=== PATIENT | female | born 1960 | race Caucasian/White ===

== ENCOUNTER 2016-03-27 19:43 | Inpatient (IN) | payer OTHER ==
[~2016-03-27] VITALS: Ht 157.5 cm; Wt 91.0 kg
[~2016-03-27 19:43] MED LIST: ASPI325T4 PO; ATOR20TA38 PO; CARV3.12 PO; FURO20TA PO; LISI40TA9 PO; MTF1000T PO; OLAN5TAB5 PO; POTA8CAP PO; SERT50TA6 PO; ULT50 PO
[2016-03-27 19:45] VITALS: Ht 157.5 cm; Wt 91.0 kg
--- NOTE | 2016-03-27 20:45 | ERD ---
ER Documentation Chief Complaint Date/Time DATE: 03/27/16 TIME: 20:42 Chief Complaint cough x 8 days HPI 55-year-old female presents here in emergency department for complaints of cough for 8 days. Patient has been having dry cough, does not cough up any phlegm or blood. Patient has history of congestive heart failure. Patient denies any fever or chills. Patient does have any shortness breath or wheezing. Patient does not have any sore throat or ear pain. Patient denies any fever or chills. Patient denies any sick contacts. Patient did not take any medications of symptoms. ROS All systems reviewed and are negative except as per history of present illness. Medications Home Meds Active Scripts Azithromycin* (Zithromax*) 250 Mg Tablet, 250 MG PO .ZPACK DIRECTED, #6 TAB TAKE 500 MG (2 TABS) THE FIRST DAY THEN 250 MG (1 TAB) DAYS 2-5 Prov:WILLIE GABRIEL NP 03/27/16 Cetirizine Hcl* (Zyrtec*) 10 Mg Capsule, 10 MG PO DAILY, #30 TAB.CHEW Prov:WILLIE GABRIEL NP 03/27/16 Albuterol Sulfate* (Proair HFA*) 8.5 Gm Hfa.aer.ad, 2 PUFF INH Q4H Y for WHEEZING AND SOB, #1 INHALER Prov:WILLIE GABRIEL NP 03/27/16 Guaifenesin-Codeine Phosphate* (Guaifenesin* AC Cough Syrup) 473 Ml Liquid, 10 ML PO Q4H Y for COUGH, #120 ML Prov:WILLIE GABRIEL NP 03/27/16 Ibuprofen* (Motrin*) 400 Mg Tab, 400 MG PO Q6H Y for PAIN AND OR ELEVATED TEMP, #30 TAB Prov:WILLIE GABRIEL NP 03/27/16 Lisinopril* (Lisinopril*) 40 Mg Tablet, 20 MG PO DAILY, #30 TAB Prov:MAURIZIO SANCHEZ MD 11/27/15 Furosemide* (Lasix*) 20 Mg Tablet, 40 MG PO BID, #60 TAB Prov:MAURIZIO SANCHEZ MD 11/27/15 Aspirin* (Aspirin*) 325 Mg Tablet, 81 MG PO DAILY for 30 Days, TAB 3 Refills Prov:MAURIZIO SANCHEZ MD 11/27/15 Tramadol HCl (Tramadol HCl) 50 Mg Tablet, 50 MG PO Q6, #20 TAB Prov:TREY OATES DO 10/08/15 Metformin* (Glucophage*) 1,000 Mg Tablet, 1000 MG PO BID, #60 TAB Prov:JUANRUIZAIDEENORY DO 10/08/15 Olanzapine* (Zyprexa*) 5 Mg Tablet, 5 MG PO DAILY, #30 TAB Prov:JUANKOSTAOtisAIDEENORY DO 10/08/15 Carvedilol* (Coreg*) 3.125 Mg Tablet, 3.125 MG PO BID, #60 TAB Prov:ИВАНAIDEENORY DO 10/08/15 Atorvastatin Calcium* (Atorvastatin Calcium*) 20 Mg Tablet, 20 MG PO QHS, #30 TAB Prov:MIO JACOBS V. SOLICITOR PATENT 05/24/15 Reported Medications Sertraline Hcl* (Sertraline Hcl*) 50 Mg Tablet, 50 MG PO DAILY HS, #30 TAB 11/24/15 Potassium Chloride* (Potassium Chloride*) 8 Meq Capsule.er, 8 MEQ PO DAILY, CAP 11/24/15 Allergies Allergies: Coded Allergies: No Known Allergy (Unverified , 11/24/15) PMhx/Soc History of Surgery: No Anesthesia Reaction: No Hx Neurological Disorder: No Hx Respiratory Disorders: No Hx Cardiac Disorders: Yes (HTN, CHF, CARDIOMYOPATHY) Hx Psychiatric Problems: Yes (DEPRESSION) Hx Miscellaneous Medical Probl: No Hx Alcohol Use: No Hx Substance Use: No Hx Tobacco Use: No FmHx Family History: diabetes, other (HTN) Physical Exam Vitals Vital Signs Date Time Temp Pulse Resp B/P Pulse Ox O2 Delivery O2 Flow Rate FiO2 03/27/16 22:48 98.0 114 20 98 Room Air 03/27/16 22:00 98.3 110 113/54 98 Room Air 03/27/16 19:45 99.0 117 20 106/71 97 Physical Exam GENERAL: The patient is well developed and appropriate for usual state of health, in no apparent distress. CHEST: Clear to auscultation bilaterally. There are no rales, wheezes or rhonchi. HEART: Regular rate and rhythm. No murmurs, clicks, rubs or gallops. No S3 or S4. ABDOMEN: Soft, nontender and nondistended. Good bowel sounds. No rebound or guarding. No gross peritonitis. No gross organomegaly or masses. No Choi sign or McBurney point tenderness. BACK: No midline or flank tenderness. EXTREMITIES: Equal pulses bilaterally. There is no peripheral clubbing, cyanosis or edema. No focal swelling or erythema. Full range of motion. Grossly neurovascularly intact. NEURO: Alert and oriented. Cranial nerves 2-12 intact. Motor strength in all 4 extremities with 5/5 strength. Sensation grossly intact. Normal speech and gait. SKIN: There is no apparent rash or petechia. The skin is warm and dry. HEMATOLOGIC AND LYMPHATIC: There is no evidence of excessive bruising or lymphedema. No gross cervical, axillary, or inguinal lymphadenopathy. Result Diagram: 03/27/16205403/27/162054 Results 24 hrs Laboratory Tests Test 03/27/16 20:40 03/27/16 20:55 Urine Bilirubin NEGATIVE Urine Clarity CLEAR Urine Color LT. YELLOW Urine Glucose NEGATIVE% Urine Hemoglobin NEGATIVE Urine Ketones NEGATIVE Urine Leukocyte Esterase NEGATIVE Urine Nitrite NEGATIVE Urine Specific [place] 1.010 Urine Total Protein NEGATIVE Urine Urobilinogen 0.2 E.U./dL Urine pH 5.5 Alanine Aminotransferase (ALT/SGPT) 31IU/L Albumin 4.2g/dl Albumin/Globulin Ratio 1.10 Alkaline Phosphatase 131IU/L Anion Gap 20 Aspartate Amino Transf (AST/SGOT) 29IU/L B-Type Natriuretic Peptide 501PG/ML Basophils # 0.110^3/ul Basophils % 0.9% Blood Morphology Comment Blood Urea Nitrogen 19mg/dl Calcium Level 9.5mg/dl Carbon Dioxide Level 27mmol/L Chloride Level 97mmol/L Creatinine 0.55mg/dl Direct Bilirubin 0.00mg/dl Eosinophils # 0.310^3/ul Eosinophils % 2.1% Globulin 3.80g/dl Glucose Level 194mg/dl Hematocrit 36.8% Hemoglobin 12.7g/dl Indirect Bilirubin 0.4mg/dl Lymphocytes # 2.610^3/ul Lymphocytes % 20.6% Mean Corpuscular Hemoglobin 28.3pg Mean Corpuscular Hemoglobin Concent 34.6g/dl Mean Corpuscular Volume 81.7fl Mean Platelet Volume 8.9fl Monocytes # 0.910^3/ul Monocytes % 7.1% Neutrophils # 8.710^3/ul Neutrophils % 69.3% Nucleated Red Blood Cells # 0.010^3/ul Nucleated Red Blood Cells % 0.0/100WBC Platelet Count 60773^3/UL Potassium Level 4.6mmol/L Red Blood Count 4.5010^6/ul Red Cell Distribution Width 13.2% Sodium Level 139mmol/L Total Bilirubin 0.4mg/dl Total Protein 8.0g/dl Troponin I 0.017ng/ml White Blood Count 12.510^3/ul Current Medications Medications (Trade) Dose Ordered Sig/Honey Route PRN Reason Start Time Stop Time Status Last Admin Dose Admin Guaifenesin/ Codeine Phosphate (Robitussin Ac Liquid Cup) 10 ml ONCE ONCE PO 03/27/16 21:30 03/27/16 21:31 DC 03/27/16 22:19 Acetaminophen (Tylenol Tab) 650 mg ONCE ONCE PO 03/27/16 22:00 03/27/16 22:01 DC 03/27/16 22:18 Ibuprofen (Motrin) 400 mg ONCE ONCE PO 03/27/16 23:00 03/27/16 23:01 DC 03/27/16 23:02 Levalbuterol (Xopenex Neb) 1.25 mg ONCE ONCE HHN 03/27/16 23:00 03/27/16 23:01 DC 03/27/16 22:58 PROCEDURE: CR, chest CLINICAL INDICATION: Cough/chest pain. TECHNIQUE: AP chest. COMPARISON: Chest, 11/27/2015. FINDINGS: The heart is enlarged. There is no acute infiltrate in the lungs. No pleural effusion. IMPRESSION: 1. Cardiomegaly. RPTAT: GG .Micheal Ohara MD, MD Date Time Electronically viewed and signed by .Micheal Ohara MD, on 03/27/2016 20:51 EKG was done, read by me and sinus tachycardia at the rate of 115 bpm_, normal axis, there is no ST changes or changes in the EKG that indicates any cardiac emergencies at this time. Patient's EKG was also reviewed by Dr. Haley. Impression: no acute findings on EKG Breathing treatment of Xopenex was given here in emergency department, after treatment, patient's lungs sounds are clear and patient's oxygenation is better. Patient verbalized feeling much better. Procedures/MDM Medical Decision Making: She continues to be tachycardiac continues to feel short of breath, feels really fatigued and dizziness, I spoke to my attending physician, Dr. Hargrove, will take over care, patient will be transferred to ER 1 for further evaluation. Departure Diagnosis: Primary Impression: Cough Condition: Fair WILLIE GABRIEL NP Mar 27, 2016 20:45 Instructions: Patient is advised to take medications as prescribed. Patient is advised to rest. Patient advised to increase fluid intake, do humidifier at home and if possible, do salt water gargles. Patient is advised that if symptoms are worse, shortness of breath, uncontrolled fever, stridor, vomiting, worst signs and symptoms to return to emergency department immediately. Otherwise, patient is advised to follow up with primary doctor in 5-7 days. Departure Diagnosis: Primary Impression: Acute bronchitis Bronchitis organism: unspecified organism Qualified Code: J20.9 - Acute bronchitis, unspecified organism Condition: Stable Patient Instructions: Bronchitis, Antiobiotic Treatment (Adult) Additional Instructions: Patient is advised to take medications as prescribed. Patient is advised to rest. Patient advised to increase fluid intake, do humidifier at home and if possible, do salt water gargles. Patient is advised that if symptoms are worse, shortness of breath, uncontrolled fever, stridor, vomiting, worst signs and symptoms to return to emergency department immediately. Otherwise, patient is advised to follow up with primary doctor in 5-7 days. WILLIE GABRIEL NP Mar 27, 2016 20:45
[2016-03-27 20:50] LABS: ADD UMIC NO; URINE BILIRUBIN (Dip) NEGATIVE (NEGATIVE); URINE BLOOD (Dip) NEGATIVE (NEGATIVE); URINE COLOR LT. YELLOW (YELLOW); URINE GLUCOSE (Dip) NEGATIVE (NEGATIVE); URINE KETONES (Dip) NEGATIVE (NEGATIVE); URINE LEUKOCYTE ESTERASE (Dip) NEGATIVE (NEGATIVE); URINE NITRITE (Dip) NEGATIVE (NEGATIVE); URINE TOTAL PROTEIN (Dip) NEGATIVE (NEGATIVE); URINE UROBILINOGEN (Dip) 0.2 E.U./dL (0.1-1.0)
--- NOTE | 2016-03-27 20:52 | RADRPT ---
PROCEDURE: CR, chest CLINICAL INDICATION: Cough/chest pain. TECHNIQUE: AP chest. COMPARISON: Chest, 11/27/2015. FINDINGS: The heart is enlarged. There is no acute infiltrate in the lungs. No pleural effusion. IMPRESSION: 1. Cardiomegaly. RPTAT: GG .Micheal Ohara MD, Date Time Electronically viewed and signed by .Micheal Ohara MD, on 03/27/2016 20:51 .Y/
[2016-03-27 21:14] LABS: BASOPHIL # 0.1 10^3/ul (0.0-0.1); BASOPHILS % 0.9 % (0.0-2.0); EOSINOPHILS # 0.3 10^3/ul (0.0-0.5); EOSINOPHILS % 2.1 % (0.0-7.0); HEMATOCRIT 36.8 % (37.0-47.0); HEMOGLOBIN 12.7 g/dl (12.0-16.0); LYMPHOCYTES # 2.6 10^3/ul (0.8-2.9); LYMPHOCYTES % 20.6 % (15.0-51.0); MEAN CORPUSCULAR HEMOGLOBIN 28.3 pg (29.0-33.0); MEAN CORPUSCULAR HGB CONC 34.6 g/dl (32.0-37.0); MEAN CORPUSCULAR VOLUME 81.7 fl (82.0-101.0); MEAN PLATELET VOLUME 8.9 fl (7.4-10.4); MONOCYTE # 0.9 10^3/ul (0.3-0.9); MONOCYTES % 7.1 % (0.0-11.0); NEUTROPHIL # 8.7 10^3/ul (1.6-7.5); NEUTROPHILS % 69.3 % (39.0-77.0); PLATELET COUNT 286 10^3/UL (140-440); RED CELL DISTRIBUTION WIDTH 13.2 % (11.5-14.5); UNCORRECTED WBC 12.5 10^3/ul (4.8-10.8); WHITE BLOOD COUNT 12.5 10^3/ul (4.8-10.8)
[2016-03-27 21:17] LABS: CONDITION 1; LH ANALYZER COMMENTS 1
[2016-03-27 21:21] LABS: ALBUMIN 4.2 g/dl (3.3-4.9); POTASSIUM 4.6 mmol/L (3.5-5.1)
[2016-03-27 21:23] LABS: BILIRUBIN,INDIRECT 0.4 mg/dl (0-1.1); BILIRUBIN,TOTAL 0.4 mg/dl (0.2-1.3); CREATININE 0.55 mg/dl (0.44-1.00)
[2016-03-27 21:24] LABS: ALBUMIN/GLOBULIN RATIO 1.1; CALCIUM 9.5 mg/dl (8.4-10.2)
[2016-03-27] MEDS ORDERED: GUAIFENESIN/CODEINE 5ML CUP PO ONE (21:30)
[2016-03-27 21:38] LABS: TROPONIN-I 0.017 ng/ml (0.00-0.12)
[2016-03-27] MEDS ORDERED: ALBU8.5H3 INH (21:56)
[2016-03-27] MEDS ORDERED: IBUP400T22 PO (21:56)
[2016-03-27] MEDS ORDERED: CETI10CA PO (21:56)
[2016-03-27] MEDS ORDERED: GUAI473L22 PO (21:56)
[2016-03-27] MEDS ORDERED: AZIT250T94 PO (21:56)
[2016-03-27] MEDS ORDERED: ACETAMINOPHEN 325 MG TAB PO ONE (22:00)
[2016-03-27] MEDS ORDERED: LEVALBUTEROL (NEB) 1.25 MG/0.5 ML AMP HHN ONE (23:00)
[2016-03-27] MEDS ORDERED: IBUPROFEN 200 MG TAB PO ONE (23:00)
[2016-03-28] VITALS (10 sets, daily range): BP systolic 103–144; BP diastolic 49–73; PULSE 98–117; RESP 15–20; TEMP 98.1
--- NOTE | 2016-03-28 01:11 | EN ---
Date/Time of Note Date/Time of Note DATE: 03/28/16 TIME: 01:11 ER Progress Note Patient will be admitted to panel physician MERY CROWDER Mar 28, 2016 01:11
--- NOTE | 2016-03-28 01:52 | HP ---
Date/Time of Note Date/Time of Note DATE: 03/28/16 TIME: 01:41 Assessment/Plan VTE Prophylaxis VTE Prophylaxis Intervention: LMWH Lines/Catheters IV [facility] Saline Lock Assessment/Plan Assessment/Plan 55 yo female with a past medical history of essential hypertension, CHF with low EF 20-25%, Type II DM, dyslipidemia, who presents with cough and shortness of breath 1 week duration. 1. Shortness of breath - COPD exacerbation - will admit the patient to telemetry , obtain a CT chest, consult pulm, levaquin, sputum cultures, solu-medrol, duonebs scheduled and prn 2. Leukocytosis - continue with levaquin, monitor trend 3. CHF EF 20-30% - monitor I/O's, aspirin, fluid restrictions 4. Type II DM - hgba1c, ISS, metformin 5. Essential HTN - lisinopril, hydralazine prn for sbp > 160 6. Dyslipidemia - check lipid panel, continue with statin 7. Psych d/o - continue with seroquel 8. GI ppx - pepcid 9. DVT ppx - lovenox answered all of her questions. as per clinical course. this history and physical took greater then 45 minutes to complete HPI/ROS Admit Date/Time Admit Date/Time 03/28/2016, 1:41 am Hx of Present Illness 55 yo female with a past medical history of essential hypertension, CHF with low EF 20-25%, Type II DM, dyslipidemia, who presents with cough and shortness of breath 1 week duration. She states the cough is productive with yellowish sputum, fevers, cannot walk more than 10 steps, complains of malaise and fatigue worsening as well. Dizziness while standing. She states that her family members have been fighting a cold for a little while now. Denies any chest pain , loss of consciousness, headaches, urinary/bowel irregularities, nausea/ vomiting/diarrhea/constipation, or other constitutional symptoms. ED course: breathing treatments ECHO 11/25/2015 Conclusions 1. Normal left ventricular wall thickness. Mild enlargement of left ventricle cavity. Severe global left ventricular systolic dysfunction. Ejection fraction is visually estimated at 20-25 %. Tissue Doppler/Mitral Doppler indices are consistent with impaired relaxation (Stage I diastolic dysfunction). These segments of the LV are dyskinetic septum base segment and mid septum segment. 2. Mitral valve leaflets appear mildly thickened. Mild mitral annular calcification. Moderate mitral valve regurgitation. 3. Normal appearance of the tricuspid valve. Estimated peak PA systolic pressure 31 mmHg. There is mild tricuspid regurgitation. 4. Normal pulmonic valve appearance. There is mild pulmonic regurgitation. ROS 14 point review of systems completed, please refer to HPI for any positive findings PMH/Family/Social Past Medical History Medical History: congestive heart failure, diabetes, high cholesterol, hypertension Past Surgical History Past Surgical Hx: no surgical history Family History Significant Family History: no pertinent family hx Social History Alcohol Use: none Smoking Status: Former smoker Drug Use: none Exam/Review of Systems Vital Signs Vitals Vital Signs Date Time Temp Pulse Resp B/P Pulse Ox O2 Delivery O2 Flow Rate FiO2 03/27/16 22:55 107 26 100 21 03/27/16 22:48 98.0 Room Air 03/27/16 22:00 113/54 Exam Exam Gen Jose: moderate respiratory distress, AAOx4 HEENT: NC/AT, PERRLA, EOMI, no pharyngeal erythema, no tonsillar exudates, no lymphadenopathy, no JVD, no carotid bruits NECK: supple, no thyromegaly THORAX: symmetrical, no obvious deformities CV: S1S2, tachycardiac, no M/G/R Lungs: decreased air bibasilar, scattered rhonchi, no overt crackles, end expiratory wheezing noted Abd: soft, NT/ND, +BS, no rebound, no guarding, neg HSM EXT: no edema, no ecchymosis, no clubbing, FROM Neuro: CN II-XII grossly intact, no focal deficits Psych: good mentation, alert and oriented, good mood and affect Skin: C/D/I Labs Result Diagram: 03/27/16205403/27/162054 Medications Medications Current Medications Lorazepam (Ativan) 0.5 mg Q6H PRN IV ANXIETY; Start 03/28/16 at 02:00; Status UNV Ondansetron HCl (Zofran Inj) 4 mg Q6H PRN IV NAUSEA AND/OR VOMITING; Start 02/01 at 02:00; Status UNV Methylprednisolone Sodium Succinate (Solu-Medrol) 60 mg Q6 IV ; Start 03/28/16 at 06:00; Status UNV Nitroglycerin (Nitroglycerin (Sl Tab) 0.4 Mg) 1 tab Q5M PRN SL CHEST PAIN; Start 03/28/16 at 02:00; Status UNV Acetaminophen (Tylenol Tab) 650 mg Q6H PRN PO PAIN LEVEL 1-3 OR FEVER; Start at 02:00; Status UNV Morphine Sulfate (morphine) 2 mg Q4H PRN IV PAIN LEVEL 7-10; Start 03/28/16 at 02:00; Status UNV Famotidine (Pepcid) 20 mg Q12 PO ; Start 03/28/16 at 09:00; Status UNV Enoxaparin Sodium (Lovenox) 40 mg DAILY SC ; Start 03/28/16 at 09:00; Status UNV Procedures Procedures CXR IMPRESSION: 1. Cardiomegaly. DEBRA BENJAMIN MD Mar 28, 2016 01:52
[2016-03-28] MEDS ORDERED: DEXTROSE 50% 50 ML SYRINGE IV PRN ×2 (02:00)
[2016-03-28] MEDS ORDERED: NACL 0.9% 3 ML SYG IV SCH (02:00)
[2016-03-28] MEDS ORDERED: NITROGLYCERIN (SL) 0.4 MG TAB SL PRN (02:00)
[2016-03-28] MEDS ORDERED: ONDANSETRON 4 MG INJ IV PRN (02:00)
[2016-03-28] MEDS ORDERED: GLUCAGON 1 MG INJ IM PRN (02:00)
[2016-03-28] MEDS ORDERED: ACETAMINOPHEN 325 MG TAB PO PRN (02:00)
[2016-03-28] MEDS ORDERED: LORAZEPAM 2 MG INJ IV PRN (02:00)
[2016-03-28] MEDS ORDERED: GLUCOSE GEL 15 GRAM TUBE PO PRN ×2 (02:00)
[2016-03-28] MEDS ORDERED: ALBUTEROL/IPRATROPIUM (NEB) 3 ML AMP HHN PRN (02:00)
[2016-03-28] MEDS ORDERED: morphine 2 MG INJ IV PRN (02:00)
[2016-03-28] MEDS ORDERED: GLUCOSE GEL 15 GRAM TUBE BUCCAL PRN (02:00)
[2016-03-28 03:29] LABS: MAGNESIUM 1.5 mg/dl (1.7-2.5)
[2016-03-28 03:30] LABS: CHOL/HDL RATIO 7.4 RATIO
[2016-03-28 03:39] LABS: CK-MB 0.72 ng/ml (0.0-2.4)
[2016-03-28 03:42] LABS: TROPONIN-I 0.013 ng/ml (0.00-0.12)
[2016-03-28 04:29] LABS: THYROID STIMULATING HORMONE 2.15 MIU/L (0.465-4.680)
[2016-03-28] MEDS: ALBUTEROL/IPRATROPIUM (NEB) 3 ML AMP HHN SCH ×5 (05:12→20:33)
[2016-03-28] MEDS: traMADol 50 MG TAB PO SCH ×4 (05:26→20:55)
[2016-03-28] MEDS: METHYLPREDNISOLONE 125 MG INJ IV SCH ×3 (05:26→18:19)
[2016-03-28] MEDS: FUROSEMIDE 40 MG TAB PO SCH ×2 (05:27→18:25)
[2016-03-28] MEDS ORDERED: MAGNESIUM SULFATE 3 GM in SOD CHLORIDE 0.9% 100 ML IVPB ONE (05:30)
[2016-03-28] MEDS: LEVOFLOXACIN 500 MG TAB PO SCH (05:31)
[2016-03-28 06:21] LABS: BASOPHILS % 0.4 % (0.0-2.0); EOSINOPHILS # 0.3 10^3/ul (0.0-0.5); EOSINOPHILS % 2.4 % (0.0-7.0); HEMATOCRIT 33.9 % (37.0-47.0); HEMOGLOBIN 11.5 g/dl (12.0-16.0); LYMPHOCYTES # 2.9 10^3/ul (0.8-2.9); MEAN CORPUSCULAR HEMOGLOBIN 28.1 pg (29.0-33.0); MEAN CORPUSCULAR VOLUME 82.6 fl (82.0-101.0); MEAN PLATELET VOLUME 8.7 fl (7.4-10.4); MONOCYTE # 0.7 10^3/ul (0.3-0.9); MONOCYTES % 6.8 % (0.0-11.0); NEUTROPHIL # 6.5 10^3/ul (1.6-7.5); NEUTROPHILS % 62.4 % (39.0-77.0); PLATELET COUNT 240 10^3/UL (140-440); RED BLOOD COUNT 4.11 10^6/ul (4.20-5.40); RED CELL DISTRIBUTION WIDTH 13.3 % (11.5-14.5); UNCORRECTED WBC 10.4 10^3/ul (4.8-10.8); WHITE BLOOD COUNT 10.4 10^3/ul (4.8-10.8)
[2016-03-28 06:26] LABS: CONDITION 1
[2016-03-28 06:38] LABS: CK-MB 0.77 ng/ml (0.0-2.4)
[2016-03-28 06:41] LABS: TROPONIN-I 0.013 ng/ml (0.00-0.12)
[2016-03-28 06:50] LABS: ALBUMIN 3.8 g/dl (3.3-4.9)
[2016-03-28 06:51] LABS: POTASSIUM 4.5 mmol/L (3.5-5.1)
[2016-03-28 06:53] LABS: ALBUMIN/GLOBULIN RATIO 1.08; BILIRUBIN,INDIRECT 0.2 mg/dl (0-1.1); BILIRUBIN,TOTAL 0.2 mg/dl (0.2-1.3); CREATININE 0.55 mg/dl (0.44-1.00); TOTAL PROTEIN 7.3 g/dl (6.1-8.1)
[2016-03-28 06:54] LABS: CALCIUM 9.1 mg/dl (8.4-10.2)
[2016-03-28] MEDS: metFORMIN 500 MG TAB PO SCH ×2 (08:00→18:19)
[2016-03-28] MEDS ORDERED: NON-FORMULARY/PATIENT OWN MED (Cetirizine Hcl* (Zyrtec*) 10 MG) PO SCH (09:00)
[2016-03-28] MEDS ORDERED: ASPIRIN 325 MG TAB PO SCH (09:00)
[2016-03-28] MEDS: INSULIN ASPART [NOVOLOG] 3 ML PEN SC SCH ×4 (10:23→20:51)
[2016-03-28] MEDS: LORATADINE 10 MG TAB PO SCH (10:26)
[2016-03-28] MEDS: FAMOTIDINE 20 MG TAB PO SCH ×2 (10:26→20:41)
[2016-03-28] MEDS: POTASSIUM CHLORIDE (SR) 8 MEQ CAP PO SCH (10:26)
[2016-03-28] MEDS: LISINOPRIL 20 MG TAB PO SCH (10:27)
[2016-03-28] MEDS: ENOXAPARIN 40 MG/0.4 ML SYG SC SCH (10:33)
[2016-03-28] MEDS: ASPIRIN 81 MG TAB PO SCH (10:48)
[2016-03-28] MEDS: OLANZAPINE 5 MG TAB PO SCH (10:48)
[2016-03-28] MEDS ORDERED: IODIXANOL LOCM 100 ML BTL ONE (15:00)
[2016-03-28] MEDS ORDERED: SOD CHLORIDE 0.9% 100 ML ONE (15:00)
--- NOTE | 2016-03-28 15:48 | RADRPT ---
PROCEDURE: CT Chest with contrast. CLINICAL INDICATION: Shortness of breath TECHNIQUE: CT scan of the chest with contrast was performed on the [employer] CT scanner. The pat ient was scanned following the uncomplicated intravenous administration of 90 cc of Visipaque 320 in travenous contrast. Coronal and sagittal reformatted images were obtained from the axial source imag es. DLP 585.9 mGycm CTDIvol 15.8 mGy COMPARISON: None. FINDINGS: There is no lung consolidation or pleural effusion or pneumothorax. There is mosaic attenuation of t he lungs present of mild severity with areas of mild basilar ground-glass. Mild bilateral airways wa ll thickening is seen with foci of mucus plugging within the right lower lobe. Aortic and coronary artery atherosclerotic calcifications are present. There is moderate cardiomegal y. There are no enlarged axillary or mediastinal lymph nodes. There is fatty infiltration of the liver. Degenerative changes are seen within the thoracic spine an d shoulders with no acute osseous abnormality. IMPRESSION: Airways wall thickening is seen with foci of right lower lobe mucus plugging that could represent ai rways inflammation or infection. There is associated mosaic attenuation of the lungs suggestive for air trapping. Trace peribronchial ground-glass could represent mild parenchymal inflammation of th e lungs. Atherosclerotic disease is present. There is moderate cardiomegaly. Fatty liver. RPTAT: AA .Tanner Christensen MD, Date Time Electronically viewed and signed by .Tanner Christensen MD, on 03/28/2016 15:48 .J/
[2016-03-28] MEDS ORDERED: INSULIN GLARGINE [LANtus] 3 ML PEN SC ONE (19:00)
[2016-03-28] MEDS: ATORVASTATIN 20 MG TAB PO SCH (20:41)
[2016-03-28] MEDS: SERTRALINE 50 MG TAB PO SCH (20:41)
[2016-03-29] VITALS (12 sets, daily range): BP systolic 98–125; BP diastolic 52–68; PULSE 100–117; RESP 16–22
[2016-03-29] MEDS: traMADol 50 MG TAB PO SCH ×4 (00:01→17:38)
[2016-03-29] MEDS: METHYLPREDNISOLONE 125 MG INJ IV SCH ×4 (00:02→17:39)
[2016-03-29] MEDS: ALBUTEROL/IPRATROPIUM (NEB) 3 ML AMP HHN SCH ×6 (01:28→20:02)
[2016-03-29] MEDS: LEVOFLOXACIN 500 MG TAB PO SCH (05:00)
[2016-03-29] MEDS: FUROSEMIDE 40 MG TAB PO SCH ×2 (05:02→17:37)
[2016-03-29 06:59] LABS: BASOPHILS % 0.2 % (0.0-2.0); HEMOGLOBIN 12.5 g/dl (12.0-16.0); LYMPHOCYTES # 1.4 10^3/ul (0.8-2.9); LYMPHOCYTES % 8.2 % (15.0-51.0); MEAN CORPUSCULAR HEMOGLOBIN 28.1 pg (29.0-33.0); MEAN CORPUSCULAR HGB CONC 33.8 g/dl (32.0-37.0); MEAN CORPUSCULAR VOLUME 83.2 fl (82.0-101.0); MEAN PLATELET VOLUME 8.7 fl (7.4-10.4); MONOCYTE # 0.2 10^3/ul (0.3-0.9); MONOCYTES % 1.3 % (0.0-11.0); NEUTROPHIL # 15.2 10^3/ul (1.6-7.5); NEUTROPHILS % 90.3 % (39.0-77.0); PLATELET COUNT 322 10^3/UL (140-440); RED BLOOD COUNT 4.45 10^6/ul (4.20-5.40); RED CELL DISTRIBUTION WIDTH 13.5 % (11.5-14.5); UNCORRECTED WBC 16.9 10^3/ul (4.8-10.8); WHITE BLOOD COUNT 16.9 10^3/ul (4.8-10.8)
[2016-03-29 07:06] LABS: CONDITION 1; LH ANALYZER COMMENTS 1
[2016-03-29 07:13] LABS: CREATININE 0.59 mg/dl (0.44-1.00)
[2016-03-29 07:14] LABS: CALCIUM 9.9 mg/dl (8.4-10.2)
[2016-03-29] MEDS: metFORMIN 500 MG TAB PO SCH (08:20)
[2016-03-29] MEDS: FAMOTIDINE 20 MG TAB PO SCH ×2 (08:20→21:00)
[2016-03-29] MEDS: ASPIRIN 81 MG TAB PO SCH (08:21)
[2016-03-29] MEDS: POTASSIUM CHLORIDE (SR) 8 MEQ CAP PO SCH (08:21)
[2016-03-29] MEDS: OLANZAPINE 5 MG TAB PO SCH (08:21)
[2016-03-29] MEDS: LORATADINE 10 MG TAB PO SCH (08:21)
[2016-03-29] MEDS: LISINOPRIL 20 MG TAB PO SCH (08:21)
[2016-03-29] MEDS: INSULIN ASPART [NOVOLOG] 3 ML PEN SC SCH ×6 (08:22→21:13)
[2016-03-29] MEDS: ENOXAPARIN 40 MG/0.4 ML SYG SC SCH (08:23)
[2016-03-29] MEDS ORDERED: INSULIN GLARGINE [LANtus] 3 ML PEN SC SCH (09:00)
[2016-03-29] MEDS: LEVOFLOXACIN 750MG/D5W (PMX) 150 ML IVPB SCH (10:04)
--- NOTE | 2016-03-29 11:06 | PN ---
DATE: 03/29/2016 SUBJECTIVE: The patient still complaining of some headache symptoms and shortness of breath symptoms. Denies any fevers or chills. No significant nausea or vomiting. OBJECTIVE VITAL SIGNS: Stable. GENERAL: The patient is lying in bed, answering questions appropriately. No acute distress. HEENT: Pupils equal, round, reactive to light. Extraocular muscles intact. NECK: Supple, no thyromegaly. LUNGS: Slightly decreased breath sounds bilaterally with some mild rhonchi bilaterally. Mild wheezing heard as well. CARDIOVASCULAR: S1, S2 heard. No rubs or gallops. ABDOMEN: Soft, nontender, nondistended. Normal bowel sounds. No rebound or guarding. MUSCULOSKELETAL: No lower extremity edema bilaterally. NEUROLOGIC: No focal deficits. LABORATORY DATA: Basic metabolic panel is essentially normal except the BUN is high at 27 and the glucose is 317. A1c is 8.1. CBC: WBC 16.9, hemoglobin 12.5 , hematocrit 37.0, platelets of 322. IMAGING: CT chest was performed that showed some airway wall thickening seen with foci of right lower lobe mucous plugging could represent inflammation or infection. There is also associated mosaic attenuation in the lungs suggestive of airtrapping. Trace peribronchial ground glass could represent mild parenchymal inflammation of the lungs. ASSESSMENT AND PLAN: A 55-year-old female with past medical history of essential hypertension, CHF, cardiomyopathy with ejection fraction 20% to 25%, type 2 diabetes and high cholesterol, presents with shortness of breath and cough with signs chronic obstructive pulmonary disease exacerbation and upper respiratory infections. 1. Shortness of breath. Again, secondary to chronic obstructive pulmonary disease exacerbation, possible component of upper respiratory infection as well. Continue Levaquin antibiotics, follow up sputum cultures. Continue breathing treatments and Solu-Medrol as well. Monitor breathing status as well. Check labs in the morning. 2. Leukocytosis, possibly secondary to a combination of mild upper respiratory infection and the steroids that are being delivered so continue antibiotics for now, monitor white blood cell count. No signs of any fevers. 3. History of congestive heart failure, ejection fraction 20% to 25%. Continue to monitor for now. Fluid restriction and cardiac medications as well. 4. Type 2 diabetes, uncontrolled. Again, she is on steroids, probably contributing to patient's blood sugars being in the high 200, low 300 range. Appreciate peer educator consultation. We will continue metformin and increase Lantus to 20 units at bedtime. Add aspart 7 units with meals. Monitor fingersticks carefully as well. 5. High cholesterol. Continue statin. 6. Essential hypertension. Blood pressure stable. Continue to monitor for now. 7. History of psychiatric disorder. Continue with Seroquel. 8. Gastrointestinal prophylaxis. H2 karsten. 9. Deep venous thrombosis prophylaxis. Lovenox. Dictated By: NISREEN ORELLANA Conf#: [id number] DID#: [id number] MTDD
[2016-03-29] MEDS: ATORVASTATIN 20 MG TAB PO SCH (21:00)
[2016-03-29] MEDS: SERTRALINE 50 MG TAB PO SCH (21:01)
[2016-03-29] MEDS ORDERED: INSULIN ASPART [NOVOLOG] 3 ML PEN SC ONE (22:30)
[2016-03-30] VITALS (11 sets, daily range): BP systolic 103–126; BP diastolic 57–62; PULSE 91–105; RESP 16–18
[2016-03-30] MEDS: ALBUTEROL/IPRATROPIUM (NEB) 3 ML AMP HHN SCH ×6 (01:06→21:42)
[2016-03-30] MEDS: traMADol 50 MG TAB PO SCH ×4 (01:26→18:00)
[2016-03-30] MEDS: METHYLPREDNISOLONE 125 MG INJ IV SCH ×3 (01:27→12:32)
[2016-03-30] MEDS: FUROSEMIDE 40 MG TAB PO SCH ×2 (06:00→08:43)
[2016-03-30 06:51] LABS: BASOPHILS % 0.1 % (0.0-2.0); HEMATOCRIT 33.7 % (37.0-47.0); HEMOGLOBIN 11.4 g/dl (12.0-16.0); LYMPHOCYTES % 7.1 % (15.0-51.0); MEAN CORPUSCULAR HEMOGLOBIN 28.4 pg (29.0-33.0); MEAN CORPUSCULAR HGB CONC 33.8 g/dl (32.0-37.0); MEAN CORPUSCULAR VOLUME 83.8 fl (82.0-101.0); MEAN PLATELET VOLUME 8.7 fl (7.4-10.4); MONOCYTE # 0.4 10^3/ul (0.3-0.9); MONOCYTES % 2.4 % (0.0-11.0); NEUTROPHIL # 13.2 10^3/ul (1.6-7.5); NEUTROPHILS % 90.4 % (39.0-77.0); PLATELET COUNT 259 10^3/UL (140-440); RED BLOOD COUNT 4.02 10^6/ul (4.20-5.40); RED CELL DISTRIBUTION WIDTH 13.8 % (11.5-14.5); UNCORRECTED WBC 14.6 10^3/ul (4.8-10.8); WHITE BLOOD COUNT 14.6 10^3/ul (4.8-10.8)
[2016-03-30 07:18] LABS: POTASSIUM 4.6 mmol/L (3.5-5.1)
[2016-03-30 07:20] LABS: CREATININE 0.72 mg/dl (0.44-1.00)
[2016-03-30 07:21] LABS: CALCIUM 9.7 mg/dl (8.4-10.2)
[2016-03-30 07:23] LABS: CONDITION 1; LH ANALYZER COMMENTS 1
[2016-03-30] MEDS: INSULIN ASPART [NOVOLOG] 3 ML PEN SC SCH ×7 (08:16→22:13)
[2016-03-30] MEDS: FAMOTIDINE 20 MG TAB PO SCH ×2 (08:43→21:18)
[2016-03-30] MEDS: LORATADINE 10 MG TAB PO SCH (08:43)
[2016-03-30] MEDS: ASPIRIN 81 MG TAB PO SCH (08:43)
[2016-03-30] MEDS: POTASSIUM CHLORIDE (SR) 8 MEQ CAP PO SCH (08:44)
[2016-03-30] MEDS: LISINOPRIL 20 MG TAB PO SCH (08:44)
[2016-03-30] MEDS: OLANZAPINE 5 MG TAB PO SCH (08:44)
[2016-03-30] MEDS: LEVOFLOXACIN 750MG/D5W (PMX) 150 ML IVPB SCH (08:44)
[2016-03-30] MEDS: ENOXAPARIN 40 MG/0.4 ML SYG SC SCH (08:51)
[2016-03-30] MEDS ORDERED: INSULIN GLARGINE [LANtus] 3 ML PEN SC SCH (09:00)
[2016-03-30] MEDS: GUAIFENESIN 20 MG/ML 5ML CUP PO PRN ×2 (10:10→18:46)
--- NOTE | 2016-03-30 14:30 | CONS ---
DATE OF ADMISSION: 03/28/2016 DATE OF CONSULTATION: TYPE OF CONSULTATION: Pulmonary. REFERRING PHYSICIAN: and Dr. Saxena. REASON FOR CONSULTATION: Shortness of breath. HISTORY OF PRESENT ILLNESS: This is a 55-year-old woman with a past medical history of essential hy pertension, congestive heart failure with ejection fraction of 20% to 25%, type 2 diabetes mellitus, dyslipidemia, who came in with complaints of cough and increasing shortness of breath. She was celine ble to walk even 10 steps. According to her, she has cough, which was with yellowish sputum. She d enied having any hemoptysis or high-grade fever. Her initial chest x-ray was negative. Chest x-ray shows findings suggestive of bronchitis, but no definite infiltrate. In any event, cultures were o btained. Patient was started on antibiotics, bronchodilators, steroids. At present, she is sitting in her chair and does not appear in acute distress. Due to language barrier, not much more history could be obtained from the patient. REVIEW OF SYSTEMS: All systems were reviewed. Although limited history due to language barrier, al l systems were negative except as mentioned in the HPI. PAST MEDICAL HISTORY: As mentioned above. ALLERGIES: DENIES. SOCIAL HABITS: Nonsmoker. FAMILY HISTORY: Denies any significant history in the family. PHYSICAL EXAMINATION: VITAL SIGNS: Blood pressure 117/57, pulse 103, respirations 18, temperature 97.5. Currently on 2 l iters O2 nasal cannula, saturating 96%. HEENT: Pupils are equal and react to light. Anicteric sclerae. NECK: Supple, no JVD noted, no cervical adenopathy, no carotid bruits heard. LUNGS: Few scattered rhonchi. There are no wheezes at present. CARDIOVASCULAR: S1, S2 normal. ABDOMEN: Soft, nontender. No organomegaly or masses noted. EXTREMITIES: No clubbing, cyanosis, or edema noted. No discrepancy in size of the calves noted. H omans' sign negative. NEUROLOGIC: No focal deficit. LABORATORIES: Sodium 139, potassium 4.6, chloride 99, CO2 26, BUN 39, creatinine 0.72, glucose 276. WBC 14.6, hemoglobin 11.4, hematocrit 33.7, platelets 259. UA negative. Chest x-ray: No acute i nfiltrate. IMPRESSION: A 55-year-old female with: 1. Acute bronchitis. 2. Likely exacerbation of chronic obstructive pulmonary disease/asthma. 3. History of congestive heart failure with ejection fraction of 20% to 25%. 4. Diabetes mellitus. 5. Hypertension. RECOMMENDATIONS: 1. Check cultures. 2. Antibiotics. 3. Steroids. 4. Bronchodilators. 5. Oxygen. 6. Diuresis p.r.n. 7. GI and DVT prophylaxis. Dictated By: ZARI BRIONES MD, MA/WHITNEY Conf#: [id number] DID#: [id number]
[2016-03-30] MEDS: FUROSEMIDE 40 MG INJ IV SCH (18:47)
--- NOTE | 2016-03-30 18:51 | PN ---
DATE: 03/30/2016 INTERNAL MEDICINE FOLLOWUP NOTE SUBJECTIVE: The Patient Evie still has moderate cough, complains of difficulty clearing secretions . Some shortness of breath on exertion. Also, in addition, her glycemic control has been difficult to manage with blood glucose hovering around the 300 range. PHYSICAL EXAMINATION: VITAL SIGNS: Temperature 98, pulse is 100, blood pressure 113/70, O2 saturation 96% on nasal cannul a. NECK: Supple, no JVD or lymphadenopathy. CARDIAC: S1, S2, no added sounds or murmurs. CHEST: Diminished air entry bilaterally. ABDOMEN: Soft, nontender. No guarding or rebound. EXTREMITIES: No cyanosis, clubbing or edema. NEUROLOGIC: Grossly intact. No focal deficits. LABORATORY DATA: White count 14.6, hemoglobin 11.4, platelets of 259. Chemistry: BUN 39, creatini ne 0.72, glucose was 391 on Accu-Cheks. IMPRESSION AND PLAN: 1. Acute bronchitis. 2. Diabetes, exacerbated by steroids. 3. History of cardiomyopathy, decreased ejection fraction. 4. Leukocytosis, likely secondary to steroids. 5. History of depression on Seroquel. PLAN: 1. Decrease steroids. 2. Add Lasix for possible congestive cardiac failure. 3. Increase both Lantus and NovoLog insulin. 4. Continue psych meds. 5. Encourage ambulation. 6. If the patient is stable tomorrow, consider discharge planning with diabetic education. Dictated By: ALEC WHITE/WHITNEY Conf#: [id number] DID#: [id number]
[2016-03-30] MEDS: SERTRALINE 50 MG TAB PO SCH (21:18)
[2016-03-30] MEDS: ATORVASTATIN 20 MG TAB PO SCH (21:18)
[2016-03-30] MEDS: METHYLPREDNISOLONE 40 MG INJ IV SCH (21:19)
[2016-03-30] MEDS ORDERED: INSULIN ASPART [NOVOLOG] 3 ML PEN SC ONE (22:10)
[2016-03-31] MEDS: ALBUTEROL/IPRATROPIUM (NEB) 3 ML AMP HHN SCH ×6 (01:10→20:48)
[2016-03-31] MEDS: GUAIFENESIN 20 MG/ML 5ML CUP PO PRN ×2 (01:26→22:56)
[2016-03-31] MEDS ORDERED: INSULIN ASPART [NOVOLOG] 3 ML PEN SC ONE ×2 (03:30)
[2016-03-31] MEDS: traMADol 50 MG TAB PO SCH ×4 (06:31→16:55)
[2016-03-31 06:41] LABS: POTASSIUM 4.5 mmol/L (3.5-5.1)
[2016-03-31 06:43] LABS: BASOPHILS % 0.1 % (0.0-2.0); HEMATOCRIT 34.5 % (37.0-47.0); HEMOGLOBIN 11.7 g/dl (12.0-16.0); LYMPHOCYTES # 0.9 10^3/ul (0.8-2.9); LYMPHOCYTES % 8.2 % (15.0-51.0); MEAN CORPUSCULAR HEMOGLOBIN 28.3 pg (29.0-33.0); MEAN CORPUSCULAR VOLUME 83.2 fl (82.0-101.0); MEAN PLATELET VOLUME 9.1 fl (7.4-10.4); MONOCYTE # 0.3 10^3/ul (0.3-0.9); MONOCYTES % 2.9 % (0.0-11.0); NEUTROPHIL # 10.3 10^3/ul (1.6-7.5); NEUTROPHILS % 88.8 % (39.0-77.0); PLATELET COUNT 263 10^3/UL (140-440); RED BLOOD COUNT 4.15 10^6/ul (4.20-5.40); RED CELL DISTRIBUTION WIDTH 13.5 % (11.5-14.5); UNCORRECTED WBC 11.6 10^3/ul (4.8-10.8); WHITE BLOOD COUNT 11.6 10^3/ul (4.8-10.8)
[2016-03-31 06:44] LABS: CREATININE 0.71 mg/dl (0.44-1.00)
[2016-03-31 06:45] LABS: CALCIUM 9.6 mg/dl (8.4-10.2)
[2016-03-31 07:19] LABS: CONDITION 1
[2016-03-31 07:42] VITALS: BP 117/67; RESP 18
[2016-03-31] MEDS: INSULIN ASPART [NOVOLOG] 3 ML PEN SC SCH ×7 (08:02→21:27)
[2016-03-31] MEDS: ENOXAPARIN 40 MG/0.4 ML SYG SC SCH (08:24)
[2016-03-31] MEDS: FUROSEMIDE 40 MG INJ IV SCH (08:26)
[2016-03-31] MEDS: METHYLPREDNISOLONE 40 MG INJ IV SCH ×2 (08:26→21:25)
[2016-03-31] MEDS: ASPIRIN 81 MG TAB PO SCH (08:27)
[2016-03-31] MEDS: OLANZAPINE 5 MG TAB PO SCH (08:27)
[2016-03-31] MEDS: LISINOPRIL 20 MG TAB PO SCH (08:27)
[2016-03-31] MEDS: LORATADINE 10 MG TAB PO SCH (08:27)
[2016-03-31] MEDS: FAMOTIDINE 20 MG TAB PO SCH ×2 (08:27→21:25)
[2016-03-31] MEDS: INSULIN GLARGINE [LANtus] 3 ML PEN SC SCH (09:29)
[2016-03-31] MEDS: POTASSIUM CHLORIDE (SR) 8 MEQ CAP PO SCH (09:33)
[2016-03-31] MEDS: LEVOFLOXACIN 750MG/D5W (PMX) 150 ML IVPB SCH (09:34)
--- NOTE | 2016-03-31 12:30 | PN ---
Date/Time of Note Date/Time of Note DATE: 03/31/16 TIME: 12:24 Assessment/Plan VTE Prophylaxis VTE Prophylaxis Intervention: other Lines/Catheters IV [facility]ter Type (from [facility]): Saline Lock Assessment/Plan Problems: (1) Bronchitis with airway obstruction Status: Acute Comment: In the chart it states that she has chronic obstructive pulmonary disease and that in the summary from the ER that she was on an inhaler. Patient vigorously denies this and the prior discharge summaries and information does not indicate any type of chronic lung disease leading me to think that this may be an errant diagnosis being propagated in the electronic medical record I will treat her with T troponin to decrease the mucus since we know she has got mucus plugging should continue on the antibiotics and the inhaler bruit breathing treatments. The steroids can probably be reduced off to treat her heart failure. Please noted for partially she does have reactive airways disease than the carvedilol should be switched over to metoprolol for the cardioselective preference (2) Mucus plugging of bronchi Status: Acute Comment: Noted continue antibiotic treatment and breathing treatment (3) Hyperlipidemia associated with type 2 diabetes mellitus Status: Chronic Comment: She is on treatment and tolerating (4) Essential hypertension Status: Chronic Comment: This is adequately controlled. Please note that we might be able to push up on the ASHWIN inhibitor given the severity of her systolic dysfunction (5) Obesity (BMI 30-39.9) Status: Chronic Comment: Patient has been counseled (6) Diabetes mellitus type 2 in obese Status: Chronic Comment: Her diabetes is skyhigh due to the usage of the steroids. Alldress the steroids and place her back on some of her medications and try and get this controlled more appropriately (7) Combined systolic and diastolic congestive heart failure, NYHA class 3 Status: Chronic Comment: Noted above on beta blockade and ASHWIN inhibitors and diuretics Subjective 24 Hr Interval Summary Constitutional: no complaints Respiratory: cough, shortness of breath (Denies significant shortness of breath ) Cardiovascular: no complaints Gastrointestinal: no complaints Genitourinary: no complaints Exam/Review of Systems Vital Signs Vitals Vital Signs Date Time Temp Pulse Resp B/P Pulse Ox O2 Delivery O2 Flow Rate FiO2 03/31/16 08:30 Nasal Cannula 2.0 03/31/16 08:01 97 20 97 03/31/16 07:42 99.9 117/67 03/31/16 05:29 21 Intake and Output 1/13/17 1/13/17 1/14/17 14:59 22:59 06:59 Intake Total 1200 ml 150 ml Output Total 1450 ml Balance -250 ml 150 ml Exam Constitutional: alert, oriented Neck: non-tender, supple Respiratory: clear to auscultation, normal air movement Cardiovascular: nl pulses, regular rate and rhythm Gastrointestinal: nl liver, spleen, non-tender, soft Results Result Diagram: 03/31/162 03/31/16 0442 Results 24 hrs Laboratory Tests Test 03/30/16 17:35 03/30/16 22:01 03/31/16 02:02 03/31/16 04:42 Bedside Glucose 391 H 319 H 358 H Anion Gap 20 H Basophils # 0.0 Basophils % 0.1 Blood Morphology Comment Blood Urea Nitrogen 38 H Calcium Level 9.6 Carbon Dioxide Level 28 Chloride Level 96 L Creatinine 0.71 Eosinophils # 0.0 Eosinophils % 0.0 Glucose Level 316 H Hematocrit 34.5 L Hemoglobin 11.7 L Lymphocytes # 0.9 Lymphocytes % 8.2 L Mean Corpuscular Hemoglobin 28.3 L Mean Corpuscular Hemoglobin Concent 34.0 Mean Corpuscular Volume 83.2 Mean Platelet Volume 9.1 Monocytes # 0.3 Monocytes % 2.9 Neutrophils # 10.3 H Neutrophils % 88.8 H Nucleated Red Blood Cells # 0.0 Nucleated Red Blood Cells % 0.0 Platelet Count 263 Potassium Level 4.5 Red Blood Count 4.15 L Red Cell Distribution Width 13.5 Sodium Level 139 White Blood Count 11.6 #H Test 03/31/16 07:59 Bedside Glucose 263 H Medications Medications Current Medications Lorazepam (Ativan) 0.5 mg Q6H PRN IV ANXIETY; Start 03/28/16 at 02:00 Ondansetron HCl (Zofran Inj) 4 mg Q6H PRN IV NAUSEA AND/OR VOMITING; Start 02/01 at 02:00 Nitroglycerin (Nitroglycerin (Sl Tab) 0.4 Mg) 1 tab Q5M PRN SL CHEST PAIN; Start 03/28/16 at 02:00 Acetaminophen (Tylenol Tab) 650 mg Q6H PRN PO PAIN LEVEL 1-3 OR FEVER Last administered on 03/31/16t 09:33; Admin Dose 650 MG; Start 03/28/16 at 02:00 Morphine Sulfate (morphine) 2 mg Q4H PRN IV PAIN LEVEL 7-10 Last administered on 03/29/16 15:32; Admin Dose 2 MG; Start 03/28/16 at 02:00 Famotidine (Pepcid) 20 mg Q12 PO Last administered on 03/31/16 08:27; Admin Dose 20 MG; Start 03/28/16 at 09:00 Enoxaparin Sodium (Lovenox) 40 mg DAILY SC Last administered on 03/31/16 08:24 ; Admin Dose 40 MG; Start 03/28/16 at 09:00 Atorvastatin Calcium (Lipitor) 20 mg QHS PO Last administered on 03/30/16 21: 18; Admin Dose 20 MG; Start 03/28/16 at 21:00 Carvedilol (Coreg) 3.125 mg BID PO Last administered on 03/31/16 08:27; Admin Dose 3.125 MG; Start 03/28/16 at 09:00 Lisinopril (Zestril) 20 mg DAILY PO Last administered on 03/31/16 08:27; Admin Dose 20 MG; Start 03/28/16 at 09:00 Olanzapine (Zyprexa) 5 mg DAILY PO Last administered on 03/31/16 08:27; Admin Dose 5 MG; Start 03/28/16 at 09:00 Potassium Chloride (Micro-K) 8 meq DAILY PO Last administered on 03/31/16 09: 33; Admin Dose 8 MEQ; Start 03/28/16 at 09:00 Sertraline HCl (Zoloft) 50 mg QHS PO Last administered on 03/30/16 21:18; Admin Dose 50 MG; Start 03/28/16 at 21:00 Tramadol HCl (Ultram) 50 mg Q6 PO Last administered on 03/31/16 06:31; Admin Dose 50 MG; Start 03/28/16 at 06:00 Miscellaneous Information 1 ea NOTE XX ; Start 03/28/16 at 02:00 Glucose (Glutose) 15 gm Q15M PRN PO DECREASED GLUCOSE; Start 03/28/16 at 02:00 Glucose (Glutose) 22.5 gm Q15M PRN PO DECREASED GLUCOSE; Start 03/28/16 at 02: 00 Dextrose (D50w Syringe) 25 ml Q15M PRN IV DECREASED GLUCOSE; Start 03/28/16 at 02:00 Dextrose (D50w Syringe) 50 ml Q15M PRN IV DECREASED GLUCOSE; Start 03/28/16 at 02:00 Glucagon (Glucagen) 1 mg Q15M PRN IM DECREASED GLUCOSE; Start 03/28/16 at 02:00 Glucose (Glutose) 15 gm Q15M PRN BUCCAL DECREASED GLUCOSE; Start 03/28/16 at 02 :00 Loratadine (Claritin) 10 mg DAILY PO Last administered on 03/31/16 08:27; Admin Dose 10 MG; Start 03/28/16 at 09:00 Aspirin 81 mg 81 mg DAILY PO Last administered on 03/31/16 08:27; Admin Dose 81 MG; Start 03/28/16 at 10:30 Levofloxacin/ Dextrose (Levaquin 750 Mg/ D5W 150 ml (Pmx)) 150 ml @ 100 mls/hr Q24H IVPB Last administered on 03/31/16 09:34; Admin Dose 100 MLS/HR; Start at 09:30 Guaifenesin (Robitussin Liquid Cup) 200 mg Q6H PRN PO For Cough Last administered on 03/31/16 01:26; Admin Dose 200 MG; Start 03/30/16 at 10:00 Insulin Glargine (Lantus) 24 unit DAILY SC Last administered on 03/31/16 09:29 ; Admin Dose 24 UNIT; Start 03/31/16 at 09:00 Methylprednisolone Sodium Succinate (Solu-Medrol) 40 mg Q12 IV Last administered on 03/31/16 08:26; Admin Dose 40 MG; Start 03/30/16 at 21:00 Furosemide (Lasix) 40 mg DAILY IV Last administered on 03/31/16 08:26; Admin Dose 40 MG; Start 03/30/16 at 18:30 YVONNE JEFFERY MD Mar 31, 2016 12:29
[2016-03-31] MEDS: metFORMIN 500 MG TAB PO SCH ×2 (13:04→17:57)
[2016-03-31] MEDS ORDERED: MAGNESIUM CITRATE 300 ML BTL PO ONE (14:30)
--- NOTE | 2016-03-31 14:32 | CONS ---
Date/Time of Note Date/Time of Note DATE: 03/31/16 TIME: 14:31 Consult Date/Type/Reason Admit Date/Time Mar 28, 2016 at 01:01 Initial Consult Date Type of Consultation: Pulm Subjective Comfortable Objective Vital Signs Date Time Temp Pulse Resp B/P Pulse Ox O2 Delivery O2 Flow Rate FiO2 03/31/16 13:14 91 24 98 Nasal Cannula 1.0 03/31/16 07:42 99.9 117/67 03/31/16 05:29 21 Intake and Output 03/30/16 03/30/16 03/31/16 15:00 23:00 07:00 Intake Total 1200 ml 150 ml Output Total 1450 ml Balance -250 ml 150 ml PHYSICAL EXAMINATION: VITAL SIGNS: NECK: Supple, no JVD or lymphadenopathy. CARDIAC: S1, S2, no added sounds or murmurs. CHEST: Diminished air entry bilaterally. ABDOMEN: Soft, nontender. No guarding or rebound. EXTREMITIES: No cyanosis, clubbing or edema. NEUROLOGIC: Grossly intact. No focal deficits. Results/Medications Result Diagram: 03/31/162 03/31/16 0442 Results 24 hrs Laboratory Tests Test 03/30/16 17:35 03/30/16 22:01 03/31/16 02:02 03/31/16 04:42 Bedside Glucose 391 H 319 H 358 H Anion Gap 20 H Basophils # 0.0 Basophils % 0.1 Blood Morphology Comment Blood Urea Nitrogen 38 H Calcium Level 9.6 Carbon Dioxide Level 28 Chloride Level 96 L Creatinine 0.71 Eosinophils # 0.0 Eosinophils % 0.0 Glucose Level 316 H Hematocrit 34.5 L Hemoglobin 11.7 L Lymphocytes # 0.9 Lymphocytes % 8.2 L Mean Corpuscular Hemoglobin 28.3 L Mean Corpuscular Hemoglobin Concent 34.0 Mean Corpuscular Volume 83.2 Mean Platelet Volume 9.1 Monocytes # 0.3 Monocytes % 2.9 Neutrophils # 10.3 H Neutrophils % 88.8 H Nucleated Red Blood Cells # 0.0 Nucleated Red Blood Cells % 0.0 Platelet Count 263 Potassium Level 4.5 Red Blood Count 4.15 L Red Cell Distribution Width 13.5 Sodium Level 139 White Blood Count 11.6 #H Test 03/31/16 07:59 03/31/16 12:09 Bedside Glucose 263 H 354 H Medications Current Medications Lorazepam (Ativan) 0.5 mg Q6H PRN IV ANXIETY; Start 03/28/16 at 02:00 Ondansetron HCl (Zofran Inj) 4 mg Q6H PRN IV NAUSEA AND/OR VOMITING; Start 02/01 at 02:00 Nitroglycerin (Nitroglycerin (Sl Tab) 0.4 Mg) 1 tab Q5M PRN SL CHEST PAIN; Start 03/28/16 at 02:00 Acetaminophen (Tylenol Tab) 650 mg Q6H PRN PO PAIN LEVEL 1-3 OR FEVER Last administered on 03/31/16 09:33; Admin Dose 650 MG; Start 03/28/16 at 02:00 Morphine Sulfate (morphine) 2 mg Q4H PRN IV PAIN LEVEL 7-10 Last administered on 03/29/16 15:32; Admin Dose 2 MG; Start 03/28/16 at 02:00 Famotidine (Pepcid) 20 mg Q12 PO Last administered on 03/31/16 08:27; Admin Dose 20 MG; Start 03/28/16 at 09:00 Enoxaparin Sodium (Lovenox) 40 mg DAILY SC Last administered on 03/31/16 08:24 ; Admin Dose 40 MG; Start 03/28/16 at 09:00 Atorvastatin Calcium (Lipitor) 20 mg QHS PO Last administered on 03/30/16 21: 18; Admin Dose 20 MG; Start 03/28/16 at 21:00 Lisinopril (Zestril) 20 mg DAILY PO Last administered on 03/31/16 08:27; Admin Dose 20 MG; Start 03/28/16 at 09:00 Olanzapine (Zyprexa) 5 mg DAILY PO Last administered on 03/31/16 08:27; Admin Dose 5 MG; Start 03/28/16 at 09:00 Potassium Chloride (Micro-K) 8 meq DAILY PO Last administered on 03/31/16 09: 33; Admin Dose 8 MEQ; Start 03/28/16 at 09:00 Sertraline HCl (Zoloft) 50 mg QHS PO Last administered on 03/30/16 21:18; Admin Dose 50 MG; Start 03/28/16 at 21:00 Tramadol HCl (Ultram) 50 mg Q6 PO Last administered on 03/31/16 06:31; Admin Dose 50 MG; Start 03/28/16 at 06:00 Miscellaneous Information 1 ea NOTE XX ; Start 03/28/16 at 02:00 Glucose (Glutose) 15 gm Q15M PRN PO DECREASED GLUCOSE; Start 03/28/16 at 02:00 Glucose (Glutose) 22.5 gm Q15M PRN PO DECREASED GLUCOSE; Start 03/28/16 at 02: 00 Dextrose (D50w Syringe) 25 ml Q15M PRN IV DECREASED GLUCOSE; Start 03/28/16 at 02:00 Dextrose (D50w Syringe) 50 ml Q15M PRN IV DECREASED GLUCOSE; Start 03/28/16 at 02:00 Glucagon (Glucagen) 1 mg Q15M PRN IM DECREASED GLUCOSE; Start 03/28/16 at 02:00 Glucose (Glutose) 15 gm Q15M PRN BUCCAL DECREASED GLUCOSE; Start 03/28/16 at 02 :00 Loratadine (Claritin) 10 mg DAILY PO Last administered on 03/31/16 08:27; Admin Dose 10 MG; Start 03/28/16 at 09:00 Aspirin 81 mg 81 mg DAILY PO Last administered on 03/31/16 08:27; Admin Dose 81 MG; Start 03/28/16 at 10:30 Levofloxacin/ Dextrose (Levaquin 750 Mg/ D5W 150 ml (Pmx)) 150 ml @ 100 mls/hr Q24H IVPB Last administered on 03/31/16 09:34; Admin Dose 100 MLS/HR; Start at 09:30 Guaifenesin (Robitussin Liquid Cup) 200 mg Q6H PRN PO For Cough Last administered on 03/31/16 01:26; Admin Dose 200 MG; Start 03/30/16 at 10:00 Insulin Glargine (Lantus) 24 unit DAILY SC Last administered on 03/31/16 09:29 ; Admin Dose 24 UNIT; Start 03/31/16 at 09:00 Furosemide (Lasix) 40 mg DAILY IV Last administered on 03/31/16 08:26; Admin Dose 40 MG; Start 03/30/16 at 18:30 Methylprednisolone Sodium Succinate (Solu-Medrol) 20 mg Q12 IV ; Start 03/31/16 at 21:00 Metoprolol Succinate (Toprol Xl) 25 mg BID PO ; Start 03/31/16 at 21:00 Tiotropium [place] (Spiriva) 1 inh DAILY INH ; Start 03/31/16 at 12:30 Magnesium Citrate (Citroma) 300 ml ONCE ONCE PO ; Start 03/31/16 at 14:30; Stop 03/31/16 at 14:31 Assessment/Plan Chief Complaint/Hosp Course IMPRESSION AND PLAN: 1. Acute bronchitis. 2. Diabetes, exacerbated by steroids. 3. History of cardiomyopathy, decreased ejection fraction. 4. Leukocytosis, likely secondary to steroids. 5. History of depression on Seroquel. PLAN: 1. Decrease steroids. 2. Add Lasix for possible congestive cardiac failure. 3. Increase both Lantus and NovoLog insulin. 4. Continue psych meds. 5. Encourage ambulation. discharge planning ok from pulm standpoint Problems: ALEC BERNAL MD, [facility] Mar 31, 2016 14:32
[2016-03-31] MEDS: TIOTROPIUM 18 MCG CAPSULE INHA DEV INH SCH (16:44)
[2016-03-31 19:27] VITALS: BP 107/53; RESP 16
[2016-03-31] MEDS: ATORVASTATIN 20 MG TAB PO SCH (21:25)
[2016-03-31] MEDS: SERTRALINE 50 MG TAB PO SCH (21:26)
[2016-03-31] MEDS: METOPROLOL (XL) 25 MG TAB PO SCH (21:26)
[2016-04-01] MEDS: ALBUTEROL/IPRATROPIUM (NEB) 3 ML AMP HHN SCH ×6 (00:58→20:11)
[2016-04-01] MEDS: traMADol 50 MG TAB PO SCH ×6 (06:00→23:17)
[2016-04-01 06:16] LABS: HEMATOCRIT 36.8 % (37.0-47.0); HEMOGLOBIN 12.6 g/dl (12.0-16.0); LYMPHOCYTES # 1.3 10^3/ul (0.8-2.9); LYMPHOCYTES % 11.9 % (15.0-51.0); MEAN CORPUSCULAR HEMOGLOBIN 28.3 pg (29.0-33.0); MEAN CORPUSCULAR HGB CONC 34.1 g/dl (32.0-37.0); MEAN CORPUSCULAR VOLUME 83.1 fl (82.0-101.0); MEAN PLATELET VOLUME 8.6 fl (7.4-10.4); MONOCYTE # 0.6 10^3/ul (0.3-0.9); MONOCYTES % 5.5 % (0.0-11.0); NEUTROPHIL # 8.9 10^3/ul (1.6-7.5); NEUTROPHILS % 82.6 % (39.0-77.0); PLATELET COUNT 302 10^3/UL (140-440); RED BLOOD COUNT 4.43 10^6/ul (4.20-5.40); RED CELL DISTRIBUTION WIDTH 13.5 % (11.5-14.5); UNCORRECTED WBC 10.8 10^3/ul (4.8-10.8); WHITE BLOOD COUNT 10.8 10^3/ul (4.8-10.8)
[2016-04-01 06:24] LABS: POTASSIUM 4.7 mmol/L (3.5-5.1)
[2016-04-01 06:26] LABS: CREATININE 0.67 mg/dl (0.44-1.00)
[2016-04-01 06:27] LABS: CALCIUM 9.6 mg/dl (8.4-10.2)
[2016-04-01 07:01] LABS: CONDITION 1
[2016-04-01 07:26] VITALS: BP 99/51; RESP 16
[2016-04-01] MEDS: GUAIFENESIN 20 MG/ML 5ML CUP PO PRN (09:23)
[2016-04-01] MEDS: TIOTROPIUM 18 MCG CAPSULE INHA DEV INH SCH (09:23)
[2016-04-01] MEDS: OLANZAPINE 5 MG TAB PO SCH (09:23)
[2016-04-01] MEDS: FAMOTIDINE 20 MG TAB PO SCH ×2 (09:23→20:29)
[2016-04-01] MEDS: LORATADINE 10 MG TAB PO SCH (09:23)
[2016-04-01] MEDS: metFORMIN 500 MG TAB PO SCH ×2 (09:23→18:33)
[2016-04-01] MEDS: INSULIN ASPART [NOVOLOG] 3 ML PEN SC SCH ×7 (09:28→20:38)
--- NOTE | 2016-04-01 09:29 | PN ---
Date/Time of Note Date/Time of Note DATE: 04/01/16 TIME: 09:26 Assessment/Plan VTE Prophylaxis VTE Prophylaxis Intervention: other Lines/Catheters [facility] Saline Lock Urinary Cath still in place: No Assessment/Plan Problems: (1) Diabetes mellitus type 2 in obese Status: Chronic Comment: With a decrease in the steroids and the adjustment in the insulin her sugars are much better. She is not quite at the point of stability for discharge for other reasons however this is coming along nicely (2) Obesity (BMI 30-39.9) Status: Chronic Comment: Re-counseled (3) Essential hypertension Status: Chronic Comment: She has been on ASHWIN inhibitor and turns out she has had a cough for a long time. I am going to replace her lisinopril with losartan to achieve the same benefits but without the risk that the drug is causing the cough (4) Hyperlipidemia associated with type 2 diabetes mellitus Status: Chronic Comment: She is on treatment. (5) Bronchitis with airway obstruction Status: Acute Comment: Symptomatically she is improving for her breathing (6) Mucus plugging of bronchi Status: Acute Comment: Stable and improving (7) Combined systolic and diastolic congestive heart failure, NYHA class 3 Status: Chronic Comment: Continue with cardioselective beta blockade and H2 receptor karsten therapy Subjective 24 Hr Interval Summary Free Text/Dictation Patient complains of excessive cough however on taking the history she has been on lisinopril for 3 years and has had the cough for very long period of time which is just worse at this time Constitutional: no complaints Respiratory: no complaints (Reports breathing is improved) Cardiovascular: no complaints Gastrointestinal: no complaints Genitourinary: no complaints Exam/Review of Systems Vital Signs Vitals Vital Signs Date Time Temp Pulse Resp B/P Pulse Ox O2 Delivery O2 Flow Rate FiO2 04/01/16 07:50 Nasal Cannula 2.0 04/01/16 07:26 97.9 66 16 99/51 96 04/01/16 06:12 21 Intake and Output 03/31/16 03/31/16 04/01/16 14:59 22:59 06:59 Intake Total 150 ml 1620 ml 640 ml Balance 150 ml 1620 ml 640 ml Exam Constitutional: alert, oriented Neck: non-tender, supple Respiratory: clear to auscultation, normal air movement Cardiovascular: nl pulses, regular rate and rhythm Results Result Diagram: 04/01/16 0508 04/01/16 0508 Results 24 hrs Laboratory Tests Test 03/31/16 12:09 03/31/16 16:51 03/31/16 21:18 04/01/16 01:38 Bedside Glucose 354 H 125 201 212 Test 04/01/16 05:08 04/01/16 08:14 Anion Gap 17 H Basophils # 0.0 Basophils % 0.0 Blood Morphology Comment Blood Urea Nitrogen 39 H Calcium Level 9.6 Carbon Dioxide Level 32 H Chloride Level 96 L Creatinine 0.67 Eosinophils # 0.0 Eosinophils % 0.0 Glucose Level 231 H Hematocrit 36.8 L Hemoglobin 12.6 Lymphocytes # 1.3 Lymphocytes % 11.9 L Mean Corpuscular Hemoglobin 28.3 L Mean Corpuscular Hemoglobin Concent 34.1 Mean Corpuscular Volume 83.1 Mean Platelet Volume 8.6 Monocytes # 0.6 Monocytes % 5.5 Neutrophils # 8.9 H Neutrophils % 82.6 H Nucleated Red Blood Cells # 0.0 Nucleated Red Blood Cells % 0.0 Platelet Count 302 Potassium Level 4.7 Red Blood Count 4.43 Red Cell Distribution Width 13.5 Sodium Level 140 White Blood Count 10.8 Bedside Glucose 193 Medications Medications Current Medications Lorazepam (Ativan) 0.5 mg Q6H PRN IV ANXIETY; Start 03/28/16 at 02:00 Ondansetron HCl (Zofran Inj) 4 mg Q6H PRN IV NAUSEA AND/OR VOMITING; Start 02/01 at 02:00 Nitroglycerin (Nitroglycerin (Sl Tab) 0.4 Mg) 1 tab Q5M PRN SL CHEST PAIN; Start 03/28/16 at 02:00 Acetaminophen (Tylenol Tab) 650 mg Q6H PRN PO PAIN LEVEL 1-3 OR FEVER Last administered on 03/31/16 09:33; Admin Dose 650 MG; Start 03/28/16 at 02:00 Morphine Sulfate (morphine) 2 mg Q4H PRN IV PAIN LEVEL 7-10 Last administered on 03/29/16 15:32; Admin Dose 2 MG; Start 03/28/16 at 02:00 Famotidine (Pepcid) 20 mg Q12 PO Last administered on 04/01/16 09:23; Admin Dose 20 MG; Start 03/28/16 at 09:00 Enoxaparin Sodium (Lovenox) 40 mg DAILY SC Last administered on 03/31/16 08:24 ; Admin Dose 40 MG; Start 03/28/16 at 09:00 Atorvastatin Calcium (Lipitor) 20 mg QHS PO Last administered on 03/31/16 21: 25; Admin Dose 20 MG; Start 03/28/16 at 21:00 Lisinopril (Zestril) 20 mg DAILY PO Last administered on 03/31/16 08:27; Admin Dose 20 MG; Start 03/28/16 at 09:00 Olanzapine (Zyprexa) 5 mg DAILY PO Last administered on 04/01/16 09:23; Admin Dose 5 MG; Start 03/28/16 at 09:00 Potassium Chloride (Micro-K) 8 meq DAILY PO Last administered on 03/31/16 09: 33; Admin Dose 8 MEQ; Start 03/28/16 at 09:00 Sertraline HCl (Zoloft) 50 mg QHS PO Last administered on 03/31/16 21:26; Admin Dose 50 MG; Start 03/28/16 at 21:00 Tramadol HCl (Ultram) 50 mg Q6 PO Last administered on 03/31/16 06:31; Admin Dose 50 MG; Start 03/28/16 at 06:00 Miscellaneous Information 1 ea NOTE XX ; Start 03/28/16 at 02:00 Glucose (Glutose) 15 gm Q15M PRN PO DECREASED GLUCOSE; Start 03/28/16 at 02:00 Glucose (Glutose) 22.5 gm Q15M PRN PO DECREASED GLUCOSE; Start 03/28/16 at 02: 00 Dextrose (D50w Syringe) 25 ml Q15M PRN IV DECREASED GLUCOSE; Start 03/28/16 at 02:00 Dextrose (D50w Syringe) 50 ml Q15M PRN IV DECREASED GLUCOSE; Start 03/28/16 at 02:00 Glucagon (Glucagen) 1 mg Q15M PRN IM DECREASED GLUCOSE; Start 03/28/16 at 02:00 Glucose (Glutose) 15 gm Q15M PRN BUCCAL DECREASED GLUCOSE; Start 03/28/16 at 02 :00 Loratadine (Claritin) 10 mg DAILY PO Last administered on 04/01/16 09:23; Admin Dose 10 MG; Start 03/28/16 at 09:00 Aspirin 81 mg 81 mg DAILY PO Last administered on 03/31/16 08:27; Admin Dose 81 MG; Start 03/28/16 at 10:30 Levofloxacin/ Dextrose (Levaquin 750 Mg/ D5W 150 ml (Pmx)) 150 ml @ 100 mls/hr Q24H IVPB Last administered on 03/31/16 09:34; Admin Dose 100 MLS/HR; Start at 09:30 Guaifenesin (Robitussin Liquid Cup) 200 mg Q6H PRN PO For Cough Last administered on 04/01/16 09:23; Admin Dose 200 MG; Start 03/30/16 at 10:00 Insulin Glargine (Lantus) 24 unit DAILY SC Last administered on 03/31/16 09:29 ; Admin Dose 24 UNIT; Start 03/31/16 at 09:00 Furosemide (Lasix) 40 mg DAILY IV Last administered on 03/31/16 08:26; Admin Dose 40 MG; Start 03/30/16 at 18:30 Methylprednisolone Sodium Succinate (Solu-Medrol) 20 mg Q12 IV Last administered on 03/31/16 21:25; Admin Dose 20 MG; Start 03/31/16 at 21:00 Metoprolol Succinate (Toprol Xl) 25 mg BID PO Last administered on 03/31/16 21 :26; Admin Dose 25 MG; Start 03/31/16 at 21:00 Tiotropium [place] (Spiriva) 1 inh DAILY INH Last administered on 04/01/16 09: 23; Admin Dose 1 INH; Start 03/31/16 at 12:30 YVONNE JEFFERY MD Apr 01, 2016 09:28
[2016-04-01] MEDS ORDERED: AZITHROMYCIN 250 MG TAB PO ONE (09:30)
[2016-04-01] MEDS: INSULIN GLARGINE [LANtus] 3 ML PEN SC SCH (09:30)
[2016-04-01] MEDS ORDERED: PROMETHAZINE/CODEINE 5ML CUP PO ONE (09:30)
[2016-04-01] MEDS: ENOXAPARIN 40 MG/0.4 ML SYG SC SCH (09:31)
[2016-04-01] MEDS: LEVOFLOXACIN 750MG/D5W (PMX) 150 ML IVPB SCH (09:32)
[2016-04-01] MEDS: ASPIRIN 81 MG TAB PO SCH (09:33)
[2016-04-01] MEDS: METHYLPREDNISOLONE 40 MG INJ IV SCH ×2 (09:33→20:29)
[2016-04-01] MEDS: POTASSIUM CHLORIDE (SR) 8 MEQ CAP PO SCH (09:34)
[2016-04-01] MEDS: FUROSEMIDE 40 MG INJ IV SCH (09:46)
[2016-04-01] MEDS: METOPROLOL (XL) 25 MG TAB PO SCH ×2 (09:46→20:30)
[2016-04-01] MEDS: LOSARTAN 50 MG TAB PO SCH (11:10)
[2016-04-01 11:11] VITALS: BP 114/59; PULSE 83; RESP 18
[2016-04-01] MEDS: PROMETHAZINE/CODEINE 5ML CUP PO PRN ×2 (15:00→23:18)
[2016-04-01 20:22] VITALS: BP 110/58; RESP 20
[2016-04-01] MEDS: ATORVASTATIN 20 MG TAB PO SCH (20:29)
[2016-04-01] MEDS: SERTRALINE 50 MG TAB PO SCH (20:29)
[2016-04-02] MEDS: ALBUTEROL/IPRATROPIUM (NEB) 3 ML AMP HHN SCH ×6 (00:47→20:20)
[2016-04-02] MEDS: GUAIFENESIN 20 MG/ML 5ML CUP PO PRN (01:52)
[2016-04-02] MEDS: traMADol 50 MG TAB PO SCH ×3 (05:27→18:13)
[2016-04-02] MEDS: PROMETHAZINE/CODEINE 5ML CUP PO PRN ×2 (05:28→12:09)
[2016-04-02 06:08] LABS: BASOPHILS % 0.1 % (0.0-2.0); HEMATOCRIT 35.8 % (37.0-47.0); HEMOGLOBIN 12.2 g/dl (12.0-16.0); LYMPHOCYTES # 1.6 10^3/ul (0.8-2.9); MEAN CORPUSCULAR HEMOGLOBIN 28.5 pg (29.0-33.0); MEAN CORPUSCULAR HGB CONC 34.2 g/dl (32.0-37.0); MEAN CORPUSCULAR VOLUME 83.4 fl (82.0-101.0); MEAN PLATELET VOLUME 8.8 fl (7.4-10.4); MONOCYTE # 0.5 10^3/ul (0.3-0.9); MONOCYTES % 5.4 % (0.0-11.0); NEUTROPHIL # 7.9 10^3/ul (1.6-7.5); NEUTROPHILS % 78.5 % (39.0-77.0); PLATELET COUNT 293 10^3/UL (140-440); RED BLOOD COUNT 4.29 10^6/ul (4.20-5.40); RED CELL DISTRIBUTION WIDTH 13.2 % (11.5-14.5); UNCORRECTED WBC 10.1 10^3/ul (4.8-10.8); WHITE BLOOD COUNT 10.1 10^3/ul (4.8-10.8)
[2016-04-02 06:18] LABS: CONDITION 1
[2016-04-02 06:38] LABS: POTASSIUM 5.4 mmol/L (3.5-5.1)
[2016-04-02 06:41] LABS: CREATININE 0.75 mg/dl (0.44-1.00)
[2016-04-02 06:42] LABS: CALCIUM 9.5 mg/dl (8.4-10.2)
[2016-04-02 08:03] VITALS: BP 113/58; RESP 18
[2016-04-02] MEDS: metFORMIN 500 MG TAB PO SCH ×2 (08:10→18:16)
[2016-04-02] MEDS: INSULIN ASPART [NOVOLOG] 3 ML PEN SC SCH ×7 (08:11→21:25)
[2016-04-02] MEDS: INSULIN GLARGINE [LANtus] 3 ML PEN SC SCH (08:14)
[2016-04-02] MEDS: OLANZAPINE 5 MG TAB PO SCH (09:00)
[2016-04-02] MEDS: FAMOTIDINE 20 MG TAB PO SCH ×2 (09:00→21:16)
[2016-04-02] MEDS: POTASSIUM CHLORIDE (SR) 8 MEQ CAP PO SCH (09:00)
[2016-04-02] MEDS: ASPIRIN 81 MG TAB PO SCH (09:01)
[2016-04-02] MEDS: LORATADINE 10 MG TAB PO SCH (09:01)
[2016-04-02] MEDS: METOPROLOL (XL) 25 MG TAB PO SCH ×2 (09:02→21:17)
[2016-04-02] MEDS: LOSARTAN 50 MG TAB PO SCH (09:02)
[2016-04-02] MEDS: FUROSEMIDE 40 MG INJ IV SCH (09:02)
[2016-04-02] MEDS: METHYLPREDNISOLONE 40 MG INJ IV SCH ×2 (09:03→21:18)
[2016-04-02] MEDS: ENOXAPARIN 40 MG/0.4 ML SYG SC SCH (09:09)
[2016-04-02] MEDS: TIOTROPIUM 18 MCG CAPSULE INHA DEV INH SCH (10:01)
[2016-04-02] MEDS: LEVOFLOXACIN 750MG/D5W (PMX) 150 ML IVPB SCH (10:02)
--- NOTE | 2016-04-02 15:18 | PN ---
Date/Time of Note Date/Time of Note DATE: 04/02/16 TIME: 15:15 Assessment/Plan VTE Prophylaxis VTE Prophylaxis Intervention: LMWH Lines/Catheters IV [facility]ter Type (from [facility]): Saline Lock Urinary Cath still in place: No Assessment/Plan Assessment/Plan 55 yo female with a past medical history of essential hypertension, CHF with low EF 20-25%, Type II DM, dyslipidemia, who presents with cough and shortness of breath 1 week duration. 1. COPD exacerbation , improving, on neb, levaquin and steroid 2. Leukocytosis - resolved 3. CHF EF 20-30% - monitor I/O's, aspirin, fluid restrictions, stable 4. Type II DM - hgba1c, ISS, metformin 5. Essential HTN - lisinopril, hydralazine prn for sbp > 160 6. Dyslipidemia - continue with statin 7. Psych d/o - continue with seroquel 8. GI ppx - pepcid 9. DVT ppx - lovenox Subjective 24 Hr Interval Summary Free Text/Dictation feels better Exam/Review of Systems Vital Signs Vitals Vital Signs Date Time Temp Pulse Resp B/P Pulse Ox O2 Delivery O2 Flow Rate FiO2 04/02/16 13:01 92 18 96 21 04/02/16 08:15 Nasal Cannula 2.0 04/02/16 08:03 97.7 113/58 Intake and Output 04/01/16 04/01/16 04/02/16 15:00 23:00 07:00 Intake Total 1310 ml 480 ml Balance 1310 ml 480 ml Exam Constitutional: alert, oriented, well developed Psych: nl mood/affect, no complaints Head: atraumatic, normocephalic Eyes: EOMI, PERRL, nl conjunctiva, nl lids ENMT: nl external ears & nose, nl lips & teeth, nl nasal mucosa & septum Neck: non-tender, supple Respiratory: clear to auscultation, normal air movement Cardiovascular: nl pulses, regular rate and rhythm Gastrointestinal: nl liver, spleen, non-tender, soft, No ascites, No bowel sounds, No distended, No firm, No hepatomegaly, No mass , No rebound or guarding, No splenomegaly, No surgical scars, No tender Extremities: normal pulses, No calf tenderness, No clubbing, No cyanosis, No edema, No palpable cord, No pitting pedal edema, No tenderness Neurological: 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, nl mental status, nl speech, nl strength Skin: nl turgor, rash or lesions Lymph: nl lymph nodes Results Result Diagram: 04/02/16 0450 04/02/16 0520 Results 24 hrs Laboratory Tests Test 04/01/16 17:24 04/01/16 20:36 04/02/16 03:01 04/02/16 04:50 Bedside Glucose 217 259 H 282 H Basophils # 0.0 Basophils % 0.1 Blood Morphology Comment Eosinophils # 0.0 Eosinophils % 0.0 Hematocrit 35.8 L Hemoglobin 12.2 Lymphocytes # 1.6 Lymphocytes % 16.0 Mean Corpuscular Hemoglobin 28.5 L Mean Corpuscular Hemoglobin Concent 34.2 Mean Corpuscular Volume 83.4 Mean Platelet Volume 8.8 Monocytes # 0.5 Monocytes % 5.4 Neutrophils # 7.9 H Neutrophils % 78.5 H Nucleated Red Blood Cells # 0.0 Nucleated Red Blood Cells % 0.0 Platelet Count 293 Red Blood Count 4.29 Red Cell Distribution Width 13.2 White Blood Count 10.1 Test 04/02/16 05:20 04/02/16 07:44 04/02/16 11:31 Anion Gap 16 Blood Urea Nitrogen 35 H Calcium Level 9.5 Carbon Dioxide Level 32 H Chloride Level 93 L Creatinine 0.75 Glucose Level 274 H Potassium Level 5.4 H Sodium Level 136 Bedside Glucose 240 H 249 H Medications Medications Current Medications Lorazepam (Ativan) 0.5 mg Q6H PRN IV ANXIETY; Start 03/28/16 at 02:00 Ondansetron HCl (Zofran Inj) 4 mg Q6H PRN IV NAUSEA AND/OR VOMITING; Start 02/01 at 02:00 Nitroglycerin (Nitroglycerin (Sl Tab) 0.4 Mg) 1 tab Q5M PRN SL CHEST PAIN; Start 03/28/16 at 02:00 Acetaminophen (Tylenol Tab) 650 mg Q6H PRN PO PAIN LEVEL 1-3 OR FEVER Last administered on 03/31/16 09:33; Admin Dose 650 MG; Start 03/28/16 at 02:00 Morphine Sulfate (morphine) 2 mg Q4H PRN IV PAIN LEVEL 7-10 Last administered on 03/29/16 15:32; Admin Dose 2 MG; Start 03/28/16 at 02:00 Famotidine (Pepcid) 20 mg Q12 PO Last administered on 04/02/16 09:00; Admin Dose 20 MG; Start 03/28/16 at 09:00 Enoxaparin Sodium (Lovenox) 40 mg DAILY SC Last administered on 04/02/16 09:09 ; Admin Dose 40 MG; Start 03/28/16 at 09:00 Atorvastatin Calcium (Lipitor) 20 mg QHS PO Last administered on 04/01/16 20: 29; Admin Dose 20 MG; Start 03/28/16 at 21:00 Olanzapine (Zyprexa) 5 mg DAILY PO Last administered on 04/02/16 09:00; Admin Dose 5 MG; Start 03/28/16 at 09:00 Potassium Chloride (Micro-K) 8 meq DAILY PO Last administered on 04/01/16 09: 34; Admin Dose 8 MEQ; Start 03/28/16 at 09:00 Sertraline HCl (Zoloft) 50 mg QHS PO Last administered on 04/01/16 20:29; Admin Dose 50 MG; Start 03/28/16 at 21:00 Tramadol HCl (Ultram) 50 mg Q6 PO Last administered on 04/02/16 05:27; Admin Dose 50 MG; Start 03/28/16 at 06:00 Miscellaneous Information 1 ea NOTE XX ; Start 03/28/16 at 02:00 Glucose (Glutose) 15 gm Q15M PRN PO DECREASED GLUCOSE; Start 03/28/16 at 02:00 Glucose (Glutose) 22.5 gm Q15M PRN PO DECREASED GLUCOSE; Start 03/28/16 at 02: 00 Dextrose (D50w Syringe) 25 ml Q15M PRN IV DECREASED GLUCOSE; Start 03/28/16 at 02:00 Dextrose (D50w Syringe) 50 ml Q15M PRN IV DECREASED GLUCOSE; Start 03/28/16 at 02:00 Glucagon (Glucagen) 1 mg Q15M PRN IM DECREASED GLUCOSE; Start 03/28/16 at 02:00 Glucose (Glutose) 15 gm Q15M PRN BUCCAL DECREASED GLUCOSE; Start 03/28/16 at 02 :00 Loratadine (Claritin) 10 mg DAILY PO Last administered on 04/02/16 09:01; Admin Dose 10 MG; Start 03/28/16 at 09:00 Aspirin (Aspirin) 81 mg DAILY PO Last administered on 04/02/16 09:01; Admin Dose 81 MG; Start 03/28/16 at 10:30 Guaifenesin (Robitussin Liquid Cup) 200 mg Q6H PRN PO For Cough Last administered on 04/02/16 01:52; Admin Dose 200 MG; Start 03/30/16 at 10:00 Insulin Glargine (Lantus) 24 unit DAILY SC Last administered on 04/02/16 08:14 ; Admin Dose 24 UNIT; Start 03/31/16 at 09:00 Furosemide (Lasix) 40 mg DAILY IV Last administered on 04/02/16 09:02; Admin Dose 40 MG; Start 03/30/16 at 18:30 Methylprednisolone Sodium Succinate (Solu-Medrol) 20 mg Q12 IV Last administered on 04/02/16 09:03; Admin Dose 20 MG; Start 03/31/16 at 21:00 Metoprolol Succinate (Toprol Xl) 25 mg BID PO Last administered on 04/02/16 09 :02; Admin Dose 25 MG; Start 03/31/16 at 21:00 Tiotropium [place] (Spiriva) 1 inh DAILY INH Last administered on 04/02/16 10: 01; Admin Dose 1 INH; Start 03/31/16 at 12:30 Losartan Potassium (Cozaar) 50 mg DAILY PO Last administered on 04/02/16 09:02 ; Admin Dose 50 MG; Start 04/01/16 at 09:30 Promethazine HCl/ Codeine (Phenergan/ Codeine) 10 ml Q4H PRN PO COUGH Last administered on 04/02/16 12:09; Admin Dose 10 ML; Start 04/01/16 at 09:30 Levofloxacin (Levaquin) 750 mg DAILY@06 PO ; Start 04/03/16 at 06:00 TAWANA MATTSON MD Apr 02, 2016 15:18
[2016-04-02 20:12] VITALS: BP 113/55; RESP 20
[2016-04-02] MEDS: SERTRALINE 50 MG TAB PO SCH (21:16)
[2016-04-02] MEDS: ATORVASTATIN 20 MG TAB PO SCH (21:16)
[2016-04-03] MEDS: traMADol 50 MG TAB PO SCH ×5 (00:17→23:47)
[2016-04-03] MEDS: PROMETHAZINE/CODEINE 5ML CUP PO PRN ×2 (00:17→23:50)
[2016-04-03] MEDS: ALBUTEROL/IPRATROPIUM (NEB) 3 ML AMP HHN SCH ×6 (01:01→20:01)
[2016-04-03] MEDS ORDERED: INSULIN ASPART [NOVOLOG] 3 ML PEN SC ONE (02:30)
[2016-04-03] MEDS: LEVOFLOXACIN 750 MG TABLET PO SCH (05:45)
[2016-04-03 06:10] LABS: POTASSIUM 4.8 mmol/L (3.5-5.1)
[2016-04-03 06:12] LABS: CREATININE 0.65 mg/dl (0.44-1.00)
[2016-04-03 07:16] LABS: BASOPHILS % 0.1 % (0.0-2.0); EOSINOPHILS % 0.1 % (0.0-7.0); HEMATOCRIT 38.7 % (37.0-47.0); HEMOGLOBIN 13.2 g/dl (12.0-16.0); LYMPHOCYTES # 1.5 10^3/ul (0.8-2.9); LYMPHOCYTES % 11.4 % (15.0-51.0); MEAN CORPUSCULAR HEMOGLOBIN 28.3 pg (29.0-33.0); MEAN CORPUSCULAR HGB CONC 34.1 g/dl (32.0-37.0); MEAN CORPUSCULAR VOLUME 82.9 fl (82.0-101.0); MEAN PLATELET VOLUME 8.5 fl (7.4-10.4); MONOCYTE # 0.3 10^3/ul (0.3-0.9); MONOCYTES % 2.7 % (0.0-11.0); NEUTROPHIL # 11.1 10^3/ul (1.6-7.5); NEUTROPHILS % 85.7 % (39.0-77.0); PLATELET COUNT 312 10^3/UL (140-440); RED BLOOD COUNT 4.67 10^6/ul (4.20-5.40); RED CELL DISTRIBUTION WIDTH 13.5 % (11.5-14.5)
[2016-04-03 07:28] LABS: CONDITION 1
[2016-04-03 07:53] VITALS: BP 113/62; RESP 16
[2016-04-03] MEDS: TIOTROPIUM 18 MCG CAPSULE INHA DEV INH SCH (08:34)
[2016-04-03] MEDS: FUROSEMIDE 40 MG INJ IV SCH (08:34)
[2016-04-03] MEDS: metFORMIN 500 MG TAB PO SCH ×2 (08:35→17:30)
[2016-04-03] MEDS: METHYLPREDNISOLONE 40 MG INJ IV SCH (08:35)
[2016-04-03] MEDS: METOPROLOL (XL) 25 MG TAB PO SCH ×2 (08:35→21:15)
[2016-04-03] MEDS: OLANZAPINE 5 MG TAB PO SCH (08:36)
[2016-04-03] MEDS: ASPIRIN 81 MG TAB PO SCH (08:36)
[2016-04-03] MEDS: LORATADINE 10 MG TAB PO SCH (08:36)
[2016-04-03] MEDS: FAMOTIDINE 20 MG TAB PO SCH ×2 (08:36→20:18)
[2016-04-03] MEDS: INSULIN ASPART [NOVOLOG] 3 ML PEN SC SCH ×7 (08:46→21:00)
[2016-04-03] MEDS: INSULIN GLARGINE [LANtus] 3 ML PEN SC SCH (08:46)
[2016-04-03] MEDS: ENOXAPARIN 40 MG/0.4 ML SYG SC SCH (08:47)
[2016-04-03] MEDS: LOSARTAN 50 MG TAB PO SCH (10:34)
--- NOTE | 2016-04-03 12:08 | PN ---
Date/Time of Note Date/Time of Note DATE: 04/03/16 TIME: 12:06 Assessment/Plan VTE Prophylaxis VTE Prophylaxis Intervention: LMWH, SCD's Lines/Catheters IV Catheter Type (from Nrs): Saline Lock Urinary Cath still in place: No Assessment/Plan Assessment/Plan 1. COPD exacerbation , improving, on neb, levaquin and steroid 2. Leukocytosis - resolved 3. CHF EF 20-30% - monitor I/O's, aspirin, fluid restrictions, stable 4. Type II DM - hgba1c, ISS, metformin 5. Essential HTN - lisinopril, hydralazine prn for sbp > 160 6. Dyslipidemia - continue with statin 7. Psych d/o - continue with seroquel 8. GI ppx - pepcid 9. DVT ppx - lovenox Subjective 24 Hr Interval Summary Free Text/Dictation still cough with shortness of breath, better Exam/Review of Systems Vital Signs Vitals Vital Signs Date Time Temp Pulse Resp B/P Pulse Ox O2 Delivery O2 Flow Rate FiO2 04/03/16 08:14 85 20 97 21 04/03/16 08:00 Nasal Cannula 2.0 04/03/16 07:53 97.1 113/62 Intake and Output 04/02/16 04/02/16 04/03/16 15:00 23:00 07:00 Intake Total 150 ml 950 ml 280 ml Balance 150 ml 950 ml 280 ml Exam Constitutional: alert, oriented, well developed Psych: nl mood/affect, no complaints Head: atraumatic, normocephalic Eyes: EOMI, PERRL, nl conjunctiva, nl lids, nl sclera ENMT: mucosa pink and moist, nl external ears & nose, nl lips & teeth, nl nasal mucosa & septum Neck: non-tender, supple Respiratory: clear to auscultation, normal air movement Cardiovascular: nl pulses, regular rate and rhythm, No S3, No S4, No bruits, No diastolic murmur, No edema, No gallop, No irregular rhythm, No jugular venous distention (JVD), No murmurs/extra sounds, No rub, No systolic murmur Gastrointestinal: nl liver, spleen, non-tender, soft, No ascites, No bowel sounds, No distended, No firm, No hepatomegaly, No mass , No rebound or guarding, No splenomegaly, No surgical scars, No tender Musculoskeletal: nl extremities to inspection, nl gait and stance Extremities: normal pulses Neurological: 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 II-XII intact, nl mental status, nl speech, nl strength Skin: nl turgor, rash or lesions Lymph: nl lymph nodes Results Result Diagram: 04/03/16 0505 04/03/16 0505 Results 24 hrs Laboratory Tests Test 04/02/16 17:29 04/02/16 21:19 04/03/16 01:55 04/03/16 05:05 Bedside Glucose 384 H 231 H 268 H Anion Gap 18 H Basophils # 0.0 Basophils % 0.1 Blood Morphology Comment Blood Urea Nitrogen 34 H Calcium Level 10.0 Carbon Dioxide Level 30 Chloride Level 95 L Creatinine 0.65 Eosinophils # 0.0 Eosinophils % 0.1 Glucose Level 274 H Hematocrit 38.7 Hemoglobin 13.2 Lymphocytes # 1.5 Lymphocytes % 11.4 L Mean Corpuscular Hemoglobin 28.3 L Mean Corpuscular Hemoglobin Concent 34.1 Mean Corpuscular Volume 82.9 Mean Platelet Volume 8.5 Monocytes # 0.3 Monocytes % 2.7 Neutrophils # 11.1 H Neutrophils % 85.7 H Nucleated Red Blood Cells # 0.0 Nucleated Red Blood Cells % 0.0 Platelet Count 312 Potassium Level 4.8 Red Blood Count 4.67 Red Cell Distribution Width 13.5 Sodium Level 138 White Blood Count 13.0 #H Test 04/03/16 07:49 04/03/16 11:30 Bedside Glucose 214 227 H Medications Medications Current Medications Lorazepam (Ativan) 0.5 mg Q6H PRN IV ANXIETY; Start 03/28/16 at 02:00 Ondansetron HCl (Zofran Inj) 4 mg Q6H PRN IV NAUSEA AND/OR VOMITING; Start 02/01 at 02:00 Nitroglycerin (Nitroglycerin (Sl Tab) 0.4 Mg) 1 tab Q5M PRN SL CHEST PAIN; Start 03/28/16 at 02:00 Acetaminophen (Tylenol Tab) 650 mg Q6H PRN PO PAIN LEVEL 1-3 OR FEVER Last administered on 03/31/16 09:33; Admin Dose 650 MG; Start 03/28/16 at 02:00 Morphine Sulfate (morphine) 2 mg Q4H PRN IV PAIN LEVEL 7-10 Last administered on 03/29/16 15:32; Admin Dose 2 MG; Start 03/28/16 at 02:00 Famotidine (Pepcid) 20 mg Q12 PO Last administered on 04/03/16 08:36; Admin Dose 20 MG; Start 03/28/16 at 09:00 Enoxaparin Sodium (Lovenox) 40 mg DAILY SC Last administered on 04/03/16 08:47 ; Admin Dose 40 MG; Start 03/28/16 at 09:00 Atorvastatin Calcium (Lipitor) 20 mg QHS PO Last administered on 04/02/16 21: 16; Admin Dose 20 MG; Start 03/28/16 at 21:00 Olanzapine (Zyprexa) 5 mg DAILY PO Last administered on 04/03/16 08:36; Admin Dose 5 MG; Start 03/28/16 at 09:00 Sertraline HCl (Zoloft) 50 mg QHS PO Last administered on 04/02/16 21:16; Admin Dose 50 MG; Start 03/28/16 at 21:00 Tramadol HCl (Ultram) 50 mg Q6 PO Last administered on 04/03/16 11:50; Admin Dose 50 MG; Start 03/28/16 at 06:00 Miscellaneous Information 1 ea NOTE XX ; Start 03/28/16 at 02:00 Glucose (Glutose) 15 gm Q15M PRN PO DECREASED GLUCOSE; Start 03/28/16 at 02:00 Glucose (Glutose) 22.5 gm Q15M PRN PO DECREASED GLUCOSE; Start 03/28/16 at 02: 00 Dextrose (D50w Syringe) 25 ml Q15M PRN IV DECREASED GLUCOSE; Start 03/28/16 at 02:00 Dextrose (D50w Syringe) 50 ml Q15M PRN IV DECREASED GLUCOSE; Start 03/28/16 at 02:00 Glucagon (Glucagen) 1 mg Q15M PRN IM DECREASED GLUCOSE; Start 03/28/16 at 02:00 Glucose (Glutose) 15 gm Q15M PRN BUCCAL DECREASED GLUCOSE; Start 03/28/16 at 02 :00 Loratadine (Claritin) 10 mg DAILY PO Last administered on 04/03/16 08:36; Admin Dose 10 MG; Start 03/28/16 at 09:00 Aspirin (Aspirin) 81 mg DAILY PO Last administered on 04/03/16 08:36; Admin Dose 81 MG; Start 03/28/16 at 10:30 Guaifenesin (Robitussin Liquid Cup) 200 mg Q6H PRN PO For Cough Last administered on 04/02/16 01:52; Admin Dose 200 MG; Start 03/30/16 at 10:00 Insulin Glargine (Lantus) 24 unit DAILY SC Last administered on 04/03/16 08:46 ; Admin Dose 24 UNIT; Start 03/31/16 at 09:00 Furosemide (Lasix) 40 mg DAILY IV Last administered on 04/03/16 08:34; Admin Dose 40 MG; Start 03/30/16 at 18:30 Metoprolol Succinate (Toprol Xl) 25 mg BID PO Last administered on 04/03/16 08 :35; Admin Dose 25 MG; Start 03/31/16 at 21:00 Tiotropium [place] (Spiriva) 1 inh DAILY INH Last administered on 04/03/16 08: 34; Admin Dose 1 INH; Start 03/31/16 at 12:30 Losartan Potassium (Cozaar) 50 mg DAILY PO Last administered on 04/03/16 10:34 ; Admin Dose 50 MG; Start 04/01/16 at 09:30 Promethazine HCl/ Codeine (Phenergan/ Codeine) 10 ml Q4H PRN PO COUGH Last administered on 04/03/16 00:17; Admin Dose 10 ML; Start 04/01/16 at 09:30 Levofloxacin (Levaquin) 750 mg DAILY@06 PO Last administered on 04/03/16 05:45 ; Admin Dose 750 MG; Start 04/03/16 at 06:00 Methylprednisolone Sodium Succinate (Solu-Medrol) 20 mg DAILY IV ; Start at 09:00; Status TAWANA MONIQUE MD Apr 03, 2016 12:08
[2016-04-03] MEDS: ATORVASTATIN 20 MG TAB PO SCH (20:18)
[2016-04-03 20:33] VITALS: BP 116/67; RESP 18
[2016-04-03] MEDS: SERTRALINE 50 MG TAB PO SCH (21:14)
[2016-04-03] MEDS ORDERED: MAGNESIUM HYDROXIDE 30ML CUP PO ONE (22:00)
[2016-04-03] MEDS ORDERED: SENNA TAB PO ONE (22:00)
[2016-04-04] MEDS: ALBUTEROL/IPRATROPIUM (NEB) 3 ML AMP HHN SCH ×5 (00:03→16:24)
[2016-04-04] MEDS: LEVOFLOXACIN 750 MG TABLET PO SCH (06:13)
[2016-04-04] MEDS: traMADol 50 MG TAB PO SCH ×2 (06:13→11:34)
[2016-04-04] MEDS: PROMETHAZINE/CODEINE 5ML CUP PO PRN ×2 (06:29→11:59)
[2016-04-04 08:00] VITALS: BP 122/60; RESP 16
[2016-04-04] MEDS: INSULIN ASPART [NOVOLOG] 3 ML PEN SC SCH ×4 (08:00→12:03)
[2016-04-04 08:22] VITALS: BP 102/50; RESP 18
[2016-04-04] MEDS: OLANZAPINE 5 MG TAB PO SCH (08:23)
[2016-04-04] MEDS: FUROSEMIDE 40 MG INJ IV SCH (08:26)
[2016-04-04] MEDS: TIOTROPIUM 18 MCG CAPSULE INHA DEV INH SCH (08:27)
[2016-04-04] MEDS: ASPIRIN 81 MG TAB PO SCH (08:27)
[2016-04-04] MEDS: FAMOTIDINE 20 MG TAB PO SCH (08:27)
[2016-04-04] MEDS: LORATADINE 10 MG TAB PO SCH (08:27)
[2016-04-04] MEDS: ENOXAPARIN 40 MG/0.4 ML SYG SC SCH (08:27)
[2016-04-04] MEDS: metFORMIN 500 MG TAB PO SCH (08:27)
[2016-04-04] MEDS: INSULIN GLARGINE [LANtus] 3 ML PEN SC SCH (08:40)
[2016-04-04] MEDS ORDERED: SENNA TAB PO SCH (09:00)
[2016-04-04] MEDS ORDERED: METHYLPREDNISOLONE 40 MG INJ IV SCH (09:00)
[2016-04-04] MEDS: METOPROLOL (XL) 25 MG TAB PO SCH (10:15)
[2016-04-04] MEDS: LOSARTAN 50 MG TAB PO SCH (11:35)
[2016-04-04] MEDS ORDERED: LEVO750T25 PO (15:47)
[2016-04-04] MEDS ORDERED: Promethazine/Codeine Syp PO (15:47)
[2016-04-04] MEDS ORDERED: PRED10TA PO (15:47)
--- NOTE | 2016-04-04 15:50 | DS ---
Date/Time of Note Date/Time of Note DATE: 04/04/16 TIME: 15:48 Discharge Summary Admission/Discharge Info Admit Date/Time Mar 28, 2016 at 01:01 Discharge Date/Time Final Diagnosis 1. COPD exacerbation , improving, on neb, levaquin and steroid 2. Leukocytosis - resolved 3. CHF EF 20-30% - monitor I/O's, aspirin, fluid restrictions, stable 4. Type II DM - hgba1c, ISS, metformin 5. Essential HTN - lisinopril, hydralazine prn for sbp > 160 6. Dyslipidemia - continue with statin 7. Psych d/o - continue with seroquel Patient Condition: Stable Hx of Present Illness 55 yo female with a past medical history of essential hypertension, CHF with low EF 20-25%, Type II DM, dyslipidemia, who presents with cough and shortness of breath 1 week duration. She states the cough is productive with yellowish sputum, fevers, cannot walk more than 10 steps, complains of malaise and fatigue worsening as well. Dizziness while standing. She states that her family members have been fighting a cold for a little while now. Denies any chest pain , loss of consciousness, headaches, urinary/bowel irregularities, nausea/ vomiting/diarrhea/constipation, or other constitutional symptoms. ED course: breathing treatments ECHO 11/25/2015 Conclusions 1. Normal left ventricular wall thickness. Mild enlargement of left ventricle cavity. Severe global left ventricular systolic dysfunction. Ejection fraction is visually estimated at 20-25 %. Tissue Doppler/Mitral Doppler indices are consistent with impaired relaxation (Stage I diastolic dysfunction). These segments of the LV are dyskinetic septum base segment and mid septum segment. 2. Mitral valve leaflets appear mildly thickened. Mild mitral annular calcification. Moderate mitral valve regurgitation. 3. Normal appearance of the tricuspid valve. Estimated peak PA systolic pressure 31 mmHg. There is mild tricuspid regurgitation. 4. Normal pulmonic valve appearance. There is mild pulmonic regurgitation. Hospital Course Patient had wheezings in lungs. CXR no infiltrates. Patient is treated with nebulizer, SoluMedrol, and levaquin for COPD exacerbation. Symptoms improved. Home Meds Active Scripts Prednisone (Prednisone) 10 Mg Tab, 10 MG PO DAILY for 3 Days, TAB Prov:TAWANA MATTSON MD 04/04/16 [Promethazine/Codeine Syp] 5 ML SYRUP No Conflict Check, 10 ML PO Q4H Y for COUGH Prov:TAWANA MATTSON MD 04/04/16 Levofloxacin* (Levaquin*) 750 Mg Tablet, 500 MG PO DAILY@06 for 5 Days, TAB Prov:TAWANA MATTSON MD 04/04/16 Azithromycin* (Zithromax*) 250 Mg Tablet, 250 MG PO .DagobertoPACK DIRECTED, #6 TAB TAKE 500 MG (2 TABS) THE FIRST DAY THEN 250 MG (1 TAB) DAYS 2-5 Prov:WILLIE GABRIEL NP 03/27/16 Cetirizine Hcl* (Zyrtec*) 10 Mg Capsule, 10 MG PO DAILY, #30 TAB.CHEW Prov:WILLIE GABRIEL NP 03/27/16 Albuterol Sulfate* (Proair HFA*) 8.5 Gm Hfa.aer.ad, 2 PUFF INH Q4H Y for WHEEZING AND SOB, #1 INHALER Prov:WILLIE GABRIEL NP 03/27/16 Guaifenesin-Codeine Phosphate* (Guaifenesin* AC Cough Syrup) 473 Ml Liquid, 10 ML PO Q4H Y for COUGH, #120 ML Prov:WILLIE GABRIEL NP 03/27/16 Ibuprofen* (Motrin*) 400 Mg Tab, 400 MG PO Q6H Y for PAIN AND OR ELEVATED TEMP, #30 TAB Prov:WILLIE GABRIEL NP 03/27/16 Lisinopril* (Lisinopril*) 40 Mg Tablet, 20 MG PO DAILY, #30 TAB Prov:MAURIZIO SANCHEZ MD 11/27/15 Furosemide* (Lasix*) 20 Mg Tablet, 40 MG PO BID, #60 TAB Prov:MAURIZIO SANCHEZ MD 11/27/15 Aspirin* (Aspirin*) 325 Mg Tablet, 81 MG PO DAILY for 30 Days, TAB 3 Refills Prov:MAURIZIO SANCHEZ MD 11/27/15 Tramadol HCl (Tramadol HCl) 50 Mg Tablet, 50 MG PO Q6, #20 TAB Prov:TREY OATES DO 10/08/15 Metformin* (Glucophage*) 1,000 Mg Tablet, 1000 MG PO BID, #60 TAB Prov:TREY OATES DO 10/08/15 Olanzapine* (Zyprexa*) 5 Mg Tablet, 5 MG PO DAILY, #30 TAB Prov:TREY OATES DO 10/08/15 Carvedilol* (Coreg*) 3.125 Mg Tablet, 3.125 MG PO BID, #60 TAB Prov:TREY OATES DO 10/08/15 Atorvastatin Calcium* (Atorvastatin Calcium*) 20 Mg Tablet, 20 MG PO QHS, #30 TAB Prov:MIO JACOBS V. POSTAL SUPERINTENDENT 05/24/15 Reported Medications Sertraline Hcl* (Sertraline Hcl*) 50 Mg Tablet, 50 MG PO DAILY HS, #30 TAB 11/24/15 Potassium Chloride* (Potassium Chloride*) 8 Meq Capsule.er, 8 MEQ PO DAILY, CAP 11/24/15 Follow-up Plan PCP 1-2 weeks Pending Labs Laboratory Tests Test 04/03/16 16:58 04/03/16 21:17 04/04/16 07:37 04/04/16 11:33 Bedside Glucose 185mg/dL (70-220) 131mg/dL (70-220) 138mg/dL (70-220) 194mg/dL (70-220) TAWANA MATTSON MD Apr 04, 2016 15:50
== END 2016-04-04 16:37 | disposition home or self-care (01) | DRG 191 ==
LOC: FTE 19:43 → TEL 03-28 01:01 → PP2 03-31 01:35
PROVIDERS: ADMIT Student in an Organized Health Care Education/Training Program; ATTEND Student in an Organized Health Care Education/Training Program
DX: J44.0 Chronic obstructive pulmonary disease with (acute) lower respiratory infection (principal); I50.42 Chronic combined systolic (congestive) and diastolic (congestive) heart failure; D72.829 Elevated white blood cell count, unspecified; E11.9 Type 2 diabetes mellitus without complications; I10 Essential (primary) hypertension; E78.4 Other hyperlipidemia; J44.1 Chronic obstructive pulmonary disease with (acute) exacerbation; J20.9 Acute bronchitis, unspecified; Z79.84 Long term (current) use of oral hypoglycemic drugs
CPT/HCPCS: 36415; 71010; 71260; 80048; 80053; 80061; 81003; 82550; 82553; 82962; 83036; 83735; 83880; 84443; 84484; 85025; 93005; 94640; 94664; 96374; 96375; J1650; J1815; J1940; J1956; J2270; J2920; J2930; J3475; Q9967

== ENCOUNTER 2016-06-23 05:25 | Inpatient (IN) | payer OTHER ==
[~2016-06-23] VITALS: Ht 152.4 cm; Wt 89.0 kg
[2016-06-23] VITALS (10 sets, daily range): BP systolic 112–115; BP diastolic 59–66; PULSE 98–110; RESP 17–20; Ht 152.4 cm; Wt 89.0 kg
[~2016-06-23 05:25] MED LIST changes: +ALBU8.5H3 INH; +AZIT250T94 PO; +CETI10CA PO; +FURO-110 PO; -FURO20TA PO; +GUAI473L22 PO; +IBUP400T22 PO; +LEVO750T25 PO; +PRED10TA PO; +Promethazine/Codeine Syp PO; +TRAM50TA2 PO; -ULT50 PO
[2016-06-23] MEDS ORDERED: IPRATROPIUM (NEB) 0.5 MG/2.5 ML AMP INH STA (05:42)
[2016-06-23] MEDS ORDERED: LEVALBUTEROL (NEB) 1.25 MG/0.5 ML AMP HHN ONE (06:00)
[2016-06-23 06:05] LABS: ADD SCAN DIFF NO
--- NOTE | 2016-06-23 06:12 | RADRPT ---
PROCEDURE: CHEST - 1 VIEW CLINICAL INDICATION: 56 [place] female with shortness of breath. TECHNIQUE: A single frontal AP semi-erect portable view of the chest was performed. The images we re reviewed on a PACS workstation. COMPARISON: Chest x-ray March 27, 2016; CT chest March 28, 2016. FINDINGS: The cardiomediastinal silhouette is enlarged. There is moderate pulmonary vascular congestion. The re is no evidence for a focal infiltrate. There is no evidence for pneumothorax. The osseous structu res are intact. IMPRESSION: 1. Cardiomegaly. 2. Pulmonary vascular congestion. .Wilfredo Orourke MD, MD Date Time Electronically viewed and signed by .Wilfredo Orourke MD, on 06/23/2016 06:12 .M/
[2016-06-23 06:19] LABS: POTASSIUM 4.6 mmol/L (3.5-5.1)
[2016-06-23 06:22] LABS: CREATININE 0.74 mg/dl (0.44-1.00)
[2016-06-23 06:23] LABS: CALCIUM 8.9 mg/dl (8.4-10.2)
[2016-06-23 06:29] LABS: INR 0.96; PROTIME 12.8 Sec (12.2-14.2)
[2016-06-23 06:30] LABS: PARTIAL THROMBOPLASTIN TIME 32.6 Sec (25.0-35.0)
[2016-06-23] MEDS ORDERED: METHYLPREDNISOLONE 125 MG INJ IV ONE (06:30)
[2016-06-23 06:35] LABS: TROPONIN-I 0.028 ng/ml (0.00-0.12)
[2016-06-23] MEDS ORDERED: ALBUTEROL 0.5% (NEB) 2.5 MG/0.5 ML AMP INH STA (06:56)
[2016-06-23 07:21] LABS: BASOPHIL # 0.1 10^3/ul (0.0-0.1); BASOPHILS % 0.6 % (0.0-2.0); EOSINOPHILS # 0.1 10^3/ul (0.0-0.5); EOSINOPHILS % 1.5 % (0.0-7.0); HEMATOCRIT 36.2 % (37.0-47.0); LYMPHOCYTES # 1.5 10^3/ul (0.8-2.9); LYMPHOCYTES % 17.3 % (15.0-51.0); MEAN CORPUSCULAR HEMOGLOBIN 28.7 pg (29.0-33.0); MEAN CORPUSCULAR HGB CONC 33.1 g/dl (32.0-37.0); MEAN CORPUSCULAR VOLUME 86.6 fl (82.0-101.0); MEAN PLATELET VOLUME 11.1 fl (7.4-10.4); MONOCYTE # 0.5 10^3/ul (0.3-0.9); MONOCYTES % 6.1 % (0.0-11.0); NEUTROPHIL # 6.6 10^3/ul (1.6-7.5); NEUTROPHILS % 74.2 % (39.0-77.0); PLATELET COUNT 237 10^3/UL (140-415); RED BLOOD COUNT 4.18 10^6/ul (4.20-5.40); RED CELL DISTRIBUTION WIDTH 13.2 % (11.5-14.5); WHITE BLOOD COUNT 8.9 10^3/ul (4.8-10.8)
[2016-06-23] MEDS ORDERED: GUAIFENESIN/CODEINE 5ML CUP PO ONE (07:30)
[2016-06-23] MEDS ORDERED: FUROSEMIDE 40 MG INJ IV ONE ×2 (08:00→11:30)
[2016-06-23] MEDS ORDERED: IOHEXOL 0 ML ONE ×2 (08:02→16:07)
[2016-06-23] MEDS ORDERED: SOD CHLORIDE 0.9% 100 ML ONE ×2 (08:02→16:07)
[2016-06-23] MEDS ORDERED: ENALAPRILAT 1.25 MG INJ IV ONE (08:30)
[2016-06-23] MEDS ORDERED: LORAZEPAM 2 MG INJ IV ONE (08:30)
--- NOTE | 2016-06-23 08:59 | ERA ---
ER Documentation Chief Complaint Date/Time DATE: 06/23/16 TIME: 08:55 Chief Complaint Cough x3 days. Hx of CHF. [facility] admits HPI This is a 66-year-old female who presents to the emergency room for evaluation of cough, shortness of breath. The patient does state that she has a history of high blood pressure and congestive heart failure. She states her shortness of breath is worse when she lays flat. She states that when she walks it exacerbates her shortness of breath as well. She denies any relieving factors for shortness of breath, came to the emergency room today for evaluation. She denies any chest pain or palpitations associated with this. ROS All systems reviewed and are negative except as per history of present illness. Medications Home Meds Active Scripts Prednisone (Prednisone) 10 Mg Tab, 10 MG PO DAILY for 3 Days, TAB Prov:TAWANA MATTSON MD 04/04/16 [Promethazine/Codeine Syp] 5 ML SYRUP No Conflict Check, 10 ML PO Q4H Y for COUGH Prov:TAWANA MATTSON MD 04/04/16 Levofloxacin* (Levaquin*) 750 Mg Tablet, 500 MG PO DAILY@06 for 5 Days, TAB Prov:TAWANA MATTSON MD 04/04/16 Azithromycin* (Zithromax*) 250 Mg Tablet, 250 MG PO .DagobertoPACK DIRECTED, #6 TAB TAKE 500 MG (2 TABS) THE FIRST DAY THEN 250 MG (1 TAB) DAYS 2-5 Prov:WILLIE GABRIEL NP 03/27/16 Cetirizine Hcl* (Zyrtec*) 10 Mg Capsule, 10 MG PO DAILY, #30 TAB.CHEW Prov:WILLIE GABRIEL NP 03/27/16 Albuterol Sulfate* (Proair HFA*) 8.5 Gm Hfa.aer.ad, 2 PUFF INH Q4H Y for WHEEZING AND SOB, #1 INHALER Prov:WILLIE GABRIEL NP 03/27/16 Guaifenesin-Codeine Phosphate* (Guaifenesin* AC Cough Syrup) 473 Ml Liquid, 10 ML PO Q4H Y for COUGH, #120 ML Prov:WLILIE GABRIEL NP 1/10/17 Ibuprofen* (Motrin*) 400 Mg Tab, 400 MG PO Q6H Y for PAIN AND OR ELEVATED TEMP, #30 TAB Prov:WILLIE GABRIEL STUDIO HAND 03/27/16 Lisinopril* (Lisinopril*) 40 Mg Tablet, 20 MG PO DAILY, #30 TAB Prov:MAURIZIO SANCHEZ MD 11/27/15 Furosemide* (Lasix*) 20 Mg Tablet, 40 MG PO BID, #60 TAB Prov:MAURIZIO SANCHEZ MD 11/27/15 Aspirin* (Aspirin*) 325 Mg Tablet, 81 MG PO DAILY for 30 Days, TAB 3 Refills Prov:MAURIZIO SANCHEZ MD 11/27/15 Tramadol HCl (Tramadol HCl) 50 Mg Tablet, 50 MG PO Q6, #20 TAB Prov:TREY OATES DO 10/08/15 Metformin* (Glucophage*) 1,000 Mg Tablet, 1000 MG PO BID, #60 TAB Prov:TREY OATES DO 10/08/15 Olanzapine* (Zyprexa*) 5 Mg Tablet, 5 MG PO DAILY, #30 TAB Prov:TREY OATES DO 10/08/15 Carvedilol* (Coreg*) 3.125 Mg Tablet, 3.125 MG PO BID, #60 TAB Prov:TREY OATES DO 10/08/15 Atorvastatin Calcium* (Atorvastatin Calcium*) 20 Mg Tablet, 20 MG PO QHS, #30 TAB Prov:MIO JACOBS V. STUDIO HAND 05/24/15 Reported Medications Sertraline Hcl* (Sertraline Hcl*) 50 Mg Tablet, 50 MG PO DAILY HS, #30 TAB 11/24/15 Potassium Chloride* (Potassium Chloride*) 8 Meq Capsule.er, 8 MEQ PO DAILY, CAP 11/24/15 Allergies Allergies: Coded Allergies: No Known Allergy (Unverified , 11/24/15) PMhx/Soc History of Surgery: Yes Anesthesia Reaction: No Hx Neurological Disorder: No Hx Respiratory Disorders: Yes Hx Cardiac Disorders: Yes Hx Psychiatric Problems: Yes Hx Miscellaneous Medical Probl: No (DM, HTN, CHF, ASTHMA) Hx Alcohol Use: No Hx Substance Use: No Hx Tobacco Use: No Smoking Status: Never smoker Physical Exam Vitals Vital Signs Date Time Temp Pulse Resp B/P Pulse Ox O2 Delivery O2 Flow Rate FiO2 06/23/16 08:48 142 95 100 06/23/16 08:30 140 36 122/98 99 BIPAP 06/23/16 07:11 105 23 100 Nasal Cannula 2.0 06/23/16 06:30 90 28 137/67 97 Nasal Cannula 3.0 06/23/16 06:10 99 2.0 06/23/16 06:10 108 22 99 Nasal Cannula 2.0 06/23/16 06:06 Nasal Cannula 2.0 06/23/16 06:00 Nasal Cannula 3 06/23/16 05:34 97.1 112 24 158/79 97 Physical Exam INITIAL VITAL SIGNS: Reviewed by me GENERAL: The patient is well developed, and appears to be in moderate respiratory distress, with tachypnea HEENT: Pupils equal, round, and reactive to light. EOMI. There is no scleral icterus. NECK: C-spine is soft and supple, there is no meningismus. There is no cervical lymphadenopathy. LUNGS: Coarse rales auscultated in upper and lower lobes, moderate wheezing auscultated HEART: Tachycardic, no murmurs, clicks, rubs or gallops. ABDOMEN: Soft, non-tender, non-distended. There are bowel sounds in all four quadrants. No rebound or guarding. EXTREMITIES: There is no peripheral cyanosis or edema. No focal swelling or erythema. NEUROLOGICAL: The patient moves all four extremities with 5/5 strength. Cranial nerves II - XII are intact. Normal gait. Alert and oriented SKIN: Diaphoretic, there is no apparent rash or petechiae. HEME/LYMPHATIC: There is no evidence of excessive bruising or lymphedema. PSYCHIATRIC: The patient does not appear anxious or depressed. Result Diagram: 06/23/16 0550 06/23/16 0550 Results 24 hrs Laboratory Tests Test 06/23/16 05:50 White Blood Count 8.910^3/ul Red Blood Count 4.1810^6/ul Hemoglobin 12.0g/dl Hematocrit 36.2% Mean Corpuscular Volume 86.6fl Mean Corpuscular Hemoglobin 28.7pg Mean Corpuscular Hemoglobin Concent 33.1g/dl Red Cell Distribution Width 13.2% Platelet Count 31932^3/UL Mean Platelet Volume 11.1fl Neutrophils % 74.2% Lymphocytes % 17.3% Monocytes % 6.1% Eosinophils % 1.5% Basophils % 0.6% Nucleated Red Blood Cells % 0.0/100WBC Neutrophils # 6.610^3/ul Lymphocytes # 1.510^3/ul Monocytes # 0.510^3/ul Eosinophils # 0.110^3/ul Basophils # 0.110^3/ul Nucleated Red Blood Cells # 0.010^3/ul Prothrombin Time 12.8Sec Prothrombin Time Ratio 1.0 INR International Normalized Ratio 0.96 Activated Partial Thromboplast Time 32.6Sec Sodium Level 137mmol/L Potassium Level 4.6mmol/L Chloride Level 98mmol/L Carbon Dioxide Level 24mmol/L Anion Gap 20 Blood Urea Nitrogen 24mg/dl Creatinine 0.74mg/dl Glucose Level 254mg/dl Calcium Level 8.9mg/dl Troponin I 0.028ng/ml B-Type Natriuretic Peptide 1160PG/ML Current Medications Medications (Trade) Dose Ordered Sig/Honey Route PRN Reason Start Time Stop Time Status Last Admin Dose Admin Ipratropium [place] (Atrovent 0.02% (Neb)) 0.5 mg ONCE STAT INH 06/23/16 05:42 06/23/16 05:45 DC 06/23/16 06:09 Levalbuterol (Xopenex Neb) 1.25 mg ONCE ONCE HHN 06/23/16 06:00 06/23/16 06:01 DC 06/23/16 06:09 Methylprednisolone Sodium Succinate (Solu-Medrol) 125 mg ONCE ONCE IV 06/23/16 06:30 06/23/16 06:31 DC 06/23/16 06:49 Albuterol (Proventil 0.5% (Neb)) 10 mg ONCE STAT INH 06/23/16 06:56 06/23/16 06:57 DC 06/23/16 07:10 Guaifenesin/ Codeine Phosphate (Robitussin Ac Liquid Cup) 10 ml ONCE ONCE PO 06/23/16 07:30 06/23/16 07:31 DC 06/23/16 07:54 Furosemide (Lasix) 40 mg ONCE ONCE IV 06/23/16 08:00 06/23/16 08:01 DC 06/23/16 07:55 IV Flush 10 ml 10 ml STK-MED ONCE .ROUTE 06/23/16 08:02 06/23/16 08:03 DC Sodium Chloride 100 ml @ ud STK-MED ONCE .ROUTE 06/23/16 08:02 06/23/16 08:03 DC Iohexol (Omnipaque) 100 ml @ ud STK-MED ONCE .ROUTE 06/23/16 08:02 06/23/16 08:03 DC Enalaprilat (Vasotec Iv) 1.25 mg ONCE ONCE IV 06/23/16 08:30 06/23/16 08:31 DC Lorazepam (Ativan) 1 mg ONCE ONCE IV 06/23/16 08:30 06/23/16 08:31 DC 06/23/16 08:35 Nitroglycerin (Nitroglycerin (Sl Tab) 0.4 Mg) 1 tab ONCE ONCE SL 06/23/16 09:00 06/23/16 09:01 Procedures/MDM EKG: Rate/Rhythm: Sinus tachycardia QRS, ST, T-waves: [No changes consistent w/ acute ischemia] Impression: [No evidence of ischemia or arrhythmia] Chest X-ray 1V Interpreted by me: Soft Tissue: No acute abnormalities Bones: No acute abnormalities Mediastinum/Cardiac Silhouette/Lungs: Pulmonary vascular congestion This 56-year-old female presents to the ER for evaluation of shortness of breath. The patient was tachypneic and tachycardic when I evaluated her. She did have mild wheezing. The patient was given to continue his breathing treatments. She appeared to decompensate slightly after the breathing treatments. The patient was given Lasix, and the patient began to become diaphoretic and her tachypnea slightly worsened. This patient was subsequently placed on a BiPAP and was given Lasix, and sublingual nitroglycerin. She appears to be improving at this time. This patient will be placed in for admission on her telemetry floor under the care of Dr. Schafer. I did order an echocardiogram and we will consult cardiology at this time. I did order a CT angios the chest for this patient however when she went to CAT scan she was unable to tolerate laying flat. My suspicion for PE is low at this time as this patient is improving on BiPAP, and did have coarse rales bilaterally. Critical Care: Excluding all billable procedures Time: 38 minutes Treatments/Evaluations: Emergent and rapid respiratory assessment and management with continuous monitoring. Advanced airway equipment at the ready, while the patient's respiratory symptoms were stabilized. Departure Diagnosis: Primary Impression: Acute and chronic respiratory failure with hypoxia Additional Impressions: Combined systolic and diastolic congestive heart failure, NYHA class 3 Diabetes mellitus type 2 in obese Cough Condition: Serious TREY OATES DO Jun 23, 2016 08:59
[2016-06-23] MEDS ORDERED: NITROGLYCERIN (SL) 0.4 MG TAB SL ONE (09:00)
[2016-06-23] MEDS ORDERED: ACETAMINOPHEN 325 MG TAB PO PRN (09:00)
[2016-06-23] MEDS ORDERED: ONDANSETRON 4 MG INJ IV PRN ×2 (09:00→11:30)
[2016-06-23 09:13] LABS: Allen Test ACCEPTAB; Arterial COHb 0.2 % (0.0-3.0); Arterial Fraction of Oxyhgb 98.1 % (93.0-99.0); Arterial HCO3 18.7 mmol/L (22.0-26.0); Arterial MetHb 0.8 % (0.0-1.5); Arterial Total Hemglobin 14.4 g/dl (12.0-18.0); Blood Gas IEPAP 22/8; Blood Gas PS 14; MODE MASK - BIPAP
[2016-06-23] MEDS ORDERED: LEVALBUTEROL (NEB) 0.63 MG/3 ML AMP HHN PRN (11:30)
[2016-06-23] MEDS ORDERED: BISACODYL (EC) 5 MG TAB PO PRN (11:30)
[2016-06-23] MEDS ORDERED: MAGNESIUM HYDROXIDE 30ML CUP PO PRN (11:30)
[2016-06-23] MEDS ORDERED: NACL 0.9% 3 ML SYG IV SCH (11:30)
[2016-06-23] MEDS ORDERED: DEXTROSE 50% 50 ML SYRINGE IV PRN ×2 (12:00)
[2016-06-23] MEDS ORDERED: GLUCAGON 1 MG INJ IM PRN (12:00)
[2016-06-23] MEDS ORDERED: GLUCOSE GEL 15 GRAM TUBE PO PRN ×2 (12:00)
[2016-06-23] MEDS ORDERED: hydrALAzine 20 MG INJ IV PRN (12:00)
[2016-06-23] MEDS ORDERED: GLUCOSE GEL 15 GRAM TUBE BUCCAL PRN (12:00)
[2016-06-23] MEDS: CEFTRIAXONE 1 GM/50 ML (PMX) 50 ML IVPB SCH (12:27)
[2016-06-23] MEDS: INSULIN ASPART [NOVOLOG] 3 ML PEN SC SCH ×5 (12:29→20:30)
[2016-06-23] MEDS: AZITHROMYCIN 500MG/NS (PMX) 250 ML IVPB SCH (13:10)
[2016-06-23 13:41] LABS: CK-MB 1.21 ng/ml (0.0-2.4)
[2016-06-23 13:44] LABS: TROPONIN-I 0.019 ng/ml (0.00-0.12)
[2016-06-23 13:54] LABS: ADD UMIC YES; URINE BILIRUBIN (Dip) NEGATIVE (NEGATIVE); URINE BLOOD (Dip) TRACE (NEGATIVE); URINE COLOR LT. YELLOW (YELLOW); URINE KETONES (Dip) NEGATIVE (NEGATIVE); URINE LEUKOCYTE ESTERASE (Dip) NEGATIVE (NEGATIVE); URINE NITRITE (Dip) NEGATIVE (NEGATIVE); URINE TOTAL PROTEIN (Dip) NEGATIVE (NEGATIVE); URINE UROBILINOGEN (Dip) 0.2 E.U./dL (0.1-1.0)
[2016-06-23 14:27] LABS: SQUAMOUS EPITHELIAL CELL,UR FEW; URIC ACID CRYSTALS,URINE FEW
[2016-06-23] MEDS: LEVALBUTEROL (NEB) 0.63 MG/3 ML AMP HHN SCH ×3 (14:29→21:44)
--- NOTE | 2016-06-23 14:30 | HP ---
DATE OF ADMISSION: 06/23/2016 REASON FOR ADMISSION: Dyspnea, cough, and fevers. CONSULTATIONS: 1. Dr. Arturo Keenan, Cardiology. 2. Dr. Carlitos Wahl, Pulmonology. HISTORY OF PRESENT ILLNESS: This is a 56-year-old female with multiple significant past medical history including essential hypertension, type 2 diabetes mellitus, cardiomyopathy with ejection fraction of 20% to 25%, hyperlipidemia, obesity, pulmonary hypertension and mood disorder, who came into the emergency room with the chief complaint of dyspnea, cough with sputum production and subjective fevers, that has been going on for the past 3 days. The patient was complaining of orthopnea and paroxysmal nocturnal dyspnea. The patient denied any chest pain. The patient verbalized that she has been compliant with all her medications. She denied any headache, nausea, vomiting, abdominal pain, diarrhea, hematochezia, dysuria or hematuria. In the emergency room, the patient underwent a chest x-ray that showed cardiomegaly with pulmonary vascular congestion. The patient was noticed to have an elevated BNP. The patient's initial set of troponins were negative. The patient had an ABG done in the emergency room that showed respiratory acidosis with CO2 retention. Consequently, the patient was placed on a BiPAP mask by the ER physician. The patient was treated with IV steroids, inhaled bronchodilators and IV Lasix in the emergency room. PAST MEDICAL HISTORY: Essential hypertension, type 2 diabetes mellitus, dyslipidemia, obesity, pulmonary hypertension, cardiomyopathy, depression. PAST SURGICAL HISTORY: Denies. HOME MEDICATIONS: 1. ProAir HFA 2 puffs inhaled q.4 hours p.r.n. dyspnea 2. Lisinopril 40 mg p.o. daily. 3. Lasix 20 mg p.o. b.i.d. 4. Aspirin 81 mg p.o. daily. 5. Metformin 1000 mg p.o. b.i.d. 6. Zyprexa 5 mg p.o. daily. 7. Coreg 3.125 mg p.o. b.i.d. 8. Atorvastatin 20 mg p.o. at bedtime. 9. Sertraline 50 mg p.o. daily. 10. Potassium chloride 8 mEq p.o. daily. ALLERGIES: NO KNOWN DRUG ALLERGIES. SOCIAL HISTORY: The patient lives at home with her family. Denies any use of tobacco, alcohol or illicit drugs. REVIEW OF SYSTEMS: A 12-point review of systems was made and review of systems are negative other than what is mentioned in history of present illness. PHYSICAL EXAMINATION: VITAL SIGNS: Temperature 98.7, pulse rate 101, respiratory rate 18, blood pressure 114/66, oxygen saturation 97% on 50% oxygen via BiPAP mask. GENERAL: This is an obese female lying in bed in mild to moderate respiratory distress with oxygen via BiPAP mask on. HEENT: Head normocephalic and atraumatic. Eyes: Anicteric sclerae. Conjunctivae clear. ENT: Nasal septum is midline. Oral mucosa is dry. NECK: Supple. JVD noticed. RESPIRATORY: Bilaterally diminished breath sounds. Bilateral fine rales heard. Use of accessory muscles of respiration. No wheezing. CARDIAC: Regular rate and rhythm. Unable to appreciate any murmurs because of tachypnea and noise from BiPAP. ABDOMEN: Distended, soft, minimal right lower quadrant tenderness. Bowel sounds hypoactive in all 4 quadrants. GENITOURINARY: Deferred. EXTREMITIES: No cyanosis, no clubbing. Trace bilateral pedal edema. Peripheral pulses palpable. NEUROLOGIC: The patient is awake, alert and oriented. Cranial nerves are grossly intact. LABORATORY AND DIAGNOSTIC DATA: WBC 8.9, hemoglobin 12.0, hematocrit 36.2, platelet count 237. Sodium 137, potassium 4.6, chloride 98, carbon dioxide 24, anion gap 20, BUN 24, creatinine 0.74, glucose 254, calcium 8.9. Troponin I is 0.028. BNP 1160. PT 12.8, INR 0.96, APTT 32.6. Chest x-ray, cardiomegaly. Pulmonary vascular congestion. IMPRESSION: This is a 56-year-old female with multiple comorbidities who came into the emergency room with chief complaint of dyspnea, subjective fevers, and nonproductive cough, who was found to have evidence of congestive heart failure, who will be admitted here for further treatment and evaluation. ASSESSMENT AND PLAN: 1. Acute respiratory failure. Hypoxic and hypercapnic The patient will be provided with supplemental oxygen. The patient will be maintained on noninvasive positive-pressure ventilation to help with blowing off CO2 The patient will be started on inhaled bronchodilators. A pulmonology consult will be obtained. 2. Acute on chronic congestive heart failure exacerbation, systolic dysfunction. The patient will be adequately diuresed using diuretics. A cardiology consult will be obtained. The patient's cardiac medications will be optimized. 3. Cardiomyopathy. The patient has cardiomyopathy with ejection fraction of 20 % to 25%. The patient will remain on ASHWIN inhibitors and beta blockers. 4. Type 2 diabetes mellitus. The patient will be started on sliding scale insulin along with premeal insulin and basal insulin. Hemoglobin A1c will be obtained to evaluate the blood glucose control over the past few weeks. 5. Dyslipidemia. The patient will be maintained on statins. A fasting lipid panel will be obtained. 6. Depression. The patient will be resumed on her antidepressants. The patient will also be started on p.r.n. anxiolytics. 7. Pulmonary hypertension. The patient will be maintained on supplemental oxygen. Plan. The patient will be admitted to inpatient telemetry floor. The patient will remain a FULL CODE. Activities will be bed rest. Pancultures will be obtained. The patient will be started on empiric antibiotics since the patient was complaining of fevers and a productive cough. The patient will be started on deep venous thrombosis prophylaxis and gastrointestinal prophylaxis. The patient will be started on a carbohydrate controlled, low cholesterol diet. The rest of the patient's management will be based on the clinical course, the results of diagnostic studies, and inputs from consultants. Based on the patient's clinical presentation, she most probably requires at least 2 midnights' stay for further management and evaluation of her clinical presentation. The case and management of this patient was fully discussed with Dr. Gaspar. CLAUDIA GASPAR MD, AM/WHITNEY Conf#: [id number] DID#: [id number] KIM
[2016-06-23 14:40] LABS: Allen Test ACCEPTAB; Arterial Base Excess -2.4 mmol/L (-3.0-3); Arterial COHb 0.2 % (0.0-3.0); Arterial Fraction of Oxyhgb 95.7 % (93.0-99.0); Arterial MetHb 0.4 % (0.0-1.5); Arterial Total Hemglobin 14.8 g/dl (12.0-18.0); Blood Gas IEPAP 15/5; Blood Gas PS 10; MODE MASK - BIPAP
--- NOTE | 2016-06-23 15:44 | RADRPT ---
Echocardiogram Report Patient Name: KELLY ERICKSON Gender: Female Date: 1960 Study Date: 23-Jun-2016 Psych Specialist: [facility] Location: -5 Ref. Physician: TREY OATES Quality: Technically Difficult Study Procedures: Transthoracic echocardiogram with complete 2D, M-Mode, and doppler examination. Indications: Congestive Heart Failure. Shortness of breath. 2D/M Mode Doppler Measurement Value Normal Ranges Measurement Value Normal Ranges LVIDd 2D 5.1 3.5 - 5.6 cm AV Peak Garry 1.5 m/sec LVIDs 2D 4.2 2.1 - 4.1 cm AV Peak PG 9.0 mmHg FS 2D 16.0 % LVOT Peak Garry 0.9 m/sec LVPWd 2D 1.2 0.6 - 1.1 cm LVOT Peak PG 3.0 mmHg IVSd 2D 1.3 0.6 - 1.1 cm MV E Peak Garry 1.0 m/sec IVS/LVPW 2D 1.1 MV A Peak Garry 0.8 m/sec AoR Diam 2D 2.9 2.0 - 3.7 cm MV E/A 1.2 LA/Ao 2D 1 0 - 1 MV Decel Time 127 msec EDV 2D 129.0 cm3 MV E/A 1.2 ESV 2D 76.2 cm3 LA Dimen 2D 3.4 2.3 - 4.0 cm Findings Left Ventricle: Normal left ventricular cavity size. Left ventricular wall thickness upper limits of normal. Severe global left ventricular systolic dysfunction. Ejection fraction is visually estimated at 25 %. Right Ventricle: Not well visualized. Left Atrium: The left atrium is normal in size. Right Atrium: The right atrium is normal in size. Mitral Valve: Mild mitral leaflet calcification. Mild to moderate mitral valve regurgitation. Aortic Valve: Aortic valve not well visualized. Trace aortic valve regurgitation. Tricuspid Valve: Tricuspid valve not well visualized. There is trace tricuspid regurgitation. Pulmonic Valve: There is trace pulmonic regurgitation. Pericardium: There is an anterior echo free space consistent with epicardial fat pad. Aorta: Normal aortic root. IVC: Inferior vena cava with normal respiratory collapse, however, patient on BiPAP. Conclusions 1.Normal left ventricular cavity size. Left ventricular wall thickness upper limits of normal. Severe global left ventricular systolic dysfunction. Ejection fraction is visually estimated at 25 %. 2.Mild mitral leaflet calcification. Mild to moderate mitral valve regurgitation. 3.Aortic valve not well visualized. Trace aortic valve regurgitation. 4.Tricuspid valve not well visualized. There is trace tricuspid regurgitation. 5.There is trace pulmonic regurgitation. Electronically Signed By: Arturo Keenan 23-Jun-2016 15:43:37 -0700 Patient Name: KELLY ERICKSON Study Date: 23-Jun-2016 [id number]
[2016-06-23] MEDS ORDERED: IOHEXOL 100 ML ONE (16:07)
[2016-06-23] MEDS ORDERED: LOVA10TA PO (17:22)
[2016-06-23] MEDS ORDERED: GLIP5TAB13 PO (17:22)
[2016-06-23] MEDS ORDERED: SITA100T8 PO (17:22)
[2016-06-23] MEDS: FUROSEMIDE 40 MG INJ IV SCH (17:28)
--- NOTE | 2016-06-23 17:42 | RADRPT ---
PROCEDURE: CT Pulmonary Angiogram. CLINICAL INDICATION: Chest pain and shortness of breath. TECHNIQUE: CT pulmonary angiogram and a CT scan of the chest with contrast was performed. The pat ient was scanned following the uncomplicated intravenous administration of 125 cc of Omnipaque-350 i ntravenous contrast. 2-D coronal reformatted images were obtained from the axial source images. In addition, 3-D post processing was performed. Total exam DLP is 594.03 mGy-cm. CTDIvol is 56.34 mG y. One or more of the following dose reduction techniques were used: Automated exposure control, ad justment of the mA and/or kV according to patient size, use of iterative reconstruction technique. COMPARISON: None available. FINDINGS: The pulmonary arteries are normal with no filling defect or lack of enhancement to suggest pulmonary artery embolism. There is air space disease at both lung bases posteriorly consistent with atelectasis or pneumonia w ith right worse than left. The lungs are otherwise clear with no other airspace or interstitial dis ease. There is no pulmonary nodule or mass lesion. There is no pneumothorax. There is no mediastinal or hilar lymphadenopathy or mass. There is a moderate right pleural effusion and small left pleural effusion. The thoracic aorta is normal with no aneurysm or dissection. The heart is enlarged. There is no per icardial effusion. Images through the upper abdomen demonstrate hepatomegaly and fatty metamorphosis of the liver. The visualized portions of the liver, spleen, and adrenals are otherwise normal. There are mild degenerative changes of the spine. There is no fracture or lytic lesion. IMPRESSION: 1. Normal CT pulmonary angiogram with no evidence of pulmonary artery embolism. 2. Air space disease at the lung bases posteriorly consistent with atelectasis or pneumonia. Right is worse than left. 3. Moderate right pleural effusion and small left pleural effusion. 4. Cardiomegaly. 5. Fatty metamorphosis of the liver. Hepatomegaly. 6. Mild degenerative changes of the spine. RPTAT: QQ .Johnny Leiva MD, MD Date Time Electronically viewed and signed by .Johnny Leiva MD, on 06/23/2016 17:42 .R/
[2016-06-23] MEDS: DIGOXIN 500 MCG INJ IV SCH ×2 (18:00→23:57)
--- NOTE | 2016-06-23 18:40 | CONS ---
DATE OF ADMISSION: 06/23/2016 DATE OF CONSULTATION: 06/23/2016 TYPE OF CONSULTATION: Cardiology REASON FOR CONSULTATION: Congestive heart failure, cardiomyopathy with severely depressed left vent ricular ejection fraction. REQUESTING PHYSICIAN: Gutierrez Bernal MD from the pulmonary service. HISTORY OF PRESENT ILLNESS: Ms. Case is a 56-year-old female with history of cardiomyopathy with s everely depressed left ventricular ejection fraction of approximately 20% to 25%, diabetes mellitus, hypertension, dyslipidemia, pulmonary hypertension, psych disorder, dyslipidemia, who initially pre sented with complaints of shortness of breath, cough, subjective fevers ongoing for approximately 3 days. Additionally, the patient describes symptoms consistent with orthopnea and lower extremity ed mira. Upon arrival in the emergency department, temperature of 97.1, blood pressure 158/79, pulse 11 2, respiratory rate 24, saturating 97%. The patient's labs revealed a white count of 8.9, hemoglobi n 12.0 and platelet count 237. A sodium of 137, potassium 4.6, creatinine 0.7, BUN of 24. Troponin negative. BNP of 1160. TSH is 2.19. ABG revealing a pH of 7.173, a PaO2 of 253, a pCO2 of 52. T he patient's chest x-ray revealed cardiomegaly, pulmonary vascular congestion. The patient's elect rocardiogram revealed sinus tachycardia, rate 110, normal axis, normal intervals, with nonspecific S T-T abnormalities diffusely. The patient subsequently admitted to the floor and since admitted to he floor has been monitored on telemetry revealing sinus tachycardia as high as the 120s. The patie nt has been placed on Zestril, carvedilol, statin therapy and was given a dose of Lasix. PAST MEDICAL HISTORY: As above in HPI. MEDICATIONS CURRENTLY IN HOSPITAL: 1. Lovenox 40 mg subcutaneous daily. 2. Aspirin 81 mg daily. 3. Zestril 20 mg daily. 4. Zyprexa 5 mg daily. 5. Potassium chloride 8 mEq daily. 6. Zoloft 50 mg daily. 7. Vitamin D. 8. Pepcid 20 mg IV q.12h. 9. Lipitor 20 mg at bedtime. 10. Carvedilol 3.125 mg p.o. b.i.d. 11. Lantus 18 units subcutaneous daily. 12. Lasix 40 mg IV b.i.d. 13. Ceftriaxone 100 mg IV daily. 14. Xopenex. 15. Azithromycin. 16. Insulin sliding scale. 17. Hydralazine p.r.n. 18. Zofran p.r.n. 19. Milk of magnesia p.r.n. 20. Waves p.r.n. 21. Xopenex p.r.n. ALLERGIES: NO KNOWN DRUG ALLERGIES. SOCIAL HISTORY: No tobacco, ETOH or illicit drug use. FAMILY HISTORY: Negative for sudden cardiac or early CAD. REVIEW OF SYSTEMS: As above in the HPI. CONSTITUTIONAL: No fevers, chills. PULMONARY: Shortness of breath. CARDIOVASCULAR: Congestive heart failure. GASTROINTESTINAL: No vomiting. GENITOURINARY: No hematuria. MUSCULOSKELETAL: Degenerative joint disease. PSYCHIATRIC: Positive history of depression. NEUROLOGIC: No documented history of CVA. ENDOCRINE: Diabetes mellitus. PHYSICAL EXAMINATION: VITAL SIGNS: Temperature of 97.8, blood pressure 115/59, pulse 108, respiratory rate 20, saturating 98%. GENERAL: The patient is alert, awake, in no acute distress. NECK: JVP approximately 10 cm of water. CHEST: Bibasilar crackles. HEART: Tachycardic, regular rhythm. Normal S1, S2. Laterally displaced PMI. ABDOMEN: Positive bowel sounds, soft. EXTREMITIES: Trace edema, 1+ pulses bilaterally posterior tibial. LABORATORY DATA: As above in HPI. No further labs for my review at this time. IMAGING STUDIES: As above in HPI. No further imaging studies for my review at this time. ECG: As above in HPI. No further electrocardiograms for my review at this time. A 2D echo done today interpreted by myself revealing EF of 25% with mild to moderate mitral regurgit ation, trace tricuspid and trace pulmonic regurgitation. IMPRESSION: 1. Congestive heart failure exacerbation, systolic, acute on chronic. 2. Cardiomyopathy with severely depressed left ventricular ejection fraction approximately 25% by e chocardiogram today. 3. Tachycardia consistent with sinus tachycardia at this time, likely in the setting of decompensat ed congestive heart failure. 4. Diabetes mellitus. 5. Dyslipidemia. 6. Acidosis. 7. Abnormal electrocardiogram, assess for acute coronary syndrome. RECOMMENDATIONS: 1. At this time, would maintain patient on telemetry monitoring to follow rhythm and rate closely. 2. Continue the patient's aspirin prophylaxis against cardiovascular events. 3. Complete a rule out for myocardial infarction to ensure that the patient's constellation of syst ems are not due to an acute coronary syndrome versus acute myocardial infarction. 4. Continue the patient's current ASHWIN inhibitor, afterload reduction and continue the patient's cur rent carvedilol with up titration as necessary to improve overall heart rate control. 5. We will give patient digoxin doses to increase contractility and improve heart rate. 6. Continue the patient's Lasix diuresis, following strict I's and O's to grade diuresis closely. 7. Continue the patient's antibiotics and follow up all culture data. Thank you for allowing me to take part in the care of this patient. I will continue to follow along very closely with you. Further recommendations will be made as the patient progresses through her inpatient hospital course. Dictated By: MICA ISLAS/WHITNEY Conf#: [id number] DID#: [id number] CC: GUTIERREZ BERNAL MD;*End*
[2016-06-23] MEDS ORDERED: INSULIN GLARGINE [LANtus] 3 ML PEN SC SCH (20:00)
[2016-06-23] MEDS: ATORVASTATIN 20 MG TAB PO SCH (20:24)
[2016-06-23] MEDS ORDERED: FAMOTIDINE 20 MG INJ IV SCH (21:00)
[2016-06-23] MEDS: GUAIFENESIN/DM 5ML CUP PO PRN (23:56)
[2016-06-24] VITALS (13 sets, daily range): BP systolic 90–118; BP diastolic 52–66; PULSE 98–110; RESP 17–20
[2016-06-24] MEDS: LEVALBUTEROL (NEB) 0.63 MG/3 ML AMP HHN SCH ×6 (00:46→21:09)
[2016-06-24] MEDS: ACCU-CHEK XX SCH ×2 (02:02→22:56)
[2016-06-24] MEDS: FUROSEMIDE 40 MG INJ IV SCH ×2 (05:26→17:09)
[2016-06-24] MEDS: GUAIFENESIN/DM 5ML CUP PO PRN ×3 (05:32→20:22)
[2016-06-24 06:13] LABS: ADD SCAN DIFF NO
[2016-06-24 06:28] LABS: BASOPHILS % 0.1 % (0.0-2.0); HEMATOCRIT 37.5 % (37.0-47.0); HEMOGLOBIN 12.2 g/dl (12.0-16.0); LYMPHOCYTES # 0.8 10^3/ul (0.8-2.9); LYMPHOCYTES % 6.4 % (15.0-51.0); MEAN CORPUSCULAR HEMOGLOBIN 27.7 pg (29.0-33.0); MEAN CORPUSCULAR HGB CONC 32.5 g/dl (32.0-37.0); MEAN PLATELET VOLUME 11.1 fl (7.4-10.4); MONOCYTE # 0.5 10^3/ul (0.3-0.9); MONOCYTES % 3.8 % (0.0-11.0); NEUTROPHIL # 11.8 10^3/ul (1.6-7.5); NEUTROPHILS % 89.3 % (39.0-77.0); PLATELET COUNT 196 10^3/UL (140-415); RED BLOOD COUNT 4.41 10^6/ul (4.20-5.40); RED CELL DISTRIBUTION WIDTH 13.4 % (11.5-14.5); WHITE BLOOD COUNT 13.2 10^3/ul (4.8-10.8)
[2016-06-24 06:34] LABS: MAGNESIUM 1.9 mg/dl (1.7-2.5); PHOSPHORUS 3.4 mg/dl (2.5-4.9)
[2016-06-24 06:45] LABS: TROPONIN-I 0.014 ng/ml (0.00-0.12)
[2016-06-24 07:48] LABS: POTASSIUM 3.8 mmol/L (3.5-5.1)
[2016-06-24 07:50] LABS: CREATININE 0.55 mg/dl (0.44-1.00)
[2016-06-24 07:51] LABS: CALCIUM 9.1 mg/dl (8.4-10.2)
[2016-06-24] MEDS: INSULIN ASPART [NOVOLOG] 3 ML PEN SC SCH ×8 (08:03→20:21)
[2016-06-24] MEDS: POTASSIUM CHLORIDE (SR) 8 MEQ CAP PO SCH (08:20)
[2016-06-24] MEDS: FAMOTIDINE 20 MG TAB PO SCH ×2 (08:20→20:22)
[2016-06-24] MEDS: ASPIRIN 81 MG TAB PO SCH (08:20)
[2016-06-24] MEDS: OLANZAPINE 5 MG TAB PO SCH (08:20)
[2016-06-24] MEDS: SERTRALINE 50 MG TAB PO SCH (08:20)
[2016-06-24] MEDS: CHOLECALCIFEROL 1,000 UNIT TAB PO SCH (08:21)
[2016-06-24] MEDS: ENOXAPARIN 40 MG/0.4 ML SYG SC SCH (08:22)
[2016-06-24] MEDS ORDERED: predniSONE 10 MG TAB PO SCH (09:00)
[2016-06-24] MEDS ORDERED: LISINOPRIL 20 MG TAB PO SCH (09:00)
--- NOTE | 2016-06-24 10:42 | PN ---
Date/Time of Note Date/Time of Note DATE: 06/24/16 TIME: 10:41 Assessment/Plan VTE Prophylaxis VTE Prophylaxis Intervention: LMWH Lines/Catheters IV [facility] Saline Lock Urinary Cath still in place: Yes Reason Cath still needed: other (indicate) Assessment/Plan Chief Complaint/Hosp Course 1. Acute respiratory failure. Hypoxic and hypercapnic The patient will be provided with supplemental oxygen. Status post noninvasive positive pressure ventilation therapy with improvement in CO2. A pulmonology consult will be obtained. 2. Acute on chronic congestive heart failure exacerbation, systolic dysfunction. The patient will be adequately diuresed using diuretics. Cardiology following. 3. Cardiomyopathy with ejection fraction of 25%. The patient will remain on ASHWIN inhibitors and beta blockers. 4. Type 2 diabetes mellitus. Continue sliding scale insulin along with premeal insulin and basal insulin. Hemoglobin A1c 7.9. 5. Dyslipidemia. Fasting lipid panel suboptimal. Continue statins. 6. Essential hypertension. Continue antihypertensives. 7. Depression. Continue antihypertensives. 8. Pulmonary hypertension. The patient will be maintained on supplemental oxygen. 9. Fluids, electrolytes, and nutrition. Carbohydrate controlled, low- cholesterol diet. 10. DVT prophylaxis. Subcutaneous Lovenox. 11. Gastrointestinal prophylaxis. Histamine 2 receptor blockers. 12. Plan. Continue supplemental oxygen. Continue inhaled bronchodilators. Follow recommendations from consultants. Case discussed with Dr. Mancia. Problems: Subjective 24 Hr Interval Summary Free Text/Dictation The patient is off BiPAP. Denies any chest pain. Exam/Review of Systems Vital Signs Vitals Vital Signs Date Time Temp Pulse Resp B/P Pulse Ox O2 Delivery O2 Flow Rate FiO2 06/24/16 08:10 Nasal Cannula 3.0 06/24/16 08:00 105 06/24/16 07:45 20 98 06/24/16 07:27 98.6 103/62 06/23/16 13:32 50 Intake and Output 06/23/16 06/23/16 06/24/16 15:00 23:00 07:00 Intake Total 250 ml 840 ml Output Total 3000 ml 1000 ml Balance 250 ml -2160 ml -1000 ml Exam GENERAL: This is an obese female lying in bed in mild respiratory distress. HEENT: Head normocephalic and atraumatic. Eyes: Anicteric sclerae. Conjunctivae clear. ENT: Nasal septum is midline. Oral mucosa is dry. NECK: Supple. JVD noticed. RESPIRATORY: Bilaterally diminished breath sounds. Bilateral fine rales heard. Minimal use of accessory muscles of respiration. No wheezing. CARDIAC: Regular rate and rhythm. Unable to appreciate any murmurs because of tachypnea and noise from BiPAP. ABDOMEN: Distended, soft, minimal right lower quadrant tenderness. Bowel sounds hypoactive in all 4 quadrants. GENITOURINARY: Deferred. EXTREMITIES: No cyanosis, no clubbing. Trace bilateral pedal edema. Peripheral pulses palpable. NEUROLOGIC: The patient is awake, alert and oriented. Cranial nerves are grossly intact. Results Result Diagram: 06/24/16 0600 06/24/16 0600 Results 24 hrs Laboratory Tests Test 06/23/16 12:24 06/23/16 12:30 06/23/16 13:10 06/23/16 14:00 Bedside Glucose 253 H Urine Color LT. YELLOW Urine Clarity CLEAR Urine pH 5.0 Urine Specific [place] 1.015 Urine Ketones NEGATIVE Urine Nitrite NEGATIVE Urine Bilirubin NEGATIVE Urine Urobilinogen 0.2 E.U./dL Urine Leukocyte Esterase NEGATIVE Urine Microscopic RBC 2-5 Urine Microscopic WBC 2-5 Urine Squamous Epithelial Cells FEW Urine Uric Acid Crystals FEW Urine Hyaline Casts OCCASIONAL Urine Hemoglobin TRACE Urine Glucose 0.5% H Urine Total Protein NEGATIVE Creatine Kinase 38 Creatine Kinase Index 3.2 Creatinine Kinase MB (Mass) 1.21 Troponin I 0.019 Blood Gas Specimen Source Blood arterial Arterial Blood Date Drawn 06/23/2016 2:25:41 PM Arterial Blood pH (Temp corrected) 7.393 Arterial Blood pCO2 (Temp correct) 36.9 Arterial Blood pO2 (Temp corrected) 85.0 Arterial Blood HCO3 22.0 Arterial Blood Base Excess -2.4 Arterial Blood Oxygen Saturation 96.3 Husam Test ACCEPTAB Arterial Blood Gas Puncture Site Left Radial Arterial Blood Carboxyhemoglobin 0.2 Arterial Blood Methemoglobin 0.4 Blood Gas A-a O2 Differential 230.0 H Oxyhemoglobin Percent 95.7 Total Hemoglobin 14.8 Blood Gas Temperature 37.0 Blood Gas Respiration Rate 20.0 Blood Gas Actual Respiration Rate 21 Blood Gas Modality MASK - BIPAP FiO2 50.0 Blood Gas Pressure Support 10 Blood Gas IPAP/EPAP Ratio 15/5 Blood Gas Notified Whom DT Blood Gas Notified Time 06/23/2016 2:39:56 PM Test 06/23/16 17:24 06/23/16 19:30 06/23/16 20:21 06/24/16 00:30 Bedside Glucose 310 H 386 H Troponin I 0.014 < 0.012 Thyroid Stimulating Hormone (TSH) 0.313 L Test 06/24/16 01:55 06/24/16 06:00 06/24/16 07:50 Bedside Glucose 329 H 328 H White Blood Count 13.2 #H Red Blood Count 4.41 Hemoglobin 12.2 Hematocrit 37.5 Mean Corpuscular Volume 85.0 Mean Corpuscular Hemoglobin 27.7 L Mean Corpuscular Hemoglobin Concent 32.5 Red Cell Distribution Width 13.4 Platelet Count 196 Mean Platelet Volume 11.1 H Neutrophils % 89.3 H Lymphocytes % 6.4 L Monocytes % 3.8 Eosinophils % 0.0 Basophils % 0.1 Nucleated Red Blood Cells % 0.0 Neutrophils # 11.8 H Lymphocytes # 0.8 Monocytes # 0.5 Eosinophils # 0.0 Basophils # 0.0 Nucleated Red Blood Cells # 0.0 Sodium Level 137 Potassium Level 3.8 Chloride Level 94 L Carbon Dioxide Level 25 Anion Gap 22 H Blood Urea Nitrogen 29 H Creatinine 0.55 Glucose Level 304 H Calcium Level 9.1 Phosphorus Level 3.4 Magnesium Level 1.9 Troponin I 0.018 Triglycerides Level 220 H Cholesterol Level 249 H LDL Cholesterol, Calculated 156 HDL Cholesterol 49 Cholesterol/HDL Ratio 5.0 Medications Medications Current Medications Ondansetron HCl (Zofran Inj) 4 mg Q6H PRN IV NAUSEA AND/OR VOMITING; Start 06/23 at 11:30 Acetaminophen/ Hydrocodone Bitart ([place] (5/325)) 1 tab Q6H PRN PO MODERATE PAIN LEVEL 4-6; Start 06/23/16 at 11:30 Magnesium Hydroxide (Milk Of Mag) 30 ml DAILY PRN PO CONSTIPATION; Start at 11:30 Bisacodyl (Dulcolax) 5 mg DAILY PRN PO CONSTIPATION; Start 06/23/16 at 11:30 Enoxaparin Sodium (Lovenox) 40 mg DAILY SC Last administered on 06/24/16 08:22 ; Admin Dose 40 MG; Start 06/24/16 at 09:00 Aspirin (Aspirin) 81 mg DAILY PO Last administered on 06/24/16 08:20; Admin Dose 81 MG; Start 06/24/16 at 09:00 Atorvastatin Calcium (Lipitor) 20 mg QHS PO Last administered on 06/23/16 20:24 ; Admin Dose 20 MG; Start 06/23/16 at 21:00 Lisinopril (Zestril) 20 mg DAILY PO Last administered on 06/24/16 08:20; Admin Dose 20 MG; Start 06/24/16 at 09:00 Olanzapine (Zyprexa) 5 mg DAILY PO Last administered on 06/24/16 08:20; Admin Dose 5 MG; Start 06/24/16 at 09:00 Potassium Chloride (Micro-K) 8 meq DAILY PO Last administered on 06/24/16 08:20 ; Admin Dose 8 MEQ; Start 06/24/16 at 09:00 Sertraline HCl (Zoloft) 50 mg DAILY PO Last administered on 06/24/16 08:20; Admin Dose 50 MG; Start 06/24/16 at 09:00 Insulin Glargine (Lantus) 18 unit DAILY@20 SC Last administered on 06/23/16 20: 30; Admin Dose 18 UNIT; Start 06/23/16 at 20:00 Diagnostic Test (Pha) (Accu-Chek) 1 ea 02 XX Last administered on 06/24/16 02: 02; Admin Dose 1 EA; Start 06/24/16 at 02:00 Hydralazine HCl (Apresoline) 10 mg Q6H PRN IV SBP>160; Start 06/23/16 at 12:00 Miscellaneous Information 1 ea NOTE XX ; Start 06/23/16 at 12:00 Glucose (Glutose) 15 gm Q15M PRN PO DECREASED GLUCOSE; Start 06/23/16 at 12:00 Glucose (Glutose) 22.5 gm Q15M PRN PO DECREASED GLUCOSE; Start 06/23/16 at 12:00 Dextrose (D50w Syringe) 25 ml Q15M PRN IV DECREASED GLUCOSE; Start 06/23/16 at 12:00 Dextrose (D50w Syringe) 50 ml Q15M PRN IV DECREASED GLUCOSE; Start 06/23/16 at 12:00 Glucagon (Glucagen) 1 mg Q15M PRN IM DECREASED GLUCOSE; Start 06/23/16 at 12:00 Glucose 15 gm 15 gm Q15M PRN BUCCAL DECREASED GLUCOSE; Start 4/8/17 at 12:00 Ceftriaxone Sodium 50 ml @ 100 mls/hr Q24H IVPB Last administered on 06/23/16 12:27; Admin Dose 100 MLS/HR; Start 06/23/16 at 14:00 Azithromycin (Zithromax 500mg/ NS (Pmx)) 250 ml @ 250 mls/hr Q24H IVPB Last administered on 06/23/16 13:10; Admin Dose 250 MLS/HR; Start 06/23/16 at 13:00 Cholecalciferol (Vitamin D) 1,000 unit DAILY PO Last administered on 06/24/16 08:21; Admin Dose 1,000 UNIT; Start 06/24/16 at 09:00 Carvedilol (Coreg) 6.25 mg BID PO Last administered on 06/23/16 20:23; Admin Dose 6.25 MG; Start 06/23/16 at 21:00 Guaifenesin/ Dextromethorphan (Robitussin Dm Liquid Cup) 10 ml Q4H PRN PO COUGH Last administered on 06/24/16 05:32; Admin Dose 10 ML; Start 06/24/16 at 00 :00 Diagnostic Test (Pha) (Accu-Chek) 1 ea 02 XX ; Start 06/25/16 at 02:00 Famotidine (Pepcid) 20 mg BID PO Last administered on 06/24/16 08:20; Admin Dose 20 MG; Start 06/24/16 at 09:00 CLAUDIA ANTONIO NP Jun 24, 2016 10:42
[2016-06-24] MEDS: AZITHROMYCIN 500MG/NS (PMX) 250 ML IVPB SCH (12:17)
[2016-06-24] MEDS: CEFTRIAXONE 1 GM/50 ML (PMX) 50 ML IVPB SCH (13:45)
--- NOTE | 2016-06-24 15:05 | CONS ---
Date/Time of Note Date/Time of Note DATE: 06/24/16 TIME: 15:01 Assessment/Plan Assessment/Plan Chief Complaint/Hosp Course IMPRESSION: 1. Congestive heart failure exacerbation, systolic, acute on chronic. 2. Cardiomyopathy with severely depressed left ventricular ejection fraction approximately 25% by echocardiogram today. 3. Tachycardia consistent with sinus tachycardia at this time, likely in the setting of decompensated congestive heart failure. 4. Diabetes mellitus. 5. Dyslipidemia. 6. Acidosis. 7. Abnormal electrocardiogram, assess for acute coronary syndrome.-negative troponin x 3 8.PNA Recc: -Tele -serial ecg's -Continue coreg and decrease dose of zestril to allow patient to better tolerate -Continue asa -Continue lasix -Continue abx's and f/u cx data Problems: Consultation Date/Type/Reason Admit Date/Time Jun 23, 2016 at 10:22 Initial Consult Date 06/23/2016 Type of Consultation: Cardiology Reason for Consultation CHF Referring Provider: JO-ANN VIVAS MD Exam/Review of Systems Vital Signs Vitals Vital Signs Date Time Temp Pulse Resp B/P Pulse Ox O2 Delivery O2 Flow Rate FiO2 06/24/16 13:26 2.0 06/24/16 13:25 99 18 99 Nasal Cannula 06/24/16 11:30 98.5 90/61 06/23/16 13:32 50 Intake and Output 06/23/16 06/23/16 06/24/16 15:00 23:00 07:00 Intake Total 250 ml 840 ml Output Total 3000 ml 1000 ml Balance 250 ml -2160 ml -1000 ml Exam Review of Systems: CONSTITUTIONAL: No fevers, chills. PULMONARY: positive sob and cough CARDIOVASCULAR: No chest pain/palpitations GASTROINTESTINAL: No nausea/vomiting. GENITOURINARY: No hematuria/dysuria. MUSCULOSKELETAL: No myagias/arthalgias. PSYCHIATRIC: The patient denies depression. NEUROLOGIC: No weakness Constitutional: alert Head: normocephalic ENMT: mucosa pink and moist Neck: jvd (9 cm water), supple Respiratory: diminished breath sounds (at bases/B) Cardiovascular: regular rate and rhythm Gastrointestinal: non-tender, soft Musculoskeletal: muscle tone (normal) Extremities: pitting pedal edema (BIlateral) Neurological: other (No focal defuicits) Results Result Diagram: 06/24/16 0606/24/16 0600 Results 24 hrs Laboratory Tests Test 06/23/16 17:24 06/23/16 19:30 06/23/16 20:21 06/24/16 00:30 Bedside Glucose 310 H 386 H Troponin I 0.014 < 0.012 Thyroid Stimulating Hormone (TSH) 0.313 L Test 06/24/16 01:55 06/24/16 06:00 06/24/16 07:50 06/24/16 11:26 Bedside Glucose 329 H 328 H 325 H White Blood Count 13.2 #H Red Blood Count 4.41 Hemoglobin 12.2 Hematocrit 37.5 Mean Corpuscular Volume 85.0 Mean Corpuscular Hemoglobin 27.7 L Mean Corpuscular Hemoglobin Concent 32.5 Red Cell Distribution Width 13.4 Platelet Count 196 Mean Platelet Volume 11.1 H Neutrophils % 89.3 H Lymphocytes % 6.4 L Monocytes % 3.8 Eosinophils % 0.0 Basophils % 0.1 Nucleated Red Blood Cells % 0.0 Neutrophils # 11.8 H Lymphocytes # 0.8 Monocytes # 0.5 Eosinophils # 0.0 Basophils # 0.0 Nucleated Red Blood Cells # 0.0 Sodium Level 137 Potassium Level 3.8 Chloride Level 94 L Carbon Dioxide Level 25 Anion Gap 22 H Blood Urea Nitrogen 29 H Creatinine 0.55 Glucose Level 304 H Calcium Level 9.1 Phosphorus Level 3.4 Magnesium Level 1.9 Troponin I 0.018 Triglycerides Level 220 H Cholesterol Level 249 H LDL Cholesterol, Calculated 156 HDL Cholesterol 49 Cholesterol/HDL Ratio 5.0 Medications Medications Current Medications Ondansetron HCl (Zofran Inj) 4 mg Q6H PRN IV NAUSEA AND/OR VOMITING; Start 06/23 at 11:30 Acetaminophen/ Hydrocodone Bitart ([place] (5/325)) 1 tab Q6H PRN PO MODERATE PAIN LEVEL 4-6; Start 06/23/16 at 11:30 Magnesium Hydroxide (Milk Of Mag) 30 ml DAILY PRN PO CONSTIPATION; Start at 11:30 Bisacodyl (Dulcolax) 5 mg DAILY PRN PO CONSTIPATION; Start 06/23/16 at 11:30 Enoxaparin Sodium (Lovenox) 40 mg DAILY SC Last administered on 06/24/16t 08:22 ; Admin Dose 40 MG; Start 06/24/16 at 09:00 Aspirin (Aspirin) 81 mg DAILY PO Last administered on 06/24/16 08:20; Admin Dose 81 MG; Start 06/24/16 at 09:00 Atorvastatin Calcium (Lipitor) 20 mg QHS PO Last administered on 06/23/16 20:24 ; Admin Dose 20 MG; Start 06/23/16 at 21:00 Lisinopril (Zestril) 20 mg DAILY PO Last administered on 06/24/16 08:20; Admin Dose 20 MG; Start 06/24/16 at 09:00 Olanzapine (Zyprexa) 5 mg DAILY PO Last administered on 06/24/16 08:20; Admin Dose 5 MG; Start 06/24/16 at 09:00 Potassium Chloride (Micro-K) 8 meq DAILY PO Last administered on 06/24/16 08:20 ; Admin Dose 8 MEQ; Start 06/24/16 at 09:00 Sertraline HCl (Zoloft) 50 mg DAILY PO Last administered on 06/24/16 08:20; Admin Dose 50 MG; Start 06/24/16 at 09:00 Diagnostic Test (Pha) (Accu-Chek) 1 ea 02 XX Last administered on 06/24/16 02: 02; Admin Dose 1 EA; Start 06/24/16 at 02:00 Hydralazine HCl (Apresoline) 10 mg Q6H PRN IV SBP>160; Start 06/23/16 at 12:00 Miscellaneous Information 1 ea NOTE XX ; Start 06/23/16 at 12:00 Glucose (Glutose) 15 gm Q15M PRN PO DECREASED GLUCOSE; Start 06/23/16 at 12:00 Glucose (Glutose) 22.5 gm Q15M PRN PO DECREASED GLUCOSE; Start 06/23/16 at 12:00 Dextrose (D50w Syringe) 25 ml Q15M PRN IV DECREASED GLUCOSE; Start 06/23/16 at 12:00 Dextrose (D50w Syringe) 50 ml Q15M PRN IV DECREASED GLUCOSE; Start 06/23/16 at 12:00 Glucagon (Glucagen) 1 mg Q15M PRN IM DECREASED GLUCOSE; Start 06/23/16 at 12:00 Glucose 15 gm 15 gm Q15M PRN BUCCAL DECREASED GLUCOSE; Start 06/23/16 at 12:00 Ceftriaxone Sodium 50 ml @ 100 mls/hr Q24H IVPB Last administered on 06/24/16 13:45; Admin Dose 100 MLS/HR; Start 06/23/16 at 14:00 Azithromycin (Zithromax 500mg/ NS (Pmx)) 250 ml @ 250 mls/hr Q24H IVPB Last administered on 06/24/16 12:17; Admin Dose 250 MLS/HR; Start 06/23/16 at 13:00 Cholecalciferol (Vitamin D) 1,000 unit DAILY PO Last administered on 06/24/16 08:21; Admin Dose 1,000 UNIT; Start 06/24/16 at 09:00 Carvedilol (Coreg) 6.25 mg BID PO Last administered on 06/23/16 20:23; Admin Dose 6.25 MG; Start 06/23/16 at 21:00 Guaifenesin/ Dextromethorphan (Robitussin Dm Liquid Cup) 10 ml Q4H PRN PO COUGH Last administered on 06/24/16 12:33; Admin Dose 10 ML; Start 06/24/16 at 00 :00 Diagnostic Test (Pha) (Accu-Chek) 1 ea 02 XX ; Start 06/25/16 at 02:00 Famotidine (Pepcid) 20 mg BID PO Last administered on 06/24/16 08:20; Admin Dose 20 MG; Start 06/24/16 at 09:00 Insulin Glargine (Lantus) 21 unit DAILY@20 SC ; Start 06/24/16 at 20:00 MICA WATKINS Jun 24, 2016 15:05
--- NOTE | 2016-06-24 17:09 | CONS ---
DATE OF ADMISSION: 06/23/2016 DATE OF CONSULTATION: 06/24/2016 TYPE OF CONSULTATION: PULMONARY REASON FOR CONSULTATION: Respiratory insufficiency. PRIMARY PHYSICIAN: Eliseo Callaway NP HISTORY OF PRESENT ILLNESS: Briefly, this is a 56-year-old with a history of cardiomyopathy with a reduced ejection fraction of 20%, diabetes, hypertension, hyperlipidemia, pulmonary hypertension and obesity, who presented yesterday with acute hypercapnic and hypoxemic respiratory insufficiency sec ondary to what appears to be congestive heart failure exacerbation, initially requiring noninvasive positive pressure ventilation. She has since been weaned off and is markedly improved. PAST MEDICAL HISTORY: In addition to above, there is no other relevant history. MEDICATIONS: Please see MAR. ALLERGIES: NONE. SOCIAL HISTORY: No tobacco, alcohol or illicit drug use. FAMILY HISTORY: Noncontributory. REVIEW OF SYSTEMS: As noted in the HPI. PHYSICAL EXAMINATION: GENERAL: A well-nourished, moderately obese female in no acute distress. VITAL SIGNS: Heart rate is 102, blood pressure is 90/61, oxygen saturation is 99% on 2 liters nasal cannula. HEENT: Large neck, normocephalic, atraumatic. NECK: Jugular venous pressures are mildly elevated. CARDIOVASCULAR: Distant S1 and S2, II/ systolic murmur at the apex. CHEST: Bibasilar crackles. ABDOMEN: Obese, nontender, normoactive bowel sounds. EXTREMITIES: There is trace lower extremity edema. LABORATORY DATA: Most recent ABG: pH is 739, PaCO2 is 37, pO2 is 85, bicarbonate is 25, BUN is 29, creatinine is 0.55. BNP was 1160. IMAGING: Chest imaging including CT angiogram are consistent with congestive heart failure with delmar ateral effusions, intralobular septal prominence and ground glass opacities. IMPRESSION: 1. Congestive heart failure with acute exacerbation. 2. Hypoxemic/hypercapnic respiratory insufficiency secondary to #1, status post transient noninvasi ve positive pressure ventilation. 3. Diabetes. 4. Obesity. 5. Hyperlipidemia. RECOMMENDATIONS: 1. As per management by cardiology, would continue further diuresis. 2. May use BiPAP as needed as this will also help optimize both preload and afterload. 3. We will follow I's and O's and follow creatinine closely. Dictated By: DOM GUPTA/WHITNEY Conf#: [id number] [facility]#: [id number] CC: ELISEO CALLAWAY NP; ALEC BERNAL MD;*[facility]*
[2016-06-24] MEDS ORDERED: INSULIN GLARGINE [LANtus] 3 ML PEN SC SCH (20:00)
[2016-06-24] MEDS: ATORVASTATIN 20 MG TAB PO SCH (20:22)
[2016-06-24] MEDS: INSULIN GLARGINE [LANtus] 3 ML PEN SC SCH (20:26)
[2016-06-24] MEDS: HYDROCODONE/APAP (5/325) TAB PO PRN (23:02)
[2016-06-25] VITALS (12 sets, daily range): BP systolic 97–108; BP diastolic 52–59; PULSE 85–110; RESP 16–20
[2016-06-25] MEDS: LEVALBUTEROL (NEB) 0.63 MG/3 ML AMP HHN SCH ×6 (01:21→23:12)
[2016-06-25] MEDS: ACCU-CHEK XX SCH (01:50)
[2016-06-25] MEDS: GUAIFENESIN/DM 5ML CUP PO PRN ×2 (01:50→12:24)
[2016-06-25] MEDS: HYDROCODONE/APAP (5/325) TAB PO PRN ×2 (05:34→12:25)
[2016-06-25] MEDS: FUROSEMIDE 40 MG INJ IV SCH ×2 (05:38→17:17)
[2016-06-25 07:18] LABS: ADD SCAN DIFF NO
[2016-06-25 07:19] LABS: BASOPHIL # 0.1 10^3/ul (0.0-0.1); BASOPHILS % 0.6 % (0.0-2.0); EOSINOPHILS # 0.2 10^3/ul (0.0-0.5); EOSINOPHILS % 1.8 % (0.0-7.0); HEMOGLOBIN 12.7 g/dl (12.0-16.0); LYMPHOCYTES # 2.2 10^3/ul (0.8-2.9); LYMPHOCYTES % 25.4 % (15.0-51.0); MEAN CORPUSCULAR HEMOGLOBIN 27.7 pg (29.0-33.0); MEAN CORPUSCULAR HGB CONC 31.8 g/dl (32.0-37.0); MEAN CORPUSCULAR VOLUME 87.1 fl (82.0-101.0); MEAN PLATELET VOLUME 10.7 fl (7.4-10.4); MONOCYTE # 0.7 10^3/ul (0.3-0.9); MONOCYTES % 8.3 % (0.0-11.0); NEUTROPHIL # 5.5 10^3/ul (1.6-7.5); NEUTROPHILS % 63.7 % (39.0-77.0); PLATELET COUNT 250 10^3/UL (140-415); RED BLOOD COUNT 4.59 10^6/ul (4.20-5.40); RED CELL DISTRIBUTION WIDTH 13.5 % (11.5-14.5); WHITE BLOOD COUNT 8.6 10^3/ul (4.8-10.8)
[2016-06-25 07:38] LABS: POTASSIUM 4.2 mmol/L (3.5-5.1)
[2016-06-25 07:41] LABS: CALCIUM 9.6 mg/dl (8.4-10.2); CREATININE 0.58 mg/dl (0.44-1.00)
[2016-06-25 07:45] LABS: PHOSPHORUS 3.7 mg/dl (2.5-4.9)
[2016-06-25] MEDS: POTASSIUM CHLORIDE (SR) 8 MEQ CAP PO SCH (08:18)
[2016-06-25] MEDS: LISINOPRIL 10 MG TAB PO SCH (08:18)
[2016-06-25] MEDS: CHOLECALCIFEROL 1,000 UNIT TAB PO SCH (08:18)
[2016-06-25] MEDS: SERTRALINE 50 MG TAB PO SCH (08:18)
[2016-06-25] MEDS: OLANZAPINE 5 MG TAB PO SCH (08:18)
[2016-06-25] MEDS: ASPIRIN 81 MG TAB PO SCH (08:18)
[2016-06-25] MEDS: FAMOTIDINE 20 MG TAB PO SCH (08:18)
[2016-06-25] MEDS: ENOXAPARIN 40 MG/0.4 ML SYG SC SCH (08:20)
[2016-06-25] MEDS: INSULIN ASPART [NOVOLOG] 3 ML PEN SC SCH ×7 (08:25→20:54)
[2016-06-25] MEDS: AZITHROMYCIN 500MG/NS (PMX) 250 ML IVPB SCH (12:24)
[2016-06-25] MEDS: CEFTRIAXONE 1 GM/50 ML (PMX) 50 ML IVPB SCH (15:28)
--- NOTE | 2016-06-25 16:14 | PN ---
Date/Time of Note Date/Time of Note DATE: 06/25/16 TIME: 16:11 Assessment/Plan VTE Prophylaxis VTE Prophylaxis Intervention: LMWH Lines/Catheters IV Catheter Type (from Nrs): Saline Lock Urinary Cath still in place: Yes Reason Cath still needed: urinary retention Assessment/Plan Chief Complaint/Hosp Course Subjective: Events noted Objective: Vital signs stable Physical exam No pallor adenopathy. Possible JVD Regular, no murmur rub gallop CTA B Bs+ nt nd, no RRG Mild edema Assessment plan 1. Ac on ch decompensated s-CHF. Stable cont bb/acei/lasix. Consider dig spironolactone. 2. Coronary disease? 3. Diabetes/metabolic syndrome/ obesity-asa/statin to continue 4. Dyslipidemia 5. Valvular heart dz -mild MR 6. Psychosis on Zyprexa 7. Bronchitis vs pneumonia cont azithro. Problems: Exam/Review of Systems Vital Signs Vitals Vital Signs Date Time Temp Pulse Resp B/P Pulse Ox O2 Delivery O2 Flow Rate FiO2 06/25/16 15:35 97.8 87 18 97/54 97 06/25/16 13:14 Nasal Cannula 2.0 06/23/16 13:32 50 Intake and Output 06/24/16 06/24/16 06/25/16 15:00 23:00 07:00 Intake Total 1500 ml 240 ml Output Total 3450 ml 400 ml Balance -1950 ml -160 ml Results Result Diagram: 06/25/16 0625 06/25/16 0625 Results 24 hrs Laboratory Tests Test 06/24/16 17:06 06/24/16 20:21 06/25/16 06:25 06/25/16 07:46 Bedside Glucose 244 H 160 163 White Blood Count 8.6 # Red Blood Count 4.59 Hemoglobin 12.7 Hematocrit 40.0 Mean Corpuscular Volume 87.1 Mean Corpuscular Hemoglobin 27.7 L Mean Corpuscular Hemoglobin Concent 31.8 L Red Cell Distribution Width 13.5 Platelet Count 250 # Mean Platelet Volume 10.7 H Neutrophils % 63.7 Lymphocytes % 25.4 Monocytes % 8.3 Eosinophils % 1.8 Basophils % 0.6 Nucleated Red Blood Cells % 0.0 Neutrophils # 5.5 Lymphocytes # 2.2 Monocytes # 0.7 Eosinophils # 0.2 Basophils # 0.1 Nucleated Red Blood Cells # 0.0 Sodium Level 139 Potassium Level 4.2 Chloride Level 94 L Carbon Dioxide Level 30 Anion Gap 19 H Blood Urea Nitrogen 29 H Creatinine 0.58 Glucose Level 164 # Calcium Level 9.6 Phosphorus Level 3.7 Magnesium Level 2.0 Test 06/25/16 12:04 Bedside Glucose 127 Medications Medications Current Medications Ondansetron HCl (Zofran Inj) 4 mg Q6H PRN IV NAUSEA AND/OR VOMITING; Start 06/23 at 11:30 Acetaminophen/ Hydrocodone Bitart ([place] (5/325)) 1 tab Q6H PRN PO MODERATE PAIN LEVEL 4-6 Last administered on 06/25/16 12:25; Admin Dose 1 TAB; Start 06/23/16 at 11:30 Magnesium Hydroxide (Milk Of Mag) 30 ml DAILY PRN PO CONSTIPATION; Start at 11:30 Bisacodyl (Dulcolax) 5 mg DAILY PRN PO CONSTIPATION Last administered on 20:22; Admin Dose 5 MG; Start 06/23/16 at 11:30 Enoxaparin Sodium (Lovenox) 40 mg DAILY SC Last administered on 06/25/16 08:20 ; Admin Dose 40 MG; Start 06/24/16 at 09:00 Aspirin (Aspirin) 81 mg DAILY PO Last administered on 06/25/16 08:18; Admin Dose 81 MG; Start 06/24/16 at 09:00 Atorvastatin Calcium (Lipitor) 20 mg QHS PO Last administered on 06/24/16 20:22 ; Admin Dose 20 MG; Start 06/23/16 at 21:00 Olanzapine (Zyprexa) 5 mg DAILY PO Last administered on 06/25/16 08:18; Admin Dose 5 MG; Start 06/24/16 at 09:00 Potassium Chloride (Micro-K) 8 meq DAILY PO Last administered on 06/25/16 08: 18; Admin Dose 8 MEQ; Start 06/24/16 at 09:00 Sertraline HCl (Zoloft) 50 mg DAILY PO Last administered on 06/25/16 08:18; Admin Dose 50 MG; Start 06/24/16 at 09:00 Diagnostic Test (Pha) (Accu-Chek) 1 ea 02 XX Last administered on 06/24/16 02: 02; Admin Dose 1 EA; Start 06/24/16 at 02:00 Hydralazine HCl (Apresoline) 10 mg Q6H PRN IV SBP>160; Start 06/23/16 at 12:00 Miscellaneous Information 1 ea NOTE XX ; Start 06/23/16 at 12:00 Glucose (Glutose) 15 gm Q15M PRN PO DECREASED GLUCOSE; Start 06/23/16 at 12:00 Glucose (Glutose) 22.5 gm Q15M PRN PO DECREASED GLUCOSE; Start 06/23/16 at 12:00 Dextrose (D50w Syringe) 25 ml Q15M PRN IV DECREASED GLUCOSE; Start 06/23/16 at 12:00 Dextrose (D50w Syringe) 50 ml Q15M PRN IV DECREASED GLUCOSE; Start 06/23/16 at 12:00 Glucagon (Glucagen) 1 mg Q15M PRN IM DECREASED GLUCOSE; Start 06/23/16 at 12:00 Glucose 15 gm 15 gm Q15M PRN BUCCAL DECREASED GLUCOSE; Start 06/23/16 at 12:00 Ceftriaxone Sodium 50 ml @ 100 mls/hr Q24H IVPB Last administered on 15:28; Admin Dose 100 MLS/HR; Start 06/23/16 at 14:00 Azithromycin (Zithromax 500mg/ NS (Pmx)) 250 ml @ 250 mls/hr Q24H IVPB Last administered on 06/25/16 12:24; Admin Dose 250 MLS/HR; Start 06/23/16 at 13:00 Cholecalciferol (Vitamin D) 1,000 unit DAILY PO Last administered on 06/25/16 08:18; Admin Dose 1,000 UNIT; Start 06/24/16 at 09:00 Carvedilol (Coreg) 6.25 mg BID PO Last administered on 06/25/16 08:19; Admin Dose 6.25 MG; Start 06/23/16 at 21:00 Guaifenesin/ Dextromethorphan (Robitussin Dm Liquid Cup) 10 ml Q4H PRN PO COUGH Last administered on 06/25/16 12:24; Admin Dose 10 ML; Start 06/24/16 at 00:00 Diagnostic Test (Pha) (Accu-Chek) 1 ea 02 XX ; Start 06/25/16 at 02:00 Famotidine (Pepcid) 20 mg BID PO Last administered on 06/25/16 08:18; Admin Dose 20 MG; Start 06/24/16 at 09:00 Lisinopril (Zestril) 10 mg DAILY PO Last administered on 06/25/16 08:18; Admin Dose 10 MG; Start 06/25/16 at 09:00 Insulin Glargine (Lantus) 27 unit DAILY@20 SC Last administered on 06/24/16 20: 26; Admin Dose 27 UNIT; Start 06/24/16 at 20:00 TESSY BEJARANO MD Jun 25, 2016 16:14
[2016-06-25] MEDS: INSULIN GLARGINE [LANtus] 3 ML PEN SC SCH (20:53)
[2016-06-25] MEDS: ATORVASTATIN 20 MG TAB PO SCH (20:55)
[2016-06-26] VITALS (11 sets, daily range): BP systolic 91–111; BP diastolic 51–57; PULSE 85–101; RESP 18–20
[2016-06-26] MEDS: ACCU-CHEK XX SCH ×2 (02:00)
[2016-06-26] MEDS: FUROSEMIDE 40 MG INJ IV SCH ×2 (05:25→17:21)
[2016-06-26 06:51] LABS: ADD SCAN DIFF NO
[2016-06-26 06:57] LABS: BASOPHIL # 0.1 10^3/ul (0.0-0.1); BASOPHILS % 0.8 % (0.0-2.0); EOSINOPHILS # 0.2 10^3/ul (0.0-0.5); EOSINOPHILS % 2.8 % (0.0-7.0); HEMATOCRIT 38.3 % (37.0-47.0); HEMOGLOBIN 12.2 g/dl (12.0-16.0); LYMPHOCYTES # 2.6 10^3/ul (0.8-2.9); LYMPHOCYTES % 35.1 % (15.0-51.0); MEAN CORPUSCULAR HEMOGLOBIN 27.7 pg (29.0-33.0); MEAN CORPUSCULAR HGB CONC 31.9 g/dl (32.0-37.0); MEAN CORPUSCULAR VOLUME 86.8 fl (82.0-101.0); MEAN PLATELET VOLUME 10.8 fl (7.4-10.4); MONOCYTE # 0.7 10^3/ul (0.3-0.9); MONOCYTES % 9.5 % (0.0-11.0); NEUTROPHIL # 3.7 10^3/ul (1.6-7.5); NEUTROPHILS % 51.5 % (39.0-77.0); PLATELET COUNT 233 10^3/UL (140-415); RED BLOOD COUNT 4.41 10^6/ul (4.20-5.40); RED CELL DISTRIBUTION WIDTH 13.2 % (11.5-14.5); WHITE BLOOD COUNT 7.3 10^3/ul (4.8-10.8)
[2016-06-26 07:24] LABS: CALCIUM 9.2 mg/dl (8.4-10.2); CREATININE 0.56 mg/dl (0.44-1.00); MAGNESIUM 2.1 mg/dl (1.7-2.5); PHOSPHORUS 3.7 mg/dl (2.5-4.9); POTASSIUM 4.4 mmol/L (3.5-5.1)
[2016-06-26] MEDS: LEVALBUTEROL (NEB) 0.63 MG/3 ML AMP HHN SCH ×3 (07:35→23:38)
[2016-06-26] MEDS: INSULIN ASPART [NOVOLOG] 3 ML PEN SC SCH ×7 (08:00→21:00)
[2016-06-26] MEDS: HYDROCODONE/APAP (5/325) TAB PO PRN (08:34)
[2016-06-26] MEDS: GUAIFENESIN/DM 5ML CUP PO PRN (08:34)
[2016-06-26] MEDS: POTASSIUM CHLORIDE (SR) 8 MEQ CAP PO SCH (08:35)
[2016-06-26] MEDS: OLANZAPINE 5 MG TAB PO SCH (08:35)
[2016-06-26] MEDS: SERTRALINE 50 MG TAB PO SCH (08:35)
[2016-06-26] MEDS: THIAMINE 100 MG TAB PO SCH (08:35)
[2016-06-26] MEDS: ASPIRIN 81 MG TAB PO SCH (08:35)
[2016-06-26] MEDS: LISINOPRIL 10 MG TAB PO SCH (08:35)
[2016-06-26] MEDS: CHOLECALCIFEROL 1,000 UNIT TAB PO SCH (08:35)
[2016-06-26] MEDS: FAMOTIDINE 20 MG TAB PO SCH (08:35)
[2016-06-26] MEDS: AZITHROMYCIN 250 MG TAB PO SCH (08:36)
[2016-06-26] MEDS: ENOXAPARIN 40 MG/0.4 ML SYG SC SCH (08:41)
--- NOTE | 2016-06-26 11:18 | CONS ---
Date/Time of Note Date/Time of Note DATE: 06/26/16 TIME: 11:15 Assessment/Plan Assessment/Plan Additional Assessment/Plan 1. Congestive heart failure exacerbation, systolic, acute on chronic- better fluid status, con't gentle diuresis. 2. Cardiomyopathy with severely depressed left ventricular ejection fraction approximately 25% by echocardiogram today - con't Rx, ICD evaluation as outpt. 3. Tachycardia consistent with sinus tachycardia at this time, likely in the setting of decompensated congestive heart failure- HR better now. 4. Diabetes mellitus- on meds, con't to keep euglycemic. 5. Dyslipidemia. 6. Acidosis. 7. Abnormal electrocardiogram, assess for acute coronary syndrome.-negative troponin x 3 8.PNA - on anti-Bx, con't Med rx. Consultation Date/Type/Reason Admit Date/Time Jun 23, 2016 at 10:22 Initial Consult Date Type of Consultation: Cardiology Referring Provider: JO-ANN VIVAS MD 24 HR Interval Summary Free Text/Dictation NO acute events. BP stable - good fluid satus - con't Med Rx. Medications reviewed. ROS: No fever, no chills, no nausea, no vomiting, no diarrhea/constipation No recent weight changes No chest pain, no PND, no orthopnea No dizziness, blurred vision No thirst, no heat or cold intolerance Exam/Review of Systems Vital Signs Vitals Vital Signs Date Time Temp Pulse Resp B/P Pulse Ox O2 Delivery O2 Flow Rate FiO2 06/26/16 08:22 92 06/26/16 07:54 97.5 20 110/57 98 06/26/16 07:44 Nasal Cannula 2.0 06/23/16 13:32 50 Intake and Output 06/25/16 06/25/16 06/26/16 15:00 23:00 07:00 Intake Total 1140 ml 300 ml Output Total 2900 ml 3 ml Balance -1760 ml 297 ml Exam General: WN/WD/NAD, AOx 3 HEENT: Unicetric/atraumatic/EOMI (follow commands) NECK: JVD elevated, no thyromegaly Lymph: no lymphadenopathy HEART: regular with no S3, II/ systolic murmur at apex LUNGS: Coarse sounds ABD: soft, NT, ND, +BS : Intact Neuro: non focal SKIN: chronic changes EXT: trace edema Results Result Diagram: 06/26/16 0615 06/26/16 0615 Results 24 hrs Laboratory Tests Test 06/25/16 12:04 06/25/16 17:11 06/25/16 20:36 06/26/16 02:06 Bedside Glucose 127 240 H 194 145 Test 06/26/16 06:15 06/26/16 08:05 White Blood Count 7.3 Red Blood Count 4.41 Hemoglobin 12.2 Hematocrit 38.3 Mean Corpuscular Volume 86.8 Mean Corpuscular Hemoglobin 27.7 L Mean Corpuscular Hemoglobin Concent 31.9 L Red Cell Distribution Width 13.2 Platelet Count 233 Mean Platelet Volume 10.8 H Neutrophils % 51.5 Lymphocytes % 35.1 Monocytes % 9.5 Eosinophils % 2.8 Basophils % 0.8 Nucleated Red Blood Cells % 0.0 Neutrophils # 3.7 Lymphocytes # 2.6 Monocytes # 0.7 Eosinophils # 0.2 Basophils # 0.1 Nucleated Red Blood Cells # 0.0 Sodium Level 136 Potassium Level 4.4 Chloride Level 98 Carbon Dioxide Level 31 Anion Gap 11 # Blood Urea Nitrogen 25 H Creatinine 0.56 Glucose Level 140 Hemoglobin A1c 7.9 H Calcium Level 9.2 Phosphorus Level 3.7 Magnesium Level 2.1 Bedside Glucose 120 Medications Medications Current Medications Ondansetron HCl (Zofran Inj) 4 mg Q6H PRN IV NAUSEA AND/OR VOMITING; Start 06/23 at 11:30 Acetaminophen/ Hydrocodone Bitart ([place] (5/325)) 1 tab Q6H PRN PO MODERATE PAIN LEVEL 4-6 Last administered on 06/26/16 08:34; Admin Dose 1 TAB; Start 06/23/16 at 11:30 Magnesium Hydroxide (Milk Of Mag) 30 ml DAILY PRN PO CONSTIPATION; Start at 11:30 Bisacodyl (Dulcolax) 5 mg DAILY PRN PO CONSTIPATION Last administered on 20:22; Admin Dose 5 MG; Start 06/23/16 at 11:30 Enoxaparin Sodium (Lovenox) 40 mg DAILY SC Last administered on 06/26/16 08:41 ; Admin Dose 40 MG; Start 06/24/16 at 09:00 Aspirin (Aspirin) 81 mg DAILY PO Last administered on 06/26/16 08:35; Admin Dose 81 MG; Start 06/24/16 at 09:00 Atorvastatin Calcium (Lipitor) 20 mg QHS PO Last administered on 06/25/16 20: 55; Admin Dose 20 MG; Start 06/23/16 at 21:00 Olanzapine (Zyprexa) 5 mg DAILY PO Last administered on 06/26/16 08:35; Admin Dose 5 MG; Start 06/24/16 at 09:00 Potassium Chloride (Micro-K) 8 meq DAILY PO Last administered on 06/26/16 08: 35; Admin Dose 8 MEQ; Start 06/24/16 at 09:00 Sertraline HCl (Zoloft) 50 mg DAILY PO Last administered on 06/26/16 08:35; Admin Dose 50 MG; Start 06/24/16 at 09:00 Diagnostic Test (Pha) (Accu-Chek) 1 ea 02 XX Last administered on 06/24/16 02: 02; Admin Dose 1 EA; Start 06/24/16 at 02:00 Hydralazine HCl (Apresoline) 10 mg Q6H PRN IV SBP>160; Start 06/23/16 at 12:00 Miscellaneous Information 1 ea NOTE XX ; Start 06/23/16 at 12:00 Glucose (Glutose) 15 gm Q15M PRN PO DECREASED GLUCOSE; Start 06/23/16 at 12:00 Glucose (Glutose) 22.5 gm Q15M PRN PO DECREASED GLUCOSE; Start 06/23/16 at 12:00 Dextrose (D50w Syringe) 25 ml Q15M PRN IV DECREASED GLUCOSE; Start 06/23/16 at 12:00 Dextrose (D50w Syringe) 50 ml Q15M PRN IV DECREASED GLUCOSE; Start 06/23/16 at 12:00 Glucagon (Glucagen) 1 mg Q15M PRN IM DECREASED GLUCOSE; Start 06/23/16 at 12:00 Glucose 15 gm 15 gm Q15M PRN BUCCAL DECREASED GLUCOSE; Start 06/23/16 at 12:00 Ceftriaxone Sodium (Rocephin) 50 ml @ 100 mls/hr Q24H IVPB Last administered on 06/25/16 15:28; Admin Dose 100 MLS/HR; Start 06/23/16 at 14:00 Cholecalciferol (Vitamin D) 1,000 unit DAILY PO Last administered on 06/26/16 08:35; Admin Dose 1,000 UNIT; Start 06/24/16 at 09:00 Carvedilol (Coreg) 6.25 mg BID PO Last administered on 06/26/16 08:36; Admin Dose 6.25 MG; Start 06/23/16 at 21:00 Guaifenesin/ Dextromethorphan (Robitussin Dm Liquid Cup) 10 ml Q4H PRN PO COUGH Last administered on 06/26/16 08:34; Admin Dose 10 ML; Start 06/24/16 at 00:00 Diagnostic Test (Pha) (Accu-Chek) 1 ea 02 XX ; Start 06/25/16 at 02:00 Lisinopril (Zestril) 10 mg DAILY PO Last administered on 06/26/16 08:35; Admin Dose 10 MG; Start 06/25/16 at 09:00 Insulin Glargine (Lantus) 27 unit DAILY@20 SC Last administered on 06/25/16 20 :53; Admin Dose 27 UNIT; Start 06/24/16 at 20:00 Famotidine (Pepcid) 20 mg DAILY PO Last administered on 06/26/16 08:35; Admin Dose 20 MG; Start 06/26/16 at 09:00 Thiamine HCl (Vitamin B1) 100 mg DAILY PO Last administered on 06/26/16 08:35 ; Admin Dose 100 MG; Start 06/26/16 at 09:00 Azithromycin (Zithromax) 500 mg DAILY PO Last administered on 06/26/16 08:36; Admin Dose 500 MG; Start 06/26/16 at 09:00 ZELDA SHANNON MD Jun 26, 2016 11:17
--- NOTE | 2016-06-26 13:00 | PN ---
Date/Time of Note Date/Time of Note DATE: 06/26/16 TIME: 12:57 Assessment/Plan VTE Prophylaxis VTE Prophylaxis Intervention: LMWH Lines/Catheters IV Catheter Type (from [facility]): Saline Lock Urinary Cath still in place: No (discontinued by AM nurse this afternoon) Assessment/Plan Chief Complaint/Hosp Course S: 06/25 events noted 06/26-no events. Appears stable O: Vss PE No pallor/JVD Reg, no m/r/g CTAB Bs+ nt nd, no RRG Mild edema A/P 1. Ac on ch decompensated s-CHF. Stable cont bb/acei/lasix. Consider dig/ spironolactone. Outpt ICD eval. 2. Coronary disease? DC home 06/27 if ok w Cardio. 3. DM/metabolic syndrome/obesity. Cont asa/statin 4. Dyslipidemia 5. Valvular heart dz -mild MR 6. Psychosis on Zyprexa 7. Bronchitis vs pneumonia cont azithro. 8. Hematuria- traumatic jaramillo. dc jaramillo. Problems: Exam/Review of Systems Vital Signs Vitals Vital Signs Date Time Temp Pulse Resp B/P Pulse Ox O2 Delivery O2 Flow Rate FiO2 06/26/16 12:04 86 06/26/16 11:51 97.9 20 91/52 100 06/26/16 07:44 Nasal Cannula 2.0 06/23/16 13:32 50 Intake and Output 06/25/16 06/25/16 06/26/16 15:00 23:00 07:00 Intake Total 1140 ml 300 ml Output Total 2900 ml 3 ml Balance -1760 ml 297 ml Results Result Diagram: 06/26/1615 06/26/1615 Results 24 hrs Laboratory Tests Test 06/25/16 17:11 06/25/16 20:36 06/26/16 02:06 06/26/16 06:15 Bedside Glucose 240 H 194 145 White Blood Count 7.3 Red Blood Count 4.41 Hemoglobin 12.2 Hematocrit 38.3 Mean Corpuscular Volume 86.8 Mean Corpuscular Hemoglobin 27.7 L Mean Corpuscular Hemoglobin Concent 31.9 L Red Cell Distribution Width 13.2 Platelet Count 233 Mean Platelet Volume 10.8 H Neutrophils % 51.5 Lymphocytes % 35.1 Monocytes % 9.5 Eosinophils % 2.8 Basophils % 0.8 Nucleated Red Blood Cells % 0.0 Neutrophils # 3.7 Lymphocytes # 2.6 Monocytes # 0.7 Eosinophils # 0.2 Basophils # 0.1 Nucleated Red Blood Cells # 0.0 Sodium Level 136 Potassium Level 4.4 Chloride Level 98 Carbon Dioxide Level 31 Anion Gap 11 # Blood Urea Nitrogen 25 H Creatinine 0.56 Glucose Level 140 Hemoglobin A1c 7.9 H Calcium Level 9.2 Phosphorus Level 3.7 Magnesium Level 2.1 Test 06/26/16 08:05 06/26/16 12:02 Bedside Glucose 120 138 Medications Medications Current Medications Ondansetron HCl (Zofran Inj) 4 mg Q6H PRN IV NAUSEA AND/OR VOMITING; Start 06/23 at 11:30 Acetaminophen/ Hydrocodone Bitart ([place] (5/325)) 1 tab Q6H PRN PO MODERATE PAIN LEVEL 4-6 Last administered on 06/26/16 08:34; Admin Dose 1 TAB; Start 06/23/16 at 11:30 Magnesium Hydroxide (Milk Of Mag) 30 ml DAILY PRN PO CONSTIPATION; Start at 11:30 Bisacodyl (Dulcolax) 5 mg DAILY PRN PO CONSTIPATION Last administered on 20:22; Admin Dose 5 MG; Start 06/23/16 at 11:30 Enoxaparin Sodium (Lovenox) 40 mg DAILY SC Last administered on 06/26/16 08:41 ; Admin Dose 40 MG; Start 06/24/16 at 09:00 Aspirin (Aspirin) 81 mg DAILY PO Last administered on 06/26/16 08:35; Admin Dose 81 MG; Start 06/24/16 at 09:00 Atorvastatin Calcium (Lipitor) 20 mg QHS PO Last administered on 06/25/16 20: 55; Admin Dose 20 MG; Start 06/23/16 at 21:00 Olanzapine (Zyprexa) 5 mg DAILY PO Last administered on 06/26/16 08:35; Admin Dose 5 MG; Start 06/24/16 at 09:00 Potassium Chloride (Micro-K) 8 meq DAILY PO Last administered on 06/26/16 08: 35; Admin Dose 8 MEQ; Start 06/24/16 at 09:00 Sertraline HCl (Zoloft) 50 mg DAILY PO Last administered on 06/26/16 08:35; Admin Dose 50 MG; Start 06/24/16 at 09:00 Diagnostic Test (Pha) (Accu-Chek) 1 ea 02 XX Last administered on 06/24/16 02: 02; Admin Dose 1 EA; Start 06/24/16 at 02:00 Hydralazine HCl (Apresoline) 10 mg Q6H PRN IV SBP>160; Start 06/23/16 at 12:00 Miscellaneous Information 1 ea NOTE XX ; Start 06/23/16 at 12:00 Glucose (Glutose) 15 gm Q15M PRN PO DECREASED GLUCOSE; Start 06/23/16 at 12:00 Glucose (Glutose) 22.5 gm Q15M PRN PO DECREASED GLUCOSE; Start 06/23/16 at 12:00 Dextrose (D50w Syringe) 25 ml Q15M PRN IV DECREASED GLUCOSE; Start 06/23/16 at 12:00 Dextrose (D50w Syringe) 50 ml Q15M PRN IV DECREASED GLUCOSE; Start 06/23/16 at 12:00 Glucagon (Glucagen) 1 mg Q15M PRN IM DECREASED GLUCOSE; Start 06/23/16 at 12:00 Glucose 15 gm 15 gm Q15M PRN BUCCAL DECREASED GLUCOSE; Start 06/23/16 at 12:00 Ceftriaxone Sodium (Rocephin) 50 ml @ 100 mls/hr Q24H IVPB Last administered on 06/25/16 15:28; Admin Dose 100 MLS/HR; Start 06/23/16 at 14:00 Cholecalciferol (Vitamin D) 1,000 unit DAILY PO Last administered on 06/26/16 08:35; Admin Dose 1,000 UNIT; Start 06/24/16 at 09:00 Carvedilol (Coreg) 6.25 mg BID PO Last administered on 06/26/16 08:36; Admin Dose 6.25 MG; Start 06/23/16 at 21:00 Guaifenesin/ Dextromethorphan (Robitussin Dm Liquid Cup) 10 ml Q4H PRN PO COUGH Last administered on 06/26/16 08:34; Admin Dose 10 ML; Start 06/24/16 at 00:00 Diagnostic Test (Pha) (Accu-Chek) 1 ea 02 XX ; Start 06/25/16 at 02:00 Lisinopril (Zestril) 10 mg DAILY PO Last administered on 06/26/16 08:35; Admin Dose 10 MG; Start 06/25/16 at 09:00 Insulin Glargine (Lantus) 27 unit DAILY@20 SC Last administered on 06/25/16 20 :53; Admin Dose 27 UNIT; Start 06/24/16 at 20:00 Famotidine (Pepcid) 20 mg DAILY PO Last administered on 06/26/16 08:35; Admin Dose 20 MG; Start 06/26/16 at 09:00 Thiamine HCl (Vitamin B1) 100 mg DAILY PO Last administered on 06/26/16 08:35 ; Admin Dose 100 MG; Start 06/26/16 at 09:00 Azithromycin (Zithromax) 500 mg DAILY PO Last administered on 06/26/16 08:36; Admin Dose 500 MG; Start 06/26/16 at 09:00 TESSY BEJARANO MD Jun 26, 2016 13:00
[2016-06-26] MEDS: CEFTRIAXONE 1 GM/50 ML (PMX) 50 ML IVPB SCH (13:30)
[2016-06-26] MEDS: INSULIN GLARGINE [LANtus] 3 ML PEN SC SCH (21:35)
[2016-06-26] MEDS: ATORVASTATIN 20 MG TAB PO SCH (21:36)
[2016-06-27] VITALS (7 sets, daily range): BP systolic 100–141; BP diastolic 50–62; PULSE 77–87; RESP 18–20
[2016-06-27] MEDS: ACCU-CHEK XX SCH (02:00)
[2016-06-27] MEDS: FUROSEMIDE 40 MG INJ IV SCH (05:44)
[2016-06-27 06:35] LABS: ADD SCAN DIFF NO
[2016-06-27 06:41] LABS: BASOPHILS % 0.6 % (0.0-2.0); EOSINOPHILS # 0.2 10^3/ul (0.0-0.5); EOSINOPHILS % 2.9 % (0.0-7.0); HEMOGLOBIN 12.7 g/dl (12.0-16.0); LYMPHOCYTES # 2.6 10^3/ul (0.8-2.9); LYMPHOCYTES % 36.8 % (15.0-51.0); MEAN CORPUSCULAR HEMOGLOBIN 28.2 pg (29.0-33.0); MEAN CORPUSCULAR HGB CONC 32.6 g/dl (32.0-37.0); MEAN CORPUSCULAR VOLUME 86.7 fl (82.0-101.0); MEAN PLATELET VOLUME 10.9 fl (7.4-10.4); MONOCYTE # 0.5 10^3/ul (0.3-0.9); NEUTROPHIL # 3.8 10^3/ul (1.6-7.5); NEUTROPHILS % 52.4 % (39.0-77.0); PLATELET COUNT 229 10^3/UL (140-415); RED CELL DISTRIBUTION WIDTH 13.2 % (11.5-14.5); WHITE BLOOD COUNT 7.2 10^3/ul (4.8-10.8)
[2016-06-27 06:47] LABS: CALCIUM 9.6 mg/dl (8.4-10.2); CREATININE 0.6 mg/dl (0.44-1.00); MAGNESIUM 2.1 mg/dl (1.7-2.5); PHOSPHORUS 4.4 mg/dl (2.5-4.9); POTASSIUM 4.9 mmol/L (3.5-5.1)
[2016-06-27] MEDS: LEVALBUTEROL (NEB) 0.63 MG/3 ML AMP HHN SCH (07:21)
[2016-06-27] MEDS: CHOLECALCIFEROL 1,000 UNIT TAB PO SCH (08:24)
[2016-06-27] MEDS: AZITHROMYCIN 250 MG TAB PO SCH (08:24)
[2016-06-27] MEDS: ASPIRIN 81 MG TAB PO SCH (08:24)
[2016-06-27] MEDS: SERTRALINE 50 MG TAB PO SCH (08:24)
[2016-06-27] MEDS: THIAMINE 100 MG TAB PO SCH (08:24)
[2016-06-27] MEDS: FAMOTIDINE 20 MG TAB PO SCH (08:24)
[2016-06-27] MEDS: POTASSIUM CHLORIDE (SR) 8 MEQ CAP PO SCH (08:24)
[2016-06-27] MEDS: OLANZAPINE 5 MG TAB PO SCH (08:24)
[2016-06-27] MEDS: INSULIN ASPART [NOVOLOG] 3 ML PEN SC SCH ×4 (08:30→12:00)
[2016-06-27] MEDS: ENOXAPARIN 40 MG/0.4 ML SYG SC SCH (08:36)
[2016-06-27] MEDS: LISINOPRIL 10 MG TAB PO SCH (09:00)
--- NOTE | 2016-06-27 11:54 | PN ---
Date/Time of Note Date/Time of Note DATE: 06/27/16 TIME: 11:52 Assessment/Plan VTE Prophylaxis VTE Prophylaxis Intervention: LMWH Lines/Catheters IV Catheter Type (from Nrs): Saline Lock Urinary Cath still in place: No (discontinued by AM nurse this afternoon) Assessment/Plan Chief Complaint/Hosp Course S: 06/25 events noted 06/26-no events. Appears stable 06/27 no events. No distress chest pain dyspnea or edema. Does have deconditioning. Patient and son updated regarding the long-term effort acquired before her symptoms can get better. O: Vss PE No pallor/JVD Reg, no m/r/g CTAB Bs+ nt nd, no RRG Mild edema A/P 1. Ac on ch decompensated s-CHF. Stable cont bb/acei/lasix. Outpt ICD eval. 2. Coronary disease? DC home 06/27 if ok w Cardio. 3. DM/metabolic syndrome/obesity. Cont asa/statin 4. Dyslipidemia 5. Valvular heart dz -mild MR 6. Psychosis on Zyprexa 7. Bronchitis vs pneumonia. finish azithro. 8. Hematuria- traumatic jaramillo. dced jaramillo. Problems: Exam/Review of Systems Vital Signs Vitals Vital Signs Date Time Temp Pulse Resp B/P Pulse Ox O2 Delivery O2 Flow Rate FiO2 06/27/16 08:15 83 06/27/16 08:00 Nasal Cannula 2.0 06/27/16 07:53 97.6 20 100/55 96 06/27/16 07:22 21 Intake and Output 06/26/16 06/26/16 06/27/16 15:00 23:00 07:00 Intake Total 350 ml 350 ml Balance 350 ml 350 ml Results Result Diagram: 06/27/16 0549 06/27/16 0549 Results 24 hrs Laboratory Tests Test 06/26/16 12:02 06/26/16 17:10 06/26/16 21:35 06/27/16 05:49 Bedside Glucose 138 188 129 White Blood Count 7.2 Red Blood Count 4.50 Hemoglobin 12.7 Hematocrit 39.0 Mean Corpuscular Volume 86.7 Mean Corpuscular Hemoglobin 28.2 L Mean Corpuscular Hemoglobin Concent 32.6 Red Cell Distribution Width 13.2 Platelet Count 229 Mean Platelet Volume 10.9 H Neutrophils % 52.4 Lymphocytes % 36.8 Monocytes % 7.0 Eosinophils % 2.9 Basophils % 0.6 Nucleated Red Blood Cells % 0.0 Neutrophils # 3.8 Lymphocytes # 2.6 Monocytes # 0.5 Eosinophils # 0.2 Basophils # 0.0 Nucleated Red Blood Cells # 0.0 Sodium Level 136 Potassium Level 4.9 Chloride Level 98 Carbon Dioxide Level 32 H Anion Gap 11 Blood Urea Nitrogen 25 H Creatinine 0.60 Glucose Level 148 Calcium Level 9.6 Phosphorus Level 4.4 Magnesium Level 2.1 Test 06/27/16 08:01 Bedside Glucose 200 Medications Medications Current Medications Ondansetron HCl (Zofran Inj) 4 mg Q6H PRN IV NAUSEA AND/OR VOMITING; Start 06/23 at 11:30 Acetaminophen/ Hydrocodone Bitart ([place] (5/325)) 1 tab Q6H PRN PO MODERATE PAIN LEVEL 4-6 Last administered on 06/26/16 08:34; Admin Dose 1 TAB; Start 06/23/16 at 11:30 Magnesium Hydroxide (Milk Of Mag) 30 ml DAILY PRN PO CONSTIPATION; Start at 11:30 Bisacodyl (Dulcolax) 5 mg DAILY PRN PO CONSTIPATION Last administered on 20:22; Admin Dose 5 MG; Start 06/23/16 at 11:30 Enoxaparin Sodium (Lovenox) 40 mg DAILY SC Last administered on 06/27/16 08:36 ; Admin Dose 40 MG; Start 06/24/16 at 09:00 Aspirin (Aspirin) 81 mg DAILY PO Last administered on 06/27/16 08:24; Admin Dose 81 MG; Start 06/24/16 at 09:00 Atorvastatin Calcium (Lipitor) 20 mg QHS PO Last administered on 06/26/16 21: 36; Admin Dose 20 MG; Start 06/23/16 at 21:00 Olanzapine (Zyprexa) 5 mg DAILY PO Last administered on 06/27/16 08:24; Admin Dose 5 MG; Start 06/24/16 at 09:00 Potassium Chloride (Micro-K) 8 meq DAILY PO Last administered on 06/27/16 08: 24; Admin Dose 8 MEQ; Start 06/24/16 at 09:00 Sertraline HCl (Zoloft) 50 mg DAILY PO Last administered on 06/27/16 08:24; Admin Dose 50 MG; Start 06/24/16 at 09:00 Hydralazine HCl (Apresoline) 10 mg Q6H PRN IV SBP>160; Start 06/23/16 at 12:00 Miscellaneous Information 1 ea NOTE XX ; Start 06/23/16 at 12:00 Glucose (Glutose) 15 gm Q15M PRN PO DECREASED GLUCOSE; Start 06/23/16 at 12:00 Glucose (Glutose) 22.5 gm Q15M PRN PO DECREASED GLUCOSE; Start 06/23/16 at 12:00 Dextrose (D50w Syringe) 25 ml Q15M PRN IV DECREASED GLUCOSE; Start 06/23/16 at 12:00 Dextrose (D50w Syringe) 50 ml Q15M PRN IV DECREASED GLUCOSE; Start 06/23/16 at 12:00 Glucagon (Glucagen) 1 mg Q15M PRN IM DECREASED GLUCOSE; Start 06/23/16 at 12:00 Glucose 15 gm 15 gm Q15M PRN BUCCAL DECREASED GLUCOSE; Start 06/23/16 at 12:00 Ceftriaxone Sodium (Rocephin) 50 ml @ 100 mls/hr Q24H IVPB Last administered on 06/26/16 13:30; Admin Dose 100 MLS/HR; Start 06/23/16 at 14:00 Cholecalciferol (Vitamin D) 1,000 unit DAILY PO Last administered on 06/27/16 08:24; Admin Dose 1,000 UNIT; Start 06/24/16 at 09:00 Carvedilol (Coreg) 6.25 mg BID PO Last administered on 06/26/16 21:36; Admin Dose 6.25 MG; Start 06/23/16 at 21:00 Guaifenesin/ Dextromethorphan (Robitussin Dm Liquid Cup) 10 ml Q4H PRN PO COUGH Last administered on 06/26/16 08:34; Admin Dose 10 ML; Start 06/24/16 at 00:00 Diagnostic Test (Pha) (Accu-Chek) 1 ea 02 XX ; Start 06/25/16 at 02:00 Lisinopril (Zestril) 10 mg DAILY PO Last administered on 06/26/16 08:35; Admin Dose 10 MG; Start 06/25/16 at 09:00 Insulin Glargine (Lantus) 27 unit DAILY@20 SC Last administered on 06/26/16 21 :35; Admin Dose 27 UNIT; Start 06/24/16 at 20:00 Famotidine (Pepcid) 20 mg DAILY PO Last administered on 06/27/16 08:24; Admin Dose 20 MG; Start 06/26/16 at 09:00 Thiamine HCl (Vitamin B1) 100 mg DAILY PO Last administered on 06/27/16 08:24 ; Admin Dose 100 MG; Start 06/26/16 at 09:00 Azithromycin (Zithromax) 500 mg DAILY PO Last administered on 06/27/16 08:24; Admin Dose 500 MG; Start 06/26/16 at 09:00 TESSY BEJARANO MD Jun 27, 2016 11:54
--- NOTE | 2016-06-27 11:56 | PDOCDIS ---
Discharge Instructions DIAGNOSIS Discharge Diagnosis: CHF CONDITION Patient Condition: Stable HOME CARE INSTRUCTIONS: Special Diet: diabetic diet; no added salt. ACTIVITY: Activity Restrictions: Slowly Increase Activity Do not Drive FOLLOW UP/APPOINTMENTS Appointments appt Dr Wayne/ [facility] - 1-2wks PCP 1wk Check weight and record every saturday. TESSY BEJARANO MD Jun 27, 2016 11:56
[2016-06-27] MEDS ORDERED: AZIT250T6 PO (12:01)
[2016-06-27] MEDS ORDERED: ATOR20TA65 PO (12:01)
[2016-06-27] MEDS ORDERED: CARV6.2579 PO (12:01)
[2016-06-27] MEDS ORDERED: ASPI81TA3 PO (12:01)
[2016-06-27] MEDS ORDERED: Thiamine PO (12:01)
[2016-06-27] MEDS ORDERED: CHOL100062 PO (12:01)
[2016-06-27] MEDS ORDERED: LISI10TA2 PO (12:01)
[2016-06-27] MEDS ORDERED: LEVALBUTEROL (NEB) 0.63 MG/3 ML AMP HHN PRN (13:00)
--- NOTE | 2016-06-27 13:59 | CONS ---
Date/Time of Note Date/Time of Note DATE: 06/27/16 TIME: 13:57 Assessment/Plan Assessment/Plan Chief Complaint/Hosp Course IMPRESSION: 1. Congestive heart failure exacerbation, systolic, acute on chronic. 2. Cardiomyopathy with severely depressed left ventricular ejection fraction approximately 25% by echocardiogram today. 3. Tachycardia consistent with sinus tachycardia at this time, likely in the setting of decompensated congestive heart failure. 4. Diabetes mellitus. 5. Dyslipidemia. 6. Acidosis. 7. Abnormal electrocardiogram, assess for acute coronary syndrome.-negative troponin x 3 8.PNA Recc: -Tele -serial ecg's -Continue coreg and decrease dose of zestril further to allow patient to better tolerate -Continue asa -Continue lasix -Continue abx's and f/u cx data Problems: Consultation Date/Type/Reason Admit Date/Time Jun 23, 2016 at 10:22 Initial Consult Date 06/23/2016 Type of Consultation: Cardiology Reason for Consultation CHF Referring Provider: JO-ANN VIVAS MD Exam/Review of Systems Vital Signs Vitals Vital Signs Date Time Temp Pulse Resp B/P Pulse Ox O2 Delivery O2 Flow Rate FiO2 06/27/16 12:04 98.2 94 20 141/62 98 06/27/16 08:00 Nasal Cannula 2.0 06/27/16 07:22 21 Intake and Output 06/26/16 06/26/16 06/27/16 15:00 23:00 07:00 Intake Total 350 ml 350 ml Balance 350 ml 350 ml Exam Review of Systems: CONSTITUTIONAL: No fevers, chills. PULMONARY: No sob CARDIOVASCULAR: No chest pain/palpitations GASTROINTESTINAL: No nausea/vomiting. GENITOURINARY: No hematuria/dysuria. MUSCULOSKELETAL: No myagias/arthalgias. PSYCHIATRIC: The patient denies depression. NEUROLOGIC: No weakness Constitutional: alert, oriented Psych: no complaints Head: normocephalic ENMT: mucosa pink and moist Neck: jvd (9 cm water), supple Respiratory: diminished breath sounds (at bases/B) Cardiovascular: edema (none), regular rate and rhythm Gastrointestinal: soft Musculoskeletal: muscle tone (normal) Extremities: edema (none) Neurological: other (No focal deficits) Results Result Diagram: 06/27/16 0549 06/27/16 0549 Results 24 hrs Laboratory Tests Test 06/26/16 17:10 06/26/16 21:35 06/27/16 05:49 06/27/16 08:01 Bedside Glucose 188 129 200 White Blood Count 7.2 Red Blood Count 4.50 Hemoglobin 12.7 Hematocrit 39.0 Mean Corpuscular Volume 86.7 Mean Corpuscular Hemoglobin 28.2 L Mean Corpuscular Hemoglobin Concent 32.6 Red Cell Distribution Width 13.2 Platelet Count 229 Mean Platelet Volume 10.9 H Neutrophils % 52.4 Lymphocytes % 36.8 Monocytes % 7.0 Eosinophils % 2.9 Basophils % 0.6 Nucleated Red Blood Cells % 0.0 Neutrophils # 3.8 Lymphocytes # 2.6 Monocytes # 0.5 Eosinophils # 0.2 Basophils # 0.0 Nucleated Red Blood Cells # 0.0 Sodium Level 136 Potassium Level 4.9 Chloride Level 98 Carbon Dioxide Level 32 H Anion Gap 11 Blood Urea Nitrogen 25 H Creatinine 0.60 Glucose Level 148 Calcium Level 9.6 Phosphorus Level 4.4 Magnesium Level 2.1 Test 06/27/16 11:51 Bedside Glucose 131 Medications Medications Current Medications Ondansetron HCl (Zofran Inj) 4 mg Q6H PRN IV NAUSEA AND/OR VOMITING; Start 06/23 at 11:30 Acetaminophen/ Hydrocodone Bitart ([place] (5/325)) 1 tab Q6H PRN PO MODERATE PAIN LEVEL 4-6 Last administered on 06/26/16 08:34; Admin Dose 1 TAB; Start 06/23/16 at 11:30 Magnesium Hydroxide (Milk Of Mag) 30 ml DAILY PRN PO CONSTIPATION; Start at 11:30 Bisacodyl (Dulcolax) 5 mg DAILY PRN PO CONSTIPATION Last administered on 20:22; Admin Dose 5 MG; Start 06/23/16 at 11:30 Enoxaparin Sodium (Lovenox) 40 mg DAILY SC Last administered on 06/27/16 08:36 ; Admin Dose 40 MG; Start 06/24/16 at 09:00 Aspirin (Aspirin) 81 mg DAILY PO Last administered on 06/27/16 08:24; Admin Dose 81 MG; Start 06/24/16 at 09:00 Olanzapine (Zyprexa) 5 mg DAILY PO Last administered on 06/27/16 08:24; Admin Dose 5 MG; Start 06/24/16 at 09:00 Potassium Chloride (Micro-K) 8 meq DAILY PO Last administered on 06/27/16 08: 24; Admin Dose 8 MEQ; Start 06/24/16 at 09:00 Sertraline HCl (Zoloft) 50 mg DAILY PO Last administered on 06/27/16 08:24; Admin Dose 50 MG; Start 06/24/16 at 09:00 Hydralazine HCl (Apresoline) 10 mg Q6H PRN IV SBP>160; Start 06/23/16 at 12:00 Miscellaneous Information 1 ea NOTE XX ; Start 06/23/16 at 12:00 Glucose (Glutose) 15 gm Q15M PRN PO DECREASED GLUCOSE; Start 06/23/16 at 12:00 Glucose (Glutose) 22.5 gm Q15M PRN PO DECREASED GLUCOSE; Start 06/23/16 at 12:00 Dextrose (D50w Syringe) 25 ml Q15M PRN IV DECREASED GLUCOSE; Start 06/23/16 at 12:00 Dextrose (D50w Syringe) 50 ml Q15M PRN IV DECREASED GLUCOSE; Start 06/23/16 at 12:00 Glucagon (Glucagen) 1 mg Q15M PRN IM DECREASED GLUCOSE; Start 06/23/16 at 12:00 Glucose (Glutose) 15 gm Q15M PRN BUCCAL DECREASED GLUCOSE; Start 06/23/16 at 12: 00 Cholecalciferol (Vitamin D) 1,000 unit DAILY PO Last administered on 06/27/16 08:24; Admin Dose 1,000 UNIT; Start 06/24/16 at 09:00 Carvedilol (Coreg) 6.25 mg BID PO Last administered on 06/26/16 21:36; Admin Dose 6.25 MG; Start 06/23/16 at 21:00 Guaifenesin/ Dextromethorphan (Robitussin Dm Liquid Cup) 10 ml Q4H PRN PO COUGH Last administered on 06/26/16 08:34; Admin Dose 10 ML; Start 06/24/16 at 00:00 Diagnostic Test (Pha) (Accu-Chek) 1 ea 02 XX ; Start 06/25/16 at 02:00 Lisinopril (Zestril) 10 mg DAILY PO Last administered on 06/26/16 08:35; Admin Dose 10 MG; Start 06/25/16 at 09:00 Insulin Glargine (Lantus) 27 unit DAILY@20 SC Last administered on 06/26/16 21 :35; Admin Dose 27 UNIT; Start 06/24/16 at 20:00 Famotidine (Pepcid) 20 mg DAILY PO Last administered on 06/27/16 08:24; Admin Dose 20 MG; Start 06/26/16 at 09:00 Thiamine HCl (Vitamin B1) 100 mg DAILY PO Last administered on 06/27/16 08:24 ; Admin Dose 100 MG; Start 06/26/16 at 09:00 Azithromycin (Zithromax) 500 mg DAILY PO Last administered on 06/27/16 08:24; Admin Dose 500 MG; Start 06/26/16 at 09:00 Atorvastatin Calcium (Lipitor) 40 mg QHS PO ; Start 06/27/16 at 21:00 MICA WATKINS Jun 27, 2016 13:59
--- NOTE | 2016-06-27 14:30 | DS ---
DATE OF ADMISSION: 06/23/2016 DATE OF DISCHARGE: 06/27/2016 PRIMARY CARE PHYSICIAN: Unknown. POST OFFICE MANAGER: Drs. Keenan/Rosana DIAGNOSES ON ADMISSION: 1. Decompensated systolic congestive heart failure. 2. Possible coronary artery disease. 3. Valvular heart disease. 4. Chronic psychosis, depression. 5. Community-acquired lobar streptococcal pneumonia. 6. Hematuria, resolved. 7. Dyslipidemia. HOSPITAL COURSE: This is a 56-year-old female admitted with shortness of breath. Ruled out for acu te enzymes, EKG symptoms. The patient was seen by cardiology. Her ejection fraction is 25%. She appears to be adherent to medical therapy but unfortunately decompensated. She does not add an y salt to her food. Not sure if she checks her weights. We will have to consider an ICU for her kamilla n the line. She is a nonsmoker. She will continue beta karsten, ASHWIN inhibitor and diuretics. I agustin ve added thiamine. No arrhythmias during her hospital stay. Her EF is 25%. She has lost 7 kg while in the hospital, down to 82 kgs. What I will ____ ask is that they avoid nonsteroidals. Diabetes, metabolic syndrome, possible coronary artery disease, obesity. Aspirin can be lowered to 81 daily. I have increased her statin to 40 daily, which should be fairly well, tolerated at her ag e. Her cholesterol is not at goal. In terms of depression, psychosis, it is stable. There is no ideation that I can see. Family at bed side is aware of her stability. I think she can continue her Zoloft and Zyprexa. Imaging was concerning additionally for pneumonia. Lobar likely streptococcal. Will discharge home on azithromycin. Incidentally had hematuria, probably traumatic from the [place]. She seems to be urinating, ambulatin g and tolerating her aspirin. IMAGING STUDIES: A 2-D echo read as EF of 55 with severe global left ventricular dysfunction. Mild to moderate MR, trace aortic regurgitation. CAT scan of the chest was indeed an angiogram, did not show any pulmonary embolism. There is atelectasis versus pneumonia, right greater than left, modera te right pleural effusion, small left effusion. Cardiomegaly, fatty liver disease, hepatomegaly, DJ D. Chest x-ray: Cardiomegaly, congestion. Blood cultures negative, urine negative. Influenza testing negative. LABORATORY DATA: Sodium 136, potassium 4.9, chloride 98, bicarbonate 32, BUN 25, creatinine 0.6, gl ucose 140, calcium 9, magnesium 2, phosphorus 4. A1c of 7.9. Troponins negative x3. Total cholest brittany 249. Triglycerides 220, LDL of 156, HDL of 49. TSH 2.1. Vitamin D level of 17.9. INR 0.6. White cell count 7, hemoglobin and hematocrit of 12 and 39, platelets of 229. Urine essentially unr emarkable. Vital signs stable. Sinus rhythm, off oxygen. DISCHARGE PLAN: Home. Follow up with primary in [address] Shannon/Ree in 1 to 2 weeks. DIET: 1800 ADA low salt. ACTIVITY: No heavy lifting, no driving. DURABLE MEDICAL EQUIPMENT: None. CODE STATUS: Full. CONDITION: Stable. BARRIERS TO DISCHARGE: None. PENDING TESTS: None. FUNCTIONAL STATUS: The patient awake, alert agrees to plan of care. CONDITION: Stable. ALLERGIES: NO KNOWN DRUG ALLERGIES. STOPPED MEDICATIONS: 1. Motrin. 2. Ultram. 3. Mevacor. 4. Levaquin. CONTINUED MEDICATIONS: 1. Albuterol 2 puffs every 4 hours as needed. 2. Zyrtec 10 mg daily. 3. Lasix 40 twice daily. 4. Glipizide 5 mg with breakfast and dinner. 5. Robitussin-AC as needed. 6. Metformin 1000 twice daily. 7. Zyprexa 5 mg daily. 8. Potassium 8 mEq daily. 9. Prednisone 10 mg daily to finish its previous course. 10. Zoloft 50 daily. 11. Januvia 100 daily. 12. Phenergan with codeine as needed for cough. ALTERED MEDICATIONS: 1. Aspirin now 81 daily. 2. Lipitor now 40 mg daily. 3. Azithromycin now 500 mg daily for 3 more days to finish his course. 4. Coreg now 6.25 twice daily. 5. Lisinopril down to 10 mg daily. NEW MEDICATIONS: 1. Vitamin D 1000 units daily. 2. Thiamine 100 daily. Dictated By: TESSY BEJARANO MD AC/NTS Conf#: [id number] DID#: [id number] CC: MICA KEENAN MD; ZELDA SHANNON MD;*End*
[2016-06-27] MEDS ORDERED: FUROSEMIDE 20 MG TAB PO SCH (18:00)
[2016-06-27] MEDS ORDERED: ATORVASTATIN 40 MG TAB PO SCH (21:00)
[2016-06-28] MEDS ORDERED: LISINOPRIL 10 MG TAB PO SCH (09:00)
== END 2016-06-27 15:35 | disposition home or self-care (01) | DRG 291 ==
LOC: E/R 05:25 → MS4 10:22
PROVIDERS: ADMIT Internal Medicine Pulmonary Disease; ATTEND Internal Medicine Pulmonary Disease
PROC: 5A09357 Assistance with Respiratory Ventilation, Less than 24 Consecutive Hours, Continuous Positive Airway Pressure (ICD-10-PCS; principal; 2016-06-23)
DX: I50.23 Acute on chronic systolic (congestive) heart failure (principal); J96.01 Acute respiratory failure with hypoxia; J96.02 Acute respiratory failure with hypercapnia; J15.20 Pneumonia due to staphylococcus, unspecified; E87.2 Acidosis; J18.9 Pneumonia, unspecified organism; I42.9 Cardiomyopathy, unspecified; I24.9 Acute ischemic heart disease, unspecified; I38 Endocarditis, valve unspecified; I11.0 Hypertensive heart disease with heart failure; I27.2 Other secondary pulmonary hypertension; E11.9 Type 2 diabetes mellitus without complications; E78.5 Hyperlipidemia, unspecified; E66.9 Obesity, unspecified; F29 Unspecified psychosis not due to a substance or known physiological condition; F32.9 Major depressive disorder, single episode, unspecified; Y95 Nosocomial condition; R31.9 Hematuria, unspecified; Z68.38 Body mass index [BMI] 38.0-38.9, adult; Z79.82 Long term (current) use of aspirin; Z79.4 Long term (current) use of insulin
CPT/HCPCS: 36415; 36600; 71010; 71275; 80048; 80061; 81001; 81003; 82550; 82553; 82652; 82803; 82962; 83036; 83735; 83880; 84100; 84439; 84443; 84484; 85025; 85610; 85730; 87040; 87086; 87400; 93005; 93306; 94640; 94644; 94660; 94664; 96374; 96375; J0456; J0696; J1650; J1815; J1940; J2060; J2930; Q9967

== ENCOUNTER 2016-08-10 12:29 | Emergency (ER) | payer OTHER ==
[~2016-08-10] VITALS: Wt 87.0 kg
[~2016-08-10 12:29] MED LIST changes: -ASPI325T4 PO; +ASPI81TA3 PO; -ATOR20TA38 PO; +ATOR20TA65 PO; +AZIT250T6 PO; -AZIT250T94 PO; -CARV3.12 PO; +CARV6.2579 PO; +CHOL100062 PO; +GLIP5TAB13 PO; -IBUP400T22 PO; -LEVO750T25 PO; +LISI10TA2 PO; -LISI40TA9 PO; +SITA100T8 PO; -TRAM50TA2 PO; +Thiamine PO
[2016-08-10 13:50] VITALS: TEMP 98
[2016-08-10] MEDS ORDERED: SOD CHLORIDE 0.9% 1,000 ML IV STA (13:58)
[2016-08-10] MEDS ORDERED: ONDANSETRON 4 MG INJ IV STA (13:58)
[2016-08-10 14:21] LABS: ADD SCAN DIFF NO
[2016-08-10 14:24] LABS: BASOPHIL # 0.1 10^3/ul (0.0-0.1); BASOPHILS % 0.9 % (0.0-2.0); EOSINOPHILS # 0.1 10^3/ul (0.0-0.5); EOSINOPHILS % 1.4 % (0.0-7.0); HEMATOCRIT 41.5 % (37.0-47.0); HEMOGLOBIN 13.4 g/dl (12.0-16.0); LYMPHOCYTES # 2.3 10^3/ul (0.8-2.9); LYMPHOCYTES % 28.4 % (15.0-51.0); MEAN CORPUSCULAR HEMOGLOBIN 26.9 pg (29.0-33.0); MEAN CORPUSCULAR HGB CONC 32.3 g/dl (32.0-37.0); MEAN CORPUSCULAR VOLUME 83.3 fl (82.0-101.0); MEAN PLATELET VOLUME 10.5 fl (7.4-10.4); MONOCYTE # 0.4 10^3/ul (0.3-0.9); MONOCYTES % 5.5 % (0.0-11.0); NEUTROPHIL # 5.1 10^3/ul (1.6-7.5); NEUTROPHILS % 63.7 % (39.0-77.0); PLATELET COUNT 290 10^3/UL (140-415); RED BLOOD COUNT 4.98 10^6/ul (4.20-5.40); RED CELL DISTRIBUTION WIDTH 12.8 % (11.5-14.5); WHITE BLOOD COUNT 7.9 10^3/ul (4.8-10.8)
[2016-08-10 14:26] LABS: ADD UMIC NO; URINE BILIRUBIN (Dip) NEGATIVE (NEGATIVE); URINE BLOOD (Dip) NEGATIVE (NEGATIVE); URINE COLOR LT. YELLOW (YELLOW); URINE KETONES (Dip) NEGATIVE (NEGATIVE); URINE LEUKOCYTE ESTERASE (Dip) NEGATIVE (NEGATIVE); URINE NITRITE (Dip) NEGATIVE (NEGATIVE); URINE TOTAL PROTEIN (Dip) NEGATIVE (NEGATIVE); URINE UROBILINOGEN (Dip) 0.2 E.U./dL (0.1-1.0)
[2016-08-10] MEDS ORDERED: THIA100T56 PO (14:31)
[2016-08-10] MEDS ORDERED: LOVA20TA PO (14:31)
[2016-08-10] MEDS ORDERED: LISI20TA11 PO (14:32)
[2016-08-10 14:37] LABS: INR 0.93; PROTIME 12.5 Sec (12.2-14.2)
[2016-08-10 14:38] LABS: PARTIAL THROMBOPLASTIN TIME 33.8 Sec (25.0-35.0)
[2016-08-10 14:40] LABS: ALANINE AMINOTRANSFERASE 40 IU/L (13-69); ALBUMIN 4.5 g/dl (3.3-4.9); ALBUMIN/GLOBULIN RATIO 1.28; ALKALINE PHOSPHATASE 117 IU/L (42-121); ANION GAP 14 (8-16); ASPARTATE AMINO TRANSFERASE 29 IU/L (15-46); BILIRUBIN,INDIRECT 0.4 mg/dl (0-1.1); BILIRUBIN,TOTAL 0.4 mg/dl (0.2-1.3); BLOOD UREA NITROGEN 18 mg/dl (7-20); CALCIUM 9.9 mg/dl (8.4-10.2); CARBON DIOXIDE 29 mmol/L (21-31); CHLORIDE 96 mmol/L (97-110); CREATININE 0.69 mg/dl (0.44-1.00); GLUCOSE 330 mg/dl (70-220); SODIUM 135 mmol/L (135-144)
[2016-08-10 14:55] LABS: TROPONIN-I < 0.012 ng/ml (0.00-0.12)
[2016-08-10] MEDS ORDERED: MECLIZINE 12.5 MG TAB PO ONE (15:30)
--- NOTE | 2016-08-10 15:37 | RADRPT ---
PROCEDURE: XR Chest. CLINICAL INDICATION: Abdominal pain. TECHNIQUE: Single frontal view of the chest was obtained. COMPARISON: Chest x-ray 03/27/2016 08:47 p.m. FINDINGS: The soft tissues are normal. There are degenerative osteophytes in the thoracic spine. There is a suboptimal in the way effort. The heart has a transverse configuration and is enlarged. The cardio mediastinal silhouette and hilar structures are normal. The pulmonary vasculature is normal. There is a left-sided aorta. The lungs are clear. The costophrenic angles are normal. IMPRESSION: 1. Mild cardiomegaly. 2. Stable chest with no evidence of active cardiopulmonary disease. RPTAT:AAJJ Physician Komal Date Time Electronically viewed and signed by De Mcadams Physician on 08/10/2016 15:37 /
[2016-08-10 16:50] VITALS: BP 118/59; PULSE 80; RESP 22
[2016-08-10] MEDS ORDERED: MECL-77 PO (18:02)
--- NOTE | 2016-08-10 18:13 | ERD ---
ER Documentation Chief Complaint Date/Time DATE: 08/10/16 TIME: 18:08 Chief Complaint DIZZINESS/NAUSEA/ELEVATED BLOOD SUGAR SINCE YESTERDAY HPI This 56-year-old female presents with a history of 3 days dizziness described as a feeling of the room is spinning, made worse on changes in position accompanied by nausea. She is also had an elevated blood sugar since yesterday. She denies any fevers chills, dysuria, chest pain, lightheadedness. She has no pain currently. Stated that she has had this type of dizziness on and off in the past. Is always resolved.. ROS All systems reviewed and are negative except as per history of present illness. Medications Home Meds Active Scripts Meclizine Hcl* (Meclizine Hcl*) 25 Mg Tablet, 25 MG PO Q8H Y for DIZZINESS, #20 TAB Prov:YVONNE KRAUSE DO 08/10/16 Cholecalciferol* (Vitamin D3*) 1,000 Unit Tablet, 1000 UNIT PO DAILY for 20 Days , #20 TAB Prov:TESSY BEJARANO MD 06/27/16 Aspirin (Aspirin) 81 Mg Chew, 81 MG PO DAILY for 30 Days, #30 TAB Prov:TESSY BEJARANO MD 06/27/16 Carvedilol* (Carvedilol*) 6.25 Mg Tablet, 6.25 MG PO BID for 30 Days, #60 TAB Prov:TESSY BEJARANO MD 06/27/16 Furosemide* (Lasix*) 20 Mg Tablet, 40 MG PO BID, #60 TAB Prov:MAURIZIO SANCHEZ MD 11/27/15 Metformin* (Glucophage*) 1,000 Mg Tablet, 1000 MG PO BID, #60 TAB Prov:TREY OATES DO 10/08/15 Olanzapine* (Zyprexa*) 5 Mg Tablet, 5 MG PO DAILY, #30 TAB Prov:TREY OATES DO 10/08/15 Reported Medications Lisinopril* (Lisinopril*) 20 Mg Tablet, 20 MG PO BID, #30 TAB 08/10/16 Thiamine* (Vitamin B-1*) 100 Mg Tablet, 100 MG PO DAILY, TAB 08/10/16 Lovastatin* (Lovastatin*) 20 Mg Tablet, 20 MG PO HS, TAB 08/10/16 Sitagliptin* (Januvia*) 100 Mg Tablet, 100 MG PO DAILY, #30 TAB AT LUNCH TIME 06/23/16 Sertraline Hcl* (Sertraline Hcl*) 50 Mg Tablet, 50 MG PO DAILY HS, #30 TAB 11/24/15 Potassium Chloride* (Potassium Chloride*) 8 Meq Capsule.er, 8 MEQ PO DAILY, CAP 11/24/15 Discontinued Reported Medications Glipizide* (Glipizide*) 5 Mg Tablet, 5 MG PO AC BREAKFAST DINNER, TAB 06/23/16 Discontinued Scripts [Thiamine] 100 MG TAB No Conflict Check, 100 MG PO DAILY for 30 Days, #30 Prov:TESSY BEJARANO MD 06/27/16 Lisinopril* (Lisinopril*) 10 Mg Tablet, 10 MG PO DAILY for 14 Days, #14 TAB Prov:TESSY BEJARANO MD 06/27/16 Atorvastatin Calcium (Atorvastatin Calcium) 20 Mg Tablet, 40 MG PO QHS for 30 Days, #30 TAB Prov:TESSY BEJARANO MD 06/27/16 Azithromycin* (Azithromycin*) 250 Mg Tablet, 500 MG PO DAILY for 3 Days, #3 TAB Prov:TESSY BEJARANO MD 06/27/16 Prednisone (Prednisone) 10 Mg Tab, 10 MG PO DAILY for 3 Days, TAB Prov:TAWANA MATTSON MD 04/04/16 [Promethazine/Codeine Syp] 5 ML SYRUP No Conflict Check, 10 ML PO Q4H Y for COUGH Prov:TAWANA MATTSON MD 04/04/16 Cetirizine Hcl* (Zyrtec*) 10 Mg Capsule, 10 MG PO DAILY, #30 TAB.CHEW Prov:WILLIE GABRIEL NP 03/27/16 Albuterol Sulfate* (Proair HFA*) 8.5 Gm Hfa.aer.ad, 2 PUFF INH Q4H Y for WHEEZING AND SOB, #1 INHALER Prov:WILLIE GABRIEL NP 03/27/16 Guaifenesin-Codeine Phosphate* (Guaifenesin* AC Cough Syrup) 473 Ml Liquid, 10 ML PO Q4H Y for COUGH, #120 ML Prov:WILLIE GABRIEL NP 03/27/16 Allergies Allergies: Coded Allergies: No Known Allergy (Unverified , 08/10/16) PMhx/Soc Medical and Surgical Hx: pt denies Surgical Hx History of Surgery: No Anesthesia Reaction: No Hx Neurological Disorder: No Hx Respiratory Disorders: Yes (ASTHMA, CHF ) Hx Cardiac Disorders: Yes (CHF, HTN ) Hx Psychiatric Problems: Yes (ANXIETY, DEPRESSION ) Hx Miscellaneous Medical Probl: No Hx Alcohol Use: No Hx Substance Use: No Hx Tobacco Use: No Smoking Status: Never smoker Physical Exam Vitals Vital Signs Date Time Temp Pulse Resp B/P Pulse Ox O2 Delivery O2 Flow Rate FiO2 08/10/16 16:50 80 22 118/59 96 Room Air 08/10/16 13:50 98.0 84 20 114/66 98 Room Air 08/10/16 12:30 98.0 92 20 128/63 97 Physical Exam Const: [] No distress Head: Atraumatic Eyes: Normal Conjunctiva, EOMI, PRL ENT: Normal External Ears, Nose and Mouth. Tympanic membranes clear bilaterally Neck: Full range of motion..~ No meningismus. No JVD Resp: Clear to auscultation bilaterally Cardio: Regular rate and rhythm, no murmurs Abd: Soft, non tender, non distended. Normal bowel sounds Skin: No petechiae or rashes Back: No midline or flank tenderness Ext: No cyanosis, or edema, no focal weaknesses, 5 out of 5 strength all extremities, distal pulses intact all 4 extreme Neur: Awake and alert and oriented 3, cranial nerves II through XII intact, no cerebellar deficits, normal gait Psych: Normal Mood and Affect Result Diagram: 08/10/16 1400 08/10/16 1400 Results 24 hrs Laboratory Tests Test 08/10/16 12:34 08/10/16 14:00 08/10/16 17:50 Bedside Glucose 395mg/dL 316mg/dL 189mg/dL White Blood Count 7.910^3/ul Red Blood Count 4.9810^6/ul Hemoglobin 13.4g/dl Hematocrit 41.5% Mean Corpuscular Volume 83.3fl Mean Corpuscular Hemoglobin 26.9pg Mean Corpuscular Hemoglobin Concent 32.3g/dl Red Cell Distribution Width 12.8% Platelet Count 64800^3/UL Mean Platelet Volume 10.5fl Neutrophils % 63.7% Lymphocytes % 28.4% Monocytes % 5.5% Eosinophils % 1.4% Basophils % 0.9% Nucleated Red Blood Cells % 0.0/100WBC Neutrophils # 5.110^3/ul Lymphocytes # 2.310^3/ul Monocytes # 0.410^3/ul Eosinophils # 0.110^3/ul Basophils # 0.110^3/ul Nucleated Red Blood Cells # 0.010^3/ul Prothrombin Time 12.5Sec Prothrombin Time Ratio 1.0 INR International Normalized Ratio 0.93 Activated Partial Thromboplast Time 33.8Sec Urine Color LT. YELLOW Urine Clarity CLEAR Urine pH 5.5 Urine Specific [place] 1.010 Urine Ketones NEGATIVE Urine Nitrite NEGATIVE Urine Bilirubin NEGATIVE Urine Urobilinogen 0.2 E.U./dL Urine Leukocyte Esterase NEGATIVE Urine Hemoglobin NEGATIVE Urine Glucose 0.5%% Urine Total Protein NEGATIVE Sodium Level 135mmol/L Potassium Level 4.0mmol/L Chloride Level 96mmol/L Carbon Dioxide Level 29mmol/L Anion Gap 14 Blood Urea Nitrogen 18mg/dl Creatinine 0.69mg/dl Glucose Level 330mg/dl Lactic Acid Level 1.7mmol/L Calcium Level 9.9mg/dl Total Bilirubin 0.4mg/dl Direct Bilirubin 0.00mg/dl Indirect Bilirubin 0.4mg/dl Aspartate Amino Transf (AST/SGOT) 29IU/L Alanine Aminotransferase (ALT/SGPT) 40IU/L Alkaline Phosphatase 117IU/L Troponin I < 0.012ng/ml Total Protein 8.0g/dl Albumin 4.5g/dl Globulin 3.50g/dl Albumin/Globulin Ratio 1.28 Lipase 158U/L Current Medications Medications (Trade) Dose Ordered Sig/Honey Route PRN Reason Start Time Stop Time Status Last Admin Dose Admin Sodium Chloride (NS) 1,000 ml @ 1,000 mls/hr Q1H STAT IV 08/10/16 13:58 08/10/16 14:57 DC 08/10/16 14:33 Ondansetron HCl (Zofran Inj) 4 mg ONCE STAT IV 08/10/16 13:58 08/10/16 14:00 DC 08/10/16 14:33 Meclizine HCl (Antivert) 25 mg ONCE ONCE PO 08/10/16 15:30 08/10/16 15:31 DC 08/10/16 15:37 Procedures/MDM Patient with vertigo most consistent with peripheral cause of vertigo as well as hyperglycemia. Patient states that she takes her diabetic medication regularly which leads to good control of her sugars. She takes both metformin and another pill. She was unable to take them today because she had nausea related to her dizziness. She was given a total of Antivert which led to marked improvement of her symptoms. She is feeling much better I see no signs of acute infection. She was given a liter of normal saline as well as Zofran. After liter normal saline her sugar was decreased very well. I believe she takes her diabetic medications as usual her sugar will continue to go down. Instructed to take them when she gets home as well as tomorrow morning. Also instructed her that she may want to follow-up with an ear nose and throat doctor if she continues to have this type of vertigo. No signs of DKA. Discharge with primary care follow-up in the next 2-3 days period Departure Diagnosis: Primary Impression: Hyperglycemia Additional Impression: Vertigo Condition: Stable Patient Instructions: Hyperglycemia (High Blood Sugar), Inner Ear Problems: Causes of Dizziness (Vertigo) Additional Instructions: Llame al doctor MATAMELA y nidia celine DREW PARA DENTRO DE 2-3 MIRANDA.Dgale a la secretaria que nosotros le instruimos hacer esta drew.Avise o llame si snyder condicin se empeora antes de la drew. Regresa aqui si peor o no mejor. YVONNE KRAUSE DO August 10, 2016 18:13
== END 2016-08-10 18:23 | disposition home or self-care (01) ==
LOC: E/R 12:29
DX: E11.65 Type 2 diabetes mellitus with hyperglycemia (principal); I10 Essential (primary) hypertension; J45.909 Unspecified asthma, uncomplicated; I50.9 Heart failure, unspecified; R11.0 Nausea; Z79.82 Long term (current) use of aspirin; Z79.84 Long term (current) use of oral hypoglycemic drugs
CPT/HCPCS: 71010; 80053; 81003; 82962; 83605; 83690; 84484; 85025; 85610; 85730; J2405; J7030; Z7610; 36415; 96374

== ENCOUNTER 2016-09-24 16:00 | Inpatient (IN) | payer OTHER ==
[~2016-09-24] VITALS: Ht 154.9 cm; Wt 84.2 kg
[~2016-09-24 16:00] MED LIST changes: -ALBU8.5H3 INH; -ATOR20TA65 PO; -AZIT250T6 PO; -CETI10CA PO; -GLIP5TAB13 PO; -GUAI473L22 PO; -LISI10TA2 PO; +LISI20TA11 PO; +LOVA20TA PO; +MECL-77 PO; -PRED10TA PO; -Promethazine/Codeine Syp PO; +THIA100T56 PO; -Thiamine PO
[2016-09-24 16:15] LABS: ADD SCAN DIFF NO
[2016-09-24 16:16] LABS: BASOPHIL # 0.1 10^3/ul (0.0-0.1); BASOPHILS % 0.5 % (0.0-2.0); EOSINOPHILS # 0.1 10^3/ul (0.0-0.5); EOSINOPHILS % 1.5 % (0.0-7.0); HEMATOCRIT 41.5 % (37.0-47.0); HEMOGLOBIN 14.1 g/dl (12.0-16.0); LYMPHOCYTES # 2.9 10^3/ul (0.8-2.9); LYMPHOCYTES % 30.9 % (15.0-51.0); MEAN CORPUSCULAR HEMOGLOBIN 27.6 pg (29.0-33.0); MEAN CORPUSCULAR VOLUME 81.2 fl (82.0-101.0); MEAN PLATELET VOLUME 10.2 fl (7.4-10.4); MONOCYTE # 0.5 10^3/ul (0.3-0.9); MONOCYTES % 5.4 % (0.0-11.0); NEUTROPHIL # 5.7 10^3/ul (1.6-7.5); NEUTROPHILS % 61.4 % (39.0-77.0); PLATELET COUNT 290 10^3/UL (140-415); RED BLOOD COUNT 5.11 10^6/ul (4.20-5.40); RED CELL DISTRIBUTION WIDTH 12.4 % (11.5-14.5); WHITE BLOOD COUNT 9.3 10^3/ul (4.8-10.8)
[2016-09-24] MEDS ORDERED: FUROSEMIDE 40 MG INJ IV ONE (16:30)
[2016-09-24] MEDS ORDERED: ENALAPRILAT 1.25 MG INJ IV ONE (16:30)
[2016-09-24] MEDS ORDERED: ASPIRIN 81 MG TAB PO ONE (16:30)
[2016-09-24 16:35] LABS: ALANINE AMINOTRANSFERASE 60 IU/L (13-69); ALBUMIN 4.9 g/dl (3.3-4.9); ALBUMIN/GLOBULIN RATIO 1.44; ALKALINE PHOSPHATASE 134 IU/L (42-121); ANION GAP 24 (8-16); ASPARTATE AMINO TRANSFERASE 84 IU/L (15-46); BILIRUBIN,INDIRECT 0.3 mg/dl (0-1.1); BILIRUBIN,TOTAL 0.3 mg/dl (0.2-1.3); BLOOD UREA NITROGEN 15 mg/dl (7-20); CARBON DIOXIDE 21 mmol/L (21-31); CHLORIDE 97 mmol/L (97-110); CREATININE 0.63 mg/dl (0.44-1.00); GLUCOSE 203 mg/dl (70-220); POTASSIUM 3.7 mmol/L (3.5-5.1); SODIUM 138 mmol/L (135-144); TOTAL PROTEIN 8.3 g/dl (6.1-8.1)
[2016-09-24 16:53] LABS: TROPONIN-I < 0.012 ng/ml (0.00-0.12)
--- NOTE | 2016-09-24 16:55 | RADRPT ---
PROCEDURE: XR Chest AP portable CLINICAL INDICATION: Abdominal pain TECHNIQUE: An AP portable radiograph of the chest was submitted. COMPARISON: 03/27/2016 FINDINGS: Support Hardware: None Cardiovascular: The heart remains mildly enlarged while the pulmonary vasculature is equivocal for p oint venous obstruction. Lung [place]: The patient has a suboptimal inspiration compresses lung parenchyma exaggerating the bi basilar interstitial markings. No alveolar infiltrate is evident. Pleural Spaces: No pneumothorax or pleural effusion is identified. Osseous Structures: Moderate diffuse degenerative spine changes are noted. Soft Tissues: The soft tissues appear generous. IMPRESSION: 1. Persistent mild cardiomegaly with the pulmonary vasculature now equivocal for pulmonary venous o bstruction. 2. Suboptimal inspiration compresses lung parenchyma exaggerating the bibasilar interstitial markin gs. 3. Moderate degenerative spine changes. Physician Alan Date Time Electronically viewed and signed by Colton Shelley Physician on 09/24/2016 16:55 RH/
--- NOTE | 2016-09-24 17:43 | ERA ---
ER Documentation Chief Complaint Date/Time DATE: 09/24/16 TIME: 17:37 Chief Complaint RESP DISTRESS X 40 MIN FROM DENTIST OFFICE. RALES. REQUIRING NON-REBREATHER HPI 56-year-old woman brought in by EMS for shortness of breath beginning while at the dentist office, she does have a history of congestive heart failure. She was placed on CPAP by EMS while at the facility and it seemed symptoms responded positively. She denies cough although she states she has had recent bilateral lower extremity swelling, she denies fevers or chills, no chest pain, no vomiting or diarrhea. ROS All systems reviewed and are negative except as per history of present illness. Medications Home Meds Active Scripts Meclizine Hcl* (Meclizine Hcl*) 25 Mg Tablet, 25 MG PO Q8H Y for DIZZINESS, #20 TAB Prov:YVONNE KRAUSE DO 08/10/16 Cholecalciferol* (Vitamin D3*) 1,000 Unit Tablet, 1000 UNIT PO DAILY for 20 Days , #20 TAB Prov:TESSY BEJARANO MD 06/27/16 Aspirin (Aspirin) 81 Mg Chew, 81 MG PO DAILY for 30 Days, #30 TAB Prov:TESSY BEJARANO MD 06/27/16 Carvedilol* (Carvedilol*) 6.25 Mg Tablet, 6.25 MG PO BID for 30 Days, #60 TAB Prov:TESSY BEJARANO MD 06/27/16 Furosemide* (Lasix*) 20 Mg Tablet, 40 MG PO BID, #60 TAB Prov:MAURIZIO SANCHEZ MD 11/27/15 Metformin* (Glucophage*) 1,000 Mg Tablet, 1000 MG PO BID, #60 TAB Prov:TREY OATES DO 10/08/15 Olanzapine* (Zyprexa*) 5 Mg Tablet, 5 MG PO DAILY, #30 TAB Prov:TREY OATES DO 10/08/15 Reported Medications Lisinopril* (Lisinopril*) 20 Mg Tablet, 20 MG PO BID, #30 TAB 08/10/16 Thiamine* (Vitamin B-1*) 100 Mg Tablet, 100 MG PO DAILY, TAB 08/10/16 Lovastatin* (Lovastatin*) 20 Mg Tablet, 20 MG PO HS, TAB 08/10/16 Sitagliptin* (Januvia*) 100 Mg Tablet, 100 MG PO DAILY, #30 TAB AT LUNCH TIME 06/23/16 Sertraline Hcl* (Sertraline Hcl*) 50 Mg Tablet, 50 MG PO DAILY HS, #30 TAB 11/24/15 Potassium Chloride* (Potassium Chloride*) 8 Meq Capsule.er, 8 MEQ PO DAILY, CAP 11/24/15 Allergies Allergies: Coded Allergies: No Known Allergy (Unverified , 08/10/16) PMhx/Soc Obesity, CHF, COPD, anxiety History of Surgery: No Anesthesia Reaction: No Hx Neurological Disorder: No Hx Respiratory Disorders: Yes (ASTHMA, CHF ) Hx Cardiac Disorders: Yes (CHF, HTN ) Hx Psychiatric Problems: Yes (ANXIETY, DEPRESSION ) Hx Miscellaneous Medical Probl: No Hx Alcohol Use: No Hx Substance Use: No Hx Tobacco Use: No Smoking Status: Never smoker FmHx Family History: No diabetes Physical Exam Vitals Vital Signs Date Time Temp Pulse Resp B/P Pulse Ox O2 Delivery O2 Flow Rate FiO2 09/24/16 16:22 108 99 50 09/24/16 16:07 99.0 114 32 135/77 100 Physical Exam GENERAL: Well-developed, well-nourished, anxious, dyspneic, afebrile HEENT: Moist mucous membranes, pink conjunctiva, no cervical spine tenderness or step-off deformities, no goiter, no jaundice or icterus, extraocular movements intact without pain. No submandibular induration, and no pharyngeal erythema NEURO: Alert and oriented 3, cranial nerves II through XII intact bilaterally, pupils equal round reactive to light, no focal deficits or facial asymmetry, sensation intact distally Strength 5/5 in upper and lower extremities bilaterally CARDIAC: Tachycardic and regular, no murmurs rubs or gallops LUNGS: Poor breath sounds bilaterally, crackles, no wheezing or stridor ABDOMEN: Soft nontender, no guarding, no rigidity, no rebound, no psoas sign no obturator sign. Normoactive bowel sounds SKIN: Warm and dry to touch, no abrasions, contusions, or hematomas, no lacerations, no ecchymosis, no target lesions, and without ulcers EXTREMITIES: No clubbing cyanosis, 2+ pitting edema in the lower extremities bilaterally, calves are bilaterally symmetrical, no Homans sign, no popliteal cord sign. Distal pulses equal and bilateral PSYCH: Anxious Result Diagram: 09/24/16 1600 09/24/16 1600 Results 24 hrs Laboratory Tests Test 09/24/16 16:00 White Blood Count 9.310^3/ul Red Blood Count 5.1110^6/ul Hemoglobin 14.1g/dl Hematocrit 41.5% Mean Corpuscular Volume 81.2fl Mean Corpuscular Hemoglobin 27.6pg Mean Corpuscular Hemoglobin Concent 34.0g/dl Red Cell Distribution Width 12.4% Platelet Count 47290^3/UL Mean Platelet Volume 10.2fl Neutrophils % 61.4% Lymphocytes % 30.9% Monocytes % 5.4% Eosinophils % 1.5% Basophils % 0.5% Nucleated Red Blood Cells % 0.0/100WBC Neutrophils # 5.710^3/ul Lymphocytes # 2.910^3/ul Monocytes # 0.510^3/ul Eosinophils # 0.110^3/ul Basophils # 0.110^3/ul Nucleated Red Blood Cells # 0.010^3/ul Sodium Level 138mmol/L Potassium Level 3.7mmol/L Chloride Level 97mmol/L Carbon Dioxide Level 21mmol/L Anion Gap 24 Blood Urea Nitrogen 15mg/dl Creatinine 0.63mg/dl Glucose Level 203mg/dl Calcium Level 10.0mg/dl Total Bilirubin 0.3mg/dl Direct Bilirubin 0.00mg/dl Indirect Bilirubin 0.3mg/dl Aspartate Amino Transf (AST/SGOT) 84IU/L Alanine Aminotransferase (ALT/SGPT) 60IU/L Alkaline Phosphatase 134IU/L Troponin I < 0.012ng/ml Total Protein 8.3g/dl Albumin 4.9g/dl Globulin 3.40g/dl Albumin/Globulin Ratio 1.44 Lipase 136U/L Current Medications Medications (Trade) Dose Ordered Sig/Honey Route PRN Reason Start Time Stop Time Status Last Admin Dose Admin Furosemide (Lasix) 80 mg ONCE ONCE IV 09/24/16 16:30 09/24/16 16:31 DC 09/24/16 16:30 Aspirin (Aspirin) 324 mg ONCE ONCE PO 09/24/16 16:30 09/24/16 16:31 DC 09/24/16 16:31 Enalaprilat (Vasotec Iv) 1.25 mg ONCE ONCE IV 09/24/16 16:30 7/10/17 16:31 DC 09/24/16 16:30 Procedures/MDM IV line was established patient was placed on liquid flavor compounder rhythm strip revealed a sinus tachycardia at 100 bpm with upright P and T waves. Patient was afebrile. She was also hypertensive initially and I suspected decompensated heart failure patient was placed on BiPAP immediately. EKG performed, read by me revealed a sinus tachycardia at 108 bpm, normal axis, right ventricular conduction delay with a QRS duration of 102 ms, no concerning ST elevations or depressions noted, prolonged QT of 509 ms. I treated the patient here with aspirin 325 mg p.o., enalapril 1.25 mg IV, furosemide 80 mg IV One view chest x-ray performed, read by me revealed cardiomegaly and bilateral pulmonary vascular congestion, no acute infiltrates, no pneumothorax. On BiPAP patient's symptoms improved although she remains dyspneic and will require inpatient management, she is also has continued tachypnea. EKG #2 performed, read by me revealed a sinus tachycardia 100 bpm, normal axis, narrow QRS complex, no concerning ST elevations or depressions noted, with prolonged QT of 518 ms. I administered magnesium 2 g IV for prolonged QT syndrome. Critical Care: Time: 35 minutes, this was time separate from other billable procedures. Treatments/Evaluations: Close monitoring and treatment of unstable vital signs, cardiorespiratory, and neurologic status, while maintaining tight balance of fluid, respiratory, and cardiac interventions. CBC was unremarkable, electrolytes normal, troponin negative, liver function tests normal. Departure Diagnosis: Primary Impression: Acute CHF Qualified Code: I50.21 - Acute systolic congestive heart failure Additional Impressions: Hypertension Qualified Code: I10 - Essential hypertension Acute respiratory failure Qualified Code: J96.01 - Acute respiratory failure with hypoxia and hypercapnia Condition: EVELYN Ledezma MD Sep 24, 2016 17:42
[2016-09-24] MEDS ORDERED: MECLIZINE 25 MG TAB PO PRN (18:00)
[2016-09-24] MEDS ORDERED: MAGNESIUM SULFATE 2 GM/50 ML 50 ML IVPB ONE (18:00)
[2016-09-24] MEDS: INSULIN ASPART [NOVOLOG] 3 ML PEN SC SCH ×2 (18:00→22:03)
--- NOTE | 2016-09-24 18:08 | HP ---
Date/Time of Note Date/Time of Note DATE: 09/24/16 TIME: 17:49 Assessment/Plan VTE Prophylaxis VTE Prophylaxis Intervention: LMWH Assessment/Plan Assessment/Plan 56 yo F sent from dentist's office with SOB managed for : 1. Acute respiratory failure. Hypoxic on Bipap 2. Acute on chronic congestive heart failure exacerbation, systolic dysfunction 3. Cardiomyopathy. The patient has cardiomyopathy with ejection fraction of 20 % to 25%. 4. Type 2 diabetes mellitus 5. Dyslipidemia 6. Chronic Depression. 7. Pulmonary hypertension. 8. Acute transaminitis with hx of fatty liver : 2/2 #2? 9. Hypertension: fair control Plan: * Tele admit / diuresis / ACS rule out / d dimer / echo * SSI / DM diet / home meds * wean bipap / CTA if neccesary / possible pulm consult * PRN pain control/ antiemetics/ antipyretics/ supportive care Prophylaxis : PPI / Lovenox HPI/ROS Admit Date/Time Admit Date/Time September 24, 2016 Hx of Present Illness This is a 56-year-old female with a past medical history of COPD, high blood pressure, diabetes type 2, dyslipidemia, and chronic depression who was at her dentist office earlier today and she was found to have shortness of breath and bilateral lower extremity swelling. Because of the severity of her shortness of breath she was sent to the emergency room for further evaluation. Evaluation was consistent with congestive heart failure and she is being admitted for further management. She denies chest pain, though she does have some discomfort, she denies cough, denies palpitations, denies fever. She has had no abdominal pain, no nausea no vomiting, denies dysuria or hematuria. She does endorse dyspnea on exertion and some paroxysmal nocturnal dyspnea. She does have a history of congestive heart failure. In the emergency room she required BiPAP therapy to maintain her saturations. PMH/Family/Social Past Medical History 1. Congestive heart failure. 2. Coronary artery disease. 3. Valvular heart disease. 4. Chronic psychosis, depression. 5. Community-acquired lobar streptococcal pneumonia. 6. CM with Last EF 25% 7. Dyslipidemia. 8. Fatty liver Past Surgical History Past Surgical Hx: no surgical history Social History Alcohol Use: none Smoking Status: Never smoker Exam/Review of Systems Vital Signs Vitals VS - Last 72 Hours, by Label Date Time Temp Pulse Resp B/P Pulse Ox O2 Delivery O2 Flow Rate FiO2 09/24/16 16:22 108 99 50 09/24/16 16:07 99.0 114 32 135/77 100 Vital Signs Date Time Temp Pulse Resp B/P Pulse Ox O2 Delivery O2 Flow Rate FiO2 09/24/16 16:22 108 99 50 09/24/16 16:07 99.0 32 135/77 Exam Exam GENERAL: This is an obese female lying in bed in mild to moderate respiratory distress with oxygen via BiPAP mask on. HEENT: Head normocephalic and atraumatic. Eyes: Anicteric sclerae. Conjunctivae clear. ENT: Nasal septum is midline. Oral mucosa is dry. NECK: Supple. JVD noticed. RESPIRATORY: Bilaterally diminished breath sounds. Bilateral fine rales heard. Use of accessory muscles of respiration. No wheezing. CARDIAC: Regular rate and rhythm. Unable to appreciate any murmurs because of tachypnea and noise from BiPAP. ABDOMEN: Distended, soft, minimal right lower quadrant tenderness. Bowel sounds hypoactive in all 4 quadrants. GENITOURINARY: Deferred. EXTREMITIES: No cyanosis, no clubbing. Trace bilateral pedal edema. Peripheral pulses palpable. NEUROLOGIC: The patient is awake, alert and oriented. Cranial nerves are grossly intact. Labs Result Diagram: 09/24/16 1600 09/24/16 1600 Medications Medications Current Medications Magnesium Sulfate (Magnesium Sulfate 2 Gm/50 ml) 50 ml @ 25 mls/hr ONCE ONCE IVPB ; Start 09/24/16 at 18:00; Stop 09/24/16 at 19:59 Procedures Procedures Laboratory Tests Test 09/24/16 16:00 White Blood Count 9.310^3/ul Red Blood Count 5.1110^6/ul Hemoglobin 14.1g/dl Hematocrit 41.5% Mean Corpuscular Volume 81.2fl Mean Corpuscular Hemoglobin 27.6pg Mean Corpuscular Hemoglobin Concent 34.0g/dl Red Cell Distribution Width 12.4% Platelet Count 15349^3/UL Mean Platelet Volume 10.2fl Neutrophils % 61.4% Lymphocytes % 30.9% Monocytes % 5.4% Eosinophils % 1.5% Basophils % 0.5% Nucleated Red Blood Cells % 0.0/100WBC Neutrophils # 5.710^3/ul Lymphocytes # 2.910^3/ul Monocytes # 0.510^3/ul Eosinophils # 0.110^3/ul Basophils # 0.110^3/ul Nucleated Red Blood Cells # 0.010^3/ul Sodium Level 138mmol/L Potassium Level 3.7mmol/L Chloride Level 97mmol/L Carbon Dioxide Level 21mmol/L Anion Gap 24 Blood Urea Nitrogen 15mg/dl Creatinine 0.63mg/dl Glucose Level 203mg/dl Calcium Level 10.0mg/dl Total Bilirubin 0.3mg/dl Direct Bilirubin 0.00mg/dl Indirect Bilirubin 0.3mg/dl Aspartate Amino Transf (AST/SGOT) 84IU/L Alanine Aminotransferase (ALT/SGPT) 60IU/L Alkaline Phosphatase 134IU/L Troponin I < 0.012ng/ml Total Protein 8.3g/dl Albumin 4.9g/dl Globulin 3.40g/dl Albumin/Globulin Ratio 1.44 Lipase 136U/L Current Medications Medications (Trade) Dose Ordered Sig/Honey Route PRN Reason Start Time Stop Time Status Last Admin Dose Admin Furosemide (Lasix) 80 mg ONCE ONCE IV 09/24/16 16:30 09/24/16 16:31 DC 09/24/16 16:30 80 MG Aspirin (Aspirin) 324 mg ONCE ONCE PO 09/24/16 16:30 09/24/16 16:31 DC 09/24/16 16:31 324 MG Enalaprilat 1.25 mg 1.25 mg ONCE ONCE IV 09/24/16 16:30 09/24/16 16:31 DC 09/24/16 16:30 1.25 MG Magnesium Sulfate (Magnesium Sulfate 2 Gm/50 ml) 50 ml @ 25 mls/hr ONCE ONCE IVPB 09/24/16 18:00 09/24/16 19:59 PROCEDURE: XR Chest AP portable CLINICAL INDICATION: Abdominal pain TECHNIQUE: An AP portable radiograph of the chest was submitted. COMPARISON: 03/27/2016 FINDINGS: Support Hardware: None Cardiovascular: The heart remains mildly enlarged while the pulmonary vasculature is equivocal for point venous obstruction. Lung Row[place]: The patient has a suboptimal inspiration compresses lung parenchyma exaggerating the bibasilar interstitial markings. No alveolar infiltrate is evident. Pleural Spaces: No pneumothorax or pleural effusion is identified. Osseous Structures: Moderate diffuse degenerative spine changes are noted. Soft Tissues: The soft tissues appear generous. IMPRESSION: 1. Persistent mild cardiomegaly with the pulmonary vasculature now equivocal for pulmonary venous obstruction. 2. Suboptimal inspiration compresses lung parenchyma exaggerating the bibasilar interstitial markings. 3. Moderate degenerative spine changes. Physician Alan Date Time Electronically viewed and signed by Physician Alan on 09/24/2016 16:55 RH/ CC: EVELYN HARVEY MD PROCEDURE: CT Pulmonary Angiogram. CLINICAL INDICATION: Chest pain and shortness of breath. TECHNIQUE: CT pulmonary angiogram and a CT scan of the chest with contrast was performed. The patient was scanned following the uncomplicated intravenous administration of 125 cc of Omnipaque-350 intravenous contrast. 2-D coronal reformatted images were obtained from the axial source images. In addition, 3- D post processing was performed. Total exam DLP is 594.03 mGy-cm. CTDIvol is 56.34 mGy. One or more of the following dose reduction techniques were used: Automated exposure control, adjustment of the mA and/or kV according to patient size, use of iterative reconstruction technique. COMPARISON: None available. FINDINGS: The pulmonary arteries are normal with no filling defect or lack of enhancement to suggest pulmonary artery embolism. There is air space disease at both lung bases posteriorly consistent with atelectasis or pneumonia with right worse than left. The lungs are otherwise clear with no other airspace or interstitial disease. There is no pulmonary nodule or mass lesion. There is no pneumothorax. There is no mediastinal or hilar lymphadenopathy or mass. There is a moderate right pleural effusion and small left pleural effusion. The thoracic aorta is normal with no aneurysm or dissection. The heart is enlarged. There is no pericardial effusion. Images through the upper abdomen demonstrate hepatomegaly and fatty metamorphosis of the liver. The visualized portions of the liver, spleen, and adrenals are otherwise normal. There are mild degenerative changes of the spine. There is no fracture or lytic lesion. IMPRESSION: 1. Normal CT pulmonary angiogram with no evidence of pulmonary artery embolism. 2. Air space disease at the lung bases posteriorly consistent with atelectasis or pneumonia. Right is worse than left. 3. Moderate right pleural effusion and small left pleural effusion. 4. Cardiomegaly. 5. Fatty metamorphosis of the liver. Hepatomegaly. 6. Mild degenerative changes of the spine. RPTAT: QQ .Johnny Leiva MD, Date Time Electronically viewed and signed by .Johnny Leiva MD, on 06/23/2016 17:42 .R/ CC: TREY OATES BOLATITO M. Sep 24, 2016 18:00
[2016-09-24 18:09] VITALS: TEMP 99
[2016-09-24 18:36] LABS: D-DIMER 405.3 ng/ml (<460)
[2016-09-24] MEDS ORDERED: GLUCAGON 1 MG INJ IM PRN (19:30)
[2016-09-24] MEDS ORDERED: GLUCOSE GEL 15 GRAM TUBE BUCCAL PRN (19:30)
[2016-09-24] MEDS ORDERED: DEXTROSE 50% 50 ML SYRINGE IV PRN ×2 (19:30)
[2016-09-24] MEDS ORDERED: GLUCOSE GEL 15 GRAM TUBE PO PRN ×2 (19:30)
[2016-09-24] MEDS ORDERED: NON-FORMULARY/PATIENT OWN MED (Lovastatin* 20 MG) PO SCH (21:00)
[2016-09-24] MEDS ORDERED: ATORVASTATIN 10 MG TAB PO SCH (21:00)
[2016-09-24 21:10] VITALS: PULSE 97
[2016-09-24] MEDS: metFORMIN 500 MG TAB PO SCH (22:08)
[2016-09-24] MEDS: LISINOPRIL 20 MG TAB PO SCH (22:08)
[2016-09-24 22:50] VITALS: Ht 154.9 cm; Wt 84.2 kg
[2016-09-24 23:03] VITALS: BP 123/72; RESP 20
[2016-09-24 23:53] VITALS: BP 109/53; RESP 18
[2016-09-25] VITALS (9 sets, daily range): BP systolic 92–121; BP diastolic 46–61; PULSE 84–102; RESP 19–20
[2016-09-25] MEDS: ACCU-CHEK XX SCH (02:00)
[2016-09-25] MEDS: INSULIN ASPART [NOVOLOG] 3 ML PEN SC SCH ×4 (08:00→20:45)
[2016-09-25] MEDS: ENOXAPARIN 40 MG/0.4 ML SYG SC SCH (08:46)
[2016-09-25] MEDS ORDERED: NON-FORMULARY/PATIENT OWN MED (Sitagliptin* (Januvia*) 100 MG) PO SCH (09:00)
[2016-09-25] MEDS: ASPIRIN 81 MG TAB PO SCH (09:09)
[2016-09-25] MEDS: CHOLECALCIFEROL 1,000 UNIT TAB PO SCH (09:09)
[2016-09-25] MEDS: THIAMINE 100 MG TAB PO SCH (09:09)
[2016-09-25] MEDS: SERTRALINE 50 MG TAB PO SCH (09:09)
[2016-09-25] MEDS: OLANZAPINE 5 MG TAB PO SCH (09:09)
[2016-09-25] MEDS: POTASSIUM CHLORIDE (SR) 8 MEQ CAP PO SCH (09:09)
[2016-09-25] MEDS: LINAGLIPTIN 5 MG TABLET PO SCH (09:09)
[2016-09-25] MEDS: LISINOPRIL 20 MG TAB PO SCH ×2 (09:10→20:40)
[2016-09-25] MEDS: metFORMIN 500 MG TAB PO SCH ×2 (09:14→17:09)
[2016-09-25 09:38] LABS: ADD SCAN DIFF NO
[2016-09-25 09:45] LABS: BASOPHIL # 0.1 10^3/ul (0.0-0.1); BASOPHILS % 0.7 % (0.0-2.0); EOSINOPHILS # 0.1 10^3/ul (0.0-0.5); EOSINOPHILS % 1.4 % (0.0-7.0); HEMATOCRIT 39.9 % (37.0-47.0); HEMOGLOBIN 13.2 g/dl (12.0-16.0); LYMPHOCYTES # 1.7 10^3/ul (0.8-2.9); LYMPHOCYTES % 22.1 % (15.0-51.0); MEAN CORPUSCULAR HEMOGLOBIN 27.4 pg (29.0-33.0); MEAN CORPUSCULAR HGB CONC 33.1 g/dl (32.0-37.0); MEAN CORPUSCULAR VOLUME 82.8 fl (82.0-101.0); MEAN PLATELET VOLUME 10.5 fl (7.4-10.4); MONOCYTE # 0.4 10^3/ul (0.3-0.9); MONOCYTES % 5.6 % (0.0-11.0); NEUTROPHIL # 5.4 10^3/ul (1.6-7.5); NEUTROPHILS % 70.1 % (39.0-77.0); PLATELET COUNT 222 10^3/UL (140-415); RED BLOOD COUNT 4.82 10^6/ul (4.20-5.40); RED CELL DISTRIBUTION WIDTH 12.9 % (11.5-14.5); WHITE BLOOD COUNT 7.7 10^3/ul (4.8-10.8)
[2016-09-25 10:05] LABS: IRON 77 ug/dl (35-150)
[2016-09-25 10:11] LABS: ALBUMIN 4.6 g/dl (3.3-4.9); BILIRUBIN,INDIRECT 0.7 mg/dl (0-1.1); BILIRUBIN,TOTAL 0.7 mg/dl (0.2-1.3); CALCIUM 9.6 mg/dl (8.4-10.2); CHOL/HDL RATIO 9.1 RATIO; CREATININE 0.52 mg/dl (0.44-1.00); MAGNESIUM 1.7 mg/dl (1.7-2.5); POTASSIUM 3.9 mmol/L (3.5-5.1); TOTAL PROTEIN 7.3 g/dl (6.1-8.1)
[2016-09-25 10:15] LABS: TOTAL IRON BINDING CAPACITY 314 ug/dl (241-421)
[2016-09-25] MEDS: FUROSEMIDE 40 MG INJ IV SCH (14:36)
--- NOTE | 2016-09-25 15:11 | RADRPT ---
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 Physician: SANDRITA GASPAR Quality: Good Procedures: Transthoracic echocardiogram with complete 2D, M-Mode, and doppler examination. Indications: Congestive Heart Failure. 2D/M Mode Doppler Measurement Value Normal Ranges Measurement Value Normal Ranges LVIDd 2D 5.7 3.5 - 5.6 cm AV Peak Garry 1.4 m/sec LVIDs 2D 3.8 2.1 - 4.1 cm AV Peak PG 8.0 mmHg LVPWd 2D 1.0 0.6 - 1.1 cm LVOT Peak Garry 0.7 m/sec IVSd 2D 1.0 0.6 - 1.1 cm LVOT Peak PG 2.0 mmHg AoR Diam 2D 2.6 2.0 - 3.7 cm MV E Peak Garry 0.7 m/sec EDV 2D 161.9 cm3 MV A Peak Garry 0.8 m/sec ESV 2D 54.7 cm3 MV E/A 0.9 LA Dimen 2D 3.3 2.3 - 4.0 cm MV Decel Time 172 msec MV Decel [place] 4 MV E/A 0.9 TR Peak Garry 3.0 m/sec TR Peak PG 35.1 mmHg RVSP 45.0 mmHg Findings Left Ventricle: Normal left ventricular wall thickness. Mild enlargement of left ventricle cavity. Severe global left ventricular systolic dysfunction. Ejection fraction is visually estimated at 20 - 25 %. Tissue Doppler/Mitral Doppler indices are consistent with impaired relaxation (Stage I diastolic dysfunction). Right Ventricle: Normal right ventricular size. Normal right ventricular systolic function. Left Atrium: The left atrium is normal in size. Right Atrium: The right atrium is normal in size. Mitral Valve: Mitral valve leaflets appear mildly thickened. Mild mitral annular calcification. Mild to moderate mitral valve regurgitation. Aortic Valve: No significant aortic stenosis or insufficiency. Aortic cusps appear mildly calcified. Tricuspid Valve: Normal appearance of the tricuspid valve. Estimated peak PA systolic pressure 45 mmHg. There is mild tricuspid regurgitation. Pulmonic Valve: Pulmonic valve not well visualized. Pericardium: Normal pericardium with no significant pericardial effusion. Aorta: Normal aortic root. IVC: Normal size and normal respiratory collapse consistent with normal right atrial pressure. Conclusions 1.Normal left ventricular wall thickness. Mild enlargement of left ventricle cavity. Severe global left ventricular systolic dysfunction. Ejection fraction is visually estimated at 20 - 25 %. Tissue Doppler/Mitral Doppler indices are consistent with impaired relaxation (Stage I diastolic dysfunction). 2.Mitral valve leaflets appear mildly thickened. Mild mitral annular calcification. Mild to moderate mitral valve regurgitation. 3.No significant aortic stenosis or insufficiency. Aortic cusps appear mildly calcified. 4.Normal appearance of the tricuspid valve. Estimated peak PA systolic pressure 45 mmHg. There is mild tricuspid regurgitation. 5.Normal size and normal respiratory collapse consistent with normal right atrial pressure. Electronically Signed By: Franklin Conteh 25-Sep-2016 15:11:23 -0700 Patient Name: KELLY ERICKSON Study Date: 25-Sep-2016 [id number]
--- NOTE | 2016-09-25 16:52 | RADRPT ---
PROCEDURE: Retroperitoneal US. CLINICAL INDICATION: Renal insufficiency, oliguria TECHNIQUE: Multiple sonographic images of the kidneys and retroperitoneum were obtained. The imag es were reviewed on a PACS workstation. COMPARISON: No prior studies are available for comparison. FINDINGS: The kidneys are normal in size, contour, cortical thickness and cortical echogenicity. The right kidney measures 10.2 cm. The left kidney measures 9.5 cm. No kidney stones are visualized. There is mild dilatation of the right renal pelvis. There is no ev idence for left-sided hydronephrosis. The urinary bladder is normal. RPTAT: AA IMPRESSION: Mild dilatation of the right renal pelvis. .Donovan Vyas MD, Date Time Electronically viewed and signed by .Donovan Vyas MD, on 09/25/2016 16:52 .S/
--- NOTE | 2016-09-25 20:20 | PN ---
Date/Time of Note Date/Time of Note DATE: 09/25/16 TIME: 20:16 Assessment/Plan VTE Prophylaxis VTE Prophylaxis Intervention: LMWH Lines/Catheters IV Catheter Type (from [facility]): Saline Lock Urinary Cath still in place: No Assessment/Plan Assessment/Plan 56 yo F sent from dentist's office with SOB managed for : 1. Acute respiratory failure. now off bipap on NC 2. Acute on chronic congestive heart failure exacerbation, systolic dysfunction : improving 3. Cardiomyopathy. The patient has cardiomyopathy with ejection fraction of 20 % to 25%. 4. Type 2 diabetes mellitus A1C 9.9, fair inhouse control so far 5. Dyslipidemia: uncontrolled 6. Chronic Depression. 7. Pulmonary hypertension. 8. Acute transaminitis with hx of fatty liver : 2/ #2? 9. Hypertension: fair control Plan: * Continue diuresis / cardio consult / bedside PVR only 61cc hence patient is not retaining, will order renal USS / continue supportive care. Prophylaxis : PPI / Lovenox Subjective 24 Hr Interval Summary Free Text/Dictation c/o lethargy and reduced urinary output Exam/Review of Systems Vital Signs Vitals Vital Signs Date Time Temp Pulse Resp B/P Pulse Ox O2 Delivery O2 Flow Rate FiO2 09/25/16 16:00 102 09/25/16 11:45 98.0 19 95/46 92 09/25/16 07:30 Nasal Cannula 3.0 09/24/16 23:24 21 Exam Constitutional: alert, oriented, lethargic Head: atraumatic, normocephalic Neck: non-tender, supple Respiratory: now clear to auscultation Cardiovascular: regular rate and rhythm Gastrointestinal: S/ NT / ND / +BS Extremities: no edema, good radial pulses Results Result Diagram: 09/25/16 0850 09/25/16 0850 Results 24 hrs Laboratory Tests Test 09/24/16 22:03 09/25/16 08:12 09/25/16 08:50 09/25/16 11:30 Bedside Glucose 117 185 172 White Blood Count 7.7 Red Blood Count 4.82 Hemoglobin 13.2 Hematocrit 39.9 Mean Corpuscular Volume 82.8 Mean Corpuscular Hemoglobin 27.4 L Mean Corpuscular Hemoglobin Concent 33.1 Red Cell Distribution Width 12.9 Platelet Count 222 # Mean Platelet Volume 10.5 H Neutrophils % 70.1 Lymphocytes % 22.1 Monocytes % 5.6 Eosinophils % 1.4 Basophils % 0.7 Nucleated Red Blood Cells % 0.0 Neutrophils # 5.4 Lymphocytes # 1.7 Monocytes # 0.4 Eosinophils # 0.1 Basophils # 0.1 Nucleated Red Blood Cells # 0.0 Sodium Level 131 L Potassium Level 3.9 Chloride Level 95 L Carbon Dioxide Level 30 Anion Gap 10 # Blood Urea Nitrogen 21 H Creatinine 0.52 Glucose Level 174 Hemoglobin A1c 9.9 H Calcium Level 9.6 Magnesium Level 1.7 Iron Level 77 Total Iron Binding Capacity 314 Percent Iron Saturation 25 Total Bilirubin 0.7 Direct Bilirubin 0.00 Indirect Bilirubin 0.7 Aspartate Amino Transf (AST/SGOT) 37 Alanine Aminotransferase (ALT/SGPT) 50 Alkaline Phosphatase 113 Total Protein 7.3 # Albumin 4.6 Triglycerides Level 633 H Cholesterol Level 285 H LDL Cholesterol, Calculated 127 HDL Cholesterol 31 L Cholesterol/HDL Ratio 9.1 Test 09/25/16 17:09 Bedside Glucose 201 Medications Medications Current Medications Aspirin (Aspirin) 81 mg DAILY PO Last administered on 09/25/16 09:09; Admin Dose 81 MG; Start 09/25/16 at 09:00 Carvedilol (Coreg) 6.25 mg BID PO Last administered on 09/25/16 09:10; Admin Dose 6.25 MG; Start 09/24/16 at 21:00 Cholecalciferol (Vitamin D) 1,000 unit DAILY PO Last administered on 09/25/16 09:09; Admin Dose 1,000 UNIT; Start 09/25/16 at 09:00 Lisinopril (Zestril) 20 mg BID PO Last administered on 09/25/16 09:10; Admin Dose 20 MG; Start 09/24/16 at 21:00 Meclizine HCl (Antivert) 25 mg Q8H PRN PO DIZZINESS; Start 09/24/16 at 18:00 Olanzapine (Zyprexa) 5 mg DAILY PO Last administered on 09/25/16 09:09; Admin Dose 5 MG; Start 09/25/16 at 09:00 Potassium Chloride (Micro-K) 8 meq DAILY PO Last administered on 09/25/16 09: 09; Admin Dose 8 MEQ; Start 09/25/16 at 09:00 Sertraline HCl (Zoloft) 50 mg DAILY PO Last administered on 09/25/16 09:09; Admin Dose 50 MG; Start 09/25/16 at 09:00 Thiamine HCl (Vitamin B1) 100 mg DAILY PO Last administered on 09/25/16 09:09 ; Admin Dose 100 MG; Start 09/25/16 at 09:00 Diagnostic Test (Pha) (Accu-Chek) 1 ea 02 XX ; Start 09/25/16 at 02:00 Enoxaparin Sodium (Lovenox) 40 mg DAILY SC Last administered on 09/25/16 08:46 ; Admin Dose 40 MG; Start 09/25/16 at 09:00 Miscellaneous Information 1 ea NOTE XX ; Start 09/24/16 at 19:30 Glucose (Glutose) 15 gm Q15M PRN PO DECREASED GLUCOSE; Start 09/24/16 at 19:30 Glucose (Glutose) 22.5 gm Q15M PRN PO DECREASED GLUCOSE; Start 09/24/16 at 19: 30 Dextrose (D50w Syringe) 25 ml Q15M PRN IV DECREASED GLUCOSE; Start 09/24/16 at 19:30 Dextrose (D50w Syringe) 50 ml Q15M PRN IV DECREASED GLUCOSE; Start 09/24/16 at 19:30 Glucagon (Glucagen) 1 mg Q15M PRN IM DECREASED GLUCOSE; Start 09/24/16 at 19:30 Glucose (Glutose) 15 gm Q15M PRN BUCCAL DECREASED GLUCOSE; Start 09/24/16 at 19 :30 Linagliptin (Tradjenta) 5 mg DAILY PO Last administered on 09/25/16 09:09; Admin Dose 5 MG; Start 09/25/16 at 09:00 Atorvastatin Calcium (Lipitor) 40 mg DAILY@21 PO ; Start 09/25/16 at 21:00 Procedures Procedures PROCEDURE: XR Chest AP portable CLINICAL INDICATION: Abdominal pain TECHNIQUE: An AP portable radiograph of the chest was submitted. COMPARISON: 03/27/2016 FINDINGS: Support Hardware: None Cardiovascular: The heart remains mildly enlarged while the pulmonary vasculature is equivocal for point venous obstruction. Lung [place]: The patient has a suboptimal inspiration compresses lung parenchyma exaggerating the bibasilar interstitial markings. No alveolar infiltrate is evident. Pleural Spaces: No pneumothorax or pleural effusion is identified. Osseous Structures: Moderate diffuse degenerative spine changes are noted. Soft Tissues: The soft tissues appear generous. IMPRESSION: 1. Persistent mild cardiomegaly with the pulmonary vasculature now equivocal for pulmonary venous obstruction. 2. Suboptimal inspiration compresses lung parenchyma exaggerating the bibasilar interstitial markings. 3. Moderate degenerative spine changes. Colton Shelley Physician Date Time Electronically viewed and signed by Colton Shelley Physician on 09/24/2016 16:55 RH/ Echocardiogram Report Patient Name: KELLY ERICKSON Gender: Female Date: 1960 Study Date: 25-Sep-2016 Risk Analyst: Krishna Gibson [facility] Location: 5559 Ref. Physician: SANDRITA GASPAR Quality: Good Procedures: Transthoracic echocardiogram with complete 2D, M-Mode, and doppler examination. Indications: Congestive Heart Failure. 2D/M Mode Doppler Measurement Value Normal Ranges Measurement Value Normal Ranges LVIDd 2D 5.7 3.5 - 5.6 cm AV Peak Garry 1.4 m/sec LVIDs 2D 3.8 2.1 - 4.1 cm AV Peak PG 8.0 mmHg LVPWd 2D 1.0 0.6 - 1.1 cm LVOT Peak Garry 0.7 m/sec IVSd 2D 1.0 0.6 - 1.1 cm LVOT Peak PG 2.0 mmHg AoR Diam 2D 2.6 2.0 - 3.7 cm MV E Peak Garry 0.7 m/sec EDV 2D 161.9 cm3 MV A Peak Garry 0.8 m/sec ESV 2D 54.7 cm3 MV E/A 0.9 LA Dimen 2D 3.3 2.3 - 4.0 cm MV Decel Time 172 msec MV Decel [place] 4 MV E/A 0.9 TR Peak Garry 3.0 m/sec TR Peak PG 35.1 mmHg RVSP 45.0 mmHg Findings Left Ventricle: Normal left ventricular wall thickness. Mild enlargement of left ventricle cavity. Severe global left ventricular systolic dysfunction. Ejection fraction is visually estimated at 20 - 25 %. Tissue Doppler/Mitral Doppler indices are consistent with impaired relaxation (Stage I diastolic dysfunction). Right Ventricle: Normal right ventricular size. Normal right ventricular systolic function. Left Atrium: The left atrium is normal in size. Right Atrium: The right atrium is normal in size. Mitral Valve: Mitral valve leaflets appear mildly thickened. Mild mitral annular calcification. Mild to moderate mitral valve regurgitation. Aortic Valve: No significant aortic stenosis or insufficiency. Aortic cusps appear mildly calcified. Tricuspid Valve: Normal appearance of the tricuspid valve. Estimated peak PA systolic pressure 45 mmHg. There is mild tricuspid regurgitation. Pulmonic Valve: Pulmonic valve not well visualized. Pericardium: Normal pericardium with no significant pericardial effusion. Aorta: Normal aortic root. IVC: Normal size and normal respiratory collapse consistent with normal right atrial pressure. Conclusions 1. Normal left ventricular wall thickness. Mild enlargement of left ventricle cavity. Severe global left ventricular systolic dysfunction. Ejection fraction is visually estimated at 20 - 25 %. Tissue Doppler/Mitral Doppler indices are consistent with impaired relaxation (Stage I diastolic dysfunction). 2. Mitral valve leaflets appear mildly thickened. Mild mitral annular calcification. Mild to moderate mitral valve regurgitation. 3. No significant aortic stenosis or insufficiency. Aortic cusps appear mildly calcified. 4. Normal appearance of the tricuspid valve. Estimated peak PA systolic pressure 45 mmHg. There is mild tricuspid regurgitation. 5. Normal size and normal respiratory collapse consistent with normal right atrial pressure. Electronically Signed By: Franklin Conteh 25-Sep-2016 15:11:23 -0700 Patient Name: KELLY ERICKSON Study Date: 25-Sep-2016 [id number] SANDRITA GASPAR Sep 25, 2016 20:20
[2016-09-25] MEDS: ATORVASTATIN 40 MG TAB PO SCH (20:40)
[2016-09-26] VITALS (12 sets, daily range): BP systolic 89–119; BP diastolic 51–64; PULSE 84–102; RESP 19–20
[2016-09-26] MEDS: ACCU-CHEK XX SCH (01:28)
[2016-09-26] MEDS: FUROSEMIDE 40 MG INJ IV SCH ×2 (06:13→17:29)
[2016-09-26] MEDS: THIAMINE 100 MG TAB PO SCH (08:28)
[2016-09-26] MEDS: OLANZAPINE 5 MG TAB PO SCH (08:28)
[2016-09-26] MEDS: LINAGLIPTIN 5 MG TABLET PO SCH (08:29)
[2016-09-26] MEDS: SERTRALINE 50 MG TAB PO SCH (08:29)
[2016-09-26] MEDS: LISINOPRIL 20 MG TAB PO SCH ×2 (08:29→20:40)
[2016-09-26] MEDS: ASPIRIN 81 MG TAB PO SCH (08:29)
[2016-09-26] MEDS: POTASSIUM CHLORIDE (SR) 8 MEQ CAP PO SCH (08:29)
[2016-09-26] MEDS: ENOXAPARIN 40 MG/0.4 ML SYG SC SCH (08:33)
[2016-09-26] MEDS: INSULIN ASPART [NOVOLOG] 3 ML PEN SC SCH ×4 (08:33→20:33)
[2016-09-26] MEDS: metFORMIN 500 MG TAB PO SCH ×2 (08:46→17:27)
[2016-09-26] MEDS: CHOLECALCIFEROL 1,000 UNIT TAB PO SCH (09:18)
[2016-09-26 11:37] LABS: ADD SCAN DIFF NO
[2016-09-26 11:40] LABS: BASOPHILS % 0.4 % (0.0-2.0); EOSINOPHILS # 0.1 10^3/ul (0.0-0.5); EOSINOPHILS % 1.4 % (0.0-7.0); HEMATOCRIT 39.7 % (37.0-47.0); LYMPHOCYTES # 1.8 10^3/ul (0.8-2.9); LYMPHOCYTES % 22.1 % (15.0-51.0); MEAN CORPUSCULAR HGB CONC 32.7 g/dl (32.0-37.0); MEAN CORPUSCULAR VOLUME 82.4 fl (82.0-101.0); MEAN PLATELET VOLUME 10.6 fl (7.4-10.4); MONOCYTE # 0.5 10^3/ul (0.3-0.9); MONOCYTES % 6.6 % (0.0-11.0); NEUTROPHIL # 5.5 10^3/ul (1.6-7.5); NEUTROPHILS % 69.1 % (39.0-77.0); PLATELET COUNT 233 10^3/UL (140-415); RED BLOOD COUNT 4.82 10^6/ul (4.20-5.40); RED CELL DISTRIBUTION WIDTH 12.8 % (11.5-14.5); WHITE BLOOD COUNT 7.9 10^3/ul (4.8-10.8)
[2016-09-26 12:02] LABS: CALCIUM 9.8 mg/dl (8.4-10.2); CREATININE 0.61 mg/dl (0.44-1.00)
--- NOTE | 2016-09-26 15:43 | PN ---
Date/Time of Note Date/Time of Note DATE: 09/26/16 TIME: 15:42 Assessment/Plan Lines/Catheters IV [facility] (from [facility] Saline Lock Urinary Cath still in place: No Exam/Review of Systems Vital Signs Vitals Vital Signs Date Time Temp Pulse Resp B/P Pulse Ox O2 Delivery O2 Flow Rate FiO2 09/26/16 15:14 98.6 90 19 89/52 95 09/26/16 07:40 Nasal Cannula 3.0 09/24/16 23:24 21 Intake and Output 09/25/16 09/25/16 09/26/16 15:00 23:00 07:00 Intake Total 240 ml 450 ml 400 ml Output Total 500 ml Balance 240 ml 450 ml -100 ml Results Result Diagram: 09/26/16 1046 09/26/16 1046 Results 24 hrs Laboratory Tests Test 09/25/16 17:09 09/25/16 20:44 09/26/16 08:05 09/26/16 10:46 Bedside Glucose 201 175 201 White Blood Count 7.9 Red Blood Count 4.82 Hemoglobin 13.0 Hematocrit 39.7 Mean Corpuscular Volume 82.4 Mean Corpuscular Hemoglobin 27.0 L Mean Corpuscular Hemoglobin Concent 32.7 Red Cell Distribution Width 12.8 Platelet Count 233 Mean Platelet Volume 10.6 H Neutrophils % 69.1 Lymphocytes % 22.1 Monocytes % 6.6 Eosinophils % 1.4 Basophils % 0.4 Nucleated Red Blood Cells % 0.0 Neutrophils # 5.5 Lymphocytes # 1.8 Monocytes # 0.5 Eosinophils # 0.1 Basophils # 0.0 Nucleated Red Blood Cells # 0.0 Sodium Level 129 L Potassium Level 4.0 Chloride Level 92 L Carbon Dioxide Level 28 Anion Gap 13 Blood Urea Nitrogen 25 H Creatinine 0.61 Glucose Level 230 H Calcium Level 9.8 Test 09/26/16 11:44 Bedside Glucose 175 Medications Medications Current Medications Aspirin (Aspirin) 81 mg DAILY PO Last administered on 09/26/16 08:29; Admin Dose 81 MG; Start 09/25/16 at 09:00 Carvedilol (Coreg) 6.25 mg BID PO Last administered on 09/26/16 08:29; Admin Dose 6.25 MG; Start 09/24/16 at 21:00 Cholecalciferol (Vitamin D) 1,000 unit DAILY PO Last administered on 09/26/16 09:18; Admin Dose 1,000 UNIT; Start 09/25/16 at 09:00 Lisinopril (Zestril) 20 mg BID PO Last administered on 09/26/16 08:29; Admin Dose 20 MG; Start 09/24/16 at 21:00 Meclizine HCl (Antivert) 25 mg Q8H PRN PO DIZZINESS; Start 09/24/16 at 18:00 Olanzapine (Zyprexa) 5 mg DAILY PO Last administered on 09/26/16 08:28; Admin Dose 5 MG; Start 09/25/16 at 09:00 Potassium Chloride (Micro-K) 8 meq DAILY PO Last administered on 09/26/16 08: 29; Admin Dose 8 MEQ; Start 09/25/16 at 09:00 Sertraline HCl (Zoloft) 50 mg DAILY PO Last administered on 09/26/16 08:29; Admin Dose 50 MG; Start 09/25/16 at 09:00 Thiamine HCl (Vitamin B1) 100 mg DAILY PO Last administered on 09/26/16 08:28 ; Admin Dose 100 MG; Start 09/25/16 at 09:00 Diagnostic Test (Pha) (Accu-Chek) 1 ea 02 XX ; Start 09/25/16 at 02:00 Enoxaparin Sodium (Lovenox) 40 mg DAILY SC Last administered on 09/26/16 08:33 ; Admin Dose 40 MG; Start 09/25/16 at 09:00 Miscellaneous Information 1 ea NOTE XX ; Start 09/24/16 at 19:30 Glucose (Glutose) 15 gm Q15M PRN PO DECREASED GLUCOSE; Start 09/24/16 at 19:30 Glucose (Glutose) 22.5 gm Q15M PRN PO DECREASED GLUCOSE; Start 09/24/16 at 19: 30 Dextrose (D50w Syringe) 25 ml Q15M PRN IV DECREASED GLUCOSE; Start 09/24/16 at 19:30 Dextrose (D50w Syringe) 50 ml Q15M PRN IV DECREASED GLUCOSE; Start 09/24/16 at 19:30 Glucagon (Glucagen) 1 mg Q15M PRN IM DECREASED GLUCOSE; Start 09/24/16 at 19:30 Glucose (Glutose) 15 gm Q15M PRN BUCCAL DECREASED GLUCOSE; Start 09/24/16 at 19 :30 Linagliptin (Tradjenta) 5 mg DAILY PO Last administered on 09/26/16 08:29; Admin Dose 5 MG; Start 09/25/16 at 09:00 Atorvastatin Calcium (Lipitor) 40 mg DAILY@21 PO Last administered on 20:40; Admin Dose 40 MG; Start 09/25/16 at 21:00 SANDRITA GASPAR Sep 26, 2016 15:43
--- NOTE | 2016-09-26 16:02 | PN ---
Date/Time of Note Date/Time of Note DATE: 09/26/16 TIME: 15:49 Assessment/Plan VTE Prophylaxis VTE Prophylaxis Intervention: LMWH Lines/Catheters [facility]from [facility] Saline Lock Urinary Cath still in place: No Assessment/Plan Assessment/Plan 56 yo F sent from dentist's office with SOB managed for : 1. Acute respiratory failure. resolved 2. Acute on chronic congestive heart failure exacerbation, systolic dysfunction: improving 3. Cardiomyopathy. The patient has cardiomyopathy with ejection fraction of 20% to 25%. 4. Type 2 diabetes mellitus A1C 9.9, fair inhouse control so far 5. Dyslipidemia: uncontrolled 6. Chronic Depression. 7. Pulmonary hypertension. 8. Acute transaminitis with hx of fatty liver : 2/2 #2? 9. Hypertension: fair control 10. Hyponatremia : ?2/2 CHF Plan: * Continue diuresis / cardio consult / Complete ACS r/o * add basal insulin for better BG control * CXR followup * Continue supportive care Prophylaxis : PPI / Lovenox Subjective 24 Hr Interval Summary Free Text/Dictation patient still having lethargy Exam/Review of Systems Vital Signs Vitals Vital Signs Date Time Temp Pulse Resp B/P Pulse Ox O2 Delivery O2 Flow Rate FiO2 09/26/16 15:14 98.6 90 19 89/52 95 09/26/16 07:40 Nasal Cannula 3.0 09/24/16 23:24 21 Intake and Output 09/25/16 09/25/16 09/26/16 15:00 23:00 07:00 Intake Total 240 ml 450 ml 400 ml Output Total 500 ml Balance 240 ml 450 ml -100 ml Exam Constitutional: alert, oriented, anxious Head: atraumatic, normocephalic Neck: non-tender, supple Respiratory: now clear to auscultation Cardiovascular: regular rate and rhythm Gastrointestinal: S/ NT / ND / +BS Extremities: no edema, good radial pulses Results Result Diagram: 09/26/16 1046 09/26/16 1046 Results 24 hrs Laboratory Tests Test 09/25/16 17:09 09/25/16 20:44 09/26/16 08:05 09/26/16 10:46 Bedside Glucose 201 175 201 White Blood Count 7.9 Red Blood Count 4.82 Hemoglobin 13.0 Hematocrit 39.7 Mean Corpuscular Volume 82.4 Mean Corpuscular Hemoglobin 27.0 L Mean Corpuscular Hemoglobin Concent 32.7 Red Cell Distribution Width 12.8 Platelet Count 233 Mean Platelet Volume 10.6 H Neutrophils % 69.1 Lymphocytes % 22.1 Monocytes % 6.6 Eosinophils % 1.4 Basophils % 0.4 Nucleated Red Blood Cells % 0.0 Neutrophils # 5.5 Lymphocytes # 1.8 Monocytes # 0.5 Eosinophils # 0.1 Basophils # 0.0 Nucleated Red Blood Cells # 0.0 Sodium Level 129 L Potassium Level 4.0 Chloride Level 92 L Carbon Dioxide Level 28 Anion Gap 13 Blood Urea Nitrogen 25 H Creatinine 0.61 Glucose Level 230 H Calcium Level 9.8 Test 09/26/16 11:44 Bedside Glucose 175 Medications Medications Current Medications Aspirin (Aspirin) 81 mg DAILY PO Last administered on 09/26/16 08:29; Admin Dose 81 MG; Start 09/25/16 at 09:00 Carvedilol (Coreg) 6.25 mg BID PO Last administered on 09/26/16 08:29; Admin Dose 6.25 MG; Start 09/24/16 at 21:00 Cholecalciferol (Vitamin D) 1,000 unit DAILY PO Last administered on 09/26/16 09:18; Admin Dose 1,000 UNIT; Start 09/25/16 at 09:00 Lisinopril (Zestril) 20 mg BID PO Last administered on 09/26/16 08:29; Admin Dose 20 MG; Start 09/24/16 at 21:00 Meclizine HCl (Antivert) 25 mg Q8H PRN PO DIZZINESS; Start 09/24/16 at 18:00 Olanzapine (Zyprexa) 5 mg DAILY PO Last administered on 09/26/16 08:28; Admin Dose 5 MG; Start 09/25/16 at 09:00 Potassium Chloride (Micro-K) 8 meq DAILY PO Last administered on 09/26/16 08: 29; Admin Dose 8 MEQ; Start 09/25/16 at 09:00 Sertraline HCl (Zoloft) 50 mg DAILY PO Last administered on 09/26/16 08:29; Admin Dose 50 MG; Start 09/25/16 at 09:00 Thiamine HCl (Vitamin B1) 100 mg DAILY PO Last administered on 09/26/16 08:28 ; Admin Dose 100 MG; Start 09/25/16 at 09:00 Diagnostic Test (Pha) (Accu-Chek) 1 ea 02 XX ; Start 09/25/16 at 02:00 Enoxaparin Sodium (Lovenox) 40 mg DAILY SC Last administered on 09/26/16 08:33 ; Admin Dose 40 MG; Start 09/25/16 at 09:00 Miscellaneous Information 1 ea NOTE XX ; Start 09/24/16 at 19:30 Glucose (Glutose) 15 gm Q15M PRN PO DECREASED GLUCOSE; Start 09/24/16 at 19:30 Glucose (Glutose) 22.5 gm Q15M PRN PO DECREASED GLUCOSE; Start 09/24/16 at 19: 30 Dextrose (D50w Syringe) 25 ml Q15M PRN IV DECREASED GLUCOSE; Start 09/24/16 at 19:30 Dextrose (D50w Syringe) 50 ml Q15M PRN IV DECREASED GLUCOSE; Start 09/24/16 at 19:30 Glucagon (Glucagen) 1 mg Q15M PRN IM DECREASED GLUCOSE; Start 09/24/16 at 19:30 Glucose (Glutose) 15 gm Q15M PRN BUCCAL DECREASED GLUCOSE; Start 09/24/16 at 19 :30 Linagliptin (Tradjenta) 5 mg DAILY PO Last administered on 09/26/16 08:29; Admin Dose 5 MG; Start 09/25/16 at 09:00 Atorvastatin Calcium (Lipitor) 40 mg DAILY@21 PO Last administered on 20:40; Admin Dose 40 MG; Start 09/25/16 at 21:00 SANDRITA GASPAR Sep 26, 2016 16:00
[2016-09-26 17:51] LABS: CREATINE KINASE 29 IU/L (23-200)
[2016-09-26 18:04] LABS: CK-MB 0.33 ng/ml (0.0-2.4)
[2016-09-26 18:11] LABS: TROPONIN-I < 0.012 ng/ml (0.00-0.12)
[2016-09-26 19:53] LABS: CREATINE KINASE 29 IU/L (23-200)
[2016-09-26 20:06] LABS: CK-MB 0.37 ng/ml (0.0-2.4)
[2016-09-26 20:09] LABS: TROPONIN-I < 0.012 ng/ml (0.00-0.12)
[2016-09-26] MEDS: FENOFIBRATE 48 MG TAB PO SCH (20:34)
[2016-09-26] MEDS: ATORVASTATIN 40 MG TAB PO SCH (20:35)
[2016-09-26] MEDS: INSULIN GLARGINE [LANtus] 3 ML PEN SC SCH (20:50)
[2016-09-26] MEDS: ZOLPIDEM 5 MG TAB PO PRN (23:44)
[2016-09-27] VITALS (11 sets, daily range): BP systolic 84–116; BP diastolic 45–58; PULSE 87–109; RESP 18–20
--- NOTE | 2016-09-27 00:22 | RADRPT ---
PROCEDURE: XR Chest. CLINICAL INDICATION: CHF TECHNIQUE: Single AP portable chest. COMPARISON: 03/27/2016 Chest x-ray FINDINGS: The cardiac silhouette is enlarged but stable in size. The lungs are clear without pleural effusi on or focal consolidation. No pneumothorax. The osseous structures and soft tissues are unremarkable . IMPRESSION: 1. Cardiomegaly. No acute intrathoracic abnormality . RPTAT:AAJJ Jacoby Chauhan Physician Date Time Electronically viewed and signed by Jacoby Chauhan Physician on 09/27/2016 00:22 CJ/
[2016-09-27] MEDS: ACCU-CHEK XX SCH (02:00)
[2016-09-27 02:12] LABS: CREATINE KINASE 30 IU/L (23-200)
[2016-09-27 02:24] LABS: CK-MB 0.39 ng/ml (0.0-2.4)
[2016-09-27 02:25] LABS: TROPONIN-I < 0.012 ng/ml (0.00-0.12)
[2016-09-27] MEDS: FUROSEMIDE 40 MG INJ IV SCH (06:27)
[2016-09-27] MEDS: ASPIRIN 81 MG TAB PO SCH (08:24)
[2016-09-27] MEDS: CHOLECALCIFEROL 1,000 UNIT TAB PO SCH (08:25)
[2016-09-27] MEDS: POTASSIUM CHLORIDE (SR) 8 MEQ CAP PO SCH (08:25)
[2016-09-27] MEDS: THIAMINE 100 MG TAB PO SCH (08:25)
[2016-09-27] MEDS: LINAGLIPTIN 5 MG TABLET PO SCH (08:25)
[2016-09-27] MEDS: OLANZAPINE 5 MG TAB PO SCH (08:26)
[2016-09-27] MEDS: LISINOPRIL 20 MG TAB PO SCH ×2 (08:26→21:00)
[2016-09-27] MEDS: SERTRALINE 50 MG TAB PO SCH (08:26)
[2016-09-27] MEDS: ENOXAPARIN 40 MG/0.4 ML SYG SC SCH (08:28)
[2016-09-27] MEDS: metFORMIN 500 MG TAB PO SCH ×2 (08:38→17:33)
[2016-09-27] MEDS: INSULIN ASPART [NOVOLOG] 3 ML PEN SC SCH ×4 (08:50→21:00)
[2016-09-27] MEDS ORDERED: REGADENOSON 0.4 MG/5 ML SYG ONE (10:58)
--- NOTE | 2016-09-27 11:27 | PN ---
Date/Time of Note Date/Time of Note DATE: 09/27/16 TIME: 11:26 Assessment/Plan VTE Prophylaxis VTE Prophylaxis Intervention: LMWH Lines/Catheters IV Catheter Type (from [facility]): Saline Lock Urinary Cath still in place: No Assessment/Plan Assessment/Plan 56 yo F sent from dentist's office with SOB managed for : 1. Acute respiratory failure. resolved 2. Acute on chronic congestive heart failure exacerbation, systolic dysfunction: improving 3. Cardiomyopathy. The patient has cardiomyopathy with ejection fraction of 20% to 25%. 4. Type 2 diabetes mellitus A1C 9.9, fair inhouse control so far 5. Dyslipidemia: uncontrolled 6. Chronic Depression. 7. Pulmonary hypertension. 8. Acute transaminitis with hx of fatty liver : 2/2 #2? 9. Hypertension: fair control 10. Hyponatremia : ?2/2 CHF Plan: * Lexiscan today * Continue supportive care Prophylaxis : PPI / Lovenox Subjective 24 Hr Interval Summary Free Text/Dictation Patient seen and examined. stress test today, still slightly anxious Exam/Review of Systems Vital Signs Vitals Vital Signs Date Time Temp Pulse Resp B/P Pulse Ox O2 Delivery O2 Flow Rate FiO2 09/27/16 08:50 Nasal Cannula 3.0 09/27/16 08:33 87 09/27/16 07:52 98.8 18 104/52 99 09/24/16 23:24 21 Intake and Output 09/26/16 09/26/16 09/27/16 15:00 23:00 07:00 Intake Total 1000 ml 300 ml Output Total 600 ml Balance 400 ml 300 ml Exam Constitutional: alert, oriented Head: atraumatic, normocephalic Neck: non-tender, supple Respiratory: clear to auscultation Cardiovascular: regular rate and rhythm Gastrointestinal: S/ NT / ND / +BS Extremities: no edema, good radial pulses Results Result Diagram: 09/26/16 1046 09/26/16 1046 Results 24 hrs Laboratory Tests Test 09/26/16 11:44 09/26/16 17:21 09/26/16 17:25 09/26/16 19:15 Bedside Glucose 175 184 Creatine Kinase 29 29 Creatine Kinase Index 1.1 1.3 Creatinine Kinase MB (Mass) 0.33 0.37 Troponin I < 0.012 < 0.012 B-Type Natriuretic Peptide 170 H Test 09/26/16 20:32 09/27/16 01:20 09/27/16 08:21 Bedside Glucose 167 176 Creatine Kinase 30 Creatine Kinase Index 1.3 Creatinine Kinase MB (Mass) 0.39 Troponin I < 0.012 Medications Medications Current Medications Aspirin (Aspirin) 81 mg DAILY PO Last administered on 09/27/16 08:24; Admin Dose 81 MG; Start 09/25/16 at 09:00 Carvedilol (Coreg) 6.25 mg BID PO Last administered on 09/27/16 08:25; Admin Dose 6.25 MG; Start 09/24/16 at 21:00 Cholecalciferol (Vitamin D) 1,000 unit DAILY PO Last administered on 09/27/16 08:25; Admin Dose 1,000 UNIT; Start 09/25/16 at 09:00 Lisinopril (Zestril) 20 mg BID PO Last administered on 09/27/16 08:26; Admin Dose 20 MG; Start 09/24/16 at 21:00 Meclizine HCl (Antivert) 25 mg Q8H PRN PO DIZZINESS; Start 09/24/16 at 18:00 Olanzapine (Zyprexa) 5 mg DAILY PO Last administered on 09/27/16 08:26; Admin Dose 5 MG; Start 09/25/16 at 09:00 Potassium Chloride (Micro-K) 8 meq DAILY PO Last administered on 09/27/16 08: 25; Admin Dose 8 MEQ; Start 09/25/16 at 09:00 Sertraline HCl (Zoloft) 50 mg DAILY PO Last administered on 09/27/16 08:26; Admin Dose 50 MG; Start 09/25/16 at 09:00 Thiamine HCl (Vitamin B1) 100 mg DAILY PO Last administered on 09/27/16 08:25 ; Admin Dose 100 MG; Start 09/25/16 at 09:00 Diagnostic Test (Pha) (Accu-Chek) 1 ea 02 XX ; Start 09/25/16 at 02:00 Enoxaparin Sodium (Lovenox) 40 mg DAILY SC Last administered on 09/27/16 08:28 ; Admin Dose 40 MG; Start 09/25/16 at 09:00 Miscellaneous Information 1 ea NOTE XX ; Start 09/24/16 at 19:30 Glucose (Glutose) 15 gm Q15M PRN PO DECREASED GLUCOSE; Start 09/24/16 at 19:30 Glucose (Glutose) 22.5 gm Q15M PRN PO DECREASED GLUCOSE; Start 09/24/16 at 19: 30 Dextrose (D50w Syringe) 25 ml Q15M PRN IV DECREASED GLUCOSE; Start 09/24/16 at 19:30 Dextrose (D50w Syringe) 50 ml Q15M PRN IV DECREASED GLUCOSE; Start 09/24/16 at 19:30 Glucagon (Glucagen) 1 mg Q15M PRN IM DECREASED GLUCOSE; Start 09/24/16 at 19:30 Glucose (Glutose) 15 gm Q15M PRN BUCCAL DECREASED GLUCOSE; Start 09/24/16 at 19 :30 Linagliptin (Tradjenta) 5 mg DAILY PO Last administered on 09/27/16 08:25; Admin Dose 5 MG; Start 09/25/16 at 09:00 Atorvastatin Calcium (Lipitor) 40 mg DAILY@21 PO Last administered on 20:35; Admin Dose 40 MG; Start 09/25/16 at 21:00 Insulin Glargine (Lantus) 15 unit DAILY@20 SC Last administered on 09/26/16 20 :50; Admin Dose 15 UNIT; Start 09/26/16 at 20:00 Fenofibrate (Tricor) 48 mg QHS PO Last administered on 09/26/16 20:34; Admin Dose 48 MG; Start 09/26/16 at 21:00 Zolpidem Tartrate (Ambien) 5 mg HS PRN PO INSOMNIA Last administered on 23:44; Admin Dose 5 MG; Start 09/26/16 at 23:15 Procedures Procedures PROCEDURE: XR Chest. CLINICAL INDICATION: CHF TECHNIQUE: Single AP portable chest. COMPARISON: 03/27/2016 Chest x-ray FINDINGS: The cardiac silhouette is enlarged but stable in size. The lungs are clear without pleural effusion or focal consolidation. No pneumothorax. The osseous structures and soft tissues are unremarkable. IMPRESSION: 1. Cardiomegaly. No acute intrathoracic abnormality . RPTAT:AAJJ Jacoby Chauhan, Physician Date Time Electronically viewed and signed by Jacoby Chauhan Physician on 09/27/2016 00:22 CJ/ CC: SANDRITA GASPAR BOLATIT[place] M. Sep 27, 2016 11:27
--- NOTE | 2016-09-27 12:07 | CONS ---
Date/Time of Note Date/Time of Note DATE: 09/27/16 TIME: 12:02 Assessment/Plan Assessment/Plan Chief Complaint/Hosp Course IMp: 1.CHF-systolic acute on chronic 2.cardiomyopathy-LVEF 20-25% 3.abnl ecg 4.HTN 4.HL 5.sob-secondary to #1 6. DM 7. 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 -Lexiscan stres test today Problems: Consultation Date/Type/Reason Admit Date/Time Sep 24, 2016 at 17:56 Initial Consult Date 09/26/2016 Type of Consultation: Cardiology Reason for Consultation CHF/cardiomyopathy Referring Provider: SANDRITA GASPAR Exam/Review of Systems Vital Signs Vitals Vital Signs Date Time Temp Pulse Resp B/P Pulse Ox O2 Delivery O2 Flow Rate FiO2 09/27/16 08:50 Nasal Cannula 3.0 09/27/16 08:33 87 09/27/16 07:52 98.8 18 104/52 99 09/24/16 23:24 21 Intake and Output 09/26/16 09/26/16 09/27/16 15:00 23:00 07:00 Intake Total 1000 ml 300 ml Output Total 600 ml Balance 400 ml 300 ml Exam Review of Systems: CONSTITUTIONAL: No fevers, chills. PULMONARY: mild sob CARDIOVASCULAR: No chest pain/palpitations GASTROINTESTINAL: No nausea/vomiting. GENITOURINARY: No hematuria/dysuria. MUSCULOSKELETAL: No myagias/arthalgias. PSYCHIATRIC: The patient denies depression. NEUROLOGIC: No weakness Constitutional: alert Psych: no complaints Head: normocephalic ENMT: mucosa pink and moist Neck: jvd (9 cm water), supple Respiratory: diminished breath sounds (at bases/B) Cardiovascular: regular rate and rhythm Gastrointestinal: non-tender, soft Musculoskeletal: muscle tone (normal) Extremities: edema (none) Neurological: other (No focal deficits) Results Result Diagram: 09/26/16 1046 09/26/16 1046 Results 24 hrs Laboratory Tests Test 09/26/16 17:21 09/26/16 17:25 09/26/16 19:15 09/26/16 20:32 Bedside Glucose 184 167 Creatine Kinase 29 29 Creatine Kinase Index 1.1 1.3 Creatinine Kinase MB (Mass) 0.33 0.37 Troponin I < 0.012 < 0.012 B-Type Natriuretic Peptide 170 H Test 09/27/16 01:20 09/27/16 08:21 Creatine Kinase 30 Creatine Kinase Index 1.3 Creatinine Kinase MB (Mass) 0.39 Troponin I < 0.012 Bedside Glucose 176 Medications Medications Current Medications Aspirin (Aspirin) 81 mg DAILY PO Last administered on 09/27/16 08:24; Admin Dose 81 MG; Start 09/25/16 at 09:00 Carvedilol (Coreg) 6.25 mg BID PO Last administered on 09/27/16 08:25; Admin Dose 6.25 MG; Start 09/24/16 at 21:00 Cholecalciferol (Vitamin D) 1,000 unit DAILY PO Last administered on 09/27/16 08:25; Admin Dose 1,000 UNIT; Start 09/25/16 at 09:00 Lisinopril (Zestril) 20 mg BID PO Last administered on 09/27/16 08:26; Admin Dose 20 MG; Start 09/24/16 at 21:00 Meclizine HCl (Antivert) 25 mg Q8H PRN PO DIZZINESS; Start 09/24/16 at 18:00 Olanzapine (Zyprexa) 5 mg DAILY PO Last administered on 09/27/16 08:26; Admin Dose 5 MG; Start 09/25/16 at 09:00 Potassium Chloride (Micro-K) 8 meq DAILY PO Last administered on 09/27/16 08: 25; Admin Dose 8 MEQ; Start 09/25/16 at 09:00 Sertraline HCl (Zoloft) 50 mg DAILY PO Last administered on 09/27/16 08:26; Admin Dose 50 MG; Start 09/25/16 at 09:00 Thiamine HCl (Vitamin B1) 100 mg DAILY PO Last administered on 09/27/16 08:25 ; Admin Dose 100 MG; Start 09/25/16 at 09:00 Diagnostic Test (Pha) (Accu-Chek) 1 ea 02 XX ; Start 09/25/16 at 02:00 Enoxaparin Sodium (Lovenox) 40 mg DAILY SC Last administered on 09/27/16 08:28 ; Admin Dose 40 MG; Start 09/25/16 at 09:00 Miscellaneous Information 1 ea NOTE XX ; Start 09/24/16 at 19:30 Glucose (Glutose) 15 gm Q15M PRN PO DECREASED GLUCOSE; Start 09/24/16 at 19:30 Glucose (Glutose) 22.5 gm Q15M PRN PO DECREASED GLUCOSE; Start 09/24/16 at 19: 30 Dextrose (D50w Syringe) 25 ml Q15M PRN IV DECREASED GLUCOSE; Start 09/24/16 at 19:30 Dextrose (D50w Syringe) 50 ml Q15M PRN IV DECREASED GLUCOSE; Start 09/24/16 at 19:30 Glucagon (Glucagen) 1 mg Q15M PRN IM DECREASED GLUCOSE; Start 09/24/16 at 19:30 Glucose (Glutose) 15 gm Q15M PRN BUCCAL DECREASED GLUCOSE; Start 09/24/16 at 19 :30 Linagliptin (Tradjenta) 5 mg DAILY PO Last administered on 09/27/16 08:25; Admin Dose 5 MG; Start 09/25/16 at 09:00 Atorvastatin Calcium (Lipitor) 40 mg DAILY@21 PO Last administered on 20:35; Admin Dose 40 MG; Start 09/25/16 at 21:00 Insulin Glargine (Lantus) 15 unit DAILY@20 SC Last administered on 09/26/16 20 :50; Admin Dose 15 UNIT; Start 09/26/16 at 20:00 Fenofibrate (Tricor) 48 mg QHS PO Last administered on 09/26/16 20:34; Admin Dose 48 MG; Start 09/26/16 at 21:00 Zolpidem Tartrate (Ambien) 5 mg HS PRN PO INSOMNIA Last administered on 23:44; Admin Dose 5 MG; Start 09/26/16 at 23:15 MICA WATKINS Sep 27, 2016 12:07
[2016-09-27 13:10] LABS: ADD SCAN DIFF NO
--- NOTE | 2016-09-27 13:12 | RADRPT ---
PROCEDURE: Nuclear medicine myocardial stress and rest scan. CLINICAL INDICATION: Chest pain. TECHNIQUE: The patient was stressed with 0.4 mg IV Lexiscan. 9.7 mCi technetium 99m Tetrofosmin ( Myoview) was administered rest. 27.9 mCi technetium 99m Tetrofosmin (Myoview) was administered dur ing stress. Images were obtained and reconstructed in the short axis, horizontal long axis, and onofre tical long axis. Gated images were obtained and ejection fraction was calculated. COMPARISON: No prior study is available for comparison. FINDINGS: The stress and rest images demonstrate normal uptake throughout. There is no fixed abnormality or r eversible abnormality. There is no evidence of transient ischemic dilatation. Wall motion is diffusely hypokinetic. There is almost no wall thickening during systole. The left ve ntricle is dilated. Ejection fraction at stress is markedly diminished measuring 16%. IMPRESSION: 1. No evidence of stress induced myocardial ischemia. 2. Dilated left ventricle. 3. Ejection fraction at stress is markedly diminished measuring 16%. RPTAT: QQ .Johnny Leiva MD, Date Time Electronically viewed and signed by .Johnny Leiva MD, on 09/27/2016 13:12 .R/
[2016-09-27 13:13] LABS: BASOPHIL # 0.1 10^3/ul (0.0-0.1); BASOPHILS % 0.6 % (0.0-2.0); EOSINOPHILS # 0.1 10^3/ul (0.0-0.5); EOSINOPHILS % 1.1 % (0.0-7.0); HEMATOCRIT 42.1 % (37.0-47.0); HEMOGLOBIN 14.1 g/dl (12.0-16.0); LYMPHOCYTES # 2.3 10^3/ul (0.8-2.9); LYMPHOCYTES % 25.4 % (15.0-51.0); MEAN CORPUSCULAR HEMOGLOBIN 27.8 pg (29.0-33.0); MEAN CORPUSCULAR HGB CONC 33.5 g/dl (32.0-37.0); MEAN PLATELET VOLUME 10.4 fl (7.4-10.4); MONOCYTE # 0.6 10^3/ul (0.3-0.9); MONOCYTES % 6.7 % (0.0-11.0); NEUTROPHIL # 5.8 10^3/ul (1.6-7.5); NEUTROPHILS % 65.7 % (39.0-77.0); PLATELET COUNT 268 10^3/UL (140-415); RED BLOOD COUNT 5.07 10^6/ul (4.20-5.40); RED CELL DISTRIBUTION WIDTH 12.6 % (11.5-14.5); WHITE BLOOD COUNT 8.9 10^3/ul (4.8-10.8)
[2016-09-27 13:41] LABS: CALCIUM 10.2 mg/dl (8.4-10.2); CREATININE 0.61 mg/dl (0.44-1.00); POTASSIUM 4.6 mmol/L (3.5-5.1)
--- NOTE | 2016-09-27 16:36 | RADRPT ---
Vent Rate: 85 bpm RR Interval: 0 msec [place] Interval: 160 msec QRS Duration: 98 msec QT Interval: 424 msec QTC Interval: 504 msec P-R-T [place]: 44 - 2 - 82 degrees Normal sinus rhythm Voltage criteria for left ventricular hypertrophy Nonspecific T wave abnormality Prolonged QT Abnormal ECG Electronically Signed By: Harjeet Crow [id number]
[2016-09-27] MEDS ORDERED: FUROSEMIDE 40 MG TAB PO SCH (18:00)
[2016-09-27] MEDS ORDERED: SOD CHLORIDE 0.9% 250 ML IV ONE (20:00)
[2016-09-27] MEDS: ATORVASTATIN 40 MG TAB PO SCH (21:08)
[2016-09-27] MEDS: FENOFIBRATE 48 MG TAB PO SCH (21:08)
[2016-09-27] MEDS: INSULIN GLARGINE [LANtus] 3 ML PEN SC SCH (21:15)
[2016-09-27] MEDS: ZOLPIDEM 5 MG TAB PO PRN (21:19)
[2016-09-28] VITALS (10 sets, daily range): BP systolic 91–119; BP diastolic 53–59; PULSE 80–89; RESP 16–18
[2016-09-28] MEDS: ACCU-CHEK XX SCH (02:00)
[2016-09-28] MEDS: INSULIN ASPART [NOVOLOG] 3 ML PEN SC SCH ×2 (08:00→12:28)
[2016-09-28] MEDS: ASPIRIN 81 MG TAB PO SCH (08:34)
[2016-09-28] MEDS: POTASSIUM CHLORIDE (SR) 8 MEQ CAP PO SCH (08:34)
[2016-09-28] MEDS: LINAGLIPTIN 5 MG TABLET PO SCH (08:35)
[2016-09-28] MEDS: CHOLECALCIFEROL 1,000 UNIT TAB PO SCH (08:35)
[2016-09-28] MEDS: THIAMINE 100 MG TAB PO SCH (08:35)
[2016-09-28] MEDS: ENOXAPARIN 40 MG/0.4 ML SYG SC SCH (08:35)
[2016-09-28] MEDS: SERTRALINE 50 MG TAB PO SCH (08:36)
[2016-09-28] MEDS: LISINOPRIL 20 MG TAB PO SCH (08:36)
[2016-09-28] MEDS: OLANZAPINE 5 MG TAB PO SCH (08:36)
[2016-09-28] MEDS: metFORMIN 500 MG TAB PO SCH (08:42)
[2016-09-28] MEDS ORDERED: [UNRECOGNIZED DRUG - CODE] MC (13:28)
[2016-09-28] MEDS ORDERED: FURO40TA4 PO (13:28)
[2016-09-28] MEDS ORDERED: ATOR40TA68 PO (13:28)
[2016-09-28] MEDS ORDERED: LANT3I SC (13:28)
[2016-09-28] MEDS ORDERED: DIGO125T PO (13:31)
--- NOTE | 2016-09-28 13:31 | PDOCDIS ---
Discharge Instructions DIAGNOSIS Discharge Diagnosis resp failure severe dilated cardiomyopathy with EF 16 % CONDITION Patient Condition: Stable HOME CARE INSTRUCTIONS: Diet Instructions: Low Fat /CholesterolSpecial Diet: 1800 [address] ADA REFERRALS Referring Provider: MICA KEENAN Other Referrals Please followup with Dr Keenan for cardiology Name, Degree: Mica Keenan MD Specialty: Cardiology Comments: Office Address: [address] [place] [address] Office Office Swatch Paster: SANDRITA Morley Sep 28, 2016 13:30
--- NOTE | 2016-09-28 13:33 | DS ---
Date/Time of Note Date/Time of Note DATE: 09/28/16 TIME: 13:32 Discharge Summary Admission/Discharge Info Admit Date/Time Sep 24, 2016 at 17:56 Discharge Date/Time Discharge Diagnosis resp failure severe dilated cardiomyopathy with EF 16 % Patient Condition: Stable Hx of Present Illness This is a 56-year-old female with a past medical history of COPD, high blood pressure, diabetes type 2, dyslipidemia, and chronic depression who was at her dentist office earlier today and she was found to have shortness of breath and bilateral lower extremity swelling. Because of the severity of her shortness of breath she was sent to the emergency room for further evaluation. Evaluation was consistent with congestive heart failure and she is being admitted for further management. She denies chest pain, though she does have some discomfort, she denies cough, denies palpitations, denies fever. She has had no abdominal pain, no nausea no vomiting, denies dysuria or hematuria. She does endorse dyspnea on exertion and some paroxysmal nocturnal dyspnea. She does have a history of congestive heart failure. In the emergency room she required BiPAP therapy to maintain her saturations. Home Meds Active Scripts Digoxin* (Digitek*) 125 Mcg Tablet, 0.125 MG PO DAILY for 30 Days, TAB Prov:SANDRITA GASPAR 09/28/16 [place], Insulin Disposable (ADVOCATE PEN NEEDLES) 1 Each Dis.needle, 1 EACH MC DAILY, #100 Prov:SANDRITA GASPAR 09/28/16 Insulin Glargine* (Lantus*) 100 Unit/Ml Soln, 15 UNIT SC DAILY@20 for 30 Days, 2 Refills Prov:SANDRITA GASPAR 09/28/16 Furosemide* (Furosemide*) 40 Mg Tablet, 40 MG PO BID DIURETICS for 30 Days, TAB Prov:SANDRITA GASPAR 09/28/16 Atorvastatin* (Atorvastatin*) 40 Mg Tablet, 40 MG PO DAILY@21 for 30 Days, TAB 2 Refills Prov:SANDRITA GASPAR 09/28/16 Meclizine Hcl* (Meclizine Hcl*) 25 Mg Tablet, 25 MG PO Q8H Y for DIZZINESS, #20 TAB Prov:YVONNE KRAUSE DO 08/10/16 Cholecalciferol* (Vitamin D3*) 1,000 Unit Tablet, 1000 UNIT PO DAILY for 20 Days , #20 TAB Prov:TESSY BEJARANO MD 06/27/16 Aspirin (Aspirin) 81 Mg Chew, 81 MG PO DAILY for 30 Days, #30 TAB Prov:TESSY BEJARANO MD 06/27/16 Carvedilol* (Carvedilol*) 6.25 Mg Tablet, 6.25 MG PO BID for 30 Days, #60 TAB Prov:TESSY BEJARANO MD 06/27/16 Metformin* (Glucophage*) 1,000 Mg Tablet, 1000 MG PO BID, #60 TAB Prov:TREY OATES DO 10/08/15 Olanzapine* (Zyprexa*) 5 Mg Tablet, 5 MG PO DAILY, #30 TAB Prov:TREY OATES DO 10/08/15 Reported Medications Lisinopril* (Lisinopril*) 20 Mg Tablet, 20 MG PO BID, #30 TAB 08/10/16 Thiamine* (Vitamin B-1*) 100 Mg Tablet, 100 MG PO DAILY, TAB 08/10/16 Sitagliptin* (Januvia*) 100 Mg Tablet, 100 MG PO DAILY, #30 TAB AT LUNCH TIME 06/23/16 Sertraline Hcl* (Sertraline Hcl*) 50 Mg Tablet, 50 MG PO DAILY HS, #30 TAB 11/24/15 Potassium Chloride* (Potassium Chloride*) 8 Meq Capsule.er, 8 MEQ PO DAILY, CAP 11/24/15 Discontinued Reported Medications Lovastatin* (Lovastatin*) 20 Mg Tablet, 20 MG PO HS, TAB 08/10/16 Discontinued Scripts Furosemide* (Lasix*) 20 Mg Tablet, 40 MG PO BID, #60 TAB Prov:MAURIZIO SANCHEZ MD 11/27/15 Follow-up Plan Patient is to f/u with Dr Keenan for continued mgt of very low EF Primary Care Provider Not On Staff Doctor Time spent on discharge: > 30 minutes Pending Labs Laboratory Tests Test 09/27/16 17:24 09/27/16 21:11 09/28/16 08:32 09/28/16 12:25 Bedside Glucose 205mg/dL (70-220) 159mg/dL (70-220) 140mg/dL (70-220) 155mg/dL (70-220) SANDRITA GASPAR Sep 28, 2016 13:32 09/27/16 17:24 09/27/16 21:11 09/28/16 08:32 09/28/16 12:25 Bedside Glucose 205mg/dL (70-220) 159mg/dL (70-220) 140mg/dL (70-220) 155mg/dL (70-220) SANDRITA GASPAR Sep 28, 2016 13:32
--- NOTE | 2016-09-28 13:48 | DS ---
Date/Time of Note Date/Time of Note DATE: 09/28/16 TIME: 13:47 Discharge Summary Admission/Discharge Info Admit Date/Time Sep 24, 2016 at 17:56 Discharge Date/Time September 28, 2016. . Discharge Diagnosis resp failure severe dilated cardiomyopathy with EF 16 % Patient Condition: Stable Consults Cardiology: Ree . Procedures See hospital course . Hx of Present Illness This is a 56-year-old female with a past medical history of COPD, high blood pressure, diabetes type 2, dyslipidemia, and chronic depression who was at her dentist office earlier today and she was found to have shortness of breath and bilateral lower extremity swelling. Because of the severity of her shortness of breath she was sent to the emergency room for further evaluation. Evaluation was consistent with congestive heart failure and she is being admitted for further management. She denies chest pain, though she does have some discomfort, she denies cough, denies palpitations, denies fever. She has had no abdominal pain, no nausea no vomiting, denies dysuria or hematuria. She does endorse dyspnea on exertion and some paroxysmal nocturnal dyspnea. She does have a history of congestive heart failure. In the emergency room she required BiPAP therapy to maintain her saturations. Hospital Course 56-year-old female who had presented to the emergency room was found to be severely hypoxic in the emergency room and required BiPAP therapy. September 25, 1999 and $0.17 from her dentist office because of shortness of breath. This was secondary to an acute systolic congestive heart failure and by echo patient was found to have an ejection fraction of 25%. She was diagnosed she was aggressively diuresed for 2 days will continue to have symptoms of shortness of breath she was ruled out for an acute coronary syndrome after which she underwent a Lexiscan. Lexiscan is showing severe dilated cardiomyopathy with ejection fraction at stress of 16%. There is however no reversible abnormality and there is no evidence of stress-induced myocardial ischemia there was also no scarring interestingly noted. Based on this as she was reviewed by cardiology if the patient continues to remain somewhat tired, she is no longer short of breath. The plan is for hospital discharge and angiogram, And she will follow-up with Dr. Keenan in the office. If patient remains symptomatic she may benefit from, she is also to be started on digoxin as well as beta- karsten therapy as well as ASHWIN inhibitor. If there is no improvement in her ejection fraction she may also require a defibrillator. Because of her cardiomyopathy still unclear at this time cardiology feels she may eventually require a cardiac transplant. However at this time she stable for discharge, her symptoms have significantly improved, continued management will be outpatient. Home Meds Active Scripts Digoxin* (Digitek*) 125 Mcg Tablet, 0.125 MG PO DAILY for 30 Days, TAB Prov:[facility] 09/28/16 [place], Insulin Disposable (ADVOCATE PEN NEEDLES) 1 Each Dis.needle, 1 EACH MC DAILY, #100 Prov:[facility] 09/28/16 Insulin Glargine* (Lantus*) 100 Unit/Ml Soln, 15 UNIT SC DAILY@20 for 30 Days, 2 Refills Prov:[facility] 09/28/16 Furosemide* (Furosemide*) 40 Mg Tablet, 40 MG PO BID DIURETICS for 30 Days, TAB Prov:[facility] 09/28/16 Atorvastatin* (Atorvastatin*) 40 Mg Tablet, 40 MG PO DAILY@21 for 30 Days, TAB 2 Refills Prov:[facility] 09/28/16 Meclizine Hcl* (Meclizine Hcl*) 25 Mg Tablet, 25 MG PO Q8H Y for DIZZINESS, #20 TAB Prov:NELIDAYVONNE 08/10/16 Cholecalciferol* (Vitamin D3*) 1,000 Unit Tablet, 1000 UNIT PO DAILY for 20 Days , #20 TAB Prov:TESSY BEJARANO MD 06/27/16 Aspirin (Aspirin) 81 Mg Chew, 81 MG PO DAILY for 30 Days, #30 TAB Prov:TESSY BEJARANO MD 06/27/16 Carvedilol* (Carvedilol*) 6.25 Mg Tablet, 6.25 MG PO BID for 30 Days, #60 TAB Prov:TESSY BEJARANO MD 06/27/16 Metformin* (Glucophage*) 1,000 Mg Tablet, 1000 MG PO BID, #60 TAB Prov:TREY OATES 10/08/15 Olanzapine* (Zyprexa*) 5 Mg Tablet, 5 MG PO DAILY, #30 TAB Prov:TREY OATES DO 10/08/15 Reported Medications Lisinopril* (Lisinopril*) 20 Mg Tablet, 20 MG PO BID, #30 TAB 08/10/16 Thiamine* (Vitamin B-1*) 100 Mg Tablet, 100 MG PO DAILY, TAB 08/10/16 Sitagliptin* (Januvia*) 100 Mg Tablet, 100 MG PO DAILY, #30 TAB AT LUNCH TIME 06/23/16 Sertraline Hcl* (Sertraline Hcl*) 50 Mg Tablet, 50 MG PO DAILY HS, #30 TAB 11/24/15 Potassium Chloride* (Potassium Chloride*) 8 Meq Capsule.er, 8 MEQ PO DAILY, CAP 11/24/15 Discontinued Reported Medications Lovastatin* (Lovastatin*) 20 Mg Tablet, 20 MG PO HS, TAB 08/10/16 Discontinued Scripts Furosemide* (Lasix*) 20 Mg Tablet, 40 MG PO BID, #60 TAB Prov:MAURIZIO SANCHEZ MD 11/27/15 Follow-up Plan See hospital course . Primary Care Provider Not On Staff Doctor Time spent on discharge: > 30 minutes Pending Labs Laboratory Tests Test 09/27/16 17:24 09/27/16 21:11 09/28/16 08:32 09/28/16 12:25 Bedside Glucose 205mg/dL (70-220) 159mg/dL (70-220) 140mg/dL (70-220) 155mg/dL (70-220) SANDRITA GASPAR Sep 28, 2016 13:48
== END 2016-09-28 16:45 | disposition home or self-care (01) | DRG 291 ==
LOC: E/R 16:00 → MS4 17:56
PROVIDERS: ADMIT Family Medicine; ATTEND Family Medicine
PROC: 5A09357 Assistance with Respiratory Ventilation, Less than 24 Consecutive Hours, Continuous Positive Airway Pressure (ICD-10-PCS; principal; 2016-09-24)
DX: I11.0 Hypertensive heart disease with heart failure (principal); J96.02 Acute respiratory failure with hypercapnia; J96.01 Acute respiratory failure with hypoxia; E87.1 Hypo-osmolality and hyponatremia; I50.23 Acute on chronic systolic (congestive) heart failure; E66.9 Obesity, unspecified; J44.9 Chronic obstructive pulmonary disease, unspecified; I42.9 Cardiomyopathy, unspecified; E78.5 Hyperlipidemia, unspecified; E11.9 Type 2 diabetes mellitus without complications; F32.9 Major depressive disorder, single episode, unspecified; I27.2 Other secondary pulmonary hypertension; R74.0 Nonspecific elevation of levels of transaminase and lactic acid dehydrogenase [LDH]; I25.10 Atherosclerotic heart disease of native coronary artery without angina pectoris; Z79.82 Long term (current) use of aspirin; Z68.35 Body mass index [BMI] 35.0-35.9, adult
CPT/HCPCS: 36415; 71010; 76775; 78452; 80048; 80053; 80061; 80076; 82550; 82553; 82962; 83036; 83540; 83690; 83735; 83880; 84484; 85025; 85378; 93005; 93017; 93306; 94660; 96374; 96375; A9500; A9505; J1650; J1815; J1940; J2785; J3475; J7040

== ENCOUNTER 2016-11-11 19:54 | Emergency (ER) | payer OTHER ==
[~2016-11-11] VITALS: Ht 162.6 cm; Wt 88.6 kg
[~2016-11-11 19:54] MED LIST changes: +ATOR40TA68 PO; +DIGO125T PO; -FURO-110 PO; +FURO40TA4 PO; +LANT3I SC; -LOVA20TA PO; +[UNRECOGNIZED DRUG - CODE] MC
[2016-11-11 19:58] VITALS: Ht 162.6 cm; Wt 88.6 kg
--- NOTE | 2016-11-11 20:54 | ERD ---
ER Documentation Chief Complaint Date/Time DATE: 11/11/16 TIME: 20:50 Chief Complaint 2 days of R leg pain w/limited ankle ROM, no trauma/injury,+pedal pulses HPI 56 year old female with a history of DM, htn, dislipidemia, comes in with atraumatic right lower leg pain that awoke her out of sleep 2 nights ago. She states she has worsening pain with walking, better at rest, it is sharp and radiates diffusely down the back of her right lower leg. She states that tylenol has helped with her pain. She denies low back pain. She denies fever or chills. She is a nonsmoker, does not take exogenous steroids, denies recent trauma, immobilization, recent surgeries, h/o DVT. ROS All systems reviewed and are negative except as per history of present illness. Medications Home Meds Active Scripts Cyclobenzaprine Hcl* (Cyclobenzaprine Hcl*) 5 Mg Tablet, 5 MG PO Q8H Y for PAIN , #15 TAB Prov:ABIEL MARROQUIN PA-C 11/11/16 Ibuprofen* (Motrin*) 600 Mg Tab, 600 MG PO Q6, #30 TAB Prov:ABIEL MARROQUIN PA-C 11/11/16 Digoxin* (Digitek*) 125 Mcg Tablet, 0.125 MG PO DAILY for 30 Days, TAB Prov:SANDRITA GASPAR 09/28/16 [place], Insulin Disposable (ADVOCATE PEN NEEDLES) 1 Each Dis.needle, 1 EACH MC DAILY, #100 Prov:SANDRITA GASPAR 09/28/16 Insulin Glargine* (Lantus*) 100 Unit/Ml Soln, 15 UNIT SC DAILY@20 for 30 Days, 2 Refills Prov:SANDRITA GASPAR 09/28/16 Furosemide* (Furosemide*) 40 Mg Tablet, 40 MG PO BID DIURETICS for 30 Days, TAB Prov:SANDRITA GASPAR 09/28/16 Atorvastatin* (Atorvastatin*) 40 Mg Tablet, 40 MG PO DAILY@21 for 30 Days, TAB 2 Refills Prov:SANDRITA GASPAR 09/28/16 Meclizine Hcl* (Meclizine Hcl*) 25 Mg Tablet, 25 MG PO Q8H Y for DIZZINESS, #20 TAB Prov:YVONNE KRAUSE DO 08/10/16 Cholecalciferol* (Vitamin D3*) 1,000 Unit Tablet, 1000 UNIT PO DAILY for 20 Days , #20 TAB Prov:TESSY BEJARANO MD 06/27/16 Aspirin (Aspirin) 81 Mg Chew, 81 MG PO DAILY for 30 Days, #30 TAB Prov:TESSY BEJARANO MD 06/27/16 Carvedilol* (Carvedilol*) 6.25 Mg Tablet, 6.25 MG PO BID for 30 Days, #60 TAB Prov:TESYS BEJARANO MD 06/27/16 Metformin* (Glucophage*) 1,000 Mg Tablet, 1000 MG PO BID, #60 TAB Prov:TREY OATES DO 10/08/15 Olanzapine* (Zyprexa*) 5 Mg Tablet, 5 MG PO DAILY, #30 TAB Prov:TREY OATES DO 10/08/15 Reported Medications Lisinopril* (Lisinopril*) 20 Mg Tablet, 20 MG PO BID, #30 TAB 08/10/16 Thiamine* (Vitamin B-1*) 100 Mg Tablet, 100 MG PO DAILY, TAB 08/10/16 Sitagliptin* (Januvia*) 100 Mg Tablet, 100 MG PO DAILY, #30 TAB AT LUNCH TIME 06/23/16 Sertraline Hcl* (Sertraline Hcl*) 50 Mg Tablet, 50 MG PO DAILY HS, #30 TAB 11/24/15 Potassium Chloride* (Potassium Chloride*) 8 Meq Capsule.er, 8 MEQ PO DAILY, CAP 11/24/15 Allergies Allergies: Coded Allergies: No Known Allergy (Unverified , 08/10/16) PMhx/Soc History of Surgery: No Anesthesia Reaction: No Hx Neurological Disorder: Yes (vertigo) Hx Respiratory Disorders: Yes (copd, asthma) Hx Cardiac Disorders: Yes (htn, chf) Hx Psychiatric Problems: Yes (depression, anxiety) Hx Miscellaneous Medical Probl: No Hx Alcohol Use: No Hx Substance Use: No Hx Tobacco Use: No Physical Exam Vitals Vital Signs Date Time Temp Pulse Resp B/P Pulse Ox O2 Delivery O2 Flow Rate FiO2 11/11/16 19:58 98.0 83 18 124/70 94 Physical Exam Const: well appearing, nontoxic Head: Atraumatic Eyes: Normal Conjunctiva ENT: Normal External Ears, Nose and Mouth. Neck: Full range of motion..~ No meningismus. Resp: Clear to auscultation bilaterally Cardio: Regular rate and rhythm, no murmurs Abd: Soft, non tender, non distended. Normal bowel sounds Skin: No petechiae or rashes Back: No midline or flank tenderness Ext: right leg is atraumatic, pulses 2+ bilaterally. no streaking, erythema, pt is able to weight-bear 50%. mild swelling, strength to LE 5/5 bilaterally Neur: Awake and alert Psych: Normal Mood and Affect Results 24 hrs Current Medications Medications (Trade) Dose Ordered Sig/Honey Route PRN Reason Start Time Stop Time Status Last Admin Dose Admin Acetaminophen/ Hydrocodone Bitart ([place] (5/325)) 1 tab ONCE ONCE PO 11/11/16 21:00 11/11/16 21:01 DC 11/11/16 21:32 Ketorolac Tromethamine (Toradol) 30 mg ONCE STAT IM 11/11/16 23:08 11/11/16 23:09 DC 11/11/16 23:14 DIAGNOSTIC IMAGING REPORT Patient: KELLY ERICKSON : 1960 Age: 56 Sex: F MR #: [id number] DOS: 11/11/162047 Ordering MD: ABIEL MARROQUIN PA-C Location: [facility] Room/Bed: PROCEDURE: US right lower extremity veins. CLINICAL INDICATION: Right leg pain and swelling. TECHNIQUE: Multiple longitudinal and transverse images of the right lower extremity veins were obtained with wilson scale and color Doppler imaging. The common femoral vein, femoral vein, and popliteal vein were evaluated. 2D grayscale measurements with compression sonography, pulsed Doppler, color Doppler, and pulsed Doppler with augmentation. COMPARISON: No prior studies are available for comparison. FINDINGS: The right common femoral, femoral and popliteal veins are normally compressible throughout. Color flow demonstrates normal filling of the vessels. Normal waveforms are visualized and there is normal response to augmentation. IMPRESSION: 1. No evidence of deep vein thrombosis involving the right lower extremity. RPTAT: QQ .Johnny Leiva MD, MD Date Time Electronically viewed and signed by .Johnny Leiva MD, MD on 11/11/2016 22:13 .R/ Procedures/MDM ED COURSE: patient was given [place] 5/325mg for her pain. MEDICAL DECISION MAKIN yo female comes in with 2 days of atraumatic right lower leg pain , negative for DVT. Patient's differential diagnosis includes DVT , leg cramping, cellulitis, arterial occlusion, gastrocnemius strain, fracture, osteoarthritis, ostial myelitis, septic joint, cauda equina, lumbar radiculopathy. Patient has good pulses, no signs of infection, she is ambulatory. She was given Toradol in the emergency department as well as [place] , and she had much improvement of her pain. Doppler is negative for DVT, there are no signs of any limb threatening process and she is stable for discharge. Departure Diagnosis: Primary Impression: Pain of right leg Condition: Good ABIEL MARROQUIN PA-C Nov 11, 2016 20:54
[2016-11-11] MEDS ORDERED: HYDROCODONE/APAP (5/325) TAB PO ONE (21:00)
--- NOTE | 2016-11-11 22:13 | RADRPT ---
PROCEDURE: US right lower extremity veins. CLINICAL INDICATION: Right leg pain and swelling. TECHNIQUE: Multiple longitudinal and transverse images of the right lower extremity veins were obt ained with wilson scale and color Doppler imaging. The common femoral vein, femoral vein, and poplitea l vein were evaluated. 2D grayscale measurements with compression sonography, pulsed Doppler, color Doppler, and pulsed Doppler with augmentation. COMPARISON: No prior studies are available for comparison. FINDINGS: The right common femoral, femoral and popliteal veins are normally compressible throughout. Color f low demonstrates normal filling of the vessels. Normal waveforms are visualized and there is normal response to augmentation. IMPRESSION: 1. No evidence of deep vein thrombosis involving the right lower extremity. RPTAT: QQ .Johnny Leiva MD, MD Date Time Electronically viewed and signed by .Johnny Leiva MD, on 11/11/2016 22:13 .R/
[2016-11-11] MEDS ORDERED: IBUP-1542 PO (22:39)
[2016-11-11] MEDS ORDERED: CYCL5TAB PO (22:39)
[2016-11-11] MEDS ORDERED: KETOROLAC 30 MG INJ IM STA (23:08)
== END 2016-11-11 23:10 | disposition home or self-care (01) ==
LOC: FTE 19:54
DX: M79.604 Pain in right leg (principal); I10 Essential (primary) hypertension; I50.9 Heart failure, unspecified; J44.9 Chronic obstructive pulmonary disease, unspecified; E11.9 Type 2 diabetes mellitus without complications; Z79.4 Long term (current) use of insulin; Z79.82 Long term (current) use of aspirin; Z79.84 Long term (current) use of oral hypoglycemic drugs
CPT/HCPCS: 93971; 96372; J1885; Z7502; Z7610

== ENCOUNTER 2018-03-26 19:11 | Inpatient (IN) | payer OTHER ==
[~2018-03-26] VITALS: Ht 152.4 cm; Wt 80.5 kg
[~2018-03-26 19:11] MED LIST changes: +ASPI-831 PO; -ASPI81TA3 PO; +CYCL5TAB PO; +IBUP-1542 PO; +LISI-471 PO; -LISI20TA11 PO; +SITA100T11 PO; -SITA100T8 PO
[2018-03-26] MEDS ORDERED: morphine 4 MG/ML VIAL IV STA (22:03)
[2018-03-26] MEDS ORDERED: ONDANSETRON 4 MG INJ IV STA (22:03)
[2018-03-26] MEDS ORDERED: FUROSEMIDE 40 MG INJ IV STA (22:03)
[2018-03-26] MEDS ORDERED: ASPIRIN 81 MG TAB PO STA (22:03)
[2018-03-26] MEDS ORDERED: INSU100C SQ (23:01)
[2018-03-26] MEDS ORDERED: OMEP20CA16 PO (23:02)
[2018-03-26] MEDS ORDERED: AZEL137S9 NASAL (23:02)
[2018-03-26] MEDS ORDERED: INSU100I12 SQ (23:07)
--- NOTE | 2018-03-26 23:44 | ERD ---
ER Documentation Chief Complaint Chief Complaint SOB, BACK PAIN X'S 2 DAYS; HX OF CHF HPI 57-year-old female. Patient has a history of CHF. She presents to the emergency room with chest discomfort, mild back discomfort, shortness of breath, PND, orthopnea and lower extremity swelling. Symptoms present for at least 2-3 days. Only mild chest discomfort currently. She denies any fevers chills or cough. No significant pleuritic discomfort. During the patient's encounter translation services were utilized Language: [Tamazight] Source: [in person] ROS All systems reviewed and are negative except as per history of present illness. Medications Home Meds Active Scripts Cyclobenzaprine Hcl* (Cyclobenzaprine Hcl*) 5 Mg Tablet, 5 MG PO Q8H PRN for PAIN, #15 TAB Prov:ABIEL MARROQUIN PA-C 11/11/16 Ibuprofen* (Motrin*) 600 Mg Tab, 600 MG PO Q6, #30 TAB Prov:ABIEL MARROQUIN PA-C 11/11/16 Digoxin* (Digitek*) 125 Mcg Tablet, 0.125 MG PO DAILY for 30 Days, TAB Prov:SANDRITA GASPAR 09/28/16 [place], Insulin Disposable (ADVOCATE PEN NEEDLES) 1 Each Dis.needle, 1 EACH MC DAILY, #100 Prov:SANDRITA GASPAR 09/28/16 Insulin Glargine* (Lantus*) 100 Unit/Ml Soln, 15 UNIT SC DAILY@20 for 30 Days, 2 Refills Prov:SANDRITA GASPAR 09/28/16 Furosemide* (Furosemide*) 40 Mg Tablet, 40 MG PO BID DIURETICS for 30 Days, TAB Prov:SANDRITA GASPAR 09/28/16 Atorvastatin* (Atorvastatin*) 40 Mg Tablet, 40 MG PO DAILY@21 for 30 Days, TAB 2 Refills Prov:SANDRITA GASPAR 09/28/16 Meclizine Hcl* (Meclizine Hcl*) 25 Mg Tablet, 25 MG PO Q8H PRN for DIZZINESS, #20 TAB Prov:YVONNE KRAUSE DO 08/10/16 Cholecalciferol* (Vitamin D3*) 1,000 Unit Tablet, 1000 UNIT PO DAILY for 20 Days, #20 TAB Prov:TESSY BEJARANO MD 4/12/17 Aspirin (Aspirin) 81 Mg Chew, 81 MG PO DAILY for 30 Days, #30 TAB Prov:TESSY BEJARANO MD 06/27/16 Carvedilol* (Carvedilol*) 6.25 Mg Tablet, 6.25 MG PO BID for 30 Days, #60 TAB Prov:TESSY BEJARANO MD 06/27/16 Metformin* (Glucophage*) 1,000 Mg Tablet, 1000 MG PO BID, #60 TAB Prov:TREY OATES DO 10/08/15 Olanzapine* (Zyprexa*) 5 Mg Tablet, 5 MG PO DAILY, #30 TAB Prov:TREY OATES DO 10/08/15 Reported Medications Insulin Lispro (Humalog Kwikpen U-100) 100 Unit/1 Ml Insuln.pen, 10 UNIT SQ AC A, EA 03/26/18 Omeprazole* (Omeprazole*) 20 Mg Capsule.dr, 20 MG PO DAILY, #30 CAP 03/26/18 Azelastine Hcl* (Azelastine Hcl*) 137 Mcg/0.137 Ml [place].pump, 1 SPRAY NASAL BID, #1 EA TO EACH NOSTRIL 03/26/18 Lisinopril* (Lisinopril*) 20 Mg Tablet, 20 MG PO BID, #30 TAB 08/10/16 Thiamine* (Vitamin B-1*) 100 Mg Tablet, 100 MG PO DAILY, TAB 08/10/16 Sitagliptin* (Januvia*) 100 Mg Tablet, 100 MG PO DAILY, #30 TAB AT LUNCH TIME 06/23/16 Sertraline Hcl* (Sertraline Hcl*) 50 Mg Tablet, 50 MG PO DAILY HS, #30 TAB 11/24/15 Potassium Chloride* (Potassium Chloride*) 8 Meq Capsule.er, 8 MEQ PO DAILY, CAP 11/24/15 Discontinued Reported Medications Insulin Lispro (Humalog) 100 Unit/1 Ml Cartridge, 10 UNIT SQ AC B, EA 03/26/18 Allergies Allergies: Coded Allergies: No Known Allergy (Unverified , 03/26/18) PMhx/Soc Medical and Surgical Hx: pt denies Surgical Hx History of Surgery: No Anesthesia Reaction: No Hx Neurological Disorder: Yes (vertigo) Hx Respiratory Disorders: Yes (copd, asthma) Hx Cardiac Disorders: Yes (htn, chf) Hx Psychiatric Problems: Yes (depression, anxiety) Hx Miscellaneous Medical Probl: Yes (DM) Hx Alcohol Use: No Hx Substance Use: No Hx Tobacco Use: No Smoking Status: Never smoker FmHx Family History: No diabetes Physical Exam Vitals Vital Signs Date Temp Pulse Resp B/P (MAP) Pulse Ox O2 O2 Flow FiO2 Time Delivery Rate 03/26/18 98.0 95 20 133/75 98 19:17 (94) Physical Exam General: Well developed, well nourished, no acute distress Head: Normocephalic, atraumatic. Eyes: Pupils equally reactive, EOM intact ENT: Moist mucous membranes Neck: Supple, no lymphadenopathy Respiratory: Scant rales at the bases bilaterally Cardiovascular: RRR, no murmurs, rubs, or gallops Abdominal: Soft, non-tender, non-distended, no peritoneal signs : Deferred MSK: mild BLE edema, no unilateral swelling, 5/5 strength Neurologic: Alert and oriented, moving all extremities, normal speech, no focal weakness, no cerebellar signs Skin: No rash Psych: Normal mood Result Diagram: 03/26/18220903/26/182209 Results 24 hrs Laboratory Tests Test 03/26/18 22:10 White Blood Count 9.9 10^3/ul Red Blood Count 5.10 10^6/ul Hemoglobin 13.8 g/dl Hematocrit 41.2 % Mean Corpuscular Volume 80.8 fl Mean Corpuscular Hemoglobin 27.1 pg Mean Corpuscular Hemoglobin Concent 33.5 g/dl Red Cell Distribution Width 12.5 % Platelet Count 271 10^3/UL Mean Platelet Volume 9.9 fl Immature Granulocytes % 0.300 % Neutrophils % 59.1 % Lymphocytes % 33.8 % Monocytes % 5.1 % Eosinophils % 1.2 % Basophils % 0.5 % Nucleated Red Blood Cells % 0.0 /100WBC Immature Granulocytes # 0.030 10^3/ul Neutrophils # 5.8 10^3/ul Lymphocytes # 3.3 10^3/ul Monocytes # 0.5 10^3/ul Eosinophils # 0.1 10^3/ul Basophils # 0.1 10^3/ul Nucleated Red Blood Cells # 0.0 10^3/ul Sodium Level 136 mmol/L Potassium Level 4.4 mmol/L Chloride Level 95 mmol/L Carbon Dioxide Level 28 mmol/L Anion Gap 13 Blood Urea Nitrogen 20 mg/dl Creatinine 0.50 mg/dl Est Glomerular Filtrat Rate mL/min > 60 mL/min Glucose Level 212 mg/dl Calcium Level 9.8 mg/dl Troponin I < 0.012 ng/ml B-Type Natriuretic Peptide 45 PG/ML Current Medications Medications Dose Sig/Honey Start Time Status Last (Trade) Ordered Route PRN Stop Time Admin Dose Reason Admin Aspirin 162 mg ONCE STAT 03/26/18 DC 03/26/18 (Aspirin) PO 22:03 03/26/18 22:25 22:08 Furosemide 40 mg ONCE STAT 03/26/18 DC 03/26/18 (Lasix) IV 22:03 03/26/18 22:26 22:08 Morphine 4 mg ONCE STAT 03/26/18 DC 03/26/18 Sulfate IV 22:03 03/26/18 22:26 (morphine) 22:08 Ondansetron 4 mg ONCE STAT 03/26/18 DC 03/26/18 HCl (Zofran IV 22:03 03/26/18 22:25 Inj) 22:08 Procedures/MDM EKG, MONITORS, & DIAGNOSTIC IMAGING: EKG: I reviewed and interpreted a 12-lead EKG. Rhythm: Normal sinus rhythm ST Changes: No contiguous ST segment elevations T waves: No contiguous T wave inversions Impression: [No evidence of acute cardiac ischemia] Repeat EKG: EKG: I reviewed and interpreted a 12-lead EKG. Rhythm: Normal sinus rhythm ST Changes: No contiguous ST segment elevations T waves: No contiguous T wave inversions Impression: [No evidence of acute cardiac ischemia] Chest x-ray: I reviewed and interpreted a 1 view of the chest Mediastinum: No enlargement Cardiac silhouette: cardiomegaly Airspace: Clear lung garcía bilaterally without evidence of pneumothorax Bones: No evidence of fracture PROCEDURES: [None] LAB INTERPRETATION: * Negative troponin * Negative BMP MEDICAL DECISION MAKING: The patient's history, physical exam and clinical presentation is concerning for possible cardiogenic etiology and acute coronary syndrome. Based on the patient's clinical exam and history and risk factors, I have a much lower clinical concern for pulmonary embolism, acute aortic dissection, pneumothorax, pneumonia, cardiac tamponade HEART Score: 4 MACE Rate: 16.6% Shared Decision Making: We had a conversation regarding risk stratification, MACE rate, and the risks, benefits, alternatives of disposition planning options. Disposition planning: Admit for rule out ER COURSE: * The patient only has mild chest discomfort but is at higher risk for acute coronary syndrome. The patient has negative troponin. Aspirin and Lasix provided. Morphine provided. Patient is resting comfortably. * Back pain is not consistent with pulmonary embolism or dissection CONSULTATION: [None] DISPOSITION PLAN: By telemetry admit telemetry admission for management of chest pain to rule out acute coronary syndrome, serial enzymes, risk stratification and consideration of provocative testing CONSULTATION: Accepting care team and consultations: I discussed the current laboratory data, diagnostic imaging and emergency care provided. Admitting team: Dr Russo Admitting team indication: Insurance directed Departure Diagnosis: Primary Impression: Shortness of breath Additional Impressions: Chest pain Chest pain type: unspecified Qualified Codes: R07.9 - Chest pain, unspecified History of heart failure Condition: Stable GLADYS MADISON MD Mar 26, 2018 23:44
[2018-03-27] VITALS (11 sets, daily range): BP systolic 90–128; BP diastolic 53–77; PULSE 70–84; RESP 18
[2018-03-27] MEDS ORDERED: NON-FORMULARY/PATIENT OWN MED (Insulin Lispro (Humalog Kwikpen U-100) 10 UNIT) SQ SCH
[2018-03-27] MEDS ORDERED: NACL 0.9% 3 ML SYG IV SCH
[2018-03-27] MEDS ORDERED: ONDANSETRON 4 MG INJ IV PRN ×2
[2018-03-27] MEDS ORDERED: BISACODYL (EC) 5 MG TAB PO PRN
[2018-03-27] MEDS ORDERED: DOCUSATE SODIUM 100 MG CAP PO PRN
[2018-03-27] MEDS ORDERED: ACETAMINOPHEN 325 MG TAB PO PRN ×2
--- NOTE | 2018-03-27 00:05 | HP ---
Date/Time of Note Date/Time of Note DATE: 03/27/18 TIME: 00:05 Assessment/Plan VTE Prophylaxis SCD applied (from Nsg): Yes Pharmacological prophylaxis: NA/contraindicated Pharm contraindication: low risk/ambulating Lines/Catheters IV Catheter Type (from Nrsg): Sal[place] Lock Assessment/Plan Hospital Course This is a 57-year-old female being admitted to the telemetry floor for observation for: #1: Chest pain: Rule out ACS. Patient does have a history of cardiopathy with a depressed ejection fraction. As well as diabetes and hypertension. At the current time we will check cardiac enzymes x3, the first that was negative. Will check an echocardiogram. Will resume beta-karsten and aspirin. PRN nitro. Will consult cardiology Dr. Barker #2 systolic CHF with history of reduced ejection fraction of approximately 20- 25% in 2017. At the current time patient does not appear to be in an exacerbation no signs of overload. Will check an echocardiogram. Will consult cardiology. Resume home Lasix. Resume home medications #3 coronary artery disease: Continue beta-karsten, statin, aspirin #4 history of pulmonary hypertension: We will obtain echocardiogram, may need pulmonary consultation. #5 diabetes mellitus: We will check a hemoglobin A1c, resume home insulin regimen, will hold oral medications. Insulin sliding scale #6 hyperlipidemia: We will check lipid panel, continue statin #7 depression: Continue SSRI #8 DVT GI prophylaxis: SCDs, no GI prophylaxis indicated Further treatment strategy will be implemented as per the clinical course Result Diagram: 03/26/180 03/26/18 2210 Results 24hrs Laboratory Tests Test 03/26/18 22:10 White Blood Count 9.9 Red Blood Count 5.10 Hemoglobin 13.8 Hematocrit 41.2 Mean Corpuscular Volume 80.8 L Mean Corpuscular Hemoglobin 27.1 L Mean Corpuscular Hemoglobin Concent 33.5 Red Cell Distribution Width 12.5 Platelet Count 271 Mean Platelet Volume 9.9 Immature Granulocytes % 0.300 Neutrophils % 59.1 Lymphocytes % 33.8 Monocytes % 5.1 Eosinophils % 1.2 Basophils % 0.5 Nucleated Red Blood Cells % 0.0 Immature Granulocytes # 0.030 Neutrophils # 5.8 Lymphocytes # 3.3 H Monocytes # 0.5 Eosinophils # 0.1 Basophils # 0.1 Nucleated Red Blood Cells # 0.0 Sodium Level 136 Potassium Level 4.4 Chloride Level 95 L Carbon Dioxide Level 28 Anion Gap 13 Blood Urea Nitrogen 20 Creatinine 0.50 Est Glomerular Filtrat Rate mL/min > 60 Glucose Level 212 Calcium Level 9.8 Troponin I < 0.012 B-Type Natriuretic Peptide 45 HPI/ROS Admit Date/Time Admit Date/Time Hx of Present Illness Chief complaint: Left-sided back pain, 3 days of chest pain This is a 57-year-old female with a history of CHF who presented to the emergency room complaining of chest discomfort and left-sided back discomfort and shortness of breath and orthopnea. The symptoms have been going on for approximately the last 3 days. She denies any fevers chills. Upon review of the chart previous echocardiogram from 2017 did show an ejection fraction of approximately 20-25%. Allergies: NKDA Medications: See LIV VUONG Const: As per HPI Eyes : No pain discharge or redness or change in visual acuity ENT: No pain, sore throat, congestion, congestion, dysphagia or discharge Respiratory: No shortness of breath, cough, sputum, wheezing, or pleuritic pain Cardiovascular: As per HPI GI : no change in appetite, abdominal pain, nausea, vomiting, diarrhea, constipation, or change in the color his stool Genitourinary: No dysuria, hematuria, flank pain , discharge or CVA tenderness Musculoskeletal: As per HPI Skin: No rash, bruising or hives Neuro: No headache, dizziness, syncope, seizure, focal weakness Endocrine: No polyuria, polydipsia, temperature intolerance Psych: No hallucination, depression, anxiety or suicidal ideation PMH/Family/Social Past Medical History Cardiomyopathy with a history of reduced ejection fraction, pulmonary hypertension, hypertension, diabetes mellitus, hyperlipidemia, coronary artery disease Medications Current Medications Ondansetron HCl (Zofran Inj) 4 mg ER BRIDGE PRN IV NAUSEA AND/OR VOMITING; Start 03/27/18 at 00:00; Stop 03/27/18 at 23:59 Acetaminophen (Tylenol Tab) 650 mg ER BRIDGE PRN PO MILD PAIN(1-3)OR ELEVATED TEMP; Start 03/27/18 at 00:00; Stop 03/27/18 at 23:59 Aspirin (Aspirin) 81 mg DAILY PO ; Start 03/27/18 at 09:00; Status UNV Atorvastatin Calcium (Lipitor) 40 mg DAILY@21 PO ; Start 03/27/18 at 21:00; Status UNV Carvedilol (Coreg) 6.25 mg BID PO ; Start 03/27/18 at 09:00; Status UNV Digoxin (Digoxin) 0.125 mg DAILY PO ; Start 03/27/18 at 09:00; Status UNV Insulin Glargine (Lantus) 15 units DAILY@20 SC ; Start 03/27/18 at 20:00; Status UNV Lisinopril (Zestril) 20 mg BID PO ; Start 03/27/18 at 09:00; Status UNV Olanzapine (Zyprexa) 5 mg DAILY PO ; Start 03/27/18 at 09:00; Status UNV Sertraline HCl (Zoloft) 50 mg DAILY PO ; Start 03/27/18 at 09:00; Status UNV Thiamine HCl (Vitamin B1) 100 mg DAILY PO ; Start 03/27/18 at 09:00; Status UNV Miscellaneous Information 10 unit AC A SQ ; Start 03/27/18 at 00:00; Status UNV Miscellaneous Information 20 mg DAILY PO ; Start 03/27/18 at 09:00; Status UNV IV Flush (NS 3 ml) 3 ml PER PROTOCOL IV ; Start 03/27/18 at 00:00; Status UNV Ondansetron HCl (Zofran Inj) 4 mg Q6H PRN IV NAUSEA AND/OR VOMITING; Start 03/27/18 at 00:00; Status UNV Aspirin (Aspirin) 81 mg DAILY PO ; Start 03/27/18 at 09:00; Status UNV Acetaminophen (Tylenol Tab) 650 mg Q6H PRN PO PAIN LEVEL 1-3 OR FEVER; Start 03/27/18 at 00:00; Status UNV Docusate Sodium (Colace) 100 mg Q12H PRN PO CONSTIPATION; Start 03/27/18 at 00:00; Status UNV Bisacodyl (Dulcolax) 5 mg DAILY PRN PO CONSTIPATION; Start 03/27/18 at 00:00; Status UNV Coded Allergies: No Known Allergy (Unverified , 03/26/18) Past Surgical History Past Surgical Hx: no surgical history Family History Significant Family History: no pertinent family hx Social History Alcohol Use: none Smoking Status: Never smoker Drug Use: none Exam/Review of Systems Vital Signs Vitals Vital Signs Date Temp Pulse Resp B/P (MAP) Pulse Ox O2 O2 Flow FiO2 Time Delivery Rate 03/26/18 98.0 95 20 133/75 98 19:17 (94) Exam Exam General: Patient is currently lying in bed in no acute distress HEENT: Atraumatic, normocephalic. The pupils are equal, round and reactive. Extraocular motor are intact Neck: Supple with full range of motion. No rigidity or meningismus Chest: Nontender Lungs: Clear to auscultation bilaterally no crackles rales or wheezing Musculoskeletal: Tenderness palpation along the left upper back/trapezius muscle Heart: Normal S1-S2, Regular rhythm and rate. Abdomen: Soft , nontender, nondistended , bowel sounds are present. No guarding no rebound tenderness , No masses or organomegaly. No costovertebral temporal angle mass Extremities: Normal to inspection, no edema no cyanosis Neurologic: Normal mental status, speech normal, cranial nerves II through XII are intact, motor and sensory are intact, no focal weakness Additional Comments EKG: PROCEDURE: XR Chest. CLINICAL INDICATION: Chest pain. TECHNIQUE: Single frontal chest x-ray. COMPARISON: 03/27/2016 FINDINGS: Heart is enlarged.. There is no congestive heart failure.. There is hypoventilation with diffuse atelectasis.. There is no pleural effusion. There is no pneumothorax. There degenerate changes of the thoracic spine.. IMPRESSION: Cardiomegaly. Hypoventilation with diffuse atelectasis. No definite CHF. RPTAT: HMVK .Harjeet Chiu MD, Date Time Electronically viewed and signed by .Harjeet Chiu MD, on 03/26/2018 23:20 .K/ CC: GLADYS MADISON MD [id number] MADELEINE CANNON Mar 27, 2018 00:05
[2018-03-27] MEDS ORDERED: KETOROLAC 30 MG INJ IV STA (02:26)
[2018-03-27] MEDS ORDERED: CYCLOBENZAPRINE 10 MG TAB PO PRN (02:30)
[2018-03-27] MEDS ORDERED: GLUCAGON 1 MG INJ IM PRN (07:30)
[2018-03-27] MEDS ORDERED: GLUCOSE GEL 15 GRAM TUBE PO PRN ×2 (07:30)
[2018-03-27] MEDS ORDERED: DEXTROSE 50% 50 ML SYRINGE IV PRN ×2 (07:30)
[2018-03-27] MEDS ORDERED: GLUCOSE GEL 15 GRAM TUBE BUCCAL PRN (07:30)
[2018-03-27] MEDS: PANTOPRAZOLE (EC) 40 MG TAB PO SCH (08:07)
[2018-03-27] MEDS: LISINOPRIL 20 MG TAB PO SCH ×2 (08:07→20:48)
[2018-03-27] MEDS: FUROSEMIDE 40 MG TAB PO SCH ×2 (08:08→17:22)
[2018-03-27] MEDS: OLANZAPINE 5 MG TAB PO SCH (08:08)
[2018-03-27] MEDS: ASPIRIN 81 MG TAB PO SCH (08:08)
[2018-03-27] MEDS: SERTRALINE 50 MG TAB PO SCH (08:09)
[2018-03-27] MEDS: THIAMINE 100 MG TAB PO SCH (08:09)
[2018-03-27] MEDS ORDERED: NON-FORMULARY/PATIENT OWN MED (Omeprazole* 20 MG) PO SCH (09:00)
[2018-03-27] MEDS ORDERED: ASPIRIN 81 MG TAB PO SCH (09:00)
[2018-03-27] MEDS: INSULIN ASPART [NOVOLOG] 3 ML PEN SC SCH ×5 (12:11→21:13)
[2018-03-27] MEDS ORDERED: DIGOXIN 0.125 MG TAB PO SCH (13:00)
--- NOTE | 2018-03-27 13:33 | RADRPT ---
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 Physician: MADELEINE CANNON Quality: Adequate Procedures: Transthoracic echocardiogram with complete 2D, M-Mode, and doppler examination. Indications: Chest Pain. 2D/M Mode Doppler Measurement Value Normal Ranges Measurement Value Normal Ranges AoR Diam MM 3.2 cm AV Mean Garry 1.0 m/sec ACS MM 1.5 cm AV Mean PG 4.0 mmHg LA/Ao MM 0.8 AV Peak Garry 1.5 m/sec LA Dimen MM 2.5 cm AV Peak PG 8.0 mmHg LVIDd 2D 5.6 3.5 - 5.6 cm AV VTI 23.1 cm LVIDs 2D 4.0 2.1 - 4.1 cm LVOT Mean Garry 0.8 m/sec LVPWd 2D 0.8 0.6 - 1.1 cm LVOT Mean PG 3.0 mmHg IVSd 2D 0.9 0.6 - 1.1 cm LVOT Peak Garry 1.2 m/sec AoR Diam 2D 2.0 2.0 - 3.7 cm LVOT Peak PG 6.0 mmHg LA/Ao 2D 1 0 - 1 MV E Peak Garry 0.5 m/sec EF 2D 55.0 50.0 - 65.0 % MV A Peak Garry 0.9 m/sec LA Dimen 2D 2.7 2.3 - 4.0 cm MV E/A 0.5 IVC Diam 1.2 1.2 - 2.0 MV PHT 101.0 msec MV Decel Time 345 msec MV Decel [place] 1 Lat E` Garry 0.1 m/sec Lateral E/E` 7.8 Med E` Garry 0.0 m/sec MV E/A 0.5 MV PHT 101.0 msec MVA PHT 2.2 cm2 MR Peak PG 44.0 mmHg MR Peak Garry 3.3 m/sec TAPSE 1.7 cm TR Peak Garry 2.2 m/sec TR Peak PG 20.0 mmHg PV Peak Garry 1.1 m/sec PV Peak PG 5.0 mmHg RVSP 23.0 mmHg RA Pressure 3.0 Findings Left Ventricle: Mild enlargement of left ventricle cavity. Mild global left ventricular systolic dysfunction. Ejection fraction is visually estimated at 4045 %. Tissue Doppler/Mitral Doppler indices are consistent with impaired relaxation (Stage I diastolic dysfunction). Right Ventricle: Normal right ventricular size. Normal right ventricular systolic function. Left Atrium: There is mild enlargement of left atrium. Right Atrium: The right atrium is normal in size. Mitral Valve: Normal appearance of the mitral valve. Mild mitral valve regurgitation. Aortic Valve: Normal appearance of the aortic valve. No significant aortic stenosis or insufficiency. Tricuspid Valve: Normal appearance of the tricuspid valve. Estimated peak PA systolic pressure 23 mmHg. There is trace to mild tricuspid regurgitation. Pulmonic Valve: Normal pulmonic valve appearance. There is trace to mild pulmonic regurgitation. Pericardium: Normal pericardium with no significant pericardial effusion. Aorta: Normal aortic root. IVC: Normal size and normal respiratory collapse consistent with normal right atrial pressure. Conclusions Mild enlargement of left ventricle cavity. Mild global left ventricular systolic dysfunction. Ejection fraction is visually estimated at 40-45 %. Tissue Doppler/Mitral Doppler indices are consistent with impaired relaxation (Stage I diastolic dysfunction). No significant valvular stenosis or regurgitation seen. Estimated peak PA systolic pressure 23 mmHg based on RA pressure of 3 mmHg. Electronically Signed By: Donato Barker 27-Mar-2018 13:32:42 -0800 Patient Name: KELLY ERICKSON Study Date: 27-Mar-2018 [id number]
--- NOTE | 2018-03-27 14:15 | CONS ---
Date/Time of Note Date/Time of Note DATE: 03/27/18 TIME: 14:05 Assessment/Plan Assessment/Plan Hospital Course Chest pain/Dyspnea: Trops negative. No CHF by exam. Her symptoms are very concerning for angina especially with her uncontrolled DM and HL. Though she had a "normal" Lexiscan 10/01, it may have been a false negative. She should have anatomic assessment. Cardiac CTA would be reasonable but due to high likelihood and underlying cardiomyopathy, cardiac cath is certainly appropriate. Cardiomyopathy: EF 25% by echo 10/01. Lexiscan 10/01 without perfusion defects and EF 16%. EF at this time is about 40-45% with regional wall motion abnormalities. She needs more definitive CAD eval as above Chronic systolic heart failure: Euvolemic on my exam DM: uncontrolled with A1C 10.7 HL: LDL 257, TG >600 HTN -cardiac cath tomorrow am at 7:30. Explained risks/benefits with pt and she is agreeable -NPO after midnight -ASA 81mg -increase to lipitor 80mg -coreg 6.25mg BID -lisinopril 20mg BID -lasix 40mg PO BID Result Diagram: 03/27/18 0426 03/27/18 0426 Results 24hrs Laboratory Tests Test 03/26/18 22:10 03/27/18 04:26 03/27/18 07:30 03/27/18 09:42 White Blood Count 9.9 9.3 Red Blood Count 5.10 5.15 Hemoglobin 13.8 14.0 Hematocrit 41.2 42.1 Mean Corpuscular 80.8 L 81.7 L Volume Mean Corpuscular 27.1 L 27.2 L Hemoglobin Mean Corpuscular 33.5 33.3 Hemoglobin Concent Red Cell 12.5 12.4 Distribution Width Platelet Count 271 252 Mean Platelet Volume 9.9 9.9 Immature 0.300 0.200 Granulocytes % Neutrophils % 59.1 56.2 Lymphocytes % 33.8 36.2 Monocytes % 5.1 5.4 Eosinophils % 1.2 1.4 Basophils % 0.5 0.6 Nucleated Red Blood 0.0 0.0 Cells % Immature 0.030 0.020 Granulocytes # Neutrophils # 5.8 5.2 Lymphocytes # 3.3 H 3.4 H Monocytes # 0.5 0.5 Eosinophils # 0.1 0.1 Basophils # 0.1 0.1 Nucleated Red Blood 0.0 0.0 Cells # Sodium Level 136 139 Potassium Level 4.4 4.6 Chloride Level 95 L 94 L Carbon Dioxide Level 28 34 H Anion Gap 13 11 Blood Urea Nitrogen 20 21 H Creatinine 0.50 0.73 Est Glomerular > 60 > 60 Filtrat Rate mL/min Glucose Level 212 157 Calcium Level 9.8 9.8 Troponin I < 0.012 < 0.012 < 0.012 B-Type Natriuretic 45 Peptide Hemoglobin A1c 10.7 H Magnesium Level 1.8 Total Bilirubin 0.4 Direct Bilirubin 0.00 Indirect Bilirubin 0.4 Aspartate Amino 29 Transf (AST/SGOT) Alanine 30 Aminotransferase (AL T/SGPT) Alkaline Phosphatase 111 Creatine Kinase 23 25 Creatine Kinase 1.0 0.9 Index Creatinine Kinase MB < 0.22 < 0.22 (Mass) Total Protein 7.4 Albumin 4.2 Globulin 3.20 Albumin/Globulin 1.31 Ratio Triglycerides Level 646 H Cholesterol Level 424 H LDL Cholesterol, 257 Calculated HDL Cholesterol 38 Cholesterol/HDL 11.1 Ratio Thyroid Stimulating 3.710 Hormone (TSH) Bedside Glucose 171 Test 03/27/18 11:32 Bedside Glucose 257 H Consultation Date/Type/Reason Admit Date/Time Date of Consultation: Mar 27, 2018 Type of Consult Cardiology Reason for Consultation Chest pain, SOB Requesting Provider: MADELEINE CANNON Hx of Present Illness 57 yo F with a h/o cardiomyopathy (25% by echo 09/2016, 16% by MPI with no perfusion defects), uncontrolled IDDM (A1C 10.7), HTN, HL (LDL 257), who presented with chest/back pain with SOB. [place] interpretation was used. She has not had cardiology follow up since 09/2016. She states that she is compliant with her meds but her A1C and LDL do not suggest this. She notes that she is constantly tired and has exertional dyspnea and chest pressure as well as left scapular pain. Her troponins have been negative. No orthopnea, edema. She does feel like she has dyspnea all the time though, even at rest. per HPI Past Medical History per HPI Medications Current Medications Aspirin (Aspirin) 81 mg DAILY PO Last administered on 03/27/18at 08:08; Admin Dose 81 MG; Start 03/27/18 at 09:00 Atorvastatin Calcium (Lipitor) 40 mg DAILY@21 PO ; Start 03/27/18 at 21:00 Carvedilol (Coreg) 6.25 mg BID PO Last administered on 03/27/18at 08:09; Admin Dose 6.25 MG; Start 03/27/18 at 09:00 Digoxin (Digoxin) 0.125 mg DAILY@1300 PO Last administered on 03/27/18at 12:19; Admin Dose 0.125 MG; Start 03/27/18 at 13:00 Insulin Glargine (Lantus) 15 units DAILY@20 SC ; Start 03/27/18 at 20:00 Lisinopril (Zestril) 20 mg BID PO Last administered on 03/27/18at 08:07; Admin Dose 20 MG; Start 03/27/18 at 09:00 Olanzapine (Zyprexa) 5 mg DAILY PO Last administered on 03/27/18at 08:08; Admin Dose 5 MG; Start 03/27/18 at 09:00 Sertraline HCl (Zoloft) 50 mg DAILY PO Last administered on 03/27/18at 08:09; Admin Dose 50 MG; Start 03/27/18 at 09:00 Thiamine HCl (Vitamin B1) 100 mg DAILY PO Last administered on 03/27/18at 08:09; Admin Dose 100 MG; Start 03/27/18 at 09:00 IV Flush (NS 3 ml) 3 ml PER PROTOCOL IV ; Start 03/27/18 at 00:00 Ondansetron HCl (Zofran Inj) 4 mg Q6H PRN IV NAUSEA AND/OR VOMITING; Start 03/27/18 at 00:00 Acetaminophen (Tylenol Tab) 650 mg Q6H PRN PO PAIN LEVEL 1-3 OR FEVER; Start 03/27/18 at 00:00 Docusate Sodium (Colace) 100 mg Q12H PRN PO CONSTIPATION; Start 03/27/18 at 00:00 Bisacodyl (Dulcolax) 5 mg DAILY PRN PO CONSTIPATION; Start 03/27/18 at 00:00 Pantoprazole (Protonix Tab) 40 mg DAILY@06 PO Last administered on 03/27/18at 08:07; Admin Dose 40 MG; Start 03/27/18 at 06:00 Cyclobenzaprine HCl (Flexeril) 5 mg Q8H PRN PO PAIN; Start 03/27/18 at 02:30 Miscellaneous Information 1 ea NOTE XX ; Start 03/27/18 at 07:30 Glucose (Glutose) 15 gm Q15M PRN PO DECREASED GLUCOSE; Start 03/27/18 at 07:30 Glucose (Glutose) 22.5 gm Q15M PRN PO DECREASED GLUCOSE; Start 03/27/18 at 07:30 Dextrose (D50w Syringe) 25 ml Q15M PRN IV DECREASED GLUCOSE; Start 03/27/18 at 07:30 Dextrose (D50w Syringe) 50 ml Q15M PRN IV DECREASED GLUCOSE; Start 03/27/18 at 07:30 Glucagon (Glucagen) 1 mg Q15M PRN IM DECREASED GLUCOSE; Start 03/27/18 at 07:30 Glucose (Glutose) 15 gm Q15M PRN BUCCAL DECREASED GLUCOSE; Start 03/27/18 at 07:30 Furosemide (Lasix) 40 mg BID DIURETICS PO Last administered on 03/27/18at 08:08; Admin Dose 40 MG; Start 03/27/18 at 07:27 Insulin Glargine (Lantus) 20 units DAILY@2000 SC ; Start 03/27/18 at 20:00 Insulin Aspart (Novolog Insulin Pen) 7 unit WITH MEALS SC Last administered on 03/27/18at 12:11; Admin Dose 7 UNIT; Start 03/27/18 at 12:00 Insulin Aspart (Novolog Insulin Pen) NOVOLOG *MILD* ALGORITHM WITH MEALS BEDTIME SC Last administered on 03/27/18at 12:16; Admin Dose 3 UNIT; Start 03/27/18 at 12:00 Allergies: Coded Allergies: No Known Allergy (Unverified , 03/26/18) Past Surgical History Past Surgical Hx: no surgical history Social History Alcohol Use: none Smoking Status: Never smoker Drug Use: none Exam/Review of Systems Vital Signs Vitals Vital Signs Date Temp Pulse Resp B/P (MAP) Pulse Ox O2 O2 Flow FiO2 Time Delivery Rate 03/27/18 75 12:39 03/27/18 97.7 18 99/54 (69) 97 Nasal 11:10 Cannula Exam Constitutional: alert, oriented Psych: no complaints, nl mood/affect Head: normocephalic, atraumatic Neck: supple; No jvd Respiratory: clear to auscultation; No crackles/rales Cardiovascular: regular rate and rhythm; No edema, No systolic murmur Gastrointestinal: soft, non-tender; No distended Extremities: No normal pulses Neurological: nl mental status, nl speech Medications Medications Current Medications Aspirin (Aspirin) 81 mg DAILY PO Last administered on 03/27/18at 08:08; Admin Dose 81 MG; Start 03/27/18 at 09:00 Atorvastatin Calcium (Lipitor) 40 mg DAILY@21 PO ; Start 03/27/18 at 21:00 Carvedilol (Coreg) 6.25 mg BID PO Last administered on 03/27/18at 08:09; Admin Dose 6.25 MG; Start 03/27/18 at 09:00 Digoxin (Digoxin) 0.125 mg DAILY@1300 PO Last administered on 03/27/18at 12:19; Admin Dose 0.125 MG; Start 03/27/18 at 13:00 Insulin Glargine (Lantus) 15 units DAILY@20 SC ; Start 03/27/18 at 20:00 Lisinopril (Zestril) 20 mg BID PO Last administered on 03/27/18at 08:07; Admin Dose 20 MG; Start 03/27/18 at 09:00 Olanzapine (Zyprexa) 5 mg DAILY PO Last administered on 03/27/18at 08:08; Admin Dose 5 MG; Start 03/27/18 at 09:00 Sertraline HCl (Zoloft) 50 mg DAILY PO Last administered on 03/27/18at 08:09; Admin Dose 50 MG; Start 03/27/18 at 09:00 Thiamine HCl (Vitamin B1) 100 mg DAILY PO Last administered on 03/27/18at 08:09; Admin Dose 100 MG; Start 03/27/18 at 09:00 IV Flush (NS 3 ml) 3 ml PER PROTOCOL IV ; Start 03/27/18 at 00:00 Ondansetron HCl (Zofran Inj) 4 mg Q6H PRN IV NAUSEA AND/OR VOMITING; Start 03/27/18 at 00:00 Acetaminophen (Tylenol Tab) 650 mg Q6H PRN PO PAIN LEVEL 1-3 OR FEVER; Start 03/27/18 at 00:00 Docusate Sodium (Colace) 100 mg Q12H PRN PO CONSTIPATION; Start 03/27/18 at 00:00 Bisacodyl (Dulcolax) 5 mg DAILY PRN PO CONSTIPATION; Start 03/27/18 at 00:00 Pantoprazole (Protonix Tab) 40 mg DAILY@06 PO Last administered on 03/27/18at 08:07; Admin Dose 40 MG; Start 03/27/18 at 06:00 Cyclobenzaprine HCl (Flexeril) 5 mg Q8H PRN PO PAIN; Start 03/27/18 at 02:30 Miscellaneous Information 1 ea NOTE XX ; Start 03/27/18 at 07:30 Glucose (Glutose) 15 gm Q15M PRN PO DECREASED GLUCOSE; Start 03/27/18 at 07:30 Glucose (Glutose) 22.5 gm Q15M PRN PO DECREASED GLUCOSE; Start 03/27/18 at 07:30 Dextrose (D50w Syringe) 25 ml Q15M PRN IV DECREASED GLUCOSE; Start 03/27/18 at 07:30 Dextrose (D50w Syringe) 50 ml Q15M PRN IV DECREASED GLUCOSE; Start 03/27/18 at 07:30 Glucagon (Glucagen) 1 mg Q15M PRN IM DECREASED GLUCOSE; Start 03/27/18 at 07:30 Glucose (Glutose) 15 gm Q15M PRN BUCCAL DECREASED GLUCOSE; Start 03/27/18 at 07:30 Furosemide (Lasix) 40 mg BID DIURETICS PO Last administered on 03/27/18at 08:08; Admin Dose 40 MG; Start 03/27/18 at 07:27 Insulin Glargine (Lantus) 20 units DAILY@2000 SC ; Start 03/27/18 at 20:00 Insulin Aspart (Novolog Insulin Pen) 7 unit WITH MEALS SC Last administered on 03/27/18at 12:11; Admin Dose 7 UNIT; Start 03/27/18 at 12:00 Insulin Aspart (Novolog Insulin Pen) NOVOLOG *MILD* ALGORITHM WITH MEALS BEDTIME SC Last administered on 03/27/18at 12:16; Admin Dose 3 UNIT; Start 03/27/18 at 12:00 Imaging Imaging EKG: sinus, LVH, nonspecific TW changes anterolateral leads DENI ABERNATHY Mar 27, 2018 14:15
--- NOTE | 2018-03-27 15:05 | PN ---
Date/Time of Note Date/Time of Note DATE: 03/27/18 TIME: 15:03 Assessment/Plan VTE Prophylaxis Risk score (from Nsg)>0 risk: 1 SCD applied (from Nsg): Yes Pharmacological prophylaxis: LMWH Lines/Catheters IV Catheter Type (from Nrsg): Saline Lock Assessment/Plan Hospital Course SUBJECTIVE: Verbalized chest pain. OBJECTIVE: Physical Exam General: Obese, 57 year-old female lying in bed in no apparent distress. HEENT: Normocephalic, atraumatic. Eyes: Anicteric sclerae, conjunctivae clear. ENT: Nasal septum midline, oral mucosa moist. Neck supple, no JVD noticed. Respiratory: Bilaterally diminished breath sounds. No use of accessory muscles of respiration. No adventitious breath sounds. Cardiovascular: S1, S2 heard. Regular rate and rhythm. Abdomen: Soft, nontender, and nondistended. Bowel sounds positive in all 4 quadrants. Genitourinary: Deferred. Extremities: No cyanosis, no clubbing, no edema. Peripheral pulses palpable. Neurologic: Cranial nerves II through XII grossly intact. The patient is awake, alert, and oriented. Skin: Normal skin turgor. No skin rashes. Labs & Vitals per chart ASSESSMENT & PLAN This is a 57 yo female with comorbidities including essential hypertension, type 2 diabetes mellitus, dyslipidemia, obesity, cardiomyopathy, and depression who came to the emergency room with chief complaint of chest pain and dyspnea. The patient was admitted inpatient setting for further treatment and evaluation. 1. Chest pain. -To rule out ACS. -Being followed by cardiology. -Continue aspirin. -Troponins negative so far. -Plan for CT coronary angiogram 2. Chronic systolic congestive heart failure. -Continue beta-blockers and ASHWIN inhibitors. 3. Cardiomyopathy. -Latest 2D echocardiogram showing ejection fraction of 40-45%. -Continue beta-blockers and ASHWIN inhibitors. 4. Diabetes mellitus type II. -Hemoglobin A1c 10.7. -Continue sliding scale insulin along with pre-meal insulin and basal insulin. 5. Dyslipidemia. -Continue statins. 6. Depression. -Continue SSRIs. 7. Mood disorder. -Continue mood stabilizers. 8. Fluids, electrolytes, and nutrition. -Low-cholesterol, carbohydrate controlled diet. 9. DVT prophylaxis. -Subcutaneous Lovenox. 10. Plan. -Continue telemetry monitoring. -CT coronary angiogram ordered. The patient was seen in collaboration with Dr. Sands. Result Diagram: 03/27/18 0426 03/27/18 0426 Results 24hrs Laboratory Tests Test 03/26/18 22:10 03/27/18 04:26 03/27/18 07:30 03/27/18 09:42 White Blood Count 9.9 9.3 Red Blood Count 5.10 5.15 Hemoglobin 13.8 14.0 Hematocrit 41.2 42.1 Mean Corpuscular 80.8 L 81.7 L Volume Mean Corpuscular 27.1 L 27.2 L Hemoglobin Mean Corpuscular 33.5 33.3 Hemoglobin Concent Red Cell 12.5 12.4 Distribution Width Platelet Count 271 252 Mean Platelet Volume 9.9 9.9 Immature 0.300 0.200 Granulocytes % Neutrophils % 59.1 56.2 Lymphocytes % 33.8 36.2 Monocytes % 5.1 5.4 Eosinophils % 1.2 1.4 Basophils % 0.5 0.6 Nucleated Red Blood 0.0 0.0 Cells % Immature 0.030 0.020 Granulocytes # Neutrophils # 5.8 5.2 Lymphocytes # 3.3 H 3.4 H Monocytes # 0.5 0.5 Eosinophils # 0.1 0.1 Basophils # 0.1 0.1 Nucleated Red Blood 0.0 0.0 Cells # Sodium Level 136 139 Potassium Level 4.4 4.6 Chloride Level 95 L 94 L Carbon Dioxide Level 28 34 H Anion Gap 13 11 Blood Urea Nitrogen 20 21 H Creatinine 0.50 0.73 Est Glomerular > 60 > 60 Filtrat Rate mL/min Glucose Level 212 157 Calcium Level 9.8 9.8 Troponin I < 0.012 < 0.012 < 0.012 B-Type Natriuretic 45 Peptide Hemoglobin A1c 10.7 H Magnesium Level 1.8 Total Bilirubin 0.4 Direct Bilirubin 0.00 Indirect Bilirubin 0.4 Aspartate Amino 29 Transf (AST/SGOT) Alanine 30 Aminotransferase (AL T/SGPT) Alkaline Phosphatase 111 Creatine Kinase 23 25 Creatine Kinase 1.0 0.9 Index Creatinine Kinase MB < 0.22 < 0.22 (Mass) Total Protein 7.4 Albumin 4.2 Globulin 3.20 Albumin/Globulin 1.31 Ratio Triglycerides Level 646 H Cholesterol Level 424 H LDL Cholesterol, 257 Calculated HDL Cholesterol 38 Cholesterol/HDL 11.1 Ratio Thyroid Stimulating 3.710 Hormone (TSH) Bedside Glucose 171 Test 03/27/18 11:32 Bedside Glucose 257 H Exam/Review of Systems Vital Signs Vitals Vital Signs Date Temp Pulse Resp B/P (MAP) Pulse Ox O2 O2 Flow FiO2 Time Delivery Rate 03/27/18 75 12:39 03/27/18 97.7 18 99/54 (69) 97 Nasal 11:10 Cannula Medications Medications Current Medications Aspirin (Aspirin) 81 mg DAILY PO Last administered on 03/27/18at 08:08; Admin Dose 81 MG; Start 03/27/18 at 09:00 Carvedilol (Coreg) 6.25 mg BID PO Last administered on 03/27/18at 08:09; Admin Dose 6.25 MG; Start 03/27/18 at 09:00 Insulin Glargine (Lantus) 15 units DAILY@20 SC ; Start 03/27/18 at 20:00 Lisinopril (Zestril) 20 mg BID PO Last administered on 03/27/18at 08:07; Admin Dose 20 MG; Start 03/27/18 at 09:00 Olanzapine (Zyprexa) 5 mg DAILY PO Last administered on 03/27/18at 08:08; Admin Dose 5 MG; Start 03/27/18 at 09:00 Sertraline HCl (Zoloft) 50 mg DAILY PO Last administered on 03/27/18at 08:09; Admin Dose 50 MG; Start 03/27/18 at 09:00 Thiamine HCl (Vitamin B1) 100 mg DAILY PO Last administered on 03/27/18at 08:09; Admin Dose 100 MG; Start 03/27/18 at 09:00 IV Flush (NS 3 ml) 3 ml PER PROTOCOL IV ; Start 03/27/18 at 00:00 Ondansetron HCl (Zofran Inj) 4 mg Q6H PRN IV NAUSEA AND/OR VOMITING; Start 03/27/18 at 00:00 Acetaminophen (Tylenol Tab) 650 mg Q6H PRN PO PAIN LEVEL 1-3 OR FEVER; Start 03/27/18 at 00:00 Docusate Sodium (Colace) 100 mg Q12H PRN PO CONSTIPATION; Start 03/27/18 at 00:00 Bisacodyl (Dulcolax) 5 mg DAILY PRN PO CONSTIPATION; Start 03/27/18 at 00:00 Pantoprazole (Protonix Tab) 40 mg DAILY@06 PO Last administered on 03/27/18at 08:07; Admin Dose 40 MG; Start 03/27/18 at 06:00 Cyclobenzaprine HCl (Flexeril) 5 mg Q8H PRN PO PAIN; Start 03/27/18 at 02:30 Miscellaneous Information 1 ea NOTE XX ; Start 03/27/18 at 07:30 Glucose (Glutose) 15 gm Q15M PRN PO DECREASED GLUCOSE; Start 03/27/18 at 07:30 Glucose (Glutose) 22.5 gm Q15M PRN PO DECREASED GLUCOSE; Start 03/27/18 at 07:30 Dextrose (D50w Syringe) 25 ml Q15M PRN IV DECREASED GLUCOSE; Start 03/27/18 at 07:30 Dextrose (D50w Syringe) 50 ml Q15M PRN IV DECREASED GLUCOSE; Start 03/27/18 at 07:30 Glucagon (Glucagen) 1 mg Q15M PRN IM DECREASED GLUCOSE; Start 03/27/18 at 07:30 Glucose (Glutose) 15 gm Q15M PRN BUCCAL DECREASED GLUCOSE; Start 03/27/18 at 07:30 Furosemide (Lasix) 40 mg BID DIURETICS PO Last administered on 03/27/18at 08:08; Admin Dose 40 MG; Start 03/27/18 at 07:27 Insulin Glargine (Lantus) 20 units DAILY@2000 SC ; Start 03/27/18 at 20:00 Insulin Aspart (Novolog Insulin Pen) 7 unit WITH MEALS SC Last administered on 03/27/18at 12:11; Admin Dose 7 UNIT; Start 03/27/18 at 12:00 Insulin Aspart (Novolog Insulin Pen) NOVOLOG *MILD* ALGORITHM WITH MEALS BEDTIME SC Last administered on 03/27/18at 12:16; Admin Dose 3 UNIT; Start 03/27/18 at 12:00 Atorvastatin Calcium (Lipitor) 80 mg DAILY@21 PO ; Start 03/27/18 at 21:00 CLAUDIA ANTONIO NP Mar 27, 2018 15:05
[2018-03-27] MEDS ORDERED: INSULIN GLARGINE [LANTus] (100 UNITS/ML) SYG SC SCH (20:00)
[2018-03-27] MEDS: ATORVASTATIN 80 MG TAB PO SCH (20:46)
[2018-03-27] MEDS ORDERED: ATORVASTATIN 40 MG TAB PO SCH (21:00)
[2018-03-27] MEDS: INSULIN GLARGINE [LANTus] (100 UNITS/ML) SYG SC SCH (21:13)
[2018-03-28] VITALS (50 sets, daily range): BP systolic 72–141; BP diastolic 53–124; PULSE 78–121; RESP 13–26
[2018-03-28] MEDS: PANTOPRAZOLE (EC) 40 MG TAB PO SCH (05:29)
[2018-03-28] MEDS: FUROSEMIDE 40 MG TAB PO SCH (05:29)
[2018-03-28] MEDS ORDERED: SUCCINYLCHOLINE CHLORIDE 100 MG/5 ML SYG IV ONE (07:00)
[2018-03-28] MEDS ORDERED: ETOMIDATE 20 MG INJ ONE (07:00)
[2018-03-28] MEDS ORDERED: IODIXANOL LOCM 100 ML BTL ONE ×5 (07:39→12:11)
[2018-03-28] MEDS ORDERED: VERAPAMIL 5 MG INJ ONE ×2 (07:39→10:01)
[2018-03-28] MEDS ORDERED: NITROGLYCERIN (IC) 100 MCG/ML INJ ONE ×2 (07:39→10:01)
[2018-03-28] MEDS ORDERED: LIDOCAINE 1% (MDV) 20 ML INJ ONE (07:39)
[2018-03-28] MEDS ORDERED: HEPARIN 1000 UNITS/ML 10 ML INJ ONE (07:39)
[2018-03-28] MEDS ORDERED: MIDAZOLAM 1 MG/ML 2 ML INJ ONE (07:47)
[2018-03-28] MEDS ORDERED: FENTAnyl 50 MCG/ML VIAL ONE (07:47)
[2018-03-28] MEDS ORDERED: IOHEXOL 350MG/ML 50 ML BTL ONE ×2 (08:27→12:11)
[2018-03-28] MEDS ORDERED: TICAGRELOR 90 MG TABLET ONE (08:27)
[2018-03-28] MEDS ORDERED: BIVALIRUDIN 250MG /NS 50 ML 50 ML IVPB ONE ×2 (08:27→09:58)
[2018-03-28] MEDS ORDERED: ASPIRIN 325 MG TAB ONE (08:54)
[2018-03-28] MEDS: ENOXAPARIN 40 MG/0.4 ML SYG SC SCH (09:00)
[2018-03-28] MEDS: OLANZAPINE 5 MG TAB PO SCH (09:00)
[2018-03-28] MEDS ORDERED: EPTIFIBATIDE 20 MG INJ ONE (10:00)
[2018-03-28] MEDS ORDERED: EPTIFIBATIDE 200 MG INJ IV ONE (10:00)
[2018-03-28] MEDS ORDERED: SOD CHLORIDE 0.9% 1,000 ML IV SCH (11:03)
--- NOTE | 2018-03-28 11:08 | OPR ---
Date/Time of Note Date/Time of Note DATE: 03/28/18 TIME: 11:08 Operative Report Procedure Date: Mar 28, 2018 Preoperative Diagnosis Unstable angina Postoperative Diagnosis Unstable angina s/p complicated PCI Operation/Procedure Performed see details Surgeon see signature line Life Insurance Underwriter none Anesthesia Type: moderate sedation Estimated Blood Loss: minimal Transfusion none Specimen none Grafts/Implants none Complications none Procedure Description Procedure Date:03/28/2018 Outside Machinist Supervisor/surgeon: Donato Barker MD. Procedures Performed: 1)Left heart catheterization with selective left and right coronary angiography. 2)Balloon angioplasty and stenting of multiple segments of the RCA as detailed below. Complex/complicated procedure with proximal vessel dissection with loss of flow and eventual methodist of PERRY 3 flow. 3)Placement of a transvenous pacemaker catheter. Pre-operative Diagnosis:unstable angina Post-operative Diagnosis:unstable angina s/p complex PCI Indications: 57 yo F with a h/o cardiomyopathy (25% by echo 09/2016, 16% by MPI with no perfusion defects), uncontrolled IDDM (A1C 10.7), HTN, HL (LDL 257), who presented with chest/back pain with SOB. As she had significant CAD risk factors and MPI was read as normal 2016, the decision was made to proceed with cardiac cath for definitive coronary evaluation. Description of Procedure: After informed consent, the patient was brought to the cardiac catheterization lab. The procedure site was prepped and draped in usual manner. The patient was premedicated with versed 2 mg and fentanyl 50 mcg. 3 mL lidocaine was injected into the left wrist. Next using the posterior wall technique with ultrasound guidance, the 6/5 [place] sheath was inserted into the left radial artery. Next using the JL3.5 and JR4, selective angiography of the left and right coronary arteries were obtained. The decision was made to proceed with PCI of the RCA due to multiple obstructive lesions. A 6 [place] JR 3.5 guide was advanced and engaged into the right coronary artery. After appropriate anticoagulation and antiplatelets were given, the BMW angioplasty wire was advanced past the lesion. Next the 2.0 X 12 balloon was used to dilate the distal and mid lesions times. Subsequently, the Synergy 2.25 x 16 stent was placed in the distal vessel. Next a Synergy 2.5 x 16 was placed in the mid lesion (not overlapping). Next the Synergy 2.5 x 20 stent was advanced to the prox lesion but there was a lesion noted proximal to the mid lesion so the stent was instead deployed in this area. A synergy 2.75 x 16 stent was used to then cover the proximal segment (all three overlapping). At this point the decision was made to post dilate. The 2.5 x 8 NC was advanced and the distal stents were dilated.The 2.75 x 12 and 8 NC balloons would not advance past the mid area so a Mailman was used. In the process of readvancing the NC balloon, it was noticed that the catheter pressure was very damp even when the guide was pulled back to the aorta. The catheter was flushed and alot of air was noted as well as thrombus. After clearing the catheter, the coronary was reinjected and multiple clots were seen in the stents. ACT was checked and was elevated as expected with angiomax. Integrilin bolus and drip were started. There was also a proximal vessel dissection noticed. At this time the pt was very symptomatic and was having bradycardia. A right femoral transvenous pacer was placed. The guide was reengaged and after multiple attempts, a BMW wire was finally advanced into the distal RCA. The mid thrombotic stented areas were dilated and PERRY 2 flow restored. Next the proximal dissection was stented with a Synergy 3.0 x 16 stent extending to cover the ostium. At this point there was flow but still thrombus. Next the 2.0 x 12 balloon was advanced and the entire vessel ballooned from distal to prox. This restored PERRY 3 flow. IC NTG and verapamil were then given. Next the 2.5 x 8 NC was used to dilate the mid to prox stents up to 20 debbie. More IC NTG and verapamil were then given and the final result was a patent vessel with no further uncovered dissections and PERRY 3 flow. Next all equipment was removed and hemostasis was achieved by TR band. Findings: Anatomy/Hemodynamics: Left main: normal LAD:20-30% plaquing Diagonal:small vessel with mid 70-80% Circumflex:luminal irregularities Obtuse marginal:luminal irregularities RCA:tortuous vessel withprox to mid long 60-70%, mid focal 99%, distal focal 95% PDA:luminal irregularities PLV:luminal irregularities LV angiography:not done Contrast used:280mL Medications used: Versed 2mg Fentanyl 50 radial cocktail: 3000 heparin, 200 NTG, 2.5 verapamil Angiomax bolus plus drip integrilin bolus plus drip ASA 325mg Brilinta 180mg Equipment used: 6 [place] JR 3.5 guide BMW, Mailman angioplasty wire 2 x 12 and 2.0 x 8 balloon Synergy 2.25 x 16 drug eluting stent (distal, not overlapping) Synergy 2.5 x 16 drug eluting stent (mid-distal, overlapping) Synergy 2.5 x 20 drug eluting stent (mid, overlapping) Synergy 2.75 x 16 drug eluting stent (prox overlapping) Synergy 3.0 x 16 drug eluting stent (ostial covering dissection) 2.5 x 12 noncompliant balloon Estimated blood loss<10 mL. Specimen: none Grafts/implants: none Complications: none Assessment: Unstable angina: s/p PCI of RCA in multiple segments as detailed above. Complicated by stent thrombosis and proximal vessel dissection. It is unclear what the sequence of events were. here may have been thrombosis of the stents and in the attempt to re-engage the vessel, there was dissection vs dissection of the prox vessel first leading to thrombus formation. Final result was PERRY 3 flow, no symptoms, and stable hemodynamics. CAD: As above. Residual diag disease which will be treated medically DM HTN Ischemic cardiomyopathy Plan: -continue integrilin drip overnight -keep TVP overnight -ASA lifelong -Brilinta 90mg BID at least 1 year -statin, BB, ACEI DONATO BARKER Mar 28, 2018 11:08
[2018-03-28] MEDS ORDERED: AMIODARONE 900 MG in DEXTROSE 5% 482 ML IV SCH (12:30)
[2018-03-28] MEDS ORDERED: PROPOFOL 100 ML ONE (12:49)
[2018-03-28] MEDS ORDERED: MAGNESIUM SULFATE 1 GM/D5W 100 ML ONE ×2 (12:51→12:53)
--- NOTE | 2018-03-28 13:00 | OPR ---
Date/Time of Note Date/Time of Note DATE: 03/28/18 TIME: 12:57 Operative Report Preoperative Diagnosis VF arrest Postoperative Diagnosis same. Patent coronaries Operation/Procedure Performed see details Surgeon see signature line Personal Insurance Advisor none Anesthesia Type: other (pt intubated ) Estimated Blood Loss: minimal Transfusion none Specimen none Grafts/Implants none Complications none Procedure Description Procedure Date:03/28/2018 Administrative Personal Assistant/surgeon:Donato Barker MD. Procedures Performed: 1)Left heart catheterization with selective left and right coronary angiography in an emergent setting due to VF arrest Pre-operative Diagnosis:VF arrest Post-operative Diagnosis:VF arrest Indications: 57 yo F post RCA PCI with complications as detailed in original note.Pt had VF arrest x 2 in the ICU and was brought back for reevaluation Description of Procedure: The procedure site was prepped and draped in usual manner. 5 mL lidocaine was injected into the left groin. Next using the Seldinger technique, the 6 arabic sheath was inserted into the left femoral artery. Next using the JL4 and JR4, selective angiography of the left and right coronary arteries were obtained. The pigtail was then advanced into the ventricle and hemodynamics obtained. Left ventricle angiography was not obtained. Findings: Anatomy/Hemodynamics: Left main:normal LAD:mid 30-40% unchanged Diagonal:mid 70-80% unchanged Circumflex: luminal irregularities Obtuse marginal:luminal irregularities RCA: patent stents with PERRY 3 flow. Ostial/prox dissection well covered by stent with intimal dissection flap behind the stent PDA:luminal irregularities PLV:luminal irregularities LV angiography:not done LV-Ao: no gradient LVEDP: 22mmHg Contrast used:20 mL Estimated blood loss<10 mL. Specimen: none Grafts/implants: none Complications: none Assessment: VF arrest: Patent coronaries. LVEDP was not significantly elevated to explain it. Possibly R on T pacing from TVP which has now been removed Plan: -back to ICU -stat labs -continue amiodarone unless QT prolongation noted DONATO BARKER Mar 28, 2018 13:00
--- NOTE | 2018-03-28 13:05 | QN ---
Documentation Comment Code toño called in the ICU. Pt went in to VF/torsades. She was defibrillated successfully. She was awake and hemodynamically stable initially. Then she had VF/torsades again and again required defibrillation. She was given IV amiodarone. She was prophylactically intubated. EKG showed ST elevation in V1-V3 which was unusual but the presumption was that the RCA had occluded again. She was urgently transferred to the cath lab manager. Cardiac surgery was called for possible emergent bypass should the RCA have been occluded. Cath showed patent left and right coronaries with PERRY 3 flow. LVEDP was 22 mmHg which did not justify an IABP placement. She may have had an R on T pacing from her TVP which caused the VF. Therefore the TVP was removed in the cath lab manager. She was given 2g Mg and she will have her labs checked stat. She is awake and alert and responsive at this time. Hemodynamically stable. DENI ABERNATHY Mar 28, 2018 13:04
[2018-03-28] MEDS: PROPOFOL 100 ML IV SCH ×3 (13:45→21:54)
[2018-03-28] MEDS: EPTIFIBATIDE 100 ML IV SCH ×2 (14:13→21:53)
[2018-03-28] MEDS: INSULIN ASPART [NOVOLOG] 3 ML PEN SC SCH ×3 (14:14→22:03)
[2018-03-28] MEDS: MAGNESIUM SULFATE 1 GM/D5W 100 ML IVPB SCH ×2 (14:48→15:00)
[2018-03-28] MEDS: THIAMINE 100 MG TAB PO SCH (14:57)
[2018-03-28] MEDS: SERTRALINE 50 MG TAB PO SCH (14:57)
[2018-03-28] MEDS: LISINOPRIL 20 MG TAB PO SCH (14:57)
[2018-03-28] MEDS: ASPIRIN 81 MG TAB PO SCH (14:58)
--- NOTE | 2018-03-28 17:11 | PN ---
Date/Time of Note Date/Time of Note DATE: 03/28/18 TIME: 17:11 Assessment/Plan VTE Prophylaxis Risk score (from Nsg)>0 risk: 3 SCD applied (from Ns): No SCD contraindicated: other Pharmacological prophylaxis: other (Integrilin) Lines/Catheters IV Catheter Type (from [facility]): A Line Urinary Cath still in place: Yes Reason Cath still needed: other (indicate) Assessment/Plan Hospital Course SUBJECTIVE: The patient currently intubated. On amiodarone gtt. OBJECTIVE: Physical Exam General: Obese, 57 year-old female lying in bed in no apparent distress. HEENT: Normocephalic, atraumatic. Eyes: Anicteric sclerae, conjunctivae clear. ENT: Nasal septum midline, oral mucosa moist. Neck supple, no JVD noticed. Respiratory: Bilaterally diminished breath sounds. No use of accessory muscles of respiration. ETT to mechanical ventilator. Cardiovascular: S1, S2 heard. Regular rate and rhythm. Abdomen: Soft, nontender, and nondistended. Bowel sounds positive in all 4 quadrants. Genitourinary: Right femoral central line. Extremities: No cyanosis, no clubbing, no edema. Peripheral pulses palpable. Neurologic: The patient is somnolent. Wakes up to call and moves all 4 extremities; follows commands. Skin: Normal skin turgor. No skin rashes. Labs & Vitals per chart ASSESSMENT & PLAN This is a 57 yo female with comorbidities including essential hypertension, type 2 diabetes mellitus, dyslipidemia, obesity, cardiomyopathy, and depression who came to the emergency room with chief complaint of chest pain and dyspnea. The patient was admitted inpatient setting for further treatment and evaluation. 1. Unstable angina. -Status post complicated balloon angioplasty and stenting of multiple segments of RCA on 03/28/2018. -Continue dual antiplatelet therapy. 2. Ventricular fibrillation cardiac arrest after left heart catheterization on 03/28/2018. -Possibly from R-on-T phenomenon from transvenous pacing, that has been removed. -The patient was intubated on 03/28/2018 following CODE BLUE. -The patient was taken back to the [facility] and left heart catheterization revealed patent coronaries. 3. Acute respiratory failure requiring mechanical ventilation, secondary to V. fib cardiac arrest. -On mechanical ventilator. -Ventilator weaning as per pulmonary. 4. Chronic systolic congestive heart failure. -Continue beta-blockers and ASHWIN inhibitors. 5. Cardiomyopathy. -Latest 2D echocardiogram showing ejection fraction of 40-45%. -Continue beta-blockers and ASHWIN inhibitors. 6. Diabetes mellitus type II. -Hemoglobin A1c 10.7. -Continue sliding scale insulin along with basal insulin. 7. Dyslipidemia. -Continue statins. 8. Depression. -Continue SSRIs. 9. Mood disorder. -Continue mood stabilizers. 10. Fluids, electrolytes, and nutrition. -N.p.o. 11. DVT prophylaxis. -On Integrilin. 12. Plan. -Continue intensive care unit monitoring. -Ventilator weaning as per pulmonology. -Continue amiodarone drip. The patient was seen in collaboration with Dr. Sands. Critical care time: 35 minutes. Result Diagram: 03/28/18 1248 03/28/18 1248 Results 24hrs Laboratory Tests Test 03/27/18 17:12 03/27/18 20:42 03/28/18 05:26 03/28/18 05:31 Bedside Glucose 163 203 198 White Blood Count 7.6 Red Blood Count 5.19 Hemoglobin 14.0 Hematocrit 42.8 Mean Corpuscular 82.5 Volume Mean Corpuscular 27.0 L Hemoglobin Mean Corpuscular 32.7 Hemoglobin Concen t Red Cell 12.7 Distribution Width Platelet Count 251 Mean Platelet 10.0 Volume Immature 0.300 Granulocytes % Neutrophils % 63.4 Lymphocytes % 29.1 Monocytes % 5.3 Eosinophils % 1.2 Basophils % 0.7 Nucleated Red 0.0 Blood Cells % Immature 0.020 Granulocytes # Neutrophils # 4.8 Lymphocytes # 2.2 Monocytes # 0.4 Eosinophils # 0.1 Basophils # 0.1 Nucleated Red 0.0 Blood Cells # Sodium Level 136 Potassium Level 4.5 Chloride Level 99 Carbon Dioxide 27 Level Anion Gap 10 Blood Urea 26 H Nitrogen Creatinine 0.61 Est Glomerular > 60 Filtrat Rate mL/min Glucose Level 220 Calcium Level 9.9 Phosphorus Level 4.6 Magnesium Level 2.0 Troponin I < 0.012 Test 03/28/18 12:48 03/28/18 13:34 03/28/18 13:42 03/28/18 14:16 White Blood Count 12.8 #H Red Blood Count 5.05 Hemoglobin 13.6 Hematocrit 42.8 Mean Corpuscular 84.8 Volume Mean Corpuscular 26.9 L Hemoglobin Mean Corpuscular 31.8 L Hemoglobin Concen t Red Cell 12.8 Distribution Width Platelet Count 316 # Mean Platelet 10.4 Volume Immature 0.400 Granulocytes % Neutrophils % 80.0 H Lymphocytes % 15.4 Monocytes % 3.4 Eosinophils % 0.3 Basophils % 0.5 Nucleated Red 0.0 Blood Cells % Immature 0.050 H Granulocytes # Neutrophils # 10.3 H Lymphocytes # 2.0 Monocytes # 0.4 Eosinophils # 0.0 Basophils # 0.1 Nucleated Red 0.0 Blood Cells # Sodium Level 138 Potassium Level 4.0 Chloride Level 94 L Carbon Dioxide 25 Level Anion Gap 19 #H Blood Urea 23 H Nitrogen Creatinine 0.68 Est Glomerular > 60 Filtrat Rate mL/min Glucose Level 384 #H Calcium Level 9.1 Total Bilirubin 1.0 Direct Bilirubin 0.00 Indirect 1.0 Bilirubin Aspartate Amino 179 H Transf (AST/SGOT) Alanine 110 H Aminotransferase (ALT/SGPT) Alkaline 135 H Phosphatase Total Protein 7.6 Albumin 4.2 Globulin 3.40 H Albumin/Globulin 1.23 Ratio Bedside Glucose 451 *H 432 *H Blood Gas Blood arterial Specimen Source Arterial Blood 03/28/2018 2:20:2 Date Drawn 5 PM Arterial Blood pH 7.385 (Temp corrected) Arterial Blood 41.1 pCO2 (Temp correct) Arterial Blood 535.0 H pO2 (Temp corrected) Arterial Blood 24.0 HCO3 Arterial Blood -0.9 Base Excess Arterial Blood 99.7 H Oxygen Saturation Husam Test N/A Arterial Blood Right Brachial Gas Puncture Site Arterial 0.3 Blood Carboxyhemo globin Arterial Blood 0.3 Methemoglobin Blood Gas A-a O2 136.9 H Differential Oxyhemoglobin 99.1 H Percent Blood Gas 37.0 Temperature Blood Gas 16.0 Respiration Rate Blood Gas Actual 16 Respiration Rate Blood Gas VENT - AC Modality FiO2 100.0 Blood Gas Tidal 500.0 Volume Blood Gas Low 5.0 PEEP Setting Blood Gas TM Notified Whom Blood Gas 03/28/2018 2:34:1 Notified Time 9 PM Exam/Review of Systems Vital Signs Vitals Vital Signs Date Temp Pulse Resp B/P (MAP) Pulse Ox O2 O2 Flow FiO2 Time Delivery Rate 03/28/18 100 16 108/74 100 16:30 (85) 03/28/18 98.7 Mechanical 16:00 Ventilator 03/28/18 60 16:00 Intake and Output 03/27/18 03/27/18 03/28/18 1414:59 22:59 06:59 IntakeIntake Total 800 ml 400 ml BalanceBalance 800 ml 400 ml Medications Medications Current Medications Aspirin (Aspirin) 81 mg DAILY PO Last administered on 03/27/18at 08:08; Admin Dose 81 MG; Start 03/27/18 at 09:00 Carvedilol (Coreg) 6.25 mg BID PO Last administered on 03/27/18at 08:09; Admin Dose 6.25 MG; Start 03/27/18 at 09:00 Lisinopril (Zestril) 20 mg BID PO Last administered on 03/27/18at 08:07; Admin Dose 20 MG; Start 03/27/18 at 09:00 Olanzapine (Zyprexa) 5 mg DAILY PO Last administered on 03/27/18at 08:08; Admin Dose 5 MG; Start 03/27/18 at 09:00 Sertraline HCl (Zoloft) 50 mg DAILY PO Last administered on 03/27/18at 08:09; Admin Dose 50 MG; Start 03/27/18 at 09:00 Thiamine HCl (Vitamin B1) 100 mg DAILY PO Last administered on 03/27/18at 08:09; Admin Dose 100 MG; Start 03/27/18 at 09:00 IV Flush (NS 3 ml) 3 ml PER PROTOCOL IV ; Start 03/27/18 at 00:00 Ondansetron HCl (Zofran Inj) 4 mg Q6H PRN IV NAUSEA AND/OR VOMITING; Start 03/27/18 at 00:00 Acetaminophen (Tylenol Tab) 650 mg Q6H PRN PO PAIN LEVEL 1-3 OR FEVER; Start 03/27/18 at 00:00 Docusate Sodium (Colace) 100 mg Q12H PRN PO CONSTIPATION; Start 03/27/18 at 00:00 Bisacodyl (Dulcolax) 5 mg DAILY PRN PO CONSTIPATION; Start 03/27/18 at 00:00 Pantoprazole (Protonix Tab) 40 mg DAILY@06 PO Last administered on 03/28/18at 05:29; Admin Dose 40 MG; Start 03/27/18 at 06:00 Cyclobenzaprine HCl (Flexeril) 5 mg Q8H PRN PO PAIN; Start 03/27/18 at 02:30 Miscellaneous Information 1 ea NOTE XX ; Start 03/27/18 at 07:30 Glucose (Glutose) 15 gm Q15M PRN PO DECREASED GLUCOSE; Start 03/27/18 at 07:30 Glucose (Glutose) 22.5 gm Q15M PRN PO DECREASED GLUCOSE; Start 03/27/18 at 07:30 Dextrose (D50w Syringe) 25 ml Q15M PRN IV DECREASED GLUCOSE; Start 03/27/18 at 07:30 Dextrose (D50w Syringe) 50 ml Q15M PRN IV DECREASED GLUCOSE; Start 03/27/18 at 07:30 Glucagon (Glucagen) 1 mg Q15M PRN IM DECREASED GLUCOSE; Start 03/27/18 at 07:30 Glucose (Glutose) 15 gm Q15M PRN BUCCAL DECREASED GLUCOSE; Start 03/27/18 at 07:30 Insulin Glargine (Lantus) 20 units DAILY@2000 SC Last administered on 03/27/18at 21:13; Admin Dose 20 UNITS; Start 03/27/18 at 20:00 Atorvastatin Calcium (Lipitor) 80 mg DAILY@21 PO Last administered on 03/27/18at 20:46; Admin Dose 80 MG; Start 03/27/18 at 21:00 Enoxaparin Sodium (Lovenox) 40 mg DAILY SC ; Start 03/28/18 at 09:00 Ticagrelor (Brilinta) 90 mg BID PO ; Start 03/28/18 at 21:00 Furosemide (Lasix) 40 mg DAILY@0600 PO ; Start 03/29/18 at 06:00 Propofol 100 ml @ 2.415 mls/ hr Q12H IV Last administered on 03/28/18at 13:45; Admin Dose 2.415 MLS/HR; Start 03/28/18 at 12:00 Insulin Aspart (Novolog Insulin Pen) NOVOLOG *MODERATE* ALGORITHM Q4H SC Last administered on 03/28/18at 14:14; Admin Dose 12 UNIT; Start 03/28/18 at 14:00 Eptifibatide 100 ml @ 4.83 mls/hr [id number] IV Last administered on 03/28/18at 14:13; Admin Dose 4.83 MLS/HR; Start 03/28/18 at 14:00; Stop 03/29/18 at 07:00 CLAUDIA ANTONIO NP Mar 28, 2018 17:11
--- NOTE | 2018-03-28 17:35 | CONS ---
Date/Time of Note Date/Time of Note DATE: 03/28/18 TIME: 17:28 Assessment/Plan Assessment/Plan Hospital Course Unstable angina: s/p PCI of RCA in multiple segments as detailed above. Complicated by stent thrombosis and proximal vessel dissection. Flow was restored but pt had VF arrest in the ICU so repeat cath was done showing patent stents VF arrest: s/p VF/torsades x 2 requiring defibrillation post cath. Repeat cath with patent vessels. Pt was having intermittent pacing by the TVP and there is either a paced beat or PVC which caused R on T phenomenon both timed. Electrolytes were ok. No recurrence after TVP removed. Acute respiratory failure: Intubated prophylactically after VF arrest x 2 CAD: As above. Residual diag disease which will be treated medically Cardiomyopathy: EF 25% by echo 10/01. Lexiscan 10/01 without perfusion defects and EF 16%. EF at this time is about 40-45%. Chronic systolic heart failure: Euvolemic. EDP 22 post cath DM: uncontrolled with A1C 10.7 HL: LDL 257, TG >600 HTN -hopefully can be extubated in the am -continue integrilin drip overnight -ASA lifelong -Brilinta 90mg BID at least 1 year -coreg 6.25mg BID as BP tolerates -hold lisinopril in case renal function worsens -continue lipitor -lasix 40mg PO daily -hold amiodarone for now >40 mins critical care time Result Diagram: 03/28/18 1248 03/28/18 1248 Results 24hrs Laboratory Tests Test 03/27/18 20:42 03/28/18 05:26 03/28/18 05:31 03/28/18 12:48 Bedside Glucose 203 198 White Blood Count 7.6 12.8 #H Red Blood Count 5.19 5.05 Hemoglobin 14.0 13.6 Hematocrit 42.8 42.8 Mean Corpuscular 82.5 84.8 Volume Mean Corpuscular 27.0 L 26.9 L Hemoglobin Mean Corpuscular 32.7 31.8 L Hemoglobin Concen t Red Cell 12.7 12.8 Distribution Width Platelet Count 251 316 # Mean Platelet 10.0 10.4 Volume Immature 0.300 0.400 Granulocytes % Neutrophils % 63.4 80.0 H Lymphocytes % 29.1 15.4 Monocytes % 5.3 3.4 Eosinophils % 1.2 0.3 Basophils % 0.7 0.5 Nucleated Red 0.0 0.0 Blood Cells % Immature 0.020 0.050 H Granulocytes # Neutrophils # 4.8 10.3 H Lymphocytes # 2.2 2.0 Monocytes # 0.4 0.4 Eosinophils # 0.1 0.0 Basophils # 0.1 0.1 Nucleated Red 0.0 0.0 Blood Cells # Sodium Level 136 138 Potassium Level 4.5 4.0 Chloride Level 99 94 L Carbon Dioxide 27 25 Level Anion Gap 10 19 #H Blood Urea 26 H 23 H Nitrogen Creatinine 0.61 0.68 Est Glomerular > 60 > 60 Filtrat Rate mL/min Glucose Level 220 384 #H Calcium Level 9.9 9.1 Phosphorus Level 4.6 Magnesium Level 2.0 Troponin I < 0.012 Total Bilirubin 1.0 Direct Bilirubin 0.00 Indirect 1.0 Bilirubin Aspartate Amino 179 H Transf (AST/SGOT) Alanine 110 H Aminotransferase (ALT/SGPT) Alkaline 135 H Phosphatase Total Protein 7.6 Albumin 4.2 Globulin 3.40 H Albumin/Globulin 1.23 Ratio Test 03/28/18 13:34 03/28/18 13:42 03/28/18 14:16 Bedside Glucose 451 *H 432 *H Blood Gas Blood arterial Specimen Source Arterial Blood 03/28/2018 2:20:2 Date Drawn 5 PM Arterial Blood pH 7.385 (Temp corrected) Arterial Blood 41.1 pCO2 (Temp correct) Arterial Blood 535.0 H pO2 (Temp corrected) Arterial Blood 24.0 HCO3 Arterial Blood -0.9 Base Excess Arterial Blood 99.7 H Oxygen Saturation Husam Test N/A Arterial Blood Right Brachial Gas Puncture Site Arterial 0.3 Blood Carboxyhemo globin Arterial Blood 0.3 Methemoglobin Blood Gas A-a O2 136.9 H Differential Oxyhemoglobin 99.1 H Percent Blood Gas 37.0 Temperature Blood Gas 16.0 Respiration Rate Blood Gas Actual 16 Respiration Rate Blood Gas VENT - AC Modality FiO2 100.0 Blood Gas Tidal 500.0 Volume Blood Gas Low 5.0 PEEP Setting Blood Gas TM Notified Whom Blood Gas 03/28/2018 2:34:1 Notified Time 9 PM Consultation Date/Type/Reason Admit Date/Time Mar 26, 2018 at 23:39 Initial Consult Date 03/27/18 Type of Consult Cardiology Requesting Provider: MADELEINE CANNON 24 HR Interval Summary Free Text/Dictation s/p cardiac cath this am. s/p PCI of RCA with stent thrombosis and proximal vessel dissection. Flow restored and transferred to ICU where she had VF arrest x 2. Repeat cath showed patent vessels. TVP was removed as the likely cause of the VF. She has been hemodynamically stable since then. She is sedated with plans to extubate in am. Exam/Review of Systems Vital Signs Vitals Vital Signs Date Temp Pulse Resp B/P (MAP) Pulse Ox O2 O2 Flow FiO2 Time Delivery Rate 03/28/18 100 16 108/74 100 16:30 (85) 03/28/18 98.7 Mechanical 16:00 Ventilator 03/28/18 60 16:00 Intake and Output 03/27/18 03/27/18 03/28/18 1515:00 23:00 07:00 IntakeIntake Total 800 ml 400 ml BalanceBalance 800 ml 400 ml Exam Constitutional: No alert, No distress Neck: No jvd Respiratory: crackles/rales; No clear to auscultation Cardiovascular: regular rate and rhythm; No edema, No systolic murmur Gastrointestinal: soft, non-tender; No distended Musculoskeletal: nl extremities to inspection Extremities: normal pulses Neurological: No nl mental status, No nl speech Skin: No rash or lesions Medications Medications Current Medications Aspirin (Aspirin) 81 mg DAILY PO Last administered on 03/27/18at 08:08; Admin Dose 81 MG; Start 03/27/18 at 09:00 Carvedilol (Coreg) 6.25 mg BID PO Last administered on 03/27/18 08:09; Admin Dose 6.25 MG; Start 03/27/18 at 09:00 Lisinopril (Zestril) 20 mg BID PO Last administered on 03/27/18 08:07; Admin Dose 20 MG; Start 03/27/18 at 09:00 Olanzapine (Zyprexa) 5 mg DAILY PO Last administered on 03/27/18 08:08; Admin Dose 5 MG; Start 03/27/18 at 09:00 Sertraline HCl (Zoloft) 50 mg DAILY PO Last administered on 03/27/18 08:09; Admin Dose 50 MG; Start 03/27/18 at 09:00 Thiamine HCl (Vitamin B1) 100 mg DAILY PO Last administered on 1/10/19at 08:09; Admin Dose 100 MG; Start 03/27/18 at 09:00 IV Flush (NS 3 ml) 3 ml PER PROTOCOL IV ; Start 03/27/18 at 00:00 Ondansetron HCl (Zofran Inj) 4 mg Q6H PRN IV NAUSEA AND/OR VOMITING; Start 03/27/18 at 00:00 Acetaminophen (Tylenol Tab) 650 mg Q6H PRN PO PAIN LEVEL 1-3 OR FEVER; Start 03/27/18 at 00:00 Docusate Sodium (Colace) 100 mg Q12H PRN PO CONSTIPATION; Start 03/27/18 at 00:00 Bisacodyl (Dulcolax) 5 mg DAILY PRN PO CONSTIPATION; Start 03/27/18 at 00:00 Pantoprazole (Protonix Tab) 40 mg DAILY@06 PO Last administered on 03/28/18at 05:29; Admin Dose 40 MG; Start 03/27/18 at 06:00 Cyclobenzaprine HCl (Flexeril) 5 mg Q8H PRN PO PAIN; Start 03/27/18 at 02:30 Miscellaneous Information 1 ea NOTE XX ; Start 03/27/18 at 07:30 Glucose (Glutose) 15 gm Q15M PRN PO DECREASED GLUCOSE; Start 03/27/18 at 07:30 Glucose (Glutose) 22.5 gm Q15M PRN PO DECREASED GLUCOSE; Start 03/27/18 at 07:30 Dextrose (D50w Syringe) 25 ml Q15M PRN IV DECREASED GLUCOSE; Start 03/27/18 at 07:30 Dextrose (D50w Syringe) 50 ml Q15M PRN IV DECREASED GLUCOSE; Start 03/27/18 at 07:30 Glucagon (Glucagen) 1 mg Q15M PRN IM DECREASED GLUCOSE; Start 03/27/18 at 07:30 Glucose (Glutose) 15 gm Q15M PRN BUCCAL DECREASED GLUCOSE; Start 03/27/18 at 07:30 Insulin Glargine (Lantus) 20 units DAILY@2000 SC Last administered on 03/27/18at 21:13; Admin Dose 20 UNITS; Start 03/27/18 at 20:00 Atorvastatin Calcium (Lipitor) 80 mg DAILY@21 PO Last administered on 03/27/18at 20:46; Admin Dose 80 MG; Start 03/27/18 at 21:00 Enoxaparin Sodium (Lovenox) 40 mg DAILY SC ; Start 03/28/18 at 09:00 Ticagrelor (Brilinta) 90 mg BID PO ; Start 03/28/18 at 21:00 Furosemide (Lasix) 40 mg DAILY@0600 PO ; Start 03/29/18 at 06:00 Propofol 100 ml @ 2.415 mls/ hr Q12H IV Last administered on 03/28/18at 13:45; Admin Dose 2.415 MLS/HR; Start 03/28/18 at 12:00 Insulin Aspart (Novolog Insulin Pen) NOVOLOG *MODERATE* ALGORITHM Q4H SC Last administered on 03/28/18at 14:14; Admin Dose 12 UNIT; Start 03/28/18 at 14:00 Eptifibatide 100 ml @ 4.83 mls/hr [id number] IV Last administered on 03/28/18at 14:13; Admin Dose 4.83 MLS/HR; Start 03/28/18 at 14:00; Stop 03/29/18 at 07:00 DENI ABERNATHY Mar 28, 2018 17:35
[2018-03-28] MEDS: INSULIN GLARGINE [LANTus] (100 UNITS/ML) SYG SC SCH (20:21)
[2018-03-28] MEDS: ATORVASTATIN 80 MG TAB PO SCH (20:27)
[2018-03-28] MEDS: TICAGRELOR 90 MG TABLET PO SCH (20:29)
[2018-03-29] VITALS (52 sets, daily range): BP systolic 81–138; BP diastolic 47–85; PULSE 91–115; RESP 9–23
[2018-03-29] MEDS: INSULIN ASPART [NOVOLOG] 3 ML PEN SC SCH ×6 (01:44→21:38)
--- NOTE | 2018-03-29 01:55 | RADRPT ---
Vent Rate: 99 bpm RR Interval: 0 msec ID Interval: 180 msec QRS Duration: 96 msec QT Interval: 338 msec QTC Interval: 433 msec P-R-T [place]: 60 - 49 - 129 degrees Demand pacemaker, interpretation is based on intrinsic rhythm Sinus rhythm with occasional premature ventricular complexes ST elevation, consider inferior injury or acute infarct ST elevation, consider anterior injury or acute infarct ACUTE [place] Consider right ventricular involvement in acute inferior infarct Abnormal ECG Electronically Signed By: Pa Martinez [id number]
--- NOTE | 2018-03-29 01:55 | RADRPT ---
Vent Rate: 87 bpm RR Interval: 0 msec [place] Interval: 168 msec QRS Duration: 94 msec QT Interval: 360 msec QTC Interval: 433 msec P-R-T [place]: 52 - 26 - 147 degrees Age and gender specific ECG analysis Normal sinus rhythm ST elevation, consider inferior injury or acute infarct ST elevation, consider anterior injury or acute infarct ACUTE [place] Consider right ventricular involvement in acute inferior infarct Abnormal ECG Electronically Signed By: Pa Martinez [id number]
[2018-03-29] MEDS: PROPOFOL 100 ML IV SCH (04:37)
[2018-03-29] MEDS: PANTOPRAZOLE 40 MG INJ IV SCH ×2 (05:36→18:12)
[2018-03-29] MEDS ORDERED: FUROSEMIDE 40 MG TAB PO SCH (06:00)
--- NOTE | 2018-03-29 08:58 | PN ---
Date/Time of Note Date/Time of Note DATE: 03/29/18 TIME: 08:53 Assessment/Plan VTE Prophylaxis Risk score (from [facility])>0 risk: 10 SCD applied (from [facility] [place]): No SCD contraindicated: other Pharmacological prophylaxis: LMWH Lines/Catheters IV Catheter Type (from [facility]): A Line Urinary Cath still in place: Yes Reason Cath still needed: other (indicate) Assessment/Plan Hospital Course SUBJECTIVE: The patient currently intubated. On CPAP trial. OBJECTIVE: Physical Exam General: Obese, 57 year-old female lying in bed in no apparent distress. HEENT: Normocephalic, atraumatic. Eyes: Anicteric sclerae, conjunctivae clear. ENT: Nasal septum midline, oral mucosa moist. Neck supple, no JVD noticed. Respiratory: Bilaterally diminished breath sounds. No use of accessory muscles of respiration. ETT to mechanical ventilator. Cardiovascular: S1, S2 heard. Regular rate and rhythm. Abdomen: Soft, nontender, and nondistended. Bowel sounds positive in all 4 quadrants. Genitourinary: Right femoral central line. Extremities: No cyanosis, no clubbing, no edema. Peripheral pulses palpable. Neurologic: The patient is awake and alert. Moves all 4 extremities; follows commands. Skin: Normal skin turgor. No skin rashes. Labs & Vitals per chart ASSESSMENT & PLAN This is a 57 yo female with comorbidities including essential hypertension, type 2 diabetes mellitus, dyslipidemia, obesity, cardiomyopathy, and depression who came to the emergency room with chief complaint of chest pain and dyspnea. The patient was admitted inpatient setting for further treatment and evaluation. The patient was taken to the [facility] Supervisor on 03/28/2018 for elective left heart catheterization the patient had a percutaneous coronary intervention with stenting to the right coronary artery. Status post PCI, the patient went into V. fib cardiac arrest at that required defibrillation x2 and oral intubation. 1. Unstable angina. -Status post complicated balloon angioplasty and stenting of multiple segments of RCA on 03/28/2018. -Continue dual antiplatelet therapy. 2. Ventricular fibrillation cardiac arrest after left heart catheterization on 03/28/2018. -Possibly from R-on-T phenomenon from transvenous pacing, that has been removed. -The patient was intubated on 03/28/2018 following CODE BLUE. -The patient was taken back to the Operation Supervisor and left heart catheterization revealed patent coronaries. -S/P amiodarone gtt and magnesium. 3. Acute respiratory failure requiring mechanical ventilation, secondary to V. fib cardiac arrest. -On mechanical ventilator. -Ventilator weaning as per pulmonary. 4. Chronic systolic congestive heart failure. -Continue beta-blockers. -ASHWIN inhibitors on hold in anticipation for any worsening renal function. 5. Cardiomyopathy. -Latest 2D echocardiogram showing ejection fraction of 40-45%. -Continue beta-blockers -ASHWIN inhibitors on hold in anticipation for any worsening renal function. 6. Diabetes mellitus type II. -Hemoglobin A1c 10.7. -Continue sliding scale insulin along with basal insulin. 7. Dyslipidemia. -Continue statins. 8. Depression. -Continue SSRIs. 9. Mood disorder. -Continue mood stabilizers. 10. Fluids, electrolytes, and nutrition. -N.p.o. 11. DVT prophylaxis. -SQ Lovenox. 12. Plan. -Continue intensive care unit monitoring. -Ventilator weaning as per pulmonology. The patient was seen in collaboration with Dr. Sands. Critical care time: 35 minutes. Result Diagram: 03/29/18 0405 03/29/18 0405 Results 24hrs Laboratory Tests Test 03/28/18 12:48 03/28/18 13:34 03/28/18 13:42 03/28/18 14:16 White Blood Count 12.8 #H Red Blood Count 5.05 Hemoglobin 13.6 Hematocrit 42.8 Mean Corpuscular 84.8 Volume Mean Corpuscular 26.9 L Hemoglobin Mean Corpuscular 31.8 L Hemoglobin Concen t Red Cell 12.8 Distribution Width Platelet Count 316 # Mean Platelet 10.4 Volume Immature 0.400 Granulocytes % Neutrophils % 80.0 H Lymphocytes % 15.4 Monocytes % 3.4 Eosinophils % 0.3 Basophils % 0.5 Nucleated Red 0.0 Blood Cells % Immature 0.050 H Granulocytes # Neutrophils # 10.3 H Lymphocytes # 2.0 Monocytes # 0.4 Eosinophils # 0.0 Basophils # 0.1 Nucleated Red 0.0 Blood Cells # Sodium Level 138 Potassium Level 4.0 Chloride Level 94 L Carbon Dioxide 25 Level Anion Gap 19 #H Blood Urea 23 H Nitrogen Creatinine 0.68 Est Glomerular > 60 Filtrat Rate mL/min Glucose Level 384 #H Calcium Level 9.1 Total Bilirubin 1.0 Direct Bilirubin 0.00 Indirect 1.0 Bilirubin Aspartate Amino 179 H Transf (AST/SGOT) Alanine 110 H Aminotransferase (ALT/SGPT) Alkaline 135 H Phosphatase Total Protein 7.6 Albumin 4.2 Globulin 3.40 H Albumin/Globulin 1.23 Ratio Bedside Glucose 451 *H 432 *H Blood Gas Blood arterial Specimen Source Arterial Blood 03/28/2018 2:20:2 Date Drawn 5 PM Arterial Blood pH 7.385 (Temp corrected) Arterial Blood 41.1 pCO2 (Temp correct) Arterial Blood 535.0 H pO2 (Temp corrected) Arterial Blood 24.0 HCO3 Arterial Blood -0.9 Base Excess Arterial Blood 99.7 H Oxygen Saturation Husam Test N/A Arterial Blood Right Brachial Gas Puncture Site Arterial 0.3 Blood Carboxyhemo globin Arterial Blood 0.3 Methemoglobin Blood Gas A-a O2 136.9 H Differential Oxyhemoglobin 99.1 H Percent Blood Gas 37.0 Temperature Blood Gas 16.0 Respiration Rate Blood Gas Actual 16 Respiration Rate Blood Gas VENT - AC Modality FiO2 100.0 Blood Gas Tidal 500.0 Volume Blood Gas Low 5.0 PEEP Setting Blood Gas TM Notified Whom Blood Gas 03/28/2018 2:34:1 Notified Time 9 PM Test 03/28/18 17:50 03/28/18 21:02 03/28/18 21:58 03/29/18 01:34 Bedside Glucose 294 H 233 H 232 H White Blood Count 14.4 H Red Blood Count 4.62 Hemoglobin 12.7 Hematocrit 37.4 Mean Corpuscular 81.0 L Volume Mean Corpuscular 27.5 L Hemoglobin Mean Corpuscular 34.0 Hemoglobin Concen t Red Cell 13.1 Distribution Width Platelet Count 291 Mean Platelet 10.0 Volume Immature 0.300 Granulocytes % Neutrophils % 85.2 H Lymphocytes % 7.7 L Monocytes % 6.4 Eosinophils % 0.1 Basophils % 0.3 Nucleated Red 0.0 Blood Cells % Immature 0.050 H Granulocytes # Neutrophils # 12.3 H Lymphocytes # 1.1 Monocytes # 0.9 Eosinophils # 0.0 Basophils # 0.1 Nucleated Red 0.0 Blood Cells # Test 03/29/18 04:05 03/29/18 05:30 03/29/18 07:00 03/29/18 07:32 White Blood Count 10.9 #H Red Blood Count 4.34 Hemoglobin 11.8 L Hematocrit 35.6 L Mean Corpuscular 82.0 Volume Mean Corpuscular 27.2 L Hemoglobin Mean Corpuscular 33.1 Hemoglobin Concen t Red Cell 13.0 Distribution Width Platelet Count 273 Mean Platelet 10.4 Volume Immature 0.400 Granulocytes % Neutrophils % 82.5 H Lymphocytes % 10.6 L Monocytes % 5.7 Eosinophils % 0.4 Basophils % 0.4 Nucleated Red 0.0 Blood Cells % Immature 0.040 H Granulocytes # Neutrophils # 9.0 H Lymphocytes # 1.2 Monocytes # 0.6 Eosinophils # 0.0 Basophils # 0.0 Nucleated Red 0.0 Blood Cells # Sodium Level 137 Potassium Level 3.7 Chloride Level 99 Carbon Dioxide 28 Level Anion Gap 10 # Blood Urea 19 Nitrogen Creatinine 0.50 Est Glomerular > 60 Filtrat Rate mL/min Glucose Level 206 # Calcium Level 8.9 Phosphorus Level 3.2 Magnesium Level 2.0 Total Bilirubin 0.9 Direct Bilirubin 0.00 Indirect 0.9 Bilirubin Aspartate Amino 100 H Transf (AST/SGOT) Alanine 81 H Aminotransferase (ALT/SGPT) Alkaline 104 Phosphatase Total Protein 6.8 Albumin 3.6 Globulin 3.20 Albumin/Globulin 1.12 Ratio Bedside Glucose 215 207 Blood Gas Blood arterial Specimen Source Arterial Blood 03/29/2018 8:20:5 Date Drawn 8 AM Arterial Blood pH 7.466 H (Temp corrected) Arterial Blood 40.4 pCO2 (Temp correct) Arterial Blood 140.5 H pO2 (Temp corrected) Arterial Blood 28.5 H HCO3 Arterial Blood 4.4 H Base Excess Arterial Blood 98.8 H Oxygen Saturation Husam Test ACCEPTAB Arterial Blood Right Radial Gas Puncture Site Arterial 0.1 Blood Carboxyhemo globin Arterial Blood 0.3 Methemoglobin Blood Gas A-a O2 98.2 H Differential Oxyhemoglobin 98.4 Percent Blood Gas 37.0 Temperature Blood Gas 16.0 Respiration Rate Blood Gas Actual 16 Respiration Rate Blood Gas VENT - AC Modality FiO2 40.0 Blood Gas Tidal 500.0 Volume Blood Gas Low 5.0 PEEP Setting Blood Gas DT Notified Whom Blood Gas 03/29/2018 8:43:4 Notified Time 2 AM Exam/Review of Systems Vital Signs Vitals Vital Signs Date Temp Pulse Resp B/P (MAP) Pulse Ox O2 O2 Flow FiO2 Time Delivery Rate 03/29/18 96 08:00 03/29/18 16 94/63 (73) 100 Mechanical 07:00 Ventilator 03/29/18 40 05:14 03/29/18 98.6 04:00 Intake and Output 03/28/18 03/28/18 03/29/18 1515:00 23:00 07:00 IntakeIntake Total 51.16 ml 1075.760 ml 205.20 ml OutputOutput Total 430 ml 440 ml 320 ml BalanceBalance -378.84 ml 635.760 ml -114.80 ml Medications Medications Current Medications Aspirin (Aspirin) 81 mg DAILY PO Last administered on 03/27/18at 08:08; Admin Dose 81 MG; Start 03/27/18 at 09:00 Carvedilol (Coreg) 6.25 mg BID PO Last administered on 03/28/18at 20:28; Admin Dose 6.25 MG; Start 03/27/18 at 09:00 Olanzapine (Zyprexa) 5 mg DAILY PO Last administered on 03/27/18at 08:08; Admin Dose 5 MG; Start 03/27/18 at 09:00 Sertraline HCl (Zoloft) 50 mg DAILY PO Last administered on 03/27/18at 08:09; Admin Dose 50 MG; Start 03/27/18 at 09:00 Thiamine HCl (Vitamin B1) 100 mg DAILY PO Last administered on 03/27/18at 08:09; Admin Dose 100 MG; Start 03/27/18 at 09:00 IV Flush (NS 3 ml) 3 ml PER PROTOCOL IV ; Start 03/27/18 at 00:00 Ondansetron HCl (Zofran Inj) 4 mg Q6H PRN IV NAUSEA AND/OR VOMITING; Start 03/27/18 at 00:00 Acetaminophen (Tylenol Tab) 650 mg Q6H PRN PO PAIN LEVEL 1-3 OR FEVER; Start 03/27/18 at 00:00 Docusate Sodium (Colace) 100 mg Q12H PRN PO CONSTIPATION; Start 03/27/18 at 00:00 Bisacodyl (Dulcolax) 5 mg DAILY PRN PO CONSTIPATION; Start 03/27/18 at 00:00 Cyclobenzaprine HCl (Flexeril) 5 mg Q8H PRN PO PAIN; Start 03/27/18 at 02:30 Miscellaneous Information 1 ea NOTE XX ; Start 03/27/18 at 07:30 Glucose (Glutose) 15 gm Q15M PRN PO DECREASED GLUCOSE; Start 03/27/18 at 07:30 Glucose (Glutose) 22.5 gm Q15M PRN PO DECREASED GLUCOSE; Start 03/27/18 at 07:30 Dextrose (D50w Syringe) 25 ml Q15M PRN IV DECREASED GLUCOSE; Start 03/27/18 at 07:30 Dextrose (D50w Syringe) 50 ml Q15M PRN IV DECREASED GLUCOSE; Start 03/27/18 at 07:30 Glucagon (Glucagen) 1 mg Q15M PRN IM DECREASED GLUCOSE; Start 03/27/18 at 07:30 Glucose (Glutose) 15 gm Q15M PRN BUCCAL DECREASED GLUCOSE; Start 03/27/18 at 07:30 Insulin Glargine (Lantus) 20 units DAILY@2000 SC Last administered on 03/28/18at 20:21; Admin Dose 20 UNITS; Start 03/27/18 at 20:00 Atorvastatin Calcium (Lipitor) 80 mg DAILY@21 PO Last administered on 03/28/18at 20:27; Admin Dose 80 MG; Start 03/27/18 at 21:00 Enoxaparin Sodium (Lovenox) 40 mg DAILY SC ; Start 03/28/18 at 09:00 Ticagrelor (Brilinta) 90 mg BID PO Last administered on 03/28/18at 20:29; Admin Dose 90 MG; Start 03/28/18 at 21:00 Furosemide (Lasix) 40 mg DAILY@0600 PO Last administered on 03/29/18at 05:37; Admin Dose 40 MG; Start 03/29/18 at 06:00 Propofol 100 ml @ 2.415 mls/ hr Q12H IV Last administered on 03/29/18at 04:37; Admin Dose 20 MLS/HR; Start 03/28/18 at 12:00 Insulin Aspart (Novolog Insulin Pen) NOVOLOG *MODERATE* ALGORITHM Q4H SC Last administered on 03/29/18at 05:38; Admin Dose 1 UNIT; Start 03/28/18 at 14:00 Pantoprazole (Protonix Iv) 40 mg BID@06,18 IV Last administered on 03/29/18at 05:36; Admin Dose 40 MG; Start 03/29/18 at 06:00 CLAUDIA ANTONIO NP Mar 29, 2018 08:58
[2018-03-29] MEDS: SERTRALINE 50 MG TAB PO SCH (09:18)
[2018-03-29] MEDS: THIAMINE 100 MG TAB PO SCH (09:18)
[2018-03-29] MEDS: OLANZAPINE 5 MG TAB PO SCH (09:18)
[2018-03-29] MEDS: ASPIRIN 81 MG TAB PO SCH (09:18)
[2018-03-29] MEDS: TICAGRELOR 90 MG TABLET PO SCH ×2 (09:20→21:33)
[2018-03-29] MEDS: ENOXAPARIN 40 MG/0.4 ML SYG SC SCH (09:21)
--- NOTE | 2018-03-29 09:25 | CONS ---
Date/Time of Note Date/Time of Note DATE: 03/29/18 TIME: 09:23 Assessment/Plan Assessment/Plan Hospital Course Unstable angina: s/p PCI of RCA in multiple segments as detailed above. Complicated by stent thrombosis and proximal vessel dissection. Flow was restored but pt had VF arrest in the ICU so repeat cath was done showing patent stents VF arrest: s/p VF/torsades x 2 requiring defibrillation post cath. Repeat cath with patent vessels. Pt was having intermittent pacing by the TVP and there is either a paced beat or PVC which caused R on T phenomenon both timed. Electrolytes were ok. No recurrence after TVP removed. Acute respiratory failure: Intubated prophylactically after VF arrest x 2. Being weaned CAD: As above. Residual diag disease which will be treated medically Cardiomyopathy: EF 25% by echo 10/01. Lexiscan 10/01 without perfusion defects and EF 16%. EF at this time is about 40-45%. Chronic systolic heart failure: Euvolemic. EDP 22 post cath DM: uncontrolled with A1C 10.7 HL: LDL 257, TG >600 HTN -hopefully can be extubated today -remove arterial and venous sheaths -ASA lifelong -Brilinta 90mg BID at least 1 year -decrease to coreg 3.125 mg BID for now -hold lisinopril as BP marginal -hold lasix for now as euvolemic -continue lipitor Result Diagram: 03/29/18 0405 03/29/18 0405 Results 24hrs Laboratory Tests Test 03/28/18 12:48 03/28/18 13:34 03/28/18 13:42 03/28/18 14:16 White Blood Count 12.8 #H Red Blood Count 5.05 Hemoglobin 13.6 Hematocrit 42.8 Mean Corpuscular 84.8 Volume Mean Corpuscular 26.9 L Hemoglobin Mean Corpuscular 31.8 L Hemoglobin Concen t Red Cell 12.8 Distribution Width Platelet Count 316 # Mean Platelet 10.4 Volume Immature 0.400 Granulocytes % Neutrophils % 80.0 H Lymphocytes % 15.4 Monocytes % 3.4 Eosinophils % 0.3 Basophils % 0.5 Nucleated Red 0.0 Blood Cells % Immature 0.050 H Granulocytes # Neutrophils # 10.3 H Lymphocytes # 2.0 Monocytes # 0.4 Eosinophils # 0.0 Basophils # 0.1 Nucleated Red 0.0 Blood Cells # Sodium Level 138 Potassium Level 4.0 Chloride Level 94 L Carbon Dioxide 25 Level Anion Gap 19 #H Blood Urea 23 H Nitrogen Creatinine 0.68 Est Glomerular > 60 Filtrat Rate mL/min Glucose Level 384 #H Calcium Level 9.1 Total Bilirubin 1.0 Direct Bilirubin 0.00 Indirect 1.0 Bilirubin Aspartate Amino 179 H Transf (AST/SGOT) Alanine 110 H Aminotransferase (ALT/SGPT) Alkaline 135 H Phosphatase Total Protein 7.6 Albumin 4.2 Globulin 3.40 H Albumin/Globulin 1.23 Ratio Bedside Glucose 451 *H 432 *H Blood Gas Blood arterial Specimen Source Arterial Blood 03/28/2018 2:20:2 Date Drawn 5 PM Arterial Blood pH 7.385 (Temp corrected) Arterial Blood 41.1 pCO2 (Temp correct) Arterial Blood 535.0 H pO2 (Temp corrected) Arterial Blood 24.0 HCO3 Arterial Blood -0.9 Base Excess Arterial Blood 99.7 H Oxygen Saturation Husam Test N/A Arterial Blood Right Brachial Gas Puncture Site Arterial 0.3 Blood Carboxyhemo globin Arterial Blood 0.3 Methemoglobin Blood Gas A-a O2 136.9 H Differential Oxyhemoglobin 99.1 H Percent Blood Gas 37.0 Temperature Blood Gas 16.0 Respiration Rate Blood Gas Actual 16 Respiration Rate Blood Gas VENT - AC Modality FiO2 100.0 Blood Gas Tidal 500.0 Volume Blood Gas Low 5.0 PEEP Setting Blood Gas TM Notified Whom Blood Gas 03/28/2018 2:34:1 Notified Time 9 PM Test 03/28/18 17:50 03/28/18 21:02 03/28/18 21:58 03/29/18 01:34 Bedside Glucose 294 H 233 H 232 H White Blood Count 14.4 H Red Blood Count 4.62 Hemoglobin 12.7 Hematocrit 37.4 Mean Corpuscular 81.0 L Volume Mean Corpuscular 27.5 L Hemoglobin Mean Corpuscular 34.0 Hemoglobin Concen t Red Cell 13.1 Distribution Width Platelet Count 291 Mean Platelet 10.0 Volume Immature 0.300 Granulocytes % Neutrophils % 85.2 H Lymphocytes % 7.7 L Monocytes % 6.4 Eosinophils % 0.1 Basophils % 0.3 Nucleated Red 0.0 Blood Cells % Immature 0.050 H Granulocytes # Neutrophils # 12.3 H Lymphocytes # 1.1 Monocytes # 0.9 Eosinophils # 0.0 Basophils # 0.1 Nucleated Red 0.0 Blood Cells # Test 03/29/18 04:05 03/29/18 05:30 03/29/18 07:00 03/29/18 07:32 White Blood Count 10.9 #H Red Blood Count 4.34 Hemoglobin 11.8 L Hematocrit 35.6 L Mean Corpuscular 82.0 Volume Mean Corpuscular 27.2 L Hemoglobin Mean Corpuscular 33.1 Hemoglobin Concen t Red Cell 13.0 Distribution Width Platelet Count 273 Mean Platelet 10.4 Volume Immature 0.400 Granulocytes % Neutrophils % 82.5 H Lymphocytes % 10.6 L Monocytes % 5.7 Eosinophils % 0.4 Basophils % 0.4 Nucleated Red 0.0 Blood Cells % Immature 0.040 H Granulocytes # Neutrophils # 9.0 H Lymphocytes # 1.2 Monocytes # 0.6 Eosinophils # 0.0 Basophils # 0.0 Nucleated Red 0.0 Blood Cells # Sodium Level 137 Potassium Level 3.7 Chloride Level 99 Carbon Dioxide 28 Level Anion Gap 10 # Blood Urea 19 Nitrogen Creatinine 0.50 Est Glomerular > 60 Filtrat Rate mL/min Glucose Level 206 # Calcium Level 8.9 Phosphorus Level 3.2 Magnesium Level 2.0 Total Bilirubin 0.9 Direct Bilirubin 0.00 Indirect 0.9 Bilirubin Aspartate Amino 100 H Transf (AST/SGOT) Alanine 81 H Aminotransferase (ALT/SGPT) Alkaline 104 Phosphatase Total Protein 6.8 Albumin 3.6 Globulin 3.20 Albumin/Globulin 1.12 Ratio Bedside Glucose 215 207 Blood Gas Blood arterial Specimen Source Arterial Blood 03/29/2018 8:20:5 Date Drawn 8 AM Arterial Blood pH 7.466 H (Temp corrected) Arterial Blood 40.4 pCO2 (Temp correct) Arterial Blood 140.5 H pO2 (Temp corrected) Arterial Blood 28.5 H HCO3 Arterial Blood 4.4 H Base Excess Arterial Blood 98.8 H Oxygen Saturation Husam Test ACCEPTAB Arterial Blood Right Radial Gas Puncture Site Arterial 0.1 Blood Carboxyhemo globin Arterial Blood 0.3 Methemoglobin Blood Gas A-a O2 98.2 H Differential Oxyhemoglobin 98.4 Percent Blood Gas 37.0 Temperature Blood Gas 16.0 Respiration Rate Blood Gas Actual 16 Respiration Rate Blood Gas VENT - AC Modality FiO2 40.0 Blood Gas Tidal 500.0 Volume Blood Gas Low 5.0 PEEP Setting Blood Gas DT Notified Whom Blood Gas 03/29/2018 8:43:4 Notified Time 2 AM Consultation Date/Type/Reason Admit Date/Time Mar 28, 2018 at 19:30 Initial Consult Date 03/27/18 Type of Consult Cardiology Requesting Provider: MADELEINE CANNON 24 HR Interval Summary Free Text/Dictation No arrhythmias overnight. Awake and alert. No chest pain CPAP trial in progress Exam/Review of Systems Vital Signs Vitals Vital Signs Date Temp Pulse Resp B/P (MAP) Pulse Ox O2 O2 Flow FiO2 Time Delivery Rate 03/29/18 96 08:00 03/29/18 16 94/63 (73) 100 Mechanical 07:00 Ventilator 03/29/18 40 05:14 03/29/18 98.6 04:00 Intake and Output 03/28/18 03/28/18 03/29/18 1414:59 22:59 06:59 IntakeIntake Total 38.33 ml 1062.030 ml 206.93 ml OutputOutput Total 350 ml 480 ml 290 ml BalanceBalance -311.67 ml 582.030 ml -83.07 ml Exam Constitutional: alert; No distress Head: normocephalic, atraumatic Neck: supple; No jvd Respiratory: diminished breath sounds; No clear to auscultation Cardiovascular: regular rate and rhythm; No edema, No systolic murmur Gastrointestinal: soft, non-tender; No distended Neurological: nl mental status Medications Medications Current Medications Aspirin (Aspirin) 81 mg DAILY PO Last administered on 03/29/18at 09:18; Admin Dose 81 MG; Start 03/27/18 at 09:00 Olanzapine (Zyprexa) 5 mg DAILY PO Last administered on 03/29/18 09:18; Admin Dose 5 MG; Start 03/27/18 at 09:00 Sertraline HCl (Zoloft) 50 mg DAILY PO Last administered on 03/29/18 09:18; Admin Dose 50 MG; Start 03/27/18 at 09:00 Thiamine HCl (Vitamin B1) 100 mg DAILY PO Last administered on 03/29/18 09:18; Admin Dose 100 MG; Start 03/27/18 at 09:00 IV Flush (NS 3 ml) 3 ml PER PROTOCOL IV ; Start 03/27/18 at 00:00 Ondansetron HCl (Zofran Inj) 4 mg Q6H PRN IV NAUSEA AND/OR VOMITING; Start 03/27/18 at 00:00 Acetaminophen (Tylenol Tab) 650 mg Q6H PRN PO PAIN LEVEL 1-3 OR FEVER; Start 03/27/18 at 00:00 Docusate Sodium (Colace) 100 mg Q12H PRN PO CONSTIPATION; Start 03/27/18 at 00:00 Bisacodyl (Dulcolax) 5 mg DAILY PRN PO CONSTIPATION; Start 03/27/18 at 00:00 Cyclobenzaprine HCl (Flexeril) 5 mg Q8H PRN PO PAIN; Start 03/27/18 at 02:30 Miscellaneous Information 1 ea NOTE XX ; Start 03/27/18 at 07:30 Glucose (Glutose) 15 gm Q15M PRN PO DECREASED GLUCOSE; Start 03/27/18 at 07:30 Glucose (Glutose) 22.5 gm Q15M PRN PO DECREASED GLUCOSE; Start 03/27/18 at 07:30 Dextrose (D50w Syringe) 25 ml Q15M PRN IV DECREASED GLUCOSE; Start 03/27/18 at 07:30 Dextrose (D50w Syringe) 50 ml Q15M PRN IV DECREASED GLUCOSE; Start 03/27/18 at 07:30 Glucagon (Glucagen) 1 mg Q15M PRN IM DECREASED GLUCOSE; Start 03/27/18 at 07:30 Glucose (Glutose) 15 gm Q15M PRN BUCCAL DECREASED GLUCOSE; Start 03/27/18 at 07:30 Insulin Glargine (Lantus) 20 units DAILY@2000 SC Last administered on 03/28/18at 20:21; Admin Dose 20 UNITS; Start 03/27/18 at 20:00 Atorvastatin Calcium (Lipitor) 80 mg DAILY@21 PO Last administered on 03/28/18at 20:27; Admin Dose 80 MG; Start 03/27/18 at 21:00 Enoxaparin Sodium (Lovenox) 40 mg DAILY SC Last administered on 03/29/18at 09:21; Admin Dose 40 MG; Start 03/28/18 at 09:00 Ticagrelor (Brilinta) 90 mg BID PO Last administered on 03/29/18at 09:20; Admin Dose 90 MG; Start 03/28/18 at 21:00 Propofol 100 ml @ 2.415 mls/ hr Q12H IV Last administered on 03/29/18at 04:37; Admin Dose 20 MLS/HR; Start 03/28/18 at 12:00 Insulin Aspart (Novolog Insulin Pen) NOVOLOG *MODERATE* ALGORITHM Q4H SC Last administered on 03/29/18at 05:38; Admin Dose 1 UNIT; Start 03/28/18 at 14:00 Pantoprazole (Protonix Iv) 40 mg BID@06,18 IV Last administered on 03/29/18at 05:36; Admin Dose 40 MG; Start 03/29/18 at 06:00 Carvedilol (Coreg) 3.125 mg BID PO ; Start 03/29/18 at 09:15 DENI ABERNATHY Mar 29, 2018 09:25
--- NOTE | 2018-03-29 09:39 | CONS ---
Date/Time of Note Date/Time of Note DATE: 03/29/18 TIME: 09:35 Assessment/Plan Assessment/Plan Assessment/Plan Chest x-ray was reviewed from today which is essentially clear. Ventilator setting; AC of 14, tidal volume 500, PEEP of 5, 30% FiO2. Patient is on propofol at 30 mics per kilogram per minute. Assessment recommendations; 1. Patient admitted with V. fib leading to cardiac arrest status post emergent coronary angiography with stenting x4. 2. History of hypertension, diabetes, and CHF. 3. History of pulmonary hypertension. 4. History of depression. 5. Currently there is no sign of any infective process. Hold further sedation. Once the patient off sedation she will be evaluated for possible weaning from ventilator. I did have a detailed discussion with the patient's family at bedside and answered all their questions. Result Diagram: 03/29/18 0405 03/29/18 0405 Results 24hrs Laboratory Tests Test 03/28/18 12:48 03/28/18 13:34 03/28/18 13:42 03/28/18 14:16 White Blood Count 12.8 #H Red Blood Count 5.05 Hemoglobin 13.6 Hematocrit 42.8 Mean Corpuscular 84.8 Volume Mean Corpuscular 26.9 L Hemoglobin Mean Corpuscular 31.8 L Hemoglobin Concen t Red Cell 12.8 Distribution Width Platelet Count 316 # Mean Platelet 10.4 Volume Immature 0.400 Granulocytes % Neutrophils % 80.0 H Lymphocytes % 15.4 Monocytes % 3.4 Eosinophils % 0.3 Basophils % 0.5 Nucleated Red 0.0 Blood Cells % Immature 0.050 H Granulocytes # Neutrophils # 10.3 H Lymphocytes # 2.0 Monocytes # 0.4 Eosinophils # 0.0 Basophils # 0.1 Nucleated Red 0.0 Blood Cells # Sodium Level 138 Potassium Level 4.0 Chloride Level 94 L Carbon Dioxide 25 Level Anion Gap 19 #H Blood Urea 23 H Nitrogen Creatinine 0.68 Est Glomerular > 60 Filtrat Rate mL/min Glucose Level 384 #H Calcium Level 9.1 Total Bilirubin 1.0 Direct Bilirubin 0.00 Indirect 1.0 Bilirubin Aspartate Amino 179 H Transf (AST/SGOT) Alanine 110 H Aminotransferase (ALT/SGPT) Alkaline 135 H Phosphatase Total Protein 7.6 Albumin 4.2 Globulin 3.40 H Albumin/Globulin 1.23 Ratio Bedside Glucose 451 *H 432 *H Blood Gas Blood arterial Specimen Source Arterial Blood 03/28/2018 2:20:2 Date Drawn 5 PM Arterial Blood pH 7.385 (Temp corrected) Arterial Blood 41.1 pCO2 (Temp correct) Arterial Blood 535.0 H pO2 (Temp corrected) Arterial Blood 24.0 HCO3 Arterial Blood -0.9 Base Excess Arterial Blood 99.7 H Oxygen Saturation Husam Test N/A Arterial Blood Right Brachial Gas Puncture Site Arterial 0.3 Blood Carboxyhemo globin Arterial Blood 0.3 Methemoglobin Blood Gas A-a O2 136.9 H Differential Oxyhemoglobin 99.1 H Percent Blood Gas 37.0 Temperature Blood Gas 16.0 Respiration Rate Blood Gas Actual 16 Respiration Rate Blood Gas VENT - AC Modality FiO2 100.0 Blood Gas Tidal 500.0 Volume Blood Gas Low 5.0 PEEP Setting Blood Gas TM Notified Whom Blood Gas 03/28/2018 2:34:1 Notified Time 9 PM Test 03/28/18 17:50 03/28/18 21:02 03/28/18 21:58 03/29/18 01:34 Bedside Glucose 294 H 233 H 232 H White Blood Count 14.4 H Red Blood Count 4.62 Hemoglobin 12.7 Hematocrit 37.4 Mean Corpuscular 81.0 L Volume Mean Corpuscular 27.5 L Hemoglobin Mean Corpuscular 34.0 Hemoglobin Concen t Red Cell 13.1 Distribution Width Platelet Count 291 Mean Platelet 10.0 Volume Immature 0.300 Granulocytes % Neutrophils % 85.2 H Lymphocytes % 7.7 L Monocytes % 6.4 Eosinophils % 0.1 Basophils % 0.3 Nucleated Red 0.0 Blood Cells % Immature 0.050 H Granulocytes # Neutrophils # 12.3 H Lymphocytes # 1.1 Monocytes # 0.9 Eosinophils # 0.0 Basophils # 0.1 Nucleated Red 0.0 Blood Cells # Test 03/29/18 04:05 03/29/18 05:30 03/29/18 07:00 03/29/18 07:32 White Blood Count 10.9 #H Red Blood Count 4.34 Hemoglobin 11.8 L Hematocrit 35.6 L Mean Corpuscular 82.0 Volume Mean Corpuscular 27.2 L Hemoglobin Mean Corpuscular 33.1 Hemoglobin Concen t Red Cell 13.0 Distribution Width Platelet Count 273 Mean Platelet 10.4 Volume Immature 0.400 Granulocytes % Neutrophils % 82.5 H Lymphocytes % 10.6 L Monocytes % 5.7 Eosinophils % 0.4 Basophils % 0.4 Nucleated Red 0.0 Blood Cells % Immature 0.040 H Granulocytes # Neutrophils # 9.0 H Lymphocytes # 1.2 Monocytes # 0.6 Eosinophils # 0.0 Basophils # 0.0 Nucleated Red 0.0 Blood Cells # Sodium Level 137 Potassium Level 3.7 Chloride Level 99 Carbon Dioxide 28 Level Anion Gap 10 # Blood Urea 19 Nitrogen Creatinine 0.50 Est Glomerular > 60 Filtrat Rate mL/min Glucose Level 206 # Calcium Level 8.9 Phosphorus Level 3.2 Magnesium Level 2.0 Total Bilirubin 0.9 Direct Bilirubin 0.00 Indirect 0.9 Bilirubin Aspartate Amino 100 H Transf (AST/SGOT) Alanine 81 H Aminotransferase (ALT/SGPT) Alkaline 104 Phosphatase Total Protein 6.8 Albumin 3.6 Globulin 3.20 Albumin/Globulin 1.12 Ratio Bedside Glucose 215 207 Blood Gas Blood arterial Specimen Source Arterial Blood 03/29/2018 8:20:5 Date Drawn 8 AM Arterial Blood pH 7.466 H (Temp corrected) Arterial Blood 40.4 pCO2 (Temp correct) Arterial Blood 140.5 H pO2 (Temp corrected) Arterial Blood 28.5 H HCO3 Arterial Blood 4.4 H Base Excess Arterial Blood 98.8 H Oxygen Saturation Husam Test ACCEPTAB Arterial Blood Right Radial Gas Puncture Site Arterial 0.1 Blood Carboxyhemo globin Arterial Blood 0.3 Methemoglobin Blood Gas A-a O2 98.2 H Differential Oxyhemoglobin 98.4 Percent Blood Gas 37.0 Temperature Blood Gas 16.0 Respiration Rate Blood Gas Actual 16 Respiration Rate Blood Gas VENT - AC Modality FiO2 40.0 Blood Gas Tidal 500.0 Volume Blood Gas Low 5.0 PEEP Setting Blood Gas DT Notified Whom Blood Gas 03/29/2018 8:43:4 Notified Time 2 AM Consultation Date/Type/Reason Admit Date/Time Mar 28, 2018 at 19:30 Date of Consultation: Mar 29, 2018 Type of Consult Pulmonary/critical care Patient is a 57-year-old lady who came into the hospital yesterday with complaints of chest pain or shortness of breath. Patient was diagnosed with acute OH and underwent coronary angiography patient required 4 stents. Patient could not be extubated. At the time I saw her, patient is orally intubated and despite being on propofol she is completely awake and follows simple commands. Denies any chest pain, shortness of breath. Past medical history; 1. History of hypertension. 2. Diabetes. 3. Pulmonary hypertension. 4. Depression. Medications; reviewed. Patient is currently on propofol at 30 mics per kilogram per minute. Other medications were reviewed as well. Allergies are none. Social history; history of smoking alcohol or drug abuse. Family history; noncontributory. Various members of diabetes and hypertension. 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 Review of systems; denies any headache, chest pain, shortness of breath. Any abdominal pain. General exam; middle-aged female, orally intubated, awake and alert. Currently in no distress. Past Medical History Medications Current Medications Aspirin (Aspirin) 81 mg DAILY PO Last administered on 03/29/18at 09:18; Admin Dose 81 MG; Start 03/27/18 at 09:00 Olanzapine (Zyprexa) 5 mg DAILY PO Last administered on 03/29/18at 09:18; Admin Dose 5 MG; Start 03/27/18 at 09:00 Sertraline HCl (Zoloft) 50 mg DAILY PO Last administered on 03/29/18at 09:18; Admin Dose 50 MG; Start 03/27/18 at 09:00 Thiamine HCl (Vitamin B1) 100 mg DAILY PO Last administered on 03/29/18at 09:18; Admin Dose 100 MG; Start 03/27/18 at 09:00 IV Flush (NS 3 ml) 3 ml PER PROTOCOL IV ; Start 03/27/18 at 00:00 Ondansetron HCl (Zofran Inj) 4 mg Q6H PRN IV NAUSEA AND/OR VOMITING; Start 03/27/18 at 00:00 Acetaminophen (Tylenol Tab) 650 mg Q6H PRN PO PAIN LEVEL 1-3 OR FEVER; Start 03/27/18 at 00:00 Docusate Sodium (Colace) 100 mg Q12H PRN PO CONSTIPATION; Start 03/27/18 at 00:00 Bisacodyl (Dulcolax) 5 mg DAILY PRN PO CONSTIPATION; Start 03/27/18 at 00:00 Cyclobenzaprine HCl (Flexeril) 5 mg Q8H PRN PO PAIN; Start 03/27/18 at 02:30 Miscellaneous Information 1 ea NOTE XX ; Start 03/27/18 at 07:30 Glucose (Glutose) 15 gm Q15M PRN PO DECREASED GLUCOSE; Start 03/27/18 at 07:30 Glucose (Glutose) 22.5 gm Q15M PRN PO DECREASED GLUCOSE; Start 03/27/18 at 07:30 Dextrose (D50w Syringe) 25 ml Q15M PRN IV DECREASED GLUCOSE; Start 03/27/18 at 07:30 Dextrose (D50w Syringe) 50 ml Q15M PRN IV DECREASED GLUCOSE; Start 03/27/18 at 07:30 Glucagon (Glucagen) 1 mg Q15M PRN IM DECREASED GLUCOSE; Start 03/27/18 at 07:30 Glucose (Glutose) 15 gm Q15M PRN BUCCAL DECREASED GLUCOSE; Start 03/27/18 at 07:30 Insulin Glargine (Lantus) 20 units DAILY@2000 SC Last administered on 03/28/18at 20:21; Admin Dose 20 UNITS; Start 03/27/18 at 20:00 Atorvastatin Calcium (Lipitor) 80 mg DAILY@21 PO Last administered on 03/28/18at 20:27; Admin Dose 80 MG; Start 03/27/18 at 21:00 Enoxaparin Sodium (Lovenox) 40 mg DAILY SC Last administered on 03/29/18at 09:21; Admin Dose 40 MG; Start 03/28/18 at 09:00 Ticagrelor (Brilinta) 90 mg BID PO Last administered on 03/29/18at 09:20; Admin Dose 90 MG; Start 03/28/18 at 21:00 Propofol 100 ml @ 2.415 mls/ hr Q12H IV Last administered on 03/29/18at 04:37; Admin Dose 20 MLS/HR; Start 03/28/18 at 12:00 Insulin Aspart (Novolog Insulin Pen) NOVOLOG *MODERATE* ALGORITHM Q4H SC Last administered on 03/29/18at 05:38; Admin Dose 1 UNIT; Start 03/28/18 at 14:00 Pantoprazole (Protonix Iv) 40 mg BID@06,18 IV Last administered on 03/29/18at 05:36; Admin Dose 40 MG; Start 03/29/18 at 06:00 Carvedilol (Coreg) 3.125 mg BID PO Last administered on 03/29/18at 09:23; Admin Dose 3.125 MG; Start 03/29/18 at 09:15 Allergies: Coded Allergies: No Known Allergy (Unverified , 03/26/18) Past Surgical History Past Surgical Hx: no surgical history Social History Alcohol Use: none Smoking Status: Never smoker Drug Use: none Exam/Review of Systems Vital Signs Vitals Vital Signs Date Temp Pulse Resp B/P (MAP) Pulse Ox O2 O2 Flow FiO2 Time Delivery Rate 03/29/18 96 08:00 03/29/18 16 94/63 (73) 100 Mechanical 07:00 Ventilator 03/29/18 40 05:14 03/29/18 98.6 04:00 Intake and Output 03/28/18 03/28/18 03/29/18 1515:00 23:00 07:00 IntakeIntake Total 51.16 ml 1075.760 ml 205.20 ml OutputOutput Total 430 ml 440 ml 320 ml BalanceBalance -378.84 ml 635.760 ml -114.80 ml Exam H EENT exam; supple neck, no JVD. No lymphadenopathy. Midline trachea. No thyromegaly. Orally intubated. Patient is edentulous. No neck masses. Chest exam; diminished but clear breath sounds. S1-S2 audible, no murmurs. Regular rhythm. Abdomen exam; soft, no organomegaly. Bowel sounds audible. Extremity exam; peripheral edema clubbing. Pulses 1+. [place] exam; no focal deficit. Medications Medications Current Medications Aspirin (Aspirin) 81 mg DAILY PO Last administered on 03/29/18at 09:18; Admin Dose 81 MG; Start 03/27/18 at 09:00 Olanzapine (Zyprexa) 5 mg DAILY PO Last administered on 03/29/18 09:18; Admin Dose 5 MG; Start 03/27/18 at 09:00 Sertraline HCl (Zoloft) 50 mg DAILY PO Last administered on 03/29/18 09:18; Admin Dose 50 MG; Start 03/27/18 at 09:00 Thiamine HCl (Vitamin B1) 100 mg DAILY PO Last administered on 03/29/18 09:18; Admin Dose 100 MG; Start 03/27/18 at 09:00 IV Flush (NS 3 ml) 3 ml PER PROTOCOL IV ; Start 03/27/18 at 00:00 Ondansetron HCl (Zofran Inj) 4 mg Q6H PRN IV NAUSEA AND/OR VOMITING; Start 03/27/18 at 00:00 Acetaminophen (Tylenol Tab) 650 mg Q6H PRN PO PAIN LEVEL 1-3 OR FEVER; Start 03/27/18 at 00:00 Docusate Sodium (Colace) 100 mg Q12H PRN PO CONSTIPATION; Start 03/27/18 at 00:00 Bisacodyl (Dulcolax) 5 mg DAILY PRN PO CONSTIPATION; Start 03/27/18 at 00:00 Cyclobenzaprine HCl (Flexeril) 5 mg Q8H PRN PO PAIN; Start 03/27/18 at 02:30 Miscellaneous Information 1 ea NOTE XX ; Start 03/27/18 at 07:30 Glucose (Glutose) 15 gm Q15M PRN PO DECREASED GLUCOSE; Start 03/27/18 at 07:30 Glucose (Glutose) 22.5 gm Q15M PRN PO DECREASED GLUCOSE; Start 03/27/18 at 07:30 Dextrose (D50w Syringe) 25 ml Q15M PRN IV DECREASED GLUCOSE; Start 03/27/18 at 07:30 Dextrose (D50w Syringe) 50 ml Q15M PRN IV DECREASED GLUCOSE; Start 03/27/18 at 07:30 Glucagon (Glucagen) 1 mg Q15M PRN IM DECREASED GLUCOSE; Start 03/27/18 at 07:30 Glucose (Glutose) 15 gm Q15M PRN BUCCAL DECREASED GLUCOSE; Start 03/27/18 at 07:30 Insulin Glargine (Lantus) 20 units DAILY@2000 SC Last administered on 03/28/18at 20:21; Admin Dose 20 UNITS; Start 03/27/18 at 20:00 Atorvastatin Calcium (Lipitor) 80 mg DAILY@21 PO Last administered on 03/28/18at 20:27; Admin Dose 80 MG; Start 03/27/18 at 21:00 Enoxaparin Sodium (Lovenox) 40 mg DAILY SC Last administered on 03/29/18at 09:21; Admin Dose 40 MG; Start 03/28/18 at 09:00 Ticagrelor (Brilinta) 90 mg BID PO Last administered on 03/29/18at 09:20; Admin Dose 90 MG; Start 03/28/18 at 21:00 Propofol 100 ml @ 2.415 mls/ hr Q12H IV Last administered on 03/29/18at 04:37; Admin Dose 20 MLS/HR; Start 03/28/18 at 12:00 Insulin Aspart (Novolog Insulin Pen) NOVOLOG *MODERATE* ALGORITHM Q4H SC Last administered on 03/29/18at 05:38; Admin Dose 1 UNIT; Start 03/28/18 at 14:00 Pantoprazole (Protonix Iv) 40 mg BID@06,18 IV Last administered on 03/29/18at 05:36; Admin Dose 40 MG; Start 03/29/18 at 06:00 Carvedilol (Coreg) 3.125 mg BID PO Last administered on 03/29/18at 09:23; Admin Dose 3.125 MG; Start 03/29/18 at 09:15 JANUARY ZAMARRIPA Mar 29, 2018 09:39
--- NOTE | 2018-03-29 13:06 | RADRPT ---
Vent Rate: 99 bpm RR Interval: 0 msec OR Interval: 166 msec QRS Duration: 100 msec QT Interval: 368 msec QTC Interval: 472 msec P-R-T [place]: 58 - 60 - 0 degrees Age and gender specific ECG analysis Normal sinus rhythm ST elevation, consider anterior injury or acute infarct Abnormal ECG No previous tracing available for comparison Electronically Signed By: Ulices Jennings [id number]
--- NOTE | 2018-03-29 14:53 | EN ---
Date/Time of Note Date/Time of Note DATE: 03/29/18 TIME: 14:50 ER Progress Note This is a 57-year-old female who is been admitted to the intensive care unit status post angiogram. I have been called to the bedside as a consult for GODWIN COCHRAN. Her cost estimating engineer Dr. Barker was at bedside. The patient had an episode of unstable ventricular tachycardia and therefore underwent cardioversion. The patient became altered and required high flow supplemental oxygen .Due to impending airway failure the patient was intubated using RSI. 10 mg of etomidate was given followed by 100 mg of succinylcholine. A 7.5 endotracheal tube was placed by myself however had difficult visualization of the cords. The tube was confirmed to be not a good placement as I did not hear equal symmetrical breath sounds and therefore the endotracheal tube was immediately removed. The patient underwent bag mask ventilation and was satting at 100%. I reintubated the patient with a 7.5 endotracheal tube and this time was able to visualize the endotracheal tube passing through the cords. The tube was confirmed to be in good placement with equal symmetrical breath sounds are bilaterally, capnometry change x6, condensation seen in the tube. The patient was taken back to the cardiac Bed Operator for balloon pump placement. JEANA GALINDO MD Mar 29, 2018 14:53
[2018-03-29] MEDS: INSULIN GLARGINE [LANTus] (100 UNITS/ML) SYG SC SCH (20:05)
[2018-03-29] MEDS: ATORVASTATIN 80 MG TAB PO SCH (21:31)
[2018-03-30] VITALS (25 sets, daily range): BP systolic 77–134; BP diastolic 35–110; PULSE 98–121; RESP 11–31
[2018-03-30] MEDS: INSULIN ASPART [NOVOLOG] 3 ML PEN SC SCH ×6 (02:21→17:30)
[2018-03-30] MEDS: PANTOPRAZOLE 40 MG INJ IV SCH ×2 (06:19→17:24)
[2018-03-30] MEDS ORDERED: SOD CHLORIDE 0.9% 1,000 ML IV ONE (07:00)
--- NOTE | 2018-03-30 07:15 | CONS ---
Date/Time of Note Date/Time of Note DATE: 03/30/18 TIME: 07:13 Assessment/Plan Assessment/Plan Hospital Course Unstable angina: s/p PCI of RCA in multiple segments as detailed above. Complicated by stent thrombosis and proximal vessel dissection. Flow was restored but pt had VF arrest in the ICU so repeat cath was done showing patent stents VF arrest: s/p VF/torsades x 2 requiring defibrillation post cath. Repeat cath with patent vessels. Pt was having intermittent pacing by the TVP and there is either a paced beat or PVC which caused R on T phenomenon both times. Electrolytes were ok. No recurrence after TVP removed. Acute respiratory failure: Intubated prophylactically after VF arrest x 2. Now extubated 03/29/18 CAD: As above. Residual diag disease which will be treated medically Cardiomyopathy: EF 25% by echo 10/01. Lexiscan 10/01 without perfusion defects and EF 16%. EF at this time is about 40-45%. Chronic systolic heart failure: Euvolemic. EDP 22 post cath DM: uncontrolled with A1C 10.7 HL: LDL 257, TG >600 HTN -appears dry on exam. Restart diet and give 1L IVF at 100/hr -ASA lifelong -Brilinta 90mg BID at least 1 year -coreg 3.125 mg BID -hold lisinopril as BP marginal -hold lasix for now as dry -continue lipitor -if ICU bed is needed, can be transferred to tele Result Diagram: 03/30/18 0454 03/30/18 0454 Results 24hrs Laboratory Tests Test 03/29/18 07:32 03/29/18 10:41 03/29/18 14:24 03/29/18 18:11 Bedside Glucose 207 209 194 158 Test 03/29/18 20:03 03/29/18 21:37 03/30/18 02:18 03/30/18 04:54 Bedside Glucose 153 148 176 White Blood Count 10.5 Red Blood Count 4.26 Hemoglobin 11.6 L Hematocrit 35.5 L Mean Corpuscular 83.3 Volume Mean Corpuscular 27.2 L Hemoglobin Mean Corpuscular 32.7 Hemoglobin Concent Red Cell 12.8 Distribution Width Platelet Count 230 Mean Platelet Volume 10.5 H Immature 0.500 H Granulocytes % Neutrophils % 78.8 H Lymphocytes % 12.8 L Monocytes % 6.5 Eosinophils % 1.1 Basophils % 0.3 Nucleated Red Blood 0.0 Cells % Immature 0.050 H Granulocytes # Neutrophils # 8.3 H Lymphocytes # 1.4 Monocytes # 0.7 Eosinophils # 0.1 Basophils # 0.0 Nucleated Red Blood 0.0 Cells # Sodium Level 139 Potassium Level 3.7 Chloride Level 102 Carbon Dioxide Level 29 Anion Gap 8 Blood Urea Nitrogen 21 H Creatinine 0.46 Est Glomerular > 60 Filtrat Rate mL/min Glucose Level 187 Calcium Level 9.2 Phosphorus Level 3.2 Magnesium Level 1.9 Total Bilirubin 1.4 H Direct Bilirubin 0.00 Indirect Bilirubin 1.4 H Aspartate Amino 78 H Transf (AST/SGOT) Alanine 58 Aminotransferase (AL T/SGPT) Alkaline Phosphatase 110 Total Protein 6.9 Albumin 3.8 Globulin 3.10 Albumin/Globulin 1.22 Ratio Test 03/30/18 06:17 Bedside Glucose 182 Consultation Date/Type/Reason Admit Date/Time Mar 28, 2018 at 19:30 Initial Consult Date 03/27/18 Type of Consult Cardiology Requesting Provider: MADELEINE CANNON 24 HR Interval Summary Free Text/Dictation Extubated successfully. No complaints. HR low 100s, BP borderline. Exam/Review of Systems Vital Signs Vitals Vital Signs Date Temp Pulse Resp B/P (MAP) Pulse Ox O2 O2 Flow FiO2 Time Delivery Rate 03/30/18 106 22 111/73 100 Nasal 2.0 06:00 (86) Cannula 03/30/18 98.8 04:00 03/29/18 40 09:40 Intake and Output 03/29/18 03/29/18 03/30/18 1414:59 22:59 06:59 IntakeIntake Total 24.83 ml OutputOutput Total 455 ml 235 ml 30 ml BalanceBalance -430.17 ml -235 ml -30 ml Exam Constitutional: alert, oriented Psych: no complaints, nl mood/affect Head: normocephalic, atraumatic Neck: supple; No jvd Respiratory: clear to auscultation; No crackles/rales Cardiovascular: No regular rate and rhythm (mild tachy 100-110), No edema Gastrointestinal: soft, non-tender; No distended Neurological: nl mental status, nl speech Medications Medications Current Medications Aspirin (Aspirin) 81 mg DAILY PO Last administered on 03/29/18at 09:18; Admin Dose 81 MG; Start 03/27/18 at 09:00 Olanzapine (Zyprexa) 5 mg DAILY PO Last administered on 03/29/18at 09:18; Admin Dose 5 MG; Start 03/27/18 at 09:00 Sertraline HCl (Zoloft) 50 mg DAILY PO Last administered on 03/29/18at 09:18; Admin Dose 50 MG; Start 03/27/18 at 09:00 Thiamine HCl (Vitamin B1) 100 mg DAILY PO Last administered on 03/29/18at 09:18; Admin Dose 100 MG; Start 03/27/18 at 09:00 IV Flush (NS 3 ml) 3 ml PER PROTOCOL IV ; Start 03/27/18 at 00:00 Ondansetron HCl (Zofran Inj) 4 mg Q6H PRN IV NAUSEA AND/OR VOMITING Last administered on 03/29/18at 09:40; Admin Dose 4 MG; Start 03/27/18 at 00:00 Acetaminophen (Tylenol Tab) 650 mg Q6H PRN PO PAIN LEVEL 1-3 OR FEVER; Start 03/27/18 at 00:00 Docusate Sodium (Colace) 100 mg Q12H PRN PO CONSTIPATION; Start 03/27/18 at 00:00 Bisacodyl (Dulcolax) 5 mg DAILY PRN PO CONSTIPATION; Start 03/27/18 at 00:00 Cyclobenzaprine HCl (Flexeril) 5 mg Q8H PRN PO PAIN; Start 03/27/18 at 02:30 Miscellaneous Information 1 ea NOTE XX ; Start 03/27/18 at 07:30 Glucose (Glutose) 15 gm Q15M PRN PO DECREASED GLUCOSE; Start 03/27/18 at 07:30 Glucose (Glutose) 22.5 gm Q15M PRN PO DECREASED GLUCOSE; Start 03/27/18 at 07:30 Dextrose (D50w Syringe) 25 ml Q15M PRN IV DECREASED GLUCOSE; Start 03/27/18 at 07:30 Dextrose (D50w Syringe) 50 ml Q15M PRN IV DECREASED GLUCOSE; Start 03/27/18 at 07:30 Glucagon (Glucagen) 1 mg Q15M PRN IM DECREASED GLUCOSE; Start 03/27/18 at 07:30 Glucose (Glutose) 15 gm Q15M PRN BUCCAL DECREASED GLUCOSE; Start 03/27/18 at 07:30 Insulin Glargine (Lantus) 20 units DAILY@2000 SC Last administered on 03/29/18at 20:05; Admin Dose 20 UNITS; Start 03/27/18 at 20:00 Atorvastatin Calcium (Lipitor) 80 mg DAILY@21 PO Last administered on 03/29/18at 21:31; Admin Dose 80 MG; Start 03/27/18 at 21:00 Enoxaparin Sodium (Lovenox) 40 mg DAILY SC Last administered on 03/29/18at 09:21; Admin Dose 40 MG; Start 03/28/18 at 09:00 Ticagrelor (Brilinta) 90 mg BID PO Last administered on 03/29/18 21:33; Admin Dose 90 MG; Start 03/28/18 at 21:00 Propofol 100 ml @ 2.415 mls/ hr Q12H IV Last administered on 03/29/18 04:37; Admin Dose 20 MLS/HR; Start 03/28/18 at 12:00 Insulin Aspart (Novolog Insulin Pen) NOVOLOG *MODERATE* ALGORITHM Q4H SC Last administered on 03/30/18 06:20; Admin Dose 4 UNIT; Start 03/28/18 at 14:00 Pantoprazole (Protonix Iv) 40 mg BID@06,18 IV Last administered on 03/30/18at 06:19; Admin Dose 40 MG; Start 03/29/18 at 06:00 Carvedilol (Coreg) 3.125 mg BID PO Last administered on 03/29/18at 21:35; Admin Dose 3.125 MG; Start 03/29/18 at 09:15 Sodium Chloride 1,000 ml @ 100 mls/hr Q10H ONCE IV ; Start 03/30/18 at 07:00; Stop 03/30/18 at 16:59 DENI ABERNATHY Mar 30, 2018 07:15
[2018-03-30] MEDS: ENOXAPARIN 40 MG/0.4 ML SYG SC SCH (09:00)
--- NOTE | 2018-03-30 09:03 | PN ---
Date/Time of Note Date/Time of Note DATE: 03/30/18 TIME: 08:55 Assessment/Plan VTE Prophylaxis Risk score (from Nsg)>0 risk: 7 SCD applied (from Nsg): Yes Pharmacological prophylaxis: LMWH Lines/Catheters IV Catheter Type (from Nrsg): Peripheral IV Urinary Cath still in place: Yes Reason Cath still needed: other (indicate) (To be discontinued.) Assessment/Plan Hospital Course SUBJECTIVE: The patient was extubated on 03/29/2018. Denies any chest pain. Has some epistaxis. Sitting in a chair. OBJECTIVE: Physical Exam General: Obese, 57 year-old female sitting in a chair in no apparent distress. HEENT: Normocephalic, atraumatic. Eyes: Anicteric sclerae, conjunctivae clear. ENT: Nasal septum midline, oral mucosa moist. Neck supple, no JVD noticed. Respiratory: Bilaterally diminished breath sounds. No use of accessory muscles of respiration. Cardiovascular: S1, S2 heard. Regular rate and rhythm. Abdomen: Soft, nontender, and nondistended. Bowel sounds positive in all 4 quadrants. Genitourinary: Hernandez catheter. Extremities: No cyanosis, no clubbing, no edema. Peripheral pulses palpable. Neurologic: The patient is awake, alert,and oriented. Skin: Normal skin turgor. No skin rashes. Labs & Vitals per chart ASSESSMENT & PLAN This is a 57 yo female with comorbidities including essential hyperten josue, type 2 diabetes mellitus, dyslipidemia, obesity, cardiomyopathy, and depression who came to the emergency room with chief complaint of chest pain and dyspnea. The patient was admitted inpatient setting for further treatment and evaluation. The patient was taken to [facility] on 03/28/2018 for elective left heart catheterization the patient had a percutaneous coronary intervention with stenting to the right coronary artery. Status post PCI, the patient went into V. fib cardiac arrest at that required defibrillation x2 and oral intubation. 1. Unstable angina. -Status post complicated balloon angioplasty and stenting of multiple segments of RCA on 03/28/2018. -Continue dual antiplatelet therapy. 2. Ventricular fibrillation cardiac arrest after left heart catheterization on 03/28/2018. -Possibly from R-on-T phenomenon from transvenous pacing, that has been removed. -The patient was intubated on 03/28/2018 following CODE BLUE. -The patient was taken back to the [facility] and left heart catheterization revealed patent coronaries. -S/P amiodarone gtt and magnesium. 3. Acute respiratory failure requiring mechanical ventilation, secondary to V. fib cardiac arrest. -S/P mechanical ventilation for less than 24 hours. -Extubated on 03/29/18. 4. Chronic systolic congestive heart failure. -Continue beta-blockers. -ASHWIN inhibitors on hold in anticipation for any worsening renal function. 5. Cardiomyopathy. -Latest 2D echocardiogram showing ejection fraction of 40-45%. -Continue beta-blockers -ASHWIN inhibitors on hold. 6. Diabetes mellitus type II. -Hemoglobin A1c 10.7. -Continue sliding scale insulin along with premeal insulin, and basal insulin. 7. Dyslipidemia. -Continue statins. 8. Depression. -Continue SSRIs. 9. Mood disorder. -Continue mood stabilizers. 10. Fluids, electrolytes, and nutrition. -Carb controlled diet. 11. DVT prophylaxis. -SQ Lovenox. -Will hold this because of epistaxis. 12. Plan. -Continue dual antiplatelet therapy. -DENNIS Heranndez. -Transfer out of ICU if OK with Cardiology. The patient was seen in collaboration with Dr. Sands. Critical care time: 35 minutes. Result Diagram: 03/30/18 0454 03/30/18 0454 Results 24hrs Laboratory Tests Test 03/29/18 10:41 03/29/18 14:24 03/29/18 18:11 03/29/18 20:03 Bedside Glucose 209 194 158 153 Test 03/29/18 21:37 03/30/18 02:18 03/30/18 04:54 03/30/18 06:17 Bedside Glucose 148 176 182 White Blood Count 10.5 Red Blood Count 4.26 Hemoglobin 11.6 L Hematocrit 35.5 L Mean Corpuscular 83.3 Volume Mean Corpuscular 27.2 L Hemoglobin Mean Corpuscular 32.7 Hemoglobin Concent Red Cell 12.8 Distribution Width Platelet Count 230 Mean Platelet Volume 10.5 H Immature 0.500 H Granulocytes % Neutrophils % 78.8 H Lymphocytes % 12.8 L Monocytes % 6.5 Eosinophils % 1.1 Basophils % 0.3 Nucleated Red Blood 0.0 Cells % Immature 0.050 H Granulocytes # Neutrophils # 8.3 H Lymphocytes # 1.4 Monocytes # 0.7 Eosinophils # 0.1 Basophils # 0.0 Nucleated Red Blood 0.0 Cells # Sodium Level 139 Potassium Level 3.7 Chloride Level 102 Carbon Dioxide Level 29 Anion Gap 8 Blood Urea Nitrogen 21 H Creatinine 0.46 Est Glomerular > 60 Filtrat Rate mL/min Glucose Level 187 Calcium Level 9.2 Phosphorus Level 3.2 Magnesium Level 1.9 Total Bilirubin 1.4 H Direct Bilirubin 0.00 Indirect Bilirubin 1.4 H Aspartate Amino 78 H Transf (AST/SGOT) Alanine 58 Aminotransferase (AL T/SGPT) Alkaline Phosphatase 110 Total Protein 6.9 Albumin 3.8 Globulin 3.10 Albumin/Globulin 1.22 Ratio Exam/Review of Systems Vital Signs Vitals Vital Signs Date Temp Pulse Resp B/P (MAP) Pulse Ox O2 O2 Flow FiO2 Time Delivery Rate 03/30/18 99.1 121 31 115/69 97 Room Air 08:00 (84) 03/30/18 2.0 06:00 03/29/18 40 09:40 Intake and Output 03/29/18 03/29/18 03/30/18 1515:00 23:00 07:00 OutputOutput Total 415 ml 235 ml 40 ml BalanceBalance -415 ml -235 ml -40 ml Medications Medications Current Medications Aspirin (Aspirin) 81 mg DAILY PO Last administered on 03/29/18 09:18; Admin Dose 81 MG; Start 03/27/18 at 09:00 Olanzapine (Zyprexa) 5 mg DAILY PO Last administered on 03/29/18 09:18; Admin Dose 5 MG; Start 03/27/18 at 09:00 Sertraline HCl (Zoloft) 50 mg DAILY PO Last administered on 03/29/18 09:18; Admin Dose 50 MG; Start 03/27/18 at 09:00 Thiamine HCl (Vitamin B1) 100 mg DAILY PO Last administered on 03/29/18 09:18; Admin Dose 100 MG; Start 03/27/18 at 09:00 IV Flush (NS 3 ml) 3 ml PER PROTOCOL IV ; Start 03/27/18 at 00:00 Ondansetron HCl (Zofran Inj) 4 mg Q6H PRN IV NAUSEA AND/OR VOMITING Last administered on 03/29/18 09:40; Admin Dose 4 MG; Start 03/27/18 at 00:00 Acetaminophen (Tylenol Tab) 650 mg Q6H PRN PO PAIN LEVEL 1-3 OR FEVER; Start 03/27/18 at 00:00 Docusate Sodium (Colace) 100 mg Q12H PRN PO CONSTIPATION; Start 03/27/18 at 00:00 Bisacodyl (Dulcolax) 5 mg DAILY PRN PO CONSTIPATION; Start 03/27/18 at 00:00 Cyclobenzaprine HCl (Flexeril) 5 mg Q8H PRN PO PAIN; Start 03/27/18 at 02:30 Miscellaneous Information 1 ea NOTE XX ; Start 03/27/18 at 07:30 Glucose (Glutose) 15 gm Q15M PRN PO DECREASED GLUCOSE; Start 03/27/18 at 07:30 Glucose (Glutose) 22.5 gm Q15M PRN PO DECREASED GLUCOSE; Start 03/27/18 at 07:30 Dextrose (D50w Syringe) 25 ml Q15M PRN IV DECREASED GLUCOSE; Start 03/27/18 at 07:30 Dextrose (D50w Syringe) 50 ml Q15M PRN IV DECREASED GLUCOSE; Start 03/27/18 at 07:30 Glucagon (Glucagen) 1 mg Q15M PRN IM DECREASED GLUCOSE; Start 03/27/18 at 07:30 Glucose (Glutose) 15 gm Q15M PRN BUCCAL DECREASED GLUCOSE; Start 03/27/18 at 07:30 Insulin Glargine (Lantus) 20 units DAILY@2000 SC Last administered on 03/29/18at 20:05; Admin Dose 20 UNITS; Start 03/27/18 at 20:00 Atorvastatin Calcium (Lipitor) 80 mg DAILY@21 PO Last administered on 03/29/18at 21:31; Admin Dose 80 MG; Start 03/27/18 at 21:00 Enoxaparin Sodium (Lovenox) 40 mg DAILY SC Last administered on 03/29/18at 09:21; Admin Dose 40 MG; Start 03/28/18 at 09:00 Ticagrelor (Brilinta) 90 mg BID PO Last administered on 03/29/18at 21:33; Admin Dose 90 MG; Start 03/28/18 at 21:00 Propofol 100 ml @ 2.415 mls/ hr Q12H IV Last administered on 03/29/18at 04:37; Admin Dose 20 MLS/HR; Start 03/28/18 at 12:00 Pantoprazole (Protonix Iv) 40 mg BID@06,18 IV Last administered on 03/30/18at 06:19; Admin Dose 40 MG; Start 03/29/18 at 06:00 Carvedilol (Coreg) 3.125 mg BID PO Last administered on 03/29/18at 21:35; Admin Dose 3.125 MG; Start 03/29/18 at 09:15 Sodium Chloride 1,000 ml @ 100 mls/hr Q10H ONCE IV Last administered on 03/30/18at 08:09; Admin Dose 100 MLS/HR; Start 03/30/18 at 07:00; Stop 03/30/18 at 16:59 Insulin Aspart (Novolog Insulin Pen) NOVOLOG *MODERATE* ALGORITHM BEFORE MEALS SC ; Start 03/30/18 at 11:30 CLAUDIA ANTONIO NP Mar 30, 2018 09:03
[2018-03-30] MEDS: ASPIRIN 81 MG TAB PO SCH (09:16)
[2018-03-30] MEDS: OLANZAPINE 5 MG TAB PO SCH (09:16)
[2018-03-30] MEDS: SERTRALINE 50 MG TAB PO SCH (09:16)
[2018-03-30] MEDS: THIAMINE 100 MG TAB PO SCH (09:16)
[2018-03-30] MEDS: TICAGRELOR 90 MG TABLET PO SCH ×2 (09:18→20:27)
--- NOTE | 2018-03-30 11:05 | CONS ---
Date/Time of Note Date/Time of Note DATE: 03/30/18 TIME: 11:03 Assessment/Plan Assessment/Plan Assessment/Plan Chest x-ray was reviewed from today which is totally clear. Assessment recommendations; 1. Patient admitted for respiratory failure due to CHF with non-ST elevation OK status post coronary intervention. 2. History of depression. 3. History of hypertension. 4. History of pulmonary hypertension as well. Continue on supportive care. Transfer to medical floor. Result Diagram: 03/30/18 0454 03/30/18 0454 Results 24hrs Laboratory Tests Test 03/29/18 14:24 03/29/18 18:11 03/29/18 20:03 03/29/18 21:37 Bedside Glucose 194 158 153 148 Test 03/30/18 02:18 03/30/18 04:54 03/30/18 06:17 Bedside Glucose 176 182 White Blood Count 10.5 Red Blood Count 4.26 Hemoglobin 11.6 L Hematocrit 35.5 L Mean Corpuscular 83.3 Volume Mean Corpuscular 27.2 L Hemoglobin Mean Corpuscular 32.7 Hemoglobin Concent Red Cell 12.8 Distribution Width Platelet Count 230 Mean Platelet Volume 10.5 H Immature 0.500 H Granulocytes % Neutrophils % 78.8 H Lymphocytes % 12.8 L Monocytes % 6.5 Eosinophils % 1.1 Basophils % 0.3 Nucleated Red Blood 0.0 Cells % Immature 0.050 H Granulocytes # Neutrophils # 8.3 H Lymphocytes # 1.4 Monocytes # 0.7 Eosinophils # 0.1 Basophils # 0.0 Nucleated Red Blood 0.0 Cells # Sodium Level 139 Potassium Level 3.7 Chloride Level 102 Carbon Dioxide Level 29 Anion Gap 8 Blood Urea Nitrogen 21 H Creatinine 0.46 Est Glomerular > 60 Filtrat Rate mL/min Glucose Level 187 Calcium Level 9.2 Phosphorus Level 3.2 Magnesium Level 1.9 Total Bilirubin 1.4 H Direct Bilirubin 0.00 Indirect Bilirubin 1.4 H Aspartate Amino 78 H Transf (AST/SGOT) Alanine 58 Aminotransferase (AL T/SGPT) Alkaline Phosphatase 110 Total Protein 6.9 Albumin 3.8 Globulin 3.10 Albumin/Globulin 1.22 Ratio Consultation Date/Type/Reason Admit Date/Time Mar 28, 2018 at 19:30 Initial Consult Date 03/29/18 Type of Consult Pulmonary/critical care Patient is a 57-year-old lady who came into the hospital yesterday with complaints of chest pain or shortness of breath. Patient was diagnosed with acute OK and underwent coronary angiography patient required 4 stents. Patient could not be extubated. At the time I saw her, patient is orally intubated and despite being on propofol she is completely awake and follows simple commands. Denies any chest pain, shortness of breath. Past medical history; 1. History of hypertension. 2. Diabetes. 3. Pulmonary hypertension. 4. Depression. Medications; reviewed. Patient is currently on propofol at 30 mics per kilogram per minute. Other medications were reviewed as well. Allergies are none. Social history; history of smoking alcohol or drug abuse. Family history; noncontributory. Various members of diabetes and hypertension. 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 Review of systems; denies any headache, chest pain, shortness of breath. Any abdominal pain. General exam; middle-aged female, orally intubated, awake and alert. Currently in no distress. Requesting Provider: MADELEINE CANNON 24 HR Interval Summary Free Text/Dictation Patient's condition is stable. Has remained hemodynamically stable. Patient was successfully extubated yesterday. Denies any shortness breath, chest pain. General exam; middle-aged female, awake alert, sitting in a chair by bedside. Currently in no distress. Exam/Review of Systems Vital Signs Vitals Vital Signs Date Temp Pulse Resp B/P (MAP) Pulse Ox O2 O2 Flow FiO2 Time Delivery Rate 03/30/18 121 08:00 03/30/18 99.1 31 115/69 97 Room Air 08:00 (84) 03/30/18 2.0 06:00 03/29/18 40 09:40 Intake and Output 03/29/18 03/29/18 03/30/18 1515:00 23:00 07:00 OutputOutput Total 415 ml 235 ml 40 ml BalanceBalance -415 ml -235 ml -40 ml Exam H EENT exam; supple neck, no JVD. No lymphadenopathy. Midline trachea. No thyromegaly. Patient has fair dentition. No neck masses. Chest exam; clear to auscultation. S1-S2 audible, no murmurs. Regular rhythm. Abdomen exam; soft, no organomegaly. Bowel sounds audible. Extremity exam; no peripheral edema or clubbing. Pulses 1+. 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 Medications Medications Current Medications Aspirin (Aspirin) 81 mg DAILY PO Last administered on 03/30/18 09:16; Admin Dose 81 MG; Start 03/27/18 at 09:00 Olanzapine (Zyprexa) 5 mg DAILY PO Last administered on 03/30/18 09:16; Admin Dose 5 MG; Start 03/27/18 at 09:00 Sertraline HCl (Zoloft) 50 mg DAILY PO Last administered on 03/30/18 09:16; Admin Dose 50 MG; Start 03/27/18 at 09:00 Thiamine HCl (Vitamin B1) 100 mg DAILY PO Last administered on 03/30/18 09:16; Admin Dose 100 MG; Start 03/27/18 at 09:00 IV Flush (NS 3 ml) 3 ml PER PROTOCOL IV ; Start 03/27/18 at 00:00 Ondansetron HCl (Zofran Inj) 4 mg Q6H PRN IV NAUSEA AND/OR VOMITING Last administered on 03/29/18at 09:40; Admin Dose 4 MG; Start 03/27/18 at 00:00 Acetaminophen (Tylenol Tab) 650 mg Q6H PRN PO PAIN LEVEL 1-3 OR FEVER; Start 03/27/18 at 00:00 Docusate Sodium (Colace) 100 mg Q12H PRN PO CONSTIPATION; Start 03/27/18 at 0 0:00 Bisacodyl (Dulcolax) 5 mg DAILY PRN PO CONSTIPATION; Start 03/27/18 at 00:00 Cyclobenzaprine HCl (Flexeril) 5 mg Q8H PRN PO PAIN; Start 03/27/18 at 02:30 Miscellaneous Information 1 ea NOTE XX ; Start 03/27/18 at 07:30 Glucose (Glutose) 15 gm Q15M PRN PO DECREASED GLUCOSE; Start 03/27/18 at 07:30 Glucose (Glutose) 22.5 gm Q15M PRN PO DECREASED GLUCOSE; Start 03/27/18 at 07:30 Dextrose (D50w Syringe) 25 ml Q15M PRN IV DECREASED GLUCOSE; Start 03/27/18 at 07:30 Dextrose (D50w Syringe) 50 ml Q15M PRN IV DECREASED GLUCOSE; Start 03/27/18 at 07:30 Glucagon (Glucagen) 1 mg Q15M PRN IM DECREASED GLUCOSE; Start 03/27/18 at 07:30 Glucose (Glutose) 15 gm Q15M PRN BUCCAL DECREASED GLUCOSE; Start 03/27/18 at 07:30 Insulin Glargine (Lantus) 20 units DAILY@2000 SC Last administered on 03/29/18at 20:05; Admin Dose 20 UNITS; Start 03/27/18 at 20:00 Atorvastatin Calcium (Lipitor) 80 mg DAILY@21 PO Last administered on 03/29/18at 21:31; Admin Dose 80 MG; Start 03/27/18 at 21:00 Enoxaparin Sodium (Lovenox) 40 mg DAILY SC Last administered on 03/29/18 09:21; Admin Dose 40 MG; Start 03/28/18 at 09:00; Status Hold Ticagrelor (Brilinta) 90 mg BID PO Last administered on 03/30/18 09:18; Admin Dose 90 MG; Start 03/28/18 at 21:00 Propofol 100 ml @ 2.415 mls/ hr Q12H IV Last administered on 03/29/18at 04:37; Admin Dose 20 MLS/HR; Start 03/28/18 at 12:00 Pantoprazole (Protonix Iv) 40 mg BID@06,18 IV Last administered on 03/30/18at 06:19; Admin Dose 40 MG; Start 03/29/18 at 06:00 Carvedilol (Coreg) 3.125 mg BID PO Last administered on 03/30/18at 09:16; Admin Dose 3.125 MG; Start 03/29/18 at 09:15 Sodium Chloride 1,000 ml @ 100 mls/hr Q10H ONCE IV Last administered on 03/30/18at 08:09; Admin Dose 100 MLS/HR; Start 03/30/18 at 07:00; Stop 03/30/18 at 16:59 Insulin Aspart (Novolog Insulin Pen) NOVOLOG *MODERATE* ALGORITHM BEFORE MEALS SC ; Start 03/30/18 at 11:30 Insulin Aspart (Novolog Insulin Pen) 5 unit WITH MEALS SC ; Start 03/30/18 at 11:30 JANUARY ZAMARRIPA Mar 30, 2018 11:05
[2018-03-30] MEDS: PROPOFOL 100 ML IV SCH (11:42)
[2018-03-30] MEDS: ATORVASTATIN 80 MG TAB PO SCH (20:25)
[2018-03-30] MEDS: INSULIN GLARGINE [LANTus] (100 UNITS/ML) SYG SC SCH (20:26)
[2018-03-31] VITALS (26 sets, daily range): BP systolic 68–138; BP diastolic 38–93; PULSE 84–114; RESP 9–29
[2018-03-31] MEDS: PANTOPRAZOLE 40 MG INJ IV SCH (06:08)
[2018-03-31] MEDS: THIAMINE 100 MG TAB PO SCH (08:29)
[2018-03-31] MEDS: OLANZAPINE 5 MG TAB PO SCH (08:29)
[2018-03-31] MEDS: ASPIRIN 81 MG TAB PO SCH (08:29)
[2018-03-31] MEDS: SERTRALINE 50 MG TAB PO SCH (08:29)
[2018-03-31] MEDS: TICAGRELOR 90 MG TABLET PO SCH ×2 (08:30→20:08)
[2018-03-31] MEDS: INSULIN ASPART [NOVOLOG] 3 ML PEN SC SCH ×6 (08:30→17:47)
--- NOTE | 2018-03-31 10:03 | CONS ---
Date/Time of Note Date/Time of Note DATE: 03/31/18 TIME: 10:01 Consult Date/Type/Reason Admit Date/Time Mar 28, 2018 at 19:30 Initial Consult Date 03/29/18 Type of Consultation: Pulmonary ICU Requesting Provider: MADELEINE CANNON Subjective Patient stable this morning no new events Objective Vital Signs Date Temp Pulse Resp B/P (MAP) Pulse Ox O2 O2 Flow FiO2 Time Delivery Rate 03/31/18 94 08:00 03/31/18 129/68 100 Room Air 06:00 (88) 03/31/18 18 05:00 03/31/18 99.4 04:00 03/30/18 2.0 06:00 03/29/18 40 09:40 Intake and Output 03/30/18 03/30/18 03/31/18 1515:00 23:00 07:00 IntakeIntake Total 1360 ml 790 ml 450 ml OutputOutput Total 155 ml 650 ml BalanceBalance 1205 ml 140 ml 450 ml Exam GENERAL: Well-nourished well-developed lady comfortable at rest VITAL SIGNS: per chart NECK: Supple. No JVD or lymphadenopathy. CARDIAC EXAM: S1, S2. No added sounds or murmurs. CHEST: clear bilaterally, No added sounds, rales or wheezes ABDOMEN: Soft, nontender. No guarding or rebound. EXTREMITIES: No cyanosis, clubbing or edema. NEUROLOGIC: Generalized weakness. No focal deficits. Results/Medications Result Diagram: 03/31/18 0427 03/31/18 0427 Results 24 hrs Laboratory Tests Test 03/30/18 11:39 03/30/18 17:27 03/30/18 20:24 03/31/18 04:27 Bedside Glucose 280 H 232 H 245 H White Blood Count 10.3 Red Blood Count 3.71 L Hemoglobin 10.1 L Hematocrit 30.5 L Mean Corpuscular 82.2 Volume Mean Corpuscular 27.2 L Hemoglobin Mean Corpuscular 33.1 Hemoglobin Concent Red Cell 13.1 Distribution Width Platelet Count 219 Mean Platelet Volume 10.5 H Immature 0.500 H Granulocytes % Neutrophils % 76.7 Lymphocytes % 14.7 L Monocytes % 5.8 Eosinophils % 2.1 Basophils % 0.2 Nucleated Red Blood 0.0 Cells % Immature 0.050 H Granulocytes # Neutrophils # 7.9 H Lymphocytes # 1.5 Monocytes # 0.6 Eosinophils # 0.2 Basophils # 0.0 Nucleated Red Blood 0.0 Cells # Sodium Level 138 Potassium Level 3.6 Chloride Level 102 Carbon Dioxide Level 27 Anion Gap 9 Blood Urea Nitrogen 19 Creatinine 0.49 Est Glomerular > 60 Filtrat Rate mL/min Glucose Level 215 Calcium Level 8.9 Phosphorus Level 2.7 Magnesium Level 1.6 L Test 03/31/18 08:28 Bedside Glucose 211 Medications Current Medications Aspirin (Aspirin) 81 mg DAILY PO Last administered on 03/31/18at 08:29; Admin Dose 81 MG; Start 03/27/18 at 09:00 Olanzapine (Zyprexa) 5 mg DAILY PO Last administered on 03/31/18 08:29; Admin Dose 5 MG; Start 03/27/18 at 09:00 Sertraline HCl (Zoloft) 50 mg DAILY PO Last administered on 03/31/18 08:29; Admin Dose 50 MG; Start 03/27/18 at 09:00 Thiamine HCl (Vitamin B1) 100 mg DAILY PO Last administered on 03/31/18at 08:29; Admin Dose 100 MG; Start 03/27/18 at 09:00 IV Flush (NS 3 ml) 3 ml PER PROTOCOL IV ; Start 03/27/18 at 00:00 Ondansetron HCl (Zofran Inj) 4 mg Q6H PRN IV NAUSEA AND/OR VOMITING Last administered on 03/29/18at 09:40; Admin Dose 4 MG; Start 03/27/18 at 00:00 Acetaminophen (Tylenol Tab) 650 mg Q6H PRN PO PAIN LEVEL 1-3 OR FEVER; Start 03/27/18 at 00:00 Docusate Sodium (Colace) 100 mg Q12H PRN PO CONSTIPATION; Start 03/27/18 at 00:00 Bisacodyl (Dulcolax) 5 mg DAILY PRN PO CONSTIPATION; Start 03/27/18 at 00:00 Cyclobenzaprine HCl (Flexeril) 5 mg Q8H PRN PO PAIN; Start 03/27/18 at 02:30 Miscellaneous Information 1 ea NOTE XX ; Start 03/27/18 at 07:30 Glucose (Glutose) 15 gm Q15M PRN PO DECREASED GLUCOSE; Start 03/27/18 at 07:30 Glucose (Glutose) 22.5 gm Q15M PRN PO DECREASED GLUCOSE; Start 03/27/18 at 07:30 Dextrose (D50w Syringe) 25 ml Q15M PRN IV DECREASED GLUCOSE; Start 03/27/18 at 07:30 Dextrose (D50w Syringe) 50 ml Q15M PRN IV DECREASED GLUCOSE; Start 03/27/18 at 07:30 Glucagon (Glucagen) 1 mg Q15M PRN IM DECREASED GLUCOSE; Start 03/27/18 at 07:30 Glucose (Glutose) 15 gm Q15M PRN BUCCAL DECREASED GLUCOSE; Start 03/27/18 at 07:30 Insulin Glargine (Lantus) 20 units DAILY@2000 SC Last administered on 03/30/18at 20:26; Admin Dose 20 UNITS; Start 03/27/18 at 20:00 Atorvastatin Calcium (Lipitor) 80 mg DAILY@21 PO Last administered on 03/30/18 20:25; Admin Dose 80 MG; Start 03/27/18 at 21:00 Enoxaparin Sodium (Lovenox) 40 mg DAILY SC Last administered on 03/29/18at 09:21; Admin Dose 40 MG; Start 03/28/18 at 09:00; Status Hold Ticagrelor (Brilinta) 90 mg BID PO Last administered on 03/31/18 08:30; Admin Dose 90 MG; Start 03/28/18 at 21:00 Pantoprazole (Protonix Iv) 40 mg BID@06,18 IV Last administered on 03/31/18 06:08; Admin Dose 40 MG; Start 03/29/18 at 06:00 Carvedilol (Coreg) 3.125 mg BID PO Last administered on 03/31/18 08:29; Admin Dose 3.125 MG; Start 03/29/18 at 09:15 Insulin Aspart (Novolog Insulin Pen) NOVOLOG *MODERATE* ALGORITHM BEFORE MEALS SC Last administered on 03/31/18 08:30; Admin Dose 4 UNIT; Start 03/30/18 at 11:30 Insulin Aspart (Novolog Insulin Pen) 5 unit WITH MEALS SC Last administered on 03/31/18 08:31; Admin Dose 5 UNIT; Start 03/30/18 at 11:30 Assessment/Plan Chief Complaint/Hosp Course Assessment 1. Status post acute hypoxemic respiratory failure secondary to CHF 2. Acute CO status post PCI Plan 1. Continue cardiac recs 2. PT sujata aponte for tele. ALEC BERNAL MD, [facility] Mar 31, 2018 10:03
[2018-03-31] MEDS ORDERED: MAGNESIUM SULFATE 2 GM/50 ML 50 ML IVPB ONE (10:30)
[2018-03-31] MEDS ORDERED: POTASSIUM CHLORIDE 20 MEQ POWDER FOR ORAL SOLN PO ONE (10:30)
--- NOTE | 2018-03-31 11:01 | CONS ---
Date/Time of Note Date/Time of Note DATE: 03/31/18 TIME: 10:59 Assessment/Plan Assessment/Plan Hospital Course Unstable angina: s/p PCI of RCA in multiple segments as detailed above. Complicated by stent thrombosis and proximal vessel dissection. Flow was restored but pt had VF arrest in the ICU so repeat cath was done showing patent stents VF arrest: s/p VF/torsades x 2 requiring defibrillation post cath. Repeat cath with patent vessels. Pt was having intermittent pacing by the TVP and there is either a paced beat or PVC which caused R on T phenomenon both times. Electrolytes were ok. No recurrence after TVP removed. Acute respiratory failure: Intubated prophylactically after VF arrest x 2. Now extubated 03/29/18 CAD: As above. Residual diag disease which will be treated medically Cardiomyopathy: EF 25% by echo 10/01. Lexiscan 10/01 without perfusion defects and EF 16%. EF at this time is about 40-45%. Chronic systolic heart failure: Euvolemic. DM: uncontrolled with A1C 10.7 HL: LDL 257, TG >600 HTN -ok for tele. Possible d/c tomorrow if doing well -repeat echo -ASA lifelong -Brilinta 90mg BID at least 1 year -coreg 3.125 mg BID -hold lisinopril as BP marginal -hold lasix for now, likely restart tomorrow -continue lipitor -if ICU bed is needed, can be transferred to tele Result Diagram: 03/31/18 0427 03/31/18 0427 Results 24hrs Laboratory Tests Test 03/30/18 11:39 03/30/18 17:27 03/30/18 20:24 03/31/18 04:27 Bedside Glucose 280 H 232 H 245 H White Blood Count 10.3 Red Blood Count 3.71 L Hemoglobin 10.1 L Hematocrit 30.5 L Mean Corpuscular 82.2 Volume Mean Corpuscular 27.2 L Hemoglobin Mean Corpuscular 33.1 Hemoglobin Concent Red Cell 13.1 Distribution Width Platelet Count 219 Mean Platelet Volume 10.5 H Immature 0.500 H Granulocytes % Neutrophils % 76.7 Lymphocytes % 14.7 L Monocytes % 5.8 Eosinophils % 2.1 Basophils % 0.2 Nucleated Red Blood 0.0 Cells % Immature 0.050 H Granulocytes # Neutrophils # 7.9 H Lymphocytes # 1.5 Monocytes # 0.6 Eosinophils # 0.2 Basophils # 0.0 Nucleated Red Blood 0.0 Cells # Sodium Level 138 Potassium Level 3.6 Chloride Level 102 Carbon Dioxide Level 27 Anion Gap 9 Blood Urea Nitrogen 19 Creatinine 0.49 Est Glomerular > 60 Filtrat Rate mL/min Glucose Level 215 Calcium Level 8.9 Phosphorus Level 2.7 Magnesium Level 1.6 L Test 03/31/18 08:28 Bedside Glucose 211 Consultation Date/Type/Reason Admit Date/Time Mar 28, 2018 at 19:30 Initial Consult Date 03/27/18 Type of Consult Cardiology Requesting Provider: MADELEINE CANNON 24 HR Interval Summary Free Text/Dictation No events. No arrhythmias. No complaints. HR improving. BP stable. Exam/Review of Systems Vital Signs Vitals Vital Signs Date Temp Pulse Resp B/P (MAP) Pulse Ox O2 O2 Flow FiO2 Time Delivery Rate 03/31/18 95 17 104/68 98 Room Air 10:00 (80) 03/31/18 97.8 08:00 03/30/18 2.0 06:00 03/29/18 40 09:40 Intake and Output 03/30/18 03/30/18 03/31/18 1515:00 23:00 07:00 IntakeIntake Total 1360 ml 790 ml 450 ml OutputOutput Total 155 ml 650 ml BalanceBalance 1205 ml 140 ml 450 ml Exam Constitutional: alert, oriented Psych: no complaints, nl mood/affect Head: normocephalic, atraumatic Neck: supple; No jvd Respiratory: clear to auscultation; No crackles/rales Cardiovascular: regular rate and rhythm; No edema, No systolic murmur Gastrointestinal: soft, non-tender Neurological: nl mental status, nl speech Medications Medications Current Medications Aspirin (Aspirin) 81 mg DAILY PO Last administered on 03/31/18at 08:29; Admin Dose 81 MG; Start 03/27/18 at 09:00 Olanzapine (Zyprexa) 5 mg DAILY PO Last administered on 03/31/18at 08:29; Admin Dose 5 MG; Start 03/27/18 at 09:00 Sertraline HCl (Zoloft) 50 mg DAILY PO Last administered on 03/31/18at 08:29; Admin Dose 50 MG; Start 03/27/18 at 09:00 Thiamine HCl (Vitamin B1) 100 mg DAILY PO Last administered on 03/31/18at 08:29; Admin Dose 100 MG; Start 03/27/18 at 09:00 IV Flush (NS 3 ml) 3 ml PER PROTOCOL IV ; Start 03/27/18 at 00:00 Ondansetron HCl (Zofran Inj) 4 mg Q6H PRN IV NAUSEA AND/OR VOMITING Last administered on 03/29/18at 09:40; Admin Dose 4 MG; Start 03/27/18 at 00:00 Acetaminophen (Tylenol Tab) 650 mg Q6H PRN PO PAIN LEVEL 1-3 OR FEVER; Start 03/27/18 at 00:00 Docusate Sodium (Colace) 100 mg Q12H PRN PO CONSTIPATION; Start 03/27/18 at 00:00 Bisacodyl (Dulcolax) 5 mg DAILY PRN PO CONSTIPATION; Start 03/27/18 at 00:00 Cyclobenzaprine HCl (Flexeril) 5 mg Q8H PRN PO PAIN; Start 03/27/18 at 02:30 Miscellaneous Information 1 ea NOTE XX ; Start 03/27/18 at 07:30 Glucose (Glutose) 15 gm Q15M PRN PO DECREASED GLUCOSE; Start 03/27/18 at 07:30 Glucose (Glutose) 22.5 gm Q15M PRN PO DECREASED GLUCOSE; Start 03/27/18 at 07:3 0 Dextrose (D50w Syringe) 25 ml Q15M PRN IV DECREASED GLUCOSE; Start 03/27/18 at 07:30 Dextrose (D50w Syringe) 50 ml Q15M PRN IV DECREASED GLUCOSE; Start 03/27/18 at 07:30 Glucagon (Glucagen) 1 mg Q15M PRN IM DECREASED GLUCOSE; Start 03/27/18 at 07:30 Glucose (Glutose) 15 gm Q15M PRN BUCCAL DECREASED GLUCOSE; Start 03/27/18 at 07:30 Insulin Glargine (Lantus) 20 units DAILY@2000 SC Last administered on 03/30/18at 20:26; Admin Dose 20 UNITS; Start 03/27/18 at 20:00 Atorvastatin Calcium (Lipitor) 80 mg DAILY@21 PO Last administered on 03/30/18at 20:25; Admin Dose 80 MG; Start 03/27/18 at 21:00 Enoxaparin Sodium (Lovenox) 40 mg DAILY SC Last administered on 03/29/18 09:21; Admin Dose 40 MG; Start 03/28/18 at 09:00; Status Hold Ticagrelor (Brilinta) 90 mg BID PO Last administered on 03/31/18 08:30; Admin Dose 90 MG; Start 03/28/18 at 21:00 Pantoprazole (Protonix Iv) 40 mg BID@06,18 IV Last administered on 03/31/18 06:08; Admin Dose 40 MG; Start 03/29/18 at 06:00 Carvedilol (Coreg) 3.125 mg BID PO Last administered on 03/31/18 08:29; Admin Dose 3.125 MG; Start 03/29/18 at 09:15 Insulin Aspart (Novolog Insulin Pen) NOVOLOG *MODERATE* ALGORITHM BEFORE MEALS SC Last administered on 03/31/18 08:30; Admin Dose 4 UNIT; Start 03/30/18 at 11:30 Insulin Aspart (Novolog Insulin Pen) 5 unit WITH MEALS SC Last administered on 03/31/18 08:31; Admin Dose 5 UNIT; Start 03/30/18 at 11:30 Magnesium Sulfate 50 ml @ 25 mls/hr ONCE ONCE IVPB Last administered on 03/31/18 10:14; Admin Dose 25 MLS/HR; Start 03/31/18 at 10:30; Stop 03/31/18 at 12:29 DENI ABERNATHY Mar 31, 2018 11:01
--- NOTE | 2018-03-31 12:58 | PN ---
Date/Time of Note Date/Time of Note DATE: 03/31/18 TIME: 12:56 Assessment/Plan VTE Prophylaxis Risk score (from Ns)>0 risk: 7 SCD applied (from Ns): No SCD contraindicated: low risk/ambulating Pharmacological prophylaxis: LMWH Lines/Catheters IV [facility] Saline Lock Urinary Cath still in place: No Assessment/Plan Hospital Course Assessment and plan 1. Acute coronary syndrome status post RCA PCI. 2. In-stent thrombosis status post evaluation, continue medical management 3. Ischemic cardiomyopathy 4. Type 2 diabetes A1c of 10 not at goal 5. Secondary pulmonary hypertension? 6. Essential hypertension 7. Dyslipidemia 8. Depression 9. Acute respiratory failure intubated extubated stable 10. Ventricular fibrillation/ torsade replace electrolytes 11. Epistaxis stable 12. Metabolic syndrome Subjective: Events noted Objective: Vital signs stable Physical exam No pallor JVD Regular no murmur rub gallop Clear Benign No edema Result Diagram: 03/31/18 0427 03/31/18 0427 Results 24hrs Laboratory Tests Test 03/30/18 17:27 03/30/18 20:24 03/31/18 04:27 03/31/18 08:28 Bedside Glucose 232 H 245 H 211 White Blood Count 10.3 Red Blood Count 3.71 L Hemoglobin 10.1 L Hematocrit 30.5 L Mean Corpuscular 82.2 Volume Mean Corpuscular 27.2 L Hemoglobin Mean Corpuscular 33.1 Hemoglobin Concent Red Cell 13.1 Distribution Width Platelet Count 219 Mean Platelet Volume 10.5 H Immature 0.500 H Granulocytes % Neutrophils % 76.7 Lymphocytes % 14.7 L Monocytes % 5.8 Eosinophils % 2.1 Basophils % 0.2 Nucleated Red Blood 0.0 Cells % Immature 0.050 H Granulocytes # Neutrophils # 7.9 H Lymphocytes # 1.5 Monocytes # 0.6 Eosinophils # 0.2 Basophils # 0.0 Nucleated Red Blood 0.0 Cells # Sodium Level 138 Potassium Level 3.6 Chloride Level 102 Carbon Dioxide Level 27 Anion Gap 9 Blood Urea Nitrogen 19 Creatinine 0.49 Est Glomerular > 60 Filtrat Rate mL/min Glucose Level 215 Calcium Level 8.9 Phosphorus Level 2.7 Magnesium Level 1.6 L Test 03/31/18 12:28 Bedside Glucose 235 H Exam/Review of Systems Vital Signs Vitals Vital Signs Date Temp Pulse Resp B/P (MAP) Pulse Ox O2 O2 Flow FiO2 Time Delivery Rate 03/31/18 86 12:00 03/31/18 98.5 9 68/38 (48) 97 Room Air 12:00 03/30/18 2.0 06:00 03/29/18 40 09:40 Intake and Output 03/30/18 03/30/18 03/31/18 1515:00 23:00 07:00 IntakeIntake Total 1360 ml 790 ml 450 ml OutputOutput Total 155 ml 650 ml BalanceBalance 1205 ml 140 ml 450 ml Medications Medications Current Medications Aspirin (Aspirin) 81 mg DAILY PO Last administered on 03/31/18 08:29; Admin Dose 81 MG; Start 03/27/18 at 09:00 Olanzapine (Zyprexa) 5 mg DAILY PO Last administered on 03/31/18 08:29; Admin Dose 5 MG; Start 03/27/18 at 09:00 Sertraline HCl (Zoloft) 50 mg DAILY PO Last administered on 03/31/18 08:29; Admin Dose 50 MG; Start 03/27/18 at 09:00 Thiamine HCl (Vitamin B1) 100 mg DAILY PO Last administered on 03/31/18at 08:29; Admin Dose 100 MG; Start 03/27/18 at 09:00 IV Flush (NS 3 ml) 3 ml PER PROTOCOL IV ; Start 03/27/18 at 00:00 Ondansetron HCl (Zofran Inj) 4 mg Q6H PRN IV NAUSEA AND/OR VOMITING Last admi nistered on 03/29/18at 09:40; Admin Dose 4 MG; Start 03/27/18 at 00:00 Acetaminophen (Tylenol Tab) 650 mg Q6H PRN PO PAIN LEVEL 1-3 OR FEVER; Start 03/27/18 at 00:00 Docusate Sodium (Colace) 100 mg Q12H PRN PO CONSTIPATION; Start 03/27/18 at 00:00 Bisacodyl (Dulcolax) 5 mg DAILY PRN PO CONSTIPATION; Start 03/27/18 at 00:00 Cyclobenzaprine HCl (Flexeril) 5 mg Q8H PRN PO PAIN; Start 03/27/18 at 02:30 Miscellaneous Information 1 ea NOTE XX ; Start 03/27/18 at 07:30 Glucose (Glutose) 15 gm Q15M PRN PO DECREASED GLUCOSE; Start 03/27/18 at 07:30 Glucose (Glutose) 22.5 gm Q15M PRN PO DECREASED GLUCOSE; Start 03/27/18 at 07:30 Dextrose (D50w Syringe) 25 ml Q15M PRN IV DECREASED GLUCOSE; Start 03/27/18 at 07:30 Dextrose (D50w Syringe) 50 ml Q15M PRN IV DECREASED GLUCOSE; Start 03/27/18 at 07:30 Glucagon (Glucagen) 1 mg Q15M PRN IM DECREASED GLUCOSE; Start 03/27/18 at 07:30 Glucose (Glutose) 15 gm Q15M PRN BUCCAL DECREASED GLUCOSE; Start 03/27/18 at 07:30 Insulin Glargine (Lantus) 20 units DAILY@2000 SC Last administered on 03/30/18at 20:26; Admin Dose 20 UNITS; Start 03/27/18 at 20:00 Atorvastatin Calcium (Lipitor) 80 mg DAILY@21 PO Last administered on 03/30/18at 20:25; Admin Dose 80 MG; Start 03/27/18 at 21:00 Enoxaparin Sodium (Lovenox) 40 mg DAILY SC Last administered on 03/29/18at 09:21; Admin Dose 40 MG; Start 03/28/18 at 09:00; Status Hold Ticagrelor (Brilinta) 90 mg BID PO Last administered on 03/31/18at 08:30; Admin Dose 90 MG; Start 03/28/18 at 21:00 Pantoprazole (Protonix Iv) 40 mg BID@06,18 IV Last administered on 03/31/18at 06:08; Admin Dose 40 MG; Start 03/29/18 at 06:00 Carvedilol (Coreg) 3.125 mg BID PO Last administered on 03/31/18at 08:29; Admin Dose 3.125 MG; Start 03/29/18 at 09:15 Insulin Aspart (Novolog Insulin Pen) NOVOLOG *MODERATE* ALGORITHM BEFORE MEALS SC Last administered on 03/31/18at 12:30; Admin Dose 6 UNIT; Start 03/30/18 at 11:30 Insulin Aspart (Novolog Insulin Pen) 5 unit WITH MEALS SC Last administered on 03/31/18at 12:31; Admin Dose 5 UNIT; Start 03/30/18 at 11:30 TESSY BEJARANO MD Mar 31, 2018 12:58
--- NOTE | 2018-03-31 15:08 | RADRPT ---
Echocardiogram Report Patient Name: KELLY ERICKSON Gender: Female Date: 1960 Study Date: 31-Mar-2018 Vehicle Trimmer: MELYSSA Location: I Ref. Physician: DENI BARKER Quality: Good Procedures: Transthoracic echocardiogram with complete 2D, M-Mode, and doppler examination. Indications: NSTEMI. 2D/M Mode Doppler Measurement Value Normal Ranges Measurement Value Normal Ranges LVIDd 2D 5.1 3.5 - 5.6 cm AV Mean Garry 1.1 m/sec LVIDs 2D 3.1 2.1 - 4.1 cm AV Mean PG 6.0 mmHg LVPWd 2D 1.1 0.6 - 1.1 cm AV Peak Garry 1.6 m/sec IVSd 2D 1.1 0.6 - 1.1 cm AV Peak PG 10.0 mmHg AoR Diam 2D 2.9 2.0 - 3.7 cm AV VTI 27.9 cm IVC Diam 1.9 1.2 - 2.0 LVOT Mean Garyr 0.8 m/sec LVOT Mean PG 3.0 mmHg LVOT Peak Garry 1.2 m/sec LVOT Peak PG 5.0 mmHg MV E Peak Garry 0.8 m/sec MV A Peak Garry 1.0 m/sec MV E/A 0.8 MV PHT 43.0 msec MV Decel Time 148 msec MV Decel Cottle 6 MV E/A 0.8 MV PHT 43.0 msec MVA PHT 5.1 cm2 TAPSE 2.7 cm Findings Left Ventricle: Overall, normal left ventricular systolic function. Not all segments visualized. Normal left ventricular cavity size. Normal left ventricular wall thickness. Ejection fraction is visually estimated at 55 %. Tissue Doppler/Mitral Doppler indices are consistent with impaired relaxation (Stage I diastolic dysfunction). Right Ventricle: Normal right ventricular size. Normal right ventricular systolic function. Left Atrium: There is mild enlargement of left atrium. Right Atrium: The right atrium is normal in size. Mitral Valve: Mitral valve is not well visualized. Trace mitral regurgitation. Aortic Valve: Aortic valve not well visualized. No aortic regurgitation. Tricuspid Valve: Tricuspid valve not well visualized. Unable to obtain RVSP due to minimal presence of tricuspid regurgitation. Pulmonic Valve: Pulmonic valve not well visualized. Pericardium: Normal pericardium with no significant pericardial effusion. Aorta: Normal aortic root. IVC: Normal size and normal respiratory collapse consistent with normal right atrial pressure. Conclusions Technically difficult study with poor endocardial visualization. Overall, normal left ventricular systolic function. Not all segments visualized. Normal left ventricular cavity size. Normal left ventricular wall thickness. Ejection fraction is visually estimated at 55 % which has improved from prior. Tissue Doppler/Mitral Doppler indices are consistent with impaired relaxation (Stage I diastolic dysfunction). No significant valvular stenosis or regurgitation seen. Unable to obtain RVSP due to minimal presence of tricuspid regurgitation. Normal size and normal respiratory collapse consistent with normal right atrial pressure. Electronically Signed By: Deni Barker 31-Mar-2018 15:07:18 -0800 Patient Name: KELLY ERICKSON Study Date: 31-Mar-2018 [id number]
[2018-03-31] MEDS: POTASSIUM CHLORIDE 20 MEQ POWDER FOR ORAL SOLN PO SCH (17:47)
[2018-03-31] MEDS: INSULIN GLARGINE [LANTus] (100 UNITS/ML) SYG SC SCH (19:46)
[2018-03-31] MEDS: ATORVASTATIN 80 MG TAB PO SCH (20:06)
[2018-03-31] MEDS: LACTOBACILLUS RHAMNOSUS CAP PO SCH (20:06)
[2018-04-01] VITALS (28 sets, daily range): BP systolic 96–145; BP diastolic 52–88; PULSE 67–116; RESP 10–30
[2018-04-01] MEDS ORDERED: ZOLPIDEM 5 MG TAB PO ONE (01:00)
[2018-04-01] MEDS: PANTOPRAZOLE (EC) 40 MG TAB PO SCH (05:39)
[2018-04-01] MEDS ORDERED: AMIODARONE 150 MG INJ ONE (07:00)
[2018-04-01] MEDS ORDERED: EPINEPHrine 0.1 MG/ML SYG ONE (07:00)
[2018-04-01] MEDS ORDERED: LIDOCAINE 100 MG SYRINGE ONE (07:00)
--- NOTE | 2018-04-01 09:21 | PN ---
Date/Time of Note Date/Time of Note DATE: 04/01/18 TIME: 09:15 Assessment/Plan VTE Prophylaxis Risk score (from Ns)>0 risk: 6 SCD applied (from Ns): No SCD contraindicated: low risk/ambulating Pharmacological prophylaxis: NA/contraindicated Pharm contraindication: low risk/ambulating Lines/Catheters IV Catheter Type (from [facility]): Peripheral IV Urinary Cath still in place: No Assessment/Plan Assessment/Plan This is a 57 yo female with comorbidities including essential hypertension, type 2 diabetes mellitus, dyslipidemia, obesity, cardiomyopathy, and depression who came to the emergency room with chief complaint of chest pain and dyspnea. The patient was admitted inpatient setting for further treatment and evaluation. The patient was taken to the [facility] on 03/28/2018 for elective left heart catheterization the patient had a percutaneous coronary intervention with stenting to the right coronary artery. Status post PCI, the patient went into V. fib cardiac arrest at that required defibrillation x2 and oral intubation. 1. Unstable angina. -Status post complicated balloon angioplasty and stenting of multiple segments of RCA on 03/28/2018. -Continue dual antiplatelet therapy. 2. Ventricular fibrillation cardiac arrest after left heart catheterization on 03/28/2018. -Possibly from R-on-T phenomenon from transvenous pacing, that has been removed. -The patient was intubated on 03/28/2018 following CODE BLUE. -The patient was taken back to the [facility] and left heart catheterization revealed patent coronaries. -S/P amiodarone gtt and magnesium. 3. Acute respiratory failure requiring mechanical ventilation, secondary to V. fib cardiac arrest. -S/P mechanical ventilation for less than 24 hours. -Extubated on 03/29/18. 4. Chronic systolic congestive heart failure. -Continue beta-blockers. -ASHWIN inhibitors on hold in anticipation for any worsening renal function. 5. Cardiomyopathy. -Latest 2D echocardiogram showing ejection fraction of 40-45%. -Continue beta-blockers -ASHWIN inhibitors on hold. 6. Diabetes mellitus type II. -Hemoglobin A1c 10.7. -Continue sliding scale insulin along with premeal insulin, and basal insulin. 7. Dyslipidemia. -Continue statins. 8. Depression. -Continue SSRIs. 9. Mood disorder. -Continue mood stabilizers. 10. Fluids, electrolytes, and nutrition. -Carb controlled diet. 11. DVT prophylaxis. -SQ Lovenox. -Will hold this because of epistaxis. 12. Plan. -Continue dual antiplatelet therapy. -Transfer out of ICU - PT, OT then likely discharge home. Result Diagram: 04/01/189 04/01/18448 Results 24hrs Laboratory Tests Test 03/31/18 12:28 03/31/18 17:44 03/31/18 19:44 04/01/18 04:49 Bedside Glucose 235 H 228 H 271 H White Blood Count 8.3 Red Blood Count 3.33 L Hemoglobin 9.2 L Hematocrit 27.7 L Mean Corpuscular 83.2 Volume Mean Corpuscular 27.6 L Hemoglobin Mean Corpuscular 33.2 Hemoglobin Concent Red Cell 12.7 Distribution Width Platelet Count 231 Mean Platelet Volume 10.4 Immature 0.700 H Granulocytes % Neutrophils % 72.1 Lymphocytes % 18.2 Monocytes % 5.7 Eosinophils % 3.1 Basophils % 0.2 Nucleated Red Blood 0.0 Cells % Immature 0.060 H Granulocytes # Neutrophils # 6.0 Lymphocytes # 1.5 Monocytes # 0.5 Eosinophils # 0.3 Basophils # 0.0 Nucleated Red Blood 0.0 Cells # Prothrombin Time 13.0 Prothrombin Time 1.0 Ratio INR International 0.97 Normalized Ratio Sodium Level 137 Potassium Level 3.9 Chloride Level 103 Carbon Dioxide Level 28 Anion Gap 6 Blood Urea Nitrogen 15 Creatinine 0.44 Est Glomerular > 60 Filtrat Rate mL/min Glucose Level 185 Calcium Level 9.1 Magnesium Level 1.8 Total Bilirubin 0.8 Direct Bilirubin 0.00 Indirect Bilirubin 0.8 Aspartate Amino 31 Transf (AST/SGOT) Alanine 34 Aminotransferase (AL T/SGPT) Alkaline Phosphatase 102 Total Protein 6.1 Albumin 3.3 Globulin 2.80 Albumin/Globulin 1.17 Ratio Test 04/01/18 08:04 Bedside Glucose 212 Subjective 24 Hr Interval Summary Free Text/Dictation Patient well appearing today; ambulating independently to toilet. Good appetite. Feeling well, still mild chest pressure but she says she has this at baseline. Exam/Review of Systems Vital Signs Vitals Vital Signs Date Temp Pulse Resp B/P (MAP) Pulse Ox O2 O2 Flow FiO2 Time Delivery Rate 04/01/18 98.3 89 24 145/88 99 Room Air 08:00 (107) 03/30/18 2.0 06:00 03/29/18 40 09:40 Intake and Output 03/31/18 03/31/18 04/01/18 1515:00 23:00 07:00 IntakeIntake Total 530 ml 720 ml OutputOutput Total 700 ml 1150 ml 150 ml BalanceBalance -170 ml -430 ml -150 ml Exam General: Obese, 57 year-old female sitting in a chair in no apparent distress. HEENT: Normocephalic, atraumatic. Eyes: Anicteric sclerae, conjunctivae clear. ENT: Nasal septum midline, oral mucosa moist. Neck supple, no JVD noticed. Respiratory: Bilaterally diminished breath sounds. No use of accessory muscles of respiration. Cardiovascular: S1, S2 heard. Regular rate and rhythm. Abdomen: Soft, nontender, and nondistended. Bowel sounds positive in all 4 quadrants. Genitourinary: No jaramillo Extremities: No cyanosis, no clubbing, no edema. Peripheral pulses palpable. Neurologic: The patient is awake, alert,and oriented. Skin: Normal skin turgor. No skin rashes. Medications Medications Current Medications Aspirin (Aspirin) 81 mg DAILY PO Last administered on 03/31/18at 08:29; Admin Dose 81 MG; Start 03/27/18 at 09:00 Olanzapine (Zyprexa) 5 mg DAILY PO Last administered on 03/31/18 08:29; Admin Dose 5 MG; Start 03/27/18 at 09:00 Sertraline HCl (Zoloft) 50 mg DAILY PO Last administered on 03/31/18 08:29; Admin Dose 50 MG; Start 03/27/18 at 09:00 Thiamine HCl (Vitamin B1) 100 mg DAILY PO Last administered on 03/31/18 08:29; Admin Dose 100 MG; Start 03/27/18 at 09:00 IV Flush (NS 3 ml) 3 ml PER PROTOCOL IV ; Start 03/27/18 at 00:00 Ondansetron HCl (Zofran Inj) 4 mg Q6H PRN IV NAUSEA AND/OR VOMITING Last administered on 03/29/18at 09:40; Admin Dose 4 MG; Start 03/27/18 at 00:00 Acetaminophen (Tylenol Tab) 650 mg Q6H PRN PO PAIN LEVEL 1-3 OR FEVER; Start 03/27/18 at 00:00 Docusate Sodium (Colace) 100 mg Q12H PRN PO CONSTIPATION; Start 03/27/18 at 00:00 Bisacodyl (Dulcolax) 5 mg DAILY PRN PO CONSTIPATION; Start 03/27/18 at 00:00 Cyclobenzaprine HCl (Flexeril) 5 mg Q8H PRN PO PAIN; Start 03/27/18 at 02:30 Miscellaneous Information 1 ea NOTE XX ; Start 03/27/18 at 07:30 Glucose (Glutose) 15 gm Q15M PRN PO DECREASED GLUCOSE; Start 03/27/18 at 07:30 Glucose (Glutose) 22.5 gm Q15M PRN PO DECREASED GLUCOSE; Start 03/27/18 at 07:30 Dextrose (D50w Syringe) 25 ml Q15M PRN IV DECREASED GLUCOSE; Start 03/27/18 at 07:30 Dextrose (D50w Syringe) 50 ml Q15M PRN IV DECREASED GLUCOSE; Start 03/27/18 at 07:30 Glucagon (Glucagen) 1 mg Q15M PRN IM DECREASED GLUCOSE; Start 03/27/18 at 07:30 Glucose (Glutose) 15 gm Q15M PRN BUCCAL DECREASED GLUCOSE; Start 03/27/18 at 07:30 Insulin Glargine (Lantus) 20 units DAILY@2000 SC Last administered on 03/31/18at 19:46; Admin Dose 20 UNITS; Start 03/27/18 at 20:00 Atorvastatin Calcium (Lipitor) 80 mg DAILY@21 PO Last administered on 03/31/18at 20:06; Admin Dose 80 MG; Start 03/27/18 at 21:00 Enoxaparin Sodium (Lovenox) 40 mg DAILY SC Last administered on 03/29/18at 09:21; Admin Dose 40 MG; Start 03/28/18 at 09:00; Status Hold Ticagrelor (Brilinta) 90 mg BID PO Last administered on 03/31/18at 20:08; Admin Dose 90 MG; Start 03/28/18 at 21:00 Carvedilol (Coreg) 3.125 mg BID PO Last administered on 03/31/18at 20:06; Admin Dose 3.125 MG; Start 03/29/18 at 09:15 Insulin Aspart (Novolog Insulin Pen) NOVOLOG *MODERATE* ALGORITHM BEFORE MEALS SC Last administered on 03/31/18at 17:46; Admin Dose 6 UNIT; Start 03/30/18 at 11:30 Insulin Aspart (Novolog Insulin Pen) 5 unit WITH MEALS SC Last administered on 03/31/18 17:47; Admin Dose 5 UNIT; Start 03/30/18 at 11:30 Pantoprazole (Protonix Tab) 40 mg DAILY@06 PO Last administered on 04/01/18 05:39; Admin Dose 40 MG; Start 04/01/18 at 06:00 Lactobacillus Acidophilus/ Rhamnosus (Culturelle) 1 cap BID PO Last administered on 03/31/18at 20:06; Admin Dose 1 CAP; Start 03/31/18 at 21:00 Potassium Chloride (Potassium Chloride Pwd/Soln) 40 meq DAILY PO Last admi nistered on 03/31/18at 17:47; Admin Dose 40 MEQ; Start 03/31/18 at 18:00 MICA MONTALVO MD Apr 01, 2018 09:21
[2018-04-01] MEDS: INSULIN ASPART [NOVOLOG] 3 ML PEN SC SCH ×7 (09:24→22:45)
[2018-04-01] MEDS: THIAMINE 100 MG TAB PO SCH (09:27)
[2018-04-01] MEDS: POTASSIUM CHLORIDE 20 MEQ POWDER FOR ORAL SOLN PO SCH (09:27)
[2018-04-01] MEDS: LACTOBACILLUS RHAMNOSUS CAP PO SCH ×2 (09:27→22:38)
[2018-04-01] MEDS: OLANZAPINE 5 MG TAB PO SCH (09:27)
[2018-04-01] MEDS: ASPIRIN 81 MG TAB PO SCH (09:28)
[2018-04-01] MEDS: SERTRALINE 50 MG TAB PO SCH (09:28)
[2018-04-01] MEDS: TICAGRELOR 90 MG TABLET PO SCH ×2 (09:28→22:09)
--- NOTE | 2018-04-01 09:28 | CONS ---
Date/Time of Note Date/Time of Note DATE: 04/01/18 TIME: 09:26 Assessment/Plan Assessment/Plan Assessment/Plan Assessment and recommendations; 1. Patient admitted with acute LA status post coronary intervention, status post extubation with marked overall improvement in clinical status. 2. History of Diabetes and hypertension. 3. Mild anemia. Continue current supportive care. Consider discharge home. Result Diagram: 04/01/18 0449 04/01/18 0449 Results 24hrs Laboratory Tests Test 03/31/18 12:28 03/31/18 17:44 03/31/18 19:44 04/01/18 04:49 Bedside Glucose 235 H 228 H 271 H White Blood Count 8.3 Red Blood Count 3.33 L Hemoglobin 9.2 L Hematocrit 27.7 L Mean Corpuscular 83.2 Volume Mean Corpuscular 27.6 L Hemoglobin Mean Corpuscular 33.2 Hemoglobin Concent Red Cell 12.7 Distribution Width Platelet Count 231 Mean Platelet Volume 10.4 Immature 0.700 H Granulocytes % Neutrophils % 72.1 Lymphocytes % 18.2 Monocytes % 5.7 Eosinophils % 3.1 Basophils % 0.2 Nucleated Red Blood 0.0 Cells % Immature 0.060 H Granulocytes # Neutrophils # 6.0 Lymphocytes # 1.5 Monocytes # 0.5 Eosinophils # 0.3 Basophils # 0.0 Nucleated Red Blood 0.0 Cells # Prothrombin Time 13.0 Prothrombin Time 1.0 Ratio INR International 0.97 Normalized Ratio Sodium Level 137 Potassium Level 3.9 Chloride Level 103 Carbon Dioxide Level 28 Anion Gap 6 Blood Urea Nitrogen 15 Creatinine 0.44 Est Glomerular > 60 Filtrat Rate mL/min Glucose Level 185 Calcium Level 9.1 Magnesium Level 1.8 Total Bilirubin 0.8 Direct Bilirubin 0.00 Indirect Bilirubin 0.8 Aspartate Amino 31 Transf (AST/SGOT) Alanine 34 Aminotransferase (AL T/SGPT) Alkaline Phosphatase 102 Total Protein 6.1 Albumin 3.3 Globulin 2.80 Albumin/Globulin 1.17 Ratio Test 04/01/18 08:04 Bedside Glucose 212 Consultation Date/Type/Reason Admit Date/Time Mar 28, 2018 at 19:30 Initial Consult Date 03/29/18 Type of Consult Pulmonary/critical care Patient is a 57-year-old lady who came into the hospital yesterday with complaints of chest pain or shortness of breath. Patient was diagnosed with a cute LA and underwent coronary angiography patient required 4 stents. Patient could not be extubated. At the time I saw her, patient is orally intubated and despite being on propofol she is completely awake and follows simple commands. Denies any chest pain, shortness of breath. Past medical history; 1. History of hypertension. 2. Diabetes. 3. Pulmonary hypertension. 4. Depression. Medications; reviewed. Patient is currently on propofol at 30 mics per kilogram per minute. Other medications were reviewed as well. Allergies are none. Social history; history of smoking alcohol or drug abuse. Family history; noncontributory. Various members of diabetes and hypertension. 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 Review of systems; denies any headache, chest pain, shortness of breath. Any abdominal pain. General exam; middle-aged female, orally intubated, awake and alert. Currently in no distress. Requesting Provider: MADELEINE CANNON 24 HR Interval Summary Free Text/Dictation Patient's condition is stable. Awaiting transfer to telemetry unit. Denies any shortness of breath, chest pain, coughing, wheezing. General exam; middle-aged female, awake alert, currently in no distress. Exam/Review of Systems Vital Signs Vitals Vital Signs Date Temp Pulse Resp B/P (MAP) Pulse Ox O2 O2 Flow FiO2 Time Delivery Rate 04/01/18 98.3 89 24 145/88 99 Room Air 08:00 (107) 03/30/18 2.0 06:00 03/29/18 40 09:40 Intake and Output 03/31/18 03/31/18 04/01/18 1515:00 23:00 07:00 IntakeIntake Total 530 ml 720 ml OutputOutput Total 700 ml 1150 ml 150 ml BalanceBalance -170 ml -430 ml -150 ml Exam HEENT exam; supple neck, no JVD. No lymphadenopathy. Midline trachea. No thyromegaly. Patient has fair dentition. No neck masses. Chest exam; diminished but clear breath sounds. S1-S2 audible, no murmurs. Regular rhythm. Abdomen exam; soft, no organomegaly. Bowel sounds audible. Nontender. Extremity exam; no peripheral edema or clubbing. Pulses 1+. [employer] exam; no focal deficit. Medications Medications Current Medications Aspirin (Aspirin) 81 mg DAILY PO Last administered on 03/31/18at 08:29; Admin Dose 81 MG; Start 03/27/18 at 09:00 Olanzapine (Zyprexa) 5 mg DAILY PO Last administered on 03/31/18 08:29; Admin Dose 5 MG; Start 03/27/18 at 09:00 Sertraline HCl (Zoloft) 50 mg DAILY PO Last administered on 03/31/18 08:29; Admin Dose 50 MG; Start 03/27/18 at 09:00 Thiamine HCl (Vitamin B1) 100 mg DAILY PO Last administered on 03/31/18 08:29; Admin Dose 100 MG; Start 03/27/18 at 09:00 IV Flush (NS 3 ml) 3 ml PER PROTOCOL IV ; Start 03/27/18 at 00:00 Ondansetron HCl (Zofran Inj) 4 mg Q6H PRN IV NAUSEA AND/OR VOMITING Last administered on 03/29/18at 09:40; Admin Dose 4 MG; Start 03/27/18 at 00:00 Acetaminophen (Tylenol Tab) 650 mg Q6H PRN PO PAIN LEVEL 1-3 OR FEVER; Start 03/27/18 at 00:00 Docusate Sodium (Colace) 100 mg Q12H PRN PO CONSTIPATION; Start 03/27/18 at 00:00 Bisacodyl (Dulcolax) 5 mg DAILY PRN PO CONSTIPATION; Start 03/27/18 at 00:00 Cyclobenzaprine HCl (Flexeril) 5 mg Q8H PRN PO PAIN; Start 03/27/18 at 02:30 Miscellaneous Information 1 ea NOTE XX ; Start 03/27/18 at 07:30 Glucose (Glutose) 15 gm Q15M PRN PO DECREASED GLUCOSE; Start 03/27/18 at 07:30 Glucose (Glutose) 22.5 gm Q15M PRN PO DECREASED GLUCOSE; Start 03/27/18 at 07:30 Dextrose (D50w Syringe) 25 ml Q15M PRN IV DECREASED GLUCOSE; Start 03/27/18 at 07:30 Dextrose (D50w Syringe) 50 ml Q15M PRN IV DECREASED GLUCOSE; Start 03/27/18 at 07:30 Glucagon (Glucagen) 1 mg Q15M PRN IM DECREASED GLUCOSE; Start 03/27/18 at 07:30 Glucose (Glutose) 15 gm Q15M PRN BUCCAL DECREASED GLUCOSE; Start 03/27/18 at 07:30 Insulin Glargine (Lantus) 20 units DAILY@2000 SC Last administered on 03/31/18 19:46; Admin Dose 20 UNITS; Start 03/27/18 at 20:00 Atorvastatin Calcium (Lipitor) 80 mg DAILY@21 PO Last administered on 03/31/18 20:06; Admin Dose 80 MG; Start 03/27/18 at 21:00 Enoxaparin Sodium (Lovenox) 40 mg DAILY SC Last administered on 03/29/18 09:21; Admin Dose 40 MG; Start 03/28/18 at 09:00; Status Hold Ticagrelor (Brilinta) 90 mg BID PO Last administered on 03/31/18 20:08; Admin Dose 90 MG; Start 03/28/18 at 21:00 Carvedilol (Coreg) 3.125 mg BID PO Last administered on 03/31/18 20:06; Admin Dose 3.125 MG; Start 03/29/18 at 09:15 Insulin Aspart (Novolog Insulin Pen) NOVOLOG *MODERATE* ALGORITHM BEFORE MEALS SC Last administered on 03/31/18 17:46; Admin Dose 6 UNIT; Start 03/30/18 at 11:30 Insulin Aspart (Novolog Insulin Pen) 5 unit WITH MEALS SC Last administered on 03/31/18 17:47; Admin Dose 5 UNIT; Start 03/30/18 at 11:30 Pantoprazole (Protonix Tab) 40 mg DAILY@06 PO Last administered on 04/01/18at 0 5:39; Admin Dose 40 MG; Start 04/01/18 at 06:00 Lactobacillus Acidophilus/ Rhamnosus (Culturelle) 1 cap BID PO Last administered on 03/31/18 20:06; Admin Dose 1 CAP; Start 03/31/18 at 21:00 Potassium Chloride (Potassium Chloride Pwd/Soln) 40 meq DAILY PO Last administered on 03/31/18 17:47; Admin Dose 40 MEQ; Start 03/31/18 at 18:00 JANUARY ZAMARRIPA Apr 01, 2018 09:28
--- NOTE | 2018-04-01 16:05 | CONS ---
Date/Time of Note Date/Time of Note DATE: 04/01/18 TIME: 16:02 Assessment/Plan Assessment/Plan Hospital Course Unstable angina: s/p PCI of RCA in multiple segments as detailed above. Complicated by stent thrombosis and proximal vessel dissection. Flow was restored but pt had VF arrest in the ICU so repeat cath was done showing patent stents VF arrest: s/p VF/torsades x 2 requiring defibrillation post cath. Repeat cath with patent vessels. Pt was having intermittent pacing by the TVP and there is either a paced beat or PVC which caused R on T phenomenon both times. Electrolytes were ok. No recurrence after TVP removed. Acute respiratory failure: Intubated prophylactically after VF arrest x 2. Now extubated 03/29/18 CAD: As above. Residual diag disease which will be treated medically Cardiomyopathy: EF 25% by echo 10/01. Lexiscan 10/01 without perfusion defects and EF 16%. EF this admission 40-45%. Now 55% on echo post PCI Chronic systolic heart failure: Euvolemic. DM: uncontrolled with A1C 10.7 HL: LDL 257, TG >600 HTN -ok for tele. Plan for d/c tomorrow with below meds -ASA lifelong -Brilinta 90mg BID at least 1 year -coreg 3.125 mg BID -lisinopril 5mg -lipitor 80mg -no lasix for now as EF is normalized and she remains euvolemic Result Diagram: 04/01/18 0449 04/01/18 0449 Results 24hrs Laboratory Tests Test 03/31/18 17:44 03/31/18 19:44 04/01/18 04:49 04/01/18 08:04 Bedside Glucose 228 H 271 H 212 White Blood Count 8.3 Red Blood Count 3.33 L Hemoglobin 9.2 L Hematocrit 27.7 L Mean Corpuscular 83.2 Volume Mean Corpuscular 27.6 L Hemoglobin Mean Corpuscular 33.2 Hemoglobin Concent Red Cell 12.7 Distribution Width Platelet Count 231 Mean Platelet Volume 10.4 Immature 0.700 H Granulocytes % Neutrophils % 72.1 Lymphocytes % 18.2 Monocytes % 5.7 Eosinophils % 3.1 Basophils % 0.2 Nucleated Red Blood 0.0 Cells % Immature 0.060 H Granulocytes # Neutrophils # 6.0 Lymphocytes # 1.5 Monocytes # 0.5 Eosinophils # 0.3 Basophils # 0.0 Nucleated Red Blood 0.0 Cells # Prothrombin Time 13.0 Prothrombin Time 1.0 Ratio INR International 0.97 Normalized Ratio Sodium Level 137 Potassium Level 3.9 Chloride Level 103 Carbon Dioxide Level 28 Anion Gap 6 Blood Urea Nitrogen 15 Creatinine 0.44 Est Glomerular > 60 Filtrat Rate mL/min Glucose Level 185 Calcium Level 9.1 Magnesium Level 1.8 Total Bilirubin 0.8 Direct Bilirubin 0.00 Indirect Bilirubin 0.8 Aspartate Amino 31 Transf (AST/SGOT) Alanine 34 Aminotransferase (AL T/SGPT) Alkaline Phosphatase 102 Total Protein 6.1 Albumin 3.3 Globulin 2.80 Albumin/Globulin 1.17 Ratio Test 04/01/18 12:33 Bedside Glucose 264 H Consultation Date/Type/Reason Admit Date/Time Mar 28, 2018 at 19:30 Initial Consult Date 03/27/18 Type of Consult Cardiology Requesting Provider: MADELEINE CANNON 24 HR Interval Summary Free Text/Dictation No events. Still in ICU as tele overflow. No chest pain or SOB. Ambulated today. Awaiting PT eval Exam/Review of Systems Vital Signs Vitals Vital Signs Date Temp Pulse Resp B/P (MAP) Pulse Ox O2 O2 Flow FiO2 Time Delivery Rate 04/01/18 98.0 88 18 109/73 99 Room Air 15:00 (85) 03/30/18 2.0 06:00 03/29/18 40 09:40 Intake and Output 03/31/18 03/31/18 04/01/18 1515:00 23:00 07:00 IntakeIntake Total 530 ml 720 ml OutputOutput Total 700 ml 1150 ml 150 ml BalanceBalance -170 ml -430 ml -150 ml Exam Constitutional: alert, oriented Psych: no complaints, nl mood/affect Head: normocephalic, atraumatic Neck: supple; No jvd Respiratory: clear to auscultation; No crackles/rales Cardiovascular: regular rate and rhythm; No edema Gastrointestinal: soft, non-tender Neurological: nl mental status, nl speech Medications Medications Current Medications Aspirin (Aspirin) 81 mg DAILY PO Last administered on 04/01/18at 09:28; Admin Dose 81 MG; Start 03/27/18 at 09:00 Olanzapine (Zyprexa) 5 mg DAILY PO Last administered on 04/01/18at 09:27; Admin Dose 5 MG; Start 03/27/18 at 09:00 Sertraline HCl (Zoloft) 50 mg DAILY PO Last administered on 04/01/18at 09:28; A dmin Dose 50 MG; Start 03/27/18 at 09:00 Thiamine HCl (Vitamin B1) 100 mg DAILY PO Last administered on 04/01/18at 09:27; Admin Dose 100 MG; Start 03/27/18 at 09:00 IV Flush (NS 3 ml) 3 ml PER PROTOCOL IV ; Start 03/27/18 at 00:00 Ondansetron HCl (Zofran Inj) 4 mg Q6H PRN IV NAUSEA AND/OR VOMITING Last administered on 03/29/18at 09:40; Admin Dose 4 MG; Start 03/27/18 at 00:00 Acetaminophen (Tylenol Tab) 650 mg Q6H PRN PO PAIN LEVEL 1-3 OR FEVER; Start 03/27/18 at 00:00 Docusate Sodium (Colace) 100 mg Q12H PRN PO CONSTIPATION; Start 03/27/18 at 00:00 Bisacodyl (Dulcolax) 5 mg DAILY PRN PO CONSTIPATION; Start 03/27/18 at 00:00 Cyclobenzaprine HCl (Flexeril) 5 mg Q8H PRN PO PAIN; Start 03/27/18 at 02:30 Miscellaneous Information 1 ea NOTE XX ; Start 03/27/18 at 07:30 Glucose (Glutose) 15 gm Q15M PRN PO DECREASED GLUCOSE; Start 03/27/18 at 07:30 Glucose (Glutose) 22.5 gm Q15M PRN PO DECREASED GLUCOSE; Start 03/27/18 at 07:30 Dextrose (D50w Syringe) 25 ml Q15M PRN IV DECREASED GLUCOSE; Start 03/27/18 at 07:30 Dextrose (D50w Syringe) 50 ml Q15M PRN IV DECREASED GLUCOSE; Start 03/27/18 at 07:30 Glucagon (Glucagen) 1 mg Q15M PRN IM DECREASED GLUCOSE; Start 03/27/18 at 07:30 Glucose (Glutose) 15 gm Q15M PRN BUCCAL DECREASED GLUCOSE; Start 03/27/18 at 07:30 Insulin Glargine (Lantus) 20 units DAILY@2000 SC Last administered on 03/31/18at 19:46; Admin Dose 20 UNITS; Start 03/27/18 at 20:00 Atorvastatin Calcium (Lipitor) 80 mg DAILY@21 PO Last administered on 03/31/18 20:06; Admin Dose 80 MG; Start 03/27/18 at 21:00 Enoxaparin Sodium (Lovenox) 40 mg DAILY SC Last administered on 03/29/18 09:21; Admin Dose 40 MG; Start 03/28/18 at 09:00; Status Hold Ticagrelor (Brilinta) 90 mg BID PO Last administered on 04/01/18 09:28; Admin Dose 90 MG; Start 03/28/18 at 21:00 Carvedilol (Coreg) 3.125 mg BID PO Last administered on 04/01/18 09:32; Admin Dose 3.125 MG; Start 03/29/18 at 09:15 Insulin Aspart (Novolog Insulin Pen) NOVOLOG *MODERATE* ALGORITHM BEFORE MEALS SC Last administered on 04/01/18 12:42; Admin Dose 8 UNIT; Start 03/30/18 at 11:30 Insulin Aspart (Novolog Insulin Pen) 5 unit WITH MEALS SC Last administered on 04/01/18 12:41; Admin Dose 5 UNIT; Start 03/30/18 at 11:30 Pantoprazole (Protonix Tab) 40 mg DAILY@06 PO Last administered on 04/01/18 05 :39; Admin Dose 40 MG; Start 04/01/18 at 06:00 Lactobacillus Acidophilus/ Rhamnosus (Culturelle) 1 cap BID PO Last administered on 04/01/18 09:27; Admin Dose 1 CAP; Start 03/31/18 at 21:00 Potassium Chloride (Potassium Chloride Pwd/Soln) 40 meq DAILY PO Last administered on 04/01/18 09:27; Admin Dose 40 MEQ; Start 03/31/18 at 18:00 DENI ABERNATHY Apr 01, 2018 16:05
[2018-04-01] MEDS: LISINOPRIL 5 MG TAB PO SCH (16:34)
[2018-04-01] MEDS: ATORVASTATIN 80 MG TAB PO SCH (22:38)
[2018-04-01] MEDS: INSULIN GLARGINE [LANTus] (100 UNITS/ML) SYG SC SCH (22:45)
[2018-04-02] VITALS (8 sets, daily range): BP systolic 108–121; BP diastolic 52–61; PULSE 68–113; RESP 17–19
[2018-04-02] MEDS ORDERED: ZOLPIDEM 5 MG TAB PO ONE (00:03)
[2018-04-02] MEDS: PANTOPRAZOLE (EC) 40 MG TAB PO SCH (06:14)
[2018-04-02] MEDS: INSULIN ASPART [NOVOLOG] 3 ML PEN SC SCH ×3 (08:11→11:18)
[2018-04-02] MEDS: LACTOBACILLUS RHAMNOSUS CAP PO SCH (08:58)
[2018-04-02] MEDS: POTASSIUM CHLORIDE 20 MEQ POWDER FOR ORAL SOLN PO SCH (08:58)
[2018-04-02] MEDS: SERTRALINE 50 MG TAB PO SCH (08:58)
[2018-04-02] MEDS: ASPIRIN 81 MG TAB PO SCH (08:58)
[2018-04-02] MEDS: THIAMINE 100 MG TAB PO SCH (08:58)
[2018-04-02] MEDS: LISINOPRIL 5 MG TAB PO SCH (08:59)
[2018-04-02] MEDS: OLANZAPINE 5 MG TAB PO SCH (08:59)
[2018-04-02] MEDS: TICAGRELOR 90 MG TABLET PO SCH (09:07)
--- NOTE | 2018-04-02 09:43 | CONS ---
Date/Time of Note Date/Time of Note DATE: 04/02/18 TIME: 09:42 Assessment/Plan Assessment/Plan Hospital Course Unstable angina: s/p PCI of RCA in multiple segments as detailed above. Complicated by stent thrombosis and proximal vessel dissection. Flow was restored but pt had VF arrest in the ICU so repeat cath was done showing patent stents VF arrest: s/p VF/torsades x 2 requiring defibrillation post cath. Repeat cath with patent vessels. Pt was having intermittent pacing by the TVP and there is either a paced beat or PVC which caused R on T phenomenon both times. Electrolytes were ok. No recurrence after TVP removed. Acute respiratory failure: Intubated prophylactically after VF arrest x 2. Now extubated 03/29/18 CAD: As above. Residual diag disease which will be treated medically Cardiomyopathy: EF 25% by echo 10/01. Lexiscan 10/01 without perfusion defects and EF 16%. EF this admission 40-45%. Now 55% on echo post PCI Chronic systolic heart failure: Euvolemic. DM: uncontrolled with A1C 10.7 HL: LDL 257, TG >600 HTN -ok for discharge today with below meds -ASA lifelong -Brilinta 90mg BID at least 1 year -coreg 3.125 mg BID -lisinopril 5mg -lipitor 80mg -no lasix for now as EF is normalized and she remains euvolemic Result Diagram: 04/01/18 0449 04/01/18 0449 Results 24hrs Laboratory Tests Test 04/01/18 12:33 04/01/18 17:31 04/01/18 22:39 04/02/18 02:14 Bedside Glucose 264 H 247 H 240 H 159 Test 04/02/18 08:09 Bedside Glucose 192 Consultation Date/Type/Reason Admit Date/Time Mar 28, 2018 at 19:30 Initial Consult Date 03/27/18 Type of Consult Cardiology Requesting Provider: MADELEINE CANNON 24 HR Interval Summary Free Text/Dictation No events. Doing well. No SOB with ambulation. Would like to go home. Exam/Review of Systems Vital Signs Vitals Vital Signs Date Temp Pulse Resp B/P (MAP) Pulse Ox O2 O2 Flow FiO2 Time Delivery Rate 04/02/18 113 08:45 04/02/18 97.8 17 114/58 95 07:36 (76) 04/01/18 Room Air 18:00 03/30/18 2.0 06:00 03/29/18 40 09:40 Intake and Output 04/01/18 04/01/18 04/02/18 1414:59 22:59 06:59 IntakeIntake Total 530 ml 360 ml 400 ml OutputOutput Total 500 ml 600 ml BalanceBalance 30 ml -240 ml 400 ml Exam Constitutional: alert, oriented Psych: no complaints, nl mood/affect Head: normocephalic, atraumatic Neck: supple; No jvd Respiratory: clear to auscultation; No crackles/rales Cardiovascular: regular rate and rhythm; No edema Gastrointestinal: soft, non-tender Neurological: nl mental status, nl speech Medications Medications Current Medications Aspirin (Aspirin) 81 mg DAILY PO Last administered on 04/02/18at 08:58; Admin Dose 81 MG; Start 03/27/18 at 09:00 Olanzapine (Zyprexa) 5 mg DAILY PO Last administered on 04/02/18at 08:59; Admin Dose 5 MG; Start 03/27/18 at 09:00 Sertraline HCl (Zoloft) 50 mg DAILY PO Last administered on 04/02/18at 08:58; Admin Dose 50 MG; Start 03/27/18 at 09:00 Thiamine HCl (Vitamin B1) 100 mg DAILY PO Last administered on 04/02/18at 08:58; Admin Dose 100 MG; Start 03/27/18 at 09:00 IV Flush (NS 3 ml) 3 ml PER PROTOCOL IV ; Start 03/27/18 at 00:00 Ondansetron HCl (Zofran Inj) 4 mg Q6H PRN IV NAUSEA AND/OR VOMITING Last administered on 03/29/18at 09:40; Admin Dose 4 MG; Start 03/27/18 at 00:00 Acetaminophen (Tylenol Tab) 650 mg Q6H PRN PO PAIN LEVEL 1-3 OR FEVER; Start 03/27/18 at 00:00 Docusate Sodium (Colace) 100 mg Q12H PRN PO CONSTIPATION; Start 03/27/18 at 00:00 Bisacodyl (Dulcolax) 5 mg DAILY PRN PO CONSTIPATION; Start 03/27/18 at 00:00 Cyclobenzaprine HCl (Flexeril) 5 mg Q8H PRN PO PAIN; Start 03/27/18 at 02:30 Miscellaneous Information 1 ea NOTE XX ; Start 03/27/18 at 07:30 Glucose (Glutose) 15 gm Q15M PRN PO DECREASED GLUCOSE; Start 03/27/18 at 07:30 Glucose (Glutose) 22.5 gm Q15M PRN PO DECREASED GLUCOSE; Start 03/27/18 at 07:30 Dextrose (D50w Syringe) 25 ml Q15M PRN IV DECREASED GLUCOSE; Start 03/27/18 at 07:30 Dextrose (D50w Syringe) 50 ml Q15M PRN IV DECREASED GLUCOSE; Start 03/27/18 at 07:30 Glucagon (Glucagen) 1 mg Q15M PRN IM DECREASED GLUCOSE; Start 03/27/18 at 07:30 Glucose (Glutose) 15 gm Q15M PRN BUCCAL DECREASED GLUCOSE; Start 03/27/18 at 07:30 Insulin Glargine (Lantus) 20 units DAILY@2000 SC Last administered on 04/01/18at 22:45; Admin Dose 20 UNITS; Start 03/27/18 at 20:00 Atorvastatin Calcium (Lipitor) 80 mg DAILY@21 PO Last administered on 04/01/18at 22:38; Admin Dose 80 MG; Start 03/27/18 at 21:00 Enoxaparin Sodium (Lovenox) 40 mg DAILY SC Last administered on 03/29/18at 09:21; Admin Dose 40 MG; Start 03/28/18 at 09:00; Status Hold Ticagrelor (Brilinta) 90 mg BID PO Last administered on 04/02/18at 09:07; Admin Dose 90 MG; Start 03/28/18 at 21:00 Carvedilol (Coreg) 3.125 mg BID PO Last administered on 04/02/18at 08:59; Admin Dose 3.125 MG; Start 03/29/18 at 09:15 Insulin Aspart (Novolog Insulin Pen) NOVOLOG *MODERATE* ALGORITHM BEFORE MEALS SC Last administered on 04/01/18at 22:45; Admin Dose 2 UNIT; Start 03/30/18 at 11:30 Insulin Aspart (Novolog Insulin Pen) 5 unit WITH MEALS SC Last administered on 04/02/18at 08:11; Admin Dose 5 UNIT; Start 03/30/18 at 11:30 Pantoprazole (Protonix Tab) 40 mg DAILY@06 PO Last administered on 04/02/18 06:14; Admin Dose 40 MG; Start 04/01/18 at 06:00 Lactobacillus Acidophilus/ Rhamnosus (Culturelle) 1 cap BID PO Last administered on 04/02/18at 08:58; Admin Dose 1 CAP; Start 03/31/18 at 21:00 Potassium Chloride (Potassium Chloride Pwd/Soln) 40 meq DAILY PO Last administered on 04/02/18 08:58; Admin Dose 40 MEQ; Start 03/31/18 at 18:00 Lisinopril (Zestril) 5 mg DAILY PO Last administered on 04/02/18 08:59; Admin Dose 5 MG; Start 04/01/18 at 16:00 DENI AEBRNATHY Apr 02, 2018 09:43
--- NOTE | 2018-04-02 11:40 | CONS ---
Date/Time of Note Date/Time of Note DATE: 04/02/18 TIME: 11:39 Consult Date/Type/Reason Admit Date/Time Mar 28, 2018 at 19:30 Initial Consult Date 03/29/18 Type of Consultation: Pulmonary ICU Requesting Provider: MADELEINE CANNON Subjective Remains stable no events. Objective Vital Signs Date Temp Pulse Resp B/P (MAP) Pulse Ox O2 O2 Flow FiO2 Time Delivery Rate 04/02/18 97.9 75 18 113/60 97 11:33 (77) 04/01/18 Room Air 18:00 03/30/18 2.0 06:00 03/29/18 40 09:40 Intake and Output 04/01/18 04/01/18 04/02/18 1414:59 22:59 06:59 IntakeIntake Total 530 ml 360 ml 400 ml OutputOutput Total 500 ml 600 ml BalanceBalance 30 ml -240 ml 400 ml Exam GENERAL: Well-nourished well-developed lady comfortable at rest VITAL SIGNS: per chart NECK: Supple. No JVD or lymphadenopathy. CARDIAC EXAM: S1, S2. No added sounds or murmurs. CHEST: clear bilaterally, No added sounds, rales or wheezes ABDOMEN: Soft, nontender. No guarding or rebound. EXTREMITIES: No cyanosis, clubbing or edema. NEUROLOGIC: Generalized weakness. No focal deficits. Results/Medications Result Diagram: 04/01/18 0449 04/01/18 0449 Results 24 hrs Laboratory Tests Test 04/01/18 12:33 04/01/18 17:31 04/01/18 22:39 04/02/18 02:14 Bedside Glucose 264 H 247 H 240 H 159 Test 04/02/18 08:09 04/02/18 11:13 Bedside Glucose 192 270 H Medications Current Medications Aspirin (Aspirin) 81 mg DAILY PO Last administered on 04/02/18at 08:58; Admin Dose 81 MG; Start 03/27/18 at 09:00 Olanzapine (Zyprexa) 5 mg DAILY PO Last administered on 04/02/18at 08:59; Admin Dose 5 MG; Start 03/27/18 at 09:00 Sertraline HCl (Zoloft) 50 mg DAILY PO Last administered on 04/02/18at 08:58; Admin Dose 50 MG; Start 03/27/18 at 09:00 Thiamine HCl (Vitamin B1) 100 mg DAILY PO Last administered on 04/02/18at 08:58; Admin Dose 100 MG; Start 03/27/18 at 09:00 IV Flush (NS 3 ml) 3 ml PER PROTOCOL IV ; Start 03/27/18 at 00:00 Ondansetron HCl (Zofran Inj) 4 mg Q6H PRN IV NAUSEA AND/OR VOMITING Last administered on 03/29/18at 09:40; Admin Dose 4 MG; Start 03/27/18 at 00:00 Acetaminophen (Tylenol Tab) 650 mg Q6H PRN PO PAIN LEVEL 1-3 OR FEVER; Start 03/27/18 at 00:00 Docusate Sodium (Colace) 100 mg Q12H PRN PO CONSTIPATION; Start 03/27/18 at 00:00 Bisacodyl (Dulcolax) 5 mg DAILY PRN PO CONSTIPATION; Start 03/27/18 at 00:00 Cyclobenzaprine HCl (Flexeril) 5 mg Q8H PRN PO PAIN; Start 03/27/18 at 02:30 Miscellaneous Information 1 ea NOTE XX ; Start 03/27/18 at 07:30 Glucose (Glutose) 15 gm Q15M PRN PO DECREASED GLUCOSE; Start 03/27/18 at 07:30 Glucose (Glutose) 22.5 gm Q15M PRN PO DECREASED GLUCOSE; Start 03/27/18 at 07:30 Dextrose (D50w Syringe) 25 ml Q15M PRN IV DECREASED GLUCOSE; Start 03/27/18 at 07:30 Dextrose (D50w Syringe) 50 ml Q15M PRN IV DECREASED GLUCOSE; Start 03/27/18 at 07:30 Glucagon (Glucagen) 1 mg Q15M PRN IM DECREASED GLUCOSE; Start 03/27/18 at 07:30 Glucose (Glutose) 15 gm Q15M PRN BUCCAL DECREASED GLUCOSE; Start 03/27/18 at 07:30 Insulin Glargine (Lantus) 20 units DAILY@2000 SC Last administered on 04/01/18at 22:45; Admin Dose 20 UNITS; Start 03/27/18 at 20:00 Atorvastatin Calcium (Lipitor) 80 mg DAILY@21 PO Last administered on 04/01/18at 22:38; Admin Dose 80 MG; Start 03/27/18 at 21:00 Enoxaparin Sodium (Lovenox) 40 mg DAILY SC Last administered on 03/29/18 09:21; Admin Dose 40 MG; Start 03/28/18 at 09:00; Status Hold Ticagrelor (Brilinta) 90 mg BID PO Last administered on 04/02/18 09:07; Admin Dose 90 MG; Start 03/28/18 at 21:00 Carvedilol (Coreg) 3.125 mg BID PO Last administered on 04/02/18 08:59; Admin Dose 3.125 MG; Start 03/29/18 at 09:15 Insulin Aspart (Novolog Insulin Pen) NOVOLOG *MODERATE* ALGORITHM BEFORE MEALS SC Last administered on 04/02/18 11:18; Admin Dose 8 UNIT; Start 03/30/18 at 11:30 Insulin Aspart (Novolog Insulin Pen) 5 unit WITH MEALS SC Last administered on 04/02/18 11:18; Admin Dose 5 UNIT; Start 03/30/18 at 11:30 Pantoprazole (Protonix Tab) 40 mg DAILY@06 PO Last administered on 04/02/18 06:14; Admin Dose 40 MG; Start 04/01/18 at 06:00 Lactobacillus Acidophilus/ Rhamnosus (Culturelle) 1 cap BID PO Last administered on 04/02/18 08:58; Admin Dose 1 CAP; Start 03/31/18 at 21:00 Potassium Chloride (Potassium Chloride Pwd/Soln) 40 meq DAILY PO Last ad ministered on 04/02/18 08:58; Admin Dose 40 MEQ; Start 03/31/18 at 18:00 Lisinopril (Zestril) 5 mg DAILY PO Last administered on 04/02/18 08:59; Admin Dose 5 MG; Start 04/01/18 at 16:00 Assessment/Plan Chief Complaint/Hosp Course Assessment 1. Status post acute hypoxemic respiratory failure secondary to CHF 2. Acute ID status post PCI Plan 1. Continue cardiac recs 2. PT eyalal cabrera planning. ? ALE[facility]ERNAL [facility], [facility] Apr 02, 2018 11:40
[2018-04-02] MEDS ORDERED: TICA90TA PO (12:44)
[2018-04-02] MEDS ORDERED: LISI-313 PO (12:44)
[2018-04-02] MEDS ORDERED: ASPI-831 PO (12:44)
[2018-04-02] MEDS ORDERED: CARV3.1260 PO (12:44)
--- NOTE | 2018-04-02 12:46 | PDOCDIS ---
Discharge Instructions DIAGNOSIS Discharge Diagnosis NSTEMI CONDITION [id number] Patient Condition: [id number] Stable HOME CARE INSTRUCTIONS: [id number] Special Diet: [id number] cardiac diet FOLLOW UP/APPOINTMENTS Follow-up Plan Make an appointment to see a manager of patient at [facility]. Take your medications as prescribed. Return to the hospital if you have any concerning symptoms. Eat a healthy diet and get some exercise everyday. DEUCE HUERTAS MD Apr 02, 2018 12:46
--- NOTE | 2018-04-02 13:08 | DS ---
Date/Time of Note Date/Time of Note DATE: 04/02/18 TIME: 13:04 Discharge Summary Admission/Discharge Info Admit Date/Time Mar 28, 2018 at 19:30 Discharge Date/Time Discharge Diagnosis CAD VF arrest Acute respiratory failure NSTEMI Patient Condition: Stable Hospital Course This is a 57 yo female with comorbidities including essential hy pertension, type 2 diabetes mellitus, dyslipidemia, obesity, cardiomyopathy, and depression who came to the emergency room with chief complaint of chest pain and dyspnea. The patient was admitted inpatient setting for further treatment and evaluation. The patient was taken to the [facility] on 03/28/2018 for elective left heart catheterization the patient had a percutaneous coronary intervention with stenting to the right coronary artery. This was complicated by stent thrombosis and proximal vessel dissection. Flow was restored. She was intubated and then had VF arrest in the ICU so a repeat cath was done showing patent stents. Pt was having intermittent pacing by the TVP and there is either a paced beat or PVC which caused R on T phenomenon both times. Electrolytes were ok. No recurrence after TVP removed. She was able to be extubated. TTE showed EF this admission 40-45% then 55% on echo post PCI . She was discharged on Coreg 3.25, lisinopril 5, aspirin/brillinta and continued on lipitor. She was encouraged to follow up at [facility] to see a information security Home Meds Active Scripts Cyclobenzaprine Hcl* (Cyclobenzaprine Hcl*) 5 Mg Tablet, 5 MG PO Q8H PRN for PAIN, #15 TAB Prov:ABIEL MARROQUIN PA-C 11/11/16 Ibuprofen* (Motrin*) 600 Mg Tab, 600 MG PO Q6, #30 TAB Prov:ABIEL MARROQUIN PA-C 11/11/16 Digoxin* (Digitek*) 125 Mcg Tablet, 0.125 MG PO DAILY for 30 Days, TAB Prov:SANDRITA GASPAR. 09/28/16 [place], Insulin Disposable (ADVOCATE PEN NEEDLES) 1 Each Dis.needle, 1 EACH MC DAILY, #100 Prov:SANDRITA GASPAR 09/28/16 Insulin Glargine* (Lantus*) 100 Unit/Ml Soln, 15 UNIT SC DAILY@20 for 30 Days, 2 Refills Prov:SANDRITA GASPAR 09/28/16 Furosemide* (Furosemide*) 40 Mg Tablet, 40 MG PO BID DIURETICS for 30 Days, TAB Prov:SANDRITA GASPAR. 09/28/16 Atorvastatin* (Atorvastatin*) 40 Mg Tablet, 40 MG PO DAILY@21 for 30 Days, TAB 2 Refills Prov:SANDRITA GASPAR. 09/28/16 Meclizine Hcl* (Meclizine Hcl*) 25 Mg Tablet, 25 MG PO Q8H PRN for DIZZINESS, #20 TAB Prov:YVONNE KRAUSE DO 08/10/16 Cholecalciferol* (Vitamin D3*) 1,000 Unit Tablet, 1000 UNIT PO DAILY for 20 Days, #20 TAB Prov:TESSY BEJARANO MD 06/27/16 Aspirin (Aspirin) 81 Mg Chew, 81 MG PO DAILY for 30 Days, #30 TAB Prov:TESSY BEJARANO MD 06/27/16 Carvedilol* (Carvedilol*) 6.25 Mg Tablet, 6.25 MG PO BID for 30 Days, #60 TAB Prov:TESSY BEJARANO MD 06/27/16 Metformin* (Glucophage*) 1,000 Mg Tablet, 1000 MG PO BID, #60 TAB Prov:TREY OATES DO 10/08/15 Olanzapine* (Zyprexa*) 5 Mg Tablet, 5 MG PO DAILY, #30 TAB Prov:TREY OATES DO 10/08/15 Reported Medications Insulin Lispro (Humalog Kwikpen U-100) 100 Unit/1 Ml Insuln.pen, 10 UNIT SQ AC A , EA 03/26/18 Omeprazole* (Omeprazole*) 20 Mg Capsule.dr, 20 MG PO DAILY, #30 CAP 03/26/18 Azelastine Hcl* (Azelastine Hcl*) 137 Mcg/0.137 Ml [place].pump, 1 SPRAY NASAL BID, #1 EA TO EACH NOSTRIL 03/26/18 Lisinopril* (Lisinopril*) 20 Mg Tablet, 20 MG PO BID, #30 TAB 08/10/16 Thiamine* (Vitamin B-1*) 100 Mg Tablet, 100 MG PO DAILY, TAB 08/10/16 Sitagliptin* (Januvia*) 100 Mg Tablet, 100 MG PO DAILY, #30 TAB AT LUNCH TIME 06/23/16 Sertraline Hcl* (Sertraline Hcl*) 50 Mg Tablet, 50 MG PO DAILY HS, #30 TAB 11/24/15 Potassium Chloride* (Potassium Chloride*) 8 Meq Capsule.er, 8 MEQ PO DAILY, CAP 11/24/15 Discontinued Reported Medications Insulin Lispro (Humalog) 100 Unit/1 Ml Cartridge, 10 UNIT SQ AC B, EA 03/26/18 Follow-up Plan Make an appointment to see a information security at [facility]. Take your medications as prescribed. Return to the hospital if you have any concerning symptoms. Eat a healthy diet and get some exercise everyday. Primary Care Provider Not On Staff Doctor Pending Labs Laboratory Tests Test 04/01/18 17:31 04/01/18 22:39 04/02/18 02:14 04/02/18 08:09 Bedside 247 240 159 192 Glucose mg/dL (70-220) mg/dL (70-220) mg/dL (70-220) mg/dL (70-220) Test 04/02/18 11:13 Bedside 270 Glucose mg/dL (70-220) DEUCE HUERTAS MD Apr 02, 2018 13:08
== END 2018-04-02 15:08 | disposition home or self-care (01) | DRG 246 ==
LOC: E/R 19:11 → 6WM 23:39 → ICU 03-28 11:15 → OBSVTOIN 03-28 19:30 → TEL 04-01 18:14
PROVIDERS: ADMIT Family Medicine; ATTEND Internal Medicine
PROC: 4A023N7 Measurement of Cardiac Sampling and Pressure, Left Heart, Percutaneous Approach (ICD-10-PCS; 2018-03-28)
PROC: B211YZZ Fluoroscopy of Multiple Coronary Arteries using Other Contrast (ICD-10-PCS; 2018-03-28)
PROC: 5A1223Z Performance of Cardiac Pacing, Continuous (ICD-10-PCS; 2018-03-28)
PROC: 4A023N7 Measurement of Cardiac Sampling and Pressure, Left Heart, Percutaneous Approach (ICD-10-PCS; 2018-03-28)
PROC: B211YZZ Fluoroscopy of Multiple Coronary Arteries using Other Contrast (ICD-10-PCS; 2018-03-28)
PROC: 5A2204Z Restoration of Cardiac Rhythm, Single (ICD-10-PCS; 2018-03-28)
PROC: 0BH17EZ Insertion of Endotracheal Airway into Trachea, Via Natural or Artificial Opening (ICD-10-PCS; 2018-03-28)
PROC: 5A1935Z Respiratory Ventilation, Less than 24 Consecutive Hours (ICD-10-PCS; 2018-03-28)
PROC: 027037Z Dilation of Coronary Artery, One Artery with Four or More Drug-eluting Intraluminal Devices, Percutaneous Approach (ICD-10-PCS; principal; 2018-03-28 07:30)
DX: I25.110 Atherosclerotic heart disease of native coronary artery with unstable angina pectoris (principal); J96.00 Acute respiratory failure, unspecified whether with hypoxia or hypercapnia; I49.01 Ventricular fibrillation; I25.42 Coronary artery dissection; I46.2 Cardiac arrest due to underlying cardiac condition; I21.4 Non-ST elevation (NSTEMI) myocardial infarction; I50.22 Chronic systolic (congestive) heart failure; T82.867A Thrombosis due to cardiac prosthetic devices, implants and grafts, initial encounter; I97.88 Other intraoperative complications of the circulatory system, not elsewhere classified; I97.190 Other postprocedural cardiac functional disturbances following cardiac surgery; E78.5 Hyperlipidemia, unspecified; F32.9 Major depressive disorder, single episode, unspecified; I11.0 Hypertensive heart disease with heart failure; E11.65 Type 2 diabetes mellitus with hyperglycemia; E66.9 Obesity, unspecified; I25.5 Ischemic cardiomyopathy; Y83.8 Other surgical procedures as the cause of abnormal reaction of the patient, or of later complication, without mention of misadventure at the time of the procedure; Y92.238 Other place in hospital as the place of occurrence of the external cause; Z68.34 Body mass index [BMI] 34.0-34.9, adult; F39 Unspecified mood [affective] disorder; R00.1 Bradycardia, unspecified
CPT/HCPCS: 31500; 36415; 36600; 71045; 80048; 80053; 80061; 82550; 82553; 82803; 82962; 83036; 83735; 83880; 84100; 84443; 84484; 85025; 85610; 87081; 92928; 93005; 93306; 93454; 93458; 94002; 94003; 94770; 96374; 96375; 97161; 97166; G0378; C1725; C1874; C1887; C1894; C9113; J0171; J0282; J0583; J1327; J1644; J1650; J1815; J1885; J1940; J2001; J2250; J2270; J2405; J3010; J3475; J7030; J7060; Q9967

== ENCOUNTER 2018-05-15 23:41 | Emergency (ER) | payer OTHER ==
[~2018-05-15] VITALS: Ht 147.3 cm; Wt 83.7 kg
[~2018-05-15 23:41] MED LIST changes: +AZEL137S9 NASAL; +CARV3.1260 PO; -CARV6.2579 PO; -CHOL100062 PO; -DIGO125T PO; -FURO40TA4 PO; -IBUP-1542 PO; +INSU100I12 SQ; +LISI-313 PO; -LISI-471 PO; -MECL-77 PO; -POTA8CAP PO; -THIA100T56 PO; +TICA90TA PO
[2018-05-15 23:46] VITALS: Ht 147.3 cm; Wt 83.7 kg
[2018-05-16] MEDS ORDERED: DIPHENHYDRAMINE 50 MG INJ IV STA (02:46)
[2018-05-16] MEDS ORDERED: METOCLOPRAMIDE 10 MG INJ IV STA (02:46)
[2018-05-16] MEDS ORDERED: ACETAMINOPHEN 500 MG TAB PO STA (02:46)
[2018-05-16] MEDS ORDERED: SOD CHLORIDE 0.9% 1,000 ML IV STA (02:46)
--- NOTE | 2018-05-16 03:47 | ERD ---
ER Documentation Chief Complaint Chief Complaint C/O RT SIDED LA X3 DAYS HPI This is a 58-year-old female with a history of hypertension and diabetes mellitus presents ED with complaints of right sided headache x 3 days. Patient rates headache at a 9 out of 10 pain and states that it comes and goes. Patient has never had similar headaches in the past. Patient denies any aggravating or alleviating factors. denies any fall or trauma to account for pain. admits to mild photophobia. Denies fever, chills, dizziness, confusion, weakness, blurred vision, changes in vision, phonophobia, chest pain or shortness of breath. takes aspirin daily ROS All systems reviewed and are negative except as per history of present illness. Medications Home Meds Active Scripts Ticagrelor* (Brilinta*) 90 Mg Tablet, 90 MG PO BID for 90 Days, #180 TAB 2 Refills Prov:DEUCE HUERTAS MD 04/02/18 Lisinopril* (Lisinopril*) 5 Mg Tablet, 5 MG PO DAILY for 90 Days, #90 TAB 5 Refills Prov:DEUCE HUERTAS MD 04/02/18 Carvedilol* (Carvedilol*) 3.125 Mg Tablet, 3.125 MG PO BID for 60 Days, #120 TAB Prov:DEUCE HUERTAS MD 04/02/18 Aspirin (Aspirin) 81 Mg Chew, 81 MG PO DAILY for 30 Days, #90 TAB 5 Refills Prov:DEUCE HUERTAS MD 04/02/18 Cyclobenzaprine Hcl* (Cyclobenzaprine Hcl*) 5 Mg Tablet, 5 MG PO Q8H PRN for PAIN, #15 TAB Prov:ABIEL MARROQUIN PA-C 11/11/16 [place], Insulin Disposable (ADVOCATE PEN NEEDLES) 1 Each Dis.needle, 1 EACH MC DAILY, #100 Prov:SANDRITA GASPAR. 09/28/16 Insulin Glargine* (Lantus*) 100 Unit/Ml Soln, 15 UNIT SC DAILY@20 for 30 Days, 2 Refills Prov:SANDRITA GASPAR. 09/28/16 Atorvastatin* (Atorvastatin*) 40 Mg Tablet, 40 MG PO DAILY@21 for 30 Days, TAB 2 Refills Prov:SANDRITA GASPAR 09/28/16 Metformin* (Glucophage*) 1,000 Mg Tablet, 1000 MG PO BID, #60 TAB Prov:TREY OATES DO 10/08/15 Olanzapine* (Zyprexa*) 5 Mg Tablet, 5 MG PO DAILY, #30 TAB Prov:TREY OATES DO 10/08/15 Reported Medications Insulin Lispro (Humalog Kwikpen U-100) 100 Unit/1 Ml Insuln.pen, 10 UNIT SQ AC A, EA 03/26/18 Azelastine Hcl* (Azelastine Hcl*) 137 Mcg/0.137 Ml [place].pump, 1 SPRAY NASAL BID, #1 EA TO EACH NOSTRIL 03/26/18 Sitagliptin* (Januvia*) 100 Mg Tablet, 100 MG PO DAILY, #30 TAB AT LUNCH TIME 06/23/16 Sertraline Hcl* (Sertraline Hcl*) 50 Mg Tablet, 50 MG PO DAILY HS, #30 TAB 11/24/15 Allergies Allergies: Coded Allergies: No Known Allergy (Unverified , 03/26/18) PMhx/Soc History of Surgery: No Anesthesia Reaction: No Hx Neurological Disorder: Yes (HX VERTIGO) Hx Respiratory Disorders: Yes (HX PNU) Hx Cardiac Disorders: Yes (HIGH BP) Hx Psychiatric Problems: Yes (DEPRESSION/ANXIETY) Hx Miscellaneous Medical Probl: Yes (HTN, DM, pulmonary hypertension, depress ion ) Hx Alcohol Use: No Hx Substance Use: No Hx Tobacco Use: Yes Smoking Status: Never smoker FmHx Family History: No diabetes Physical Exam Vitals Vital Signs Date Temp Pulse Resp B/P (MAP) Pulse Ox O2 O2 Flow FiO2 Time Delivery Rate 05/15/18 98.8 95 19 133/67 98 23:46 (89) Physical Exam Physical Exam Vitals signs: Reviewed by me. General: Well developed, well nourished, in no acute distress. Patient is awake and alert. Head: Normocephalic, atraumatic. Eyes: Normal conjunctiva, Pupils PERRLA, EOM intact bilaterally x6 ENT: Pharynx is clear, Moist mucous membranes, external ears, nose and mouth normal Neck: Supple, no masses, lymphadenopathy or JVD Respiratory: Clear to auscultation bilaterally with no wheezing, rhonchi, rales, no distress Cardiovascular: RRR, no murmurs, rubs, or gallops MSK: No edema, no unilateral swelling, 5/5 strength Neurologic: Alert and oriented, moving all extremities, normal speech, no focal weakness, no cerebellar signs. Normal mentation Neuro: M/S: Alert and oriented Face: EOMI, face and pharynx with normal sensation and function Motor: Normal strength throughout Sensation: Normal sensation throughout Speech: Normal Cerebel: Normal coordination Normal gait Normal finger to nose DTR: 2+ and symmetric upper/lower extremities Cranial nerves II through XII intact bilaterally Skin: warm and dry, No rash Psych: Normal mood Result Diagram: 05/16/1830105/16/18301 Results 24 hrs Laboratory Tests Test 05/16/18 03:02 White Blood Count 10.5 10^3/ul Red Blood Count 4.97 10^6/ul Hemoglobin 13.5 g/dl Hematocrit 41.0 % Mean Corpuscular Volume 82.5 fl Mean Corpuscular Hemoglobin 27.2 pg Mean Corpuscular Hemoglobin Concent 32.9 g/dl Red Cell Distribution Width 12.6 % Platelet Count 316 10^3/UL Mean Platelet Volume 9.9 fl Immature Granulocytes % 0.500 % Neutrophils % 65.9 % Lymphocytes % 27.8 % Monocytes % 4.9 % Eosinophils % 0.0 % Basophils % 0.9 % Nucleated Red Blood Cells % 0.0 /100WBC Immature Granulocytes # 0.050 10^3/ul Neutrophils # 6.9 10^3/ul Lymphocytes # 2.9 10^3/ul Monocytes # 0.5 10^3/ul Eosinophils # 0.0 10^3/ul Basophils # 0.1 10^3/ul Nucleated Red Blood Cells # 0.0 10^3/ul Prothrombin Time 11.8 Sec Prothrombin Time Ratio 0.9 INR International Normalized Ratio 0.86 Activated Partial Thromboplast Time 33.7 Sec Sodium Level 141 mmol/L Potassium Level 4.5 mmol/L Chloride Level 102 mmol/L Carbon Dioxide Level 28 mmol/L Anion Gap 11 Blood Urea Nitrogen 17 mg/dl Creatinine 0.54 mg/dl Est Glomerular Filtrat Rate mL/min > 60 mL/min Glucose Level 224 mg/dl Calcium Level 10.1 mg/dl Current Medications Medications Dose Sig/Honey Start Time Status Last (Trade) Ordered Route PRN Stop Time Admin Dose Reason Admin Sodium 1,000 ml @ Q1H STAT 05/16/18 DC 05/16/18 Chloride 1,000 mls/hr IV 02:46 05/16/18 02:53 03:45 1,000 mg ONCE STAT 05/16/18 DC 05/16/18 Acetaminophen PO 02:46 05/16/18 02:54 (Tylenol 02:48 Tab) 10 mg ONCE STAT 05/16/18 DC 05/16/18 Metoclopramid IV 02:46 05/16/18 02:54 e HCl 02:48 (Reglan) 25 mg ONCE STAT 05/16/18 DC 05/16/18 Diphenhydrami IV 02:46 05/16/18 02:54 ne HCl 02:48 (Benadryl) 1 tab ONCE ONCE 05/16/18 DC 05/16/18 Acetaminophen PO 05:00 05/16/18 04:45 / 05:01 Hydrocodone Bitart ([place] (5/325)) Procedures/MDM EKG, MONITORS, & DIAGNOSTIC IMAGING: [place] [id number] Radiology Main Line: [phone] DIAGNOSTIC IMAGING REPORT Patient: KELLY ERICKSON : 1960 Age: 58 Sex: F MR #: [id number] DOS: 05/16/18 0246 Ordering MD: MARY ARENAS PA-C Location: [facility] Room/Bed: PROCEDURE: CT Brain without contrast. CLINICAL INDICATION: Headache, of recent onset within the past few days TECHNIQUE: Axial images from the skull base through the vertex without IV cont rast. Multiplanar reformatted images were made. Images were reviewed on a PACS workstation. The CTDIvol is 37.70 mGy and the DLP is 634.23 mGy-cm. One or more of the following dose reduction techniques were used: automated exposure control, adjustment of the mA and/or kV according to patient size, or use of iterative reconstruction technique. DICOM images are available. COMPARISON: None. FINDINGS: There is patchy heterogeneity seen within the right posterior parieto-occipital region, including subtle hypodensity centrally overlying which there are curvilinear somewhat gyriform foci of increased density. There is no associated mass effect. No evidence of hydrocephalus or midline shift. Mild ventricular and sulcal prominence consistent with mild generalized volume loss. Minimal patchy periventricular white matter hypodensity most likely on a chronic small vessel ischemic basis. Mastoid air cells and paranasal sinuses are clear. Intact calvarium. IMPRESSION: Abnormality involving the right posterior parieto-occipital lobe, that includes linear high density which would raise concern for the possibility of subarachnoid hemorrhage, with subtle underlying hypodensity that may be a small region of age indeterminate infarct , gliosis or contusion. Differential could also include the possibility of vascular malformation. Further evaluation by MRI without and with contrast and MRA is recommended. No mass effect, midline shift or hydrocephalus. Results and recommendations were discussed with the ordering clinician Mary Arenas at time of dictation 0500 hours. RPTAT: HSAF Clarice Aragon Physician Date Time Electronically viewed and signed by Clarice Aragon Physician on 05/16/2018 05:06 RF/ CC: MARY ARENAS PA-C [id number] LAB INTERPRETATION: CBC shows no evidence of hemorrhage or infection Chemistry remarkable for an elevated glucose of 224, but otherwise no evidence of significant electrolyte abnormalities or renal insufficiency Coagulation study showed no concerning coagulopathy ER COURSE: The patient was given Reglan, Benadryl, and IV normal saline, and norco The medication was well tolerated and the patient reports mild improvement in symptoms. The patient was stable throughout ED course. I kept the patient and/or family informed of laboratory and diagnostic imaging results throughout the emergency room course. The patient was promptly evaluated and a treatment plan was devised based on H&P and other data. This plan was discussed with the patient who agreed and had no further questions or concerns prior to discharge. MEDICAL DECISION MAKIN-year-old female presents ED with right sided headache times 3 days. Patient states that she has never had a headache like this before so I proceeded with ordering CT head without contrast to rule out any acute pathology. CT of head without contrast shows an abnormality involving the right posterior parieto- occipital lobe which is concerning for a possible subarachnoid hemorrhage. I immediately discussed this with my overseeing physician Dr. Encinas who will be taking over care of this patient. Patient will likely be admitted to hospital and will need neurosurgery consultation. Pending MRI without and with contrast as well as MRA. Blood Pressure Assessment: Patient's blood pressure was elevated (>120/80) but appears stable without evidence of hypertension emergency or urgency. The patient was counseled about the risks of hypertension and urged to pursue outpatient monitoring and therapy within a week with their primary care physician. Departure Diagnosis: Primary Impression: Subarachnoid hemorrhage Condition: Stable Additional Instructions: MARY ARENAS PA-C May 16, 2018 03:47
[2018-05-16] MEDS ORDERED: HYDROCODONE/APAP (5/325) TAB PO ONE (05:00)
[2018-05-16] MEDS ORDERED: ONDANSETRON 4 MG INJ IV STA (05:46)
[2018-05-16] MEDS ORDERED: morphine 2 MG INJ IV STA (05:46)
[2018-05-16] MEDS ORDERED: SOD CHLORIDE 0.9% 100 ML ONE (06:02)
[2018-05-16] MEDS ORDERED: IOHEXOL 300MG/ML 150 ML BTL ONE (06:02)
--- NOTE | 2018-05-16 06:11 | ERD ---
ER Documentation Chief Complaint Chief Complaint C/O LA X3 DAYS HPI The patient was initially seen by the PA in ED2 The patient is a 58-year-old female, presenting to the ER because of constant headache for the last 3 days, no aggravating/relieving factors, denies trauma, denies similar symptoms previously, denies blurred vision, facial pain, neck pain, chest pain, dyspnea, abdominal pain, vomiting. She does not smoke nor drink Past medical history: Hypertension, CAD, diabetes mellitus, dyslipidemia Past surgical history: None ROS All systems reviewed and are negative except as per history of present illness. Medications Home Meds Active Scripts Ticagrelor* (Brilinta*) 90 Mg Tablet, 90 MG PO BID for 90 Days, #180 TAB 2 Refills Prov:DEUCE HUERTAS MD 04/02/18 Lisinopril* (Lisinopril*) 5 Mg Tablet, 5 MG PO DAILY for 90 Days, #90 TAB 5 Re fills Prov:DEUCE HUERTAS MD 04/02/18 Carvedilol* (Carvedilol*) 3.125 Mg Tablet, 3.125 MG PO BID for 60 Days, #120 TAB Prov:DEUCE HUERTAS MD 04/02/18 Aspirin (Aspirin) 81 Mg Chew, 81 MG PO DAILY for 30 Days, #90 TAB 5 Refills Prov:DEUCE HUERTAS MD 04/02/18 Cyclobenzaprine Hcl* (Cyclobenzaprine Hcl*) 5 Mg Tablet, 5 MG PO Q8H PRN for PAIN, #15 TAB Prov:ABIEL MARROQUIN PA-C 11/11/16 [place], Insulin Disposable (ADVOCATE PEN NEEDLES) 1 Each Dis.needle, 1 EACH MC DAILY, #100 Prov:SANDRITA GASPAR 09/28/16 Insulin Glargine* (Lantus*) 100 Unit/Ml Soln, 15 UNIT SC DAILY@20 for 30 Days, 2 Refills Prov:SANDRITA GASPAR 09/28/16 Atorvastatin* (Atorvastatin*) 40 Mg Tablet, 40 MG PO DAILY@21 for 30 Days, TAB 2 Refills Prov:SANDRITA GASPAR 09/28/16 Metformin* (Glucophage*) 1,000 Mg Tablet, 1000 MG PO BID, #60 TAB Prov:TREY OATES DO 10/08/15 Olanzapine* (Zyprexa*) 5 Mg Tablet, 5 MG PO DAILY, #30 TAB Prov:TREY OATES DO 10/08/15 Reported Medications Insulin Lispro (Humalog Kwikpen U-100) 100 Unit/1 Ml Insuln.pen, 10 UNIT SQ AC A, EA 03/26/18 Azelastine Hcl* (Azelastine Hcl*) 137 Mcg/0.137 Ml [place].pump, 1 SPRAY NASAL BID, #1 EA TO EACH NOSTRIL 03/26/18 Sitagliptin* (Januvia*) 100 Mg Tablet, 100 MG PO DAILY, #30 TAB AT LUNCH TIME 06/23/16 Sertraline Hcl* (Sertraline Hcl*) 50 Mg Tablet, 50 MG PO DAILY HS, #30 TAB 11/24/15 Allergies Allergies: Coded Allergies: No Known Allergy (Unverified , 03/26/18) PMhx/Soc History of Surgery: Yes (Angioplasty) Anesthesia Reaction: No Hx Neurological Disorder: Yes (HX VERTIGO) Hx Respiratory Disorders: Yes (HX PNU) Hx Cardiac Disorders: Yes (HIGH BP) Hx Psychiatric Problems: Yes (DEPRESSION/ANXIETY) Hx Miscellaneous Medical Probl: Yes (HTN, DM, pulmonary hypertension, depression ) Hx Alcohol Use: No Hx Substance Use: No Hx Tobacco Use: Yes Smoking Status: Never smoker Physical Exam Vitals Vital Signs Date Temp Pulse Resp B/P (MAP) Pulse Ox O2 O2 Flow FiO2 Time Delivery Rate 05/16/18 98.8 98 15 144/80 98 Room Air 08:10 (101) 98 05/16/18 98.8 98 15 133/72 97 Room Air 07:30 (92) 98 05/16/18 98.8 95 17 159/73 99 Room Air 07:00 (101) 05/16/18 98.8 96 17 142/110 100 Room Air 06:30 (121) 05/16/18 89 17 155/85 100 Room Air 06:15 (108) 05/16/18 166/80 06:05 (108) 05/16/18 92 20 171/97 99 Room Air 06:00 (121) 05/16/18 91 18 167/89 99 Room Air 05:50 (115) 05/16/18 85 24 155/86 98 Room Air 05:30 (109) 05/15/18 98.8 95 19 133/67 98 23:46 (89) Physical Exam Const: No acute distress. Head: Atraumatic. Eyes: Normal Conjunctiva. ENT: Normal External Ears, Nose and Mouth. Neck: Full range of motion. No meningismus. Resp: Clear to auscultation bilaterally. Cardio: Regular rate and rhythm. Abd: Soft, non distended, normal bowel sounds, non tender. Skin: No petechiae or rashes. Back: No midline or flank tenderness. Ext: No cyanosis, or edema. Neur: Awake and alert. No focal deficit Psych: Normal Mood and Affect. Result Diagram: 05/16/18 0302 05/16/18 0302 Results 24 hrs Laboratory Tests Test 05/16/18 03:02 05/16/18 08:06 White Blood Count 10.5 10^3/ul Red Blood Count 4.97 10^6/ul Hemoglobin 13.5 g/dl Hematocrit 41.0 % Mean Corpuscular Volume 82.5 fl Mean Corpuscular Hemoglobin 27.2 pg Mean Corpuscular Hemoglobin Concent 32.9 g/dl Red Cell Distribution Width 12.6 % Platelet Count 316 10^3/UL Mean Platelet Volume 9.9 fl Immature Granulocytes % 0.500 % Neutrophils % 65.9 % Lymphocytes % 27.8 % Monocytes % 4.9 % Eosinophils % 0.0 % Basophils % 0.9 % Nucleated Red Blood Cells % 0.0 /100WBC Immature Granulocytes # 0.050 10^3/ul Neutrophils # 6.9 10^3/ul Lymphocytes # 2.9 10^3/ul Monocytes # 0.5 10^3/ul Eosinophils # 0.0 10^3/ul Basophils # 0.1 10^3/ul Nucleated Red Blood Cells # 0.0 10^3/ul Prothrombin Time 11.8 Sec Prothrombin Time Ratio 0.9 INR International Normalized Ratio 0.86 Activated Partial Thromboplast Time 33.7 Sec Sodium Level 141 mmol/L Potassium Level 4.5 mmol/L Chloride Level 102 mmol/L Carbon Dioxide Level 28 mmol/L Anion Gap 11 Blood Urea Nitrogen 17 mg/dl Creatinine 0.54 mg/dl Est Glomerular Filtrat Rate mL/min > 60 mL/min Glucose Level 224 mg/dl Calcium Level 10.1 mg/dl Bedside Glucose 164 mg/dL Current Medications Medications Dose Sig/Honey Start Time Status Last (Trade) Ordered Route PRN Stop Time Admin Dose Reason Admin Sodium 1,000 ml @ Q1H STAT 05/16/18 DC 05/16/18 Chloride 1,000 mls/hr IV 02:46 05/16/18 02:53 03:45 1,000 mg ONCE STAT 05/16/18 DC 05/16/18 Acetaminophen PO 02:46 05/16/18 02:54 (Tylenol 02:48 Tab) 10 mg ONCE STAT 05/16/18 DC 05/16/18 Metoclopramid IV 02:46 05/16/18 02:54 e HCl 02:48 (Reglan) 25 mg ONCE STAT 05/16/18 DC 05/16/18 Diphenhydrami IV 02:46 05/16/18 02:54 ne HCl 02:48 (Benadryl) 1 tab ONCE ONCE 05/16/18 DC 05/16/18 Acetaminophen PO 05:00 05/16/18 04:45 / 05:01 Hydrocodone Bitart ([place] (5/325)) Morphine 2 mg ONCE STAT 05/16/18 DC 05/16/18 Sulfate IV 05:46 05/16/18 05:55 (morphine) 05:49 Ondansetron 4 mg ONCE STAT 05/16/18 DC 05/16/18 HCl (Zofran IV 05:46 05/16/18 05:55 Inj) 05:49 Sodium 100 ml @ ud STK-MED 05/16/18 DC Chloride ONCE .ROUTE 06:02 05/16/18 06:03 Iohexol 150 ml STK-MED 05/16/18 DC (Omnipaque ONCE .ROUTE 06:02 05/16/18 300mg/ ml) 06:03 1 mg ONCE STAT 05/16/18 DC 05/16/18 Hydromorphone IV 06:28 05/16/18 06:37 HCl 06:29 (Dilaudid) Procedures/[place] [address] Radiology Main Line: [phone] DIAGNOSTIC IMAGING REPORT Patient: KELLY ERICKSON : 1960 Age: 58 Sex: F MR #: [id number] DOS: 05/16/18 0246 Ordering MD: MARY ARENAS PA-C Location: [facility] Room/Bed: PROCEDURE: CT Brain without contrast. CLINICAL INDICATION: Headache, of recent onset within the past few days TECHNIQUE: Axial images from the skull base through the vertex without IV contrast. Multiplanar reformatted images were made. Images were reviewed on a PACS workstation. The CTDIvol is 37.70 mGy and the DLP is 634.23 mGy-cm. One or more of the following dose reduction techniques were used: automated exposure control, adjustment of the mA and/or kV according to patient size, or use of iterative reconstruction technique. DICOM images are available. COMPARISON: None. FINDINGS: There is patchy heterogeneity seen within the right posterior parieto-occipital region, including subtle hypodensity centrally overlying which there are curvilinear somewhat gyriform foci of increased density. There is no associated mass effect. No evidence of hydrocephalus or midline shift. Mild ventricular and sulcal prominence consistent with mild generalized volume loss. Minimal patchy periventricular white matter hypodensity most likely on a chronic small vessel ischemic basis. Mastoid air cells and paranasal sinuses are clear. Intact calvarium. IMPRESSION: Abnormality involving the right posterior parieto-occipital lobe, that includes linear high density which would raise concern for the possibility of subarachnoid hemorrhage, with subtle underlying hypodensity that may be a small region of age indeterminate infarct , gliosis or contusion. Differential could also include the possibility of vascular malformation. Further evaluation by MRI without and with contrast and MRA is recommended. No mass effect, midline shift or hydrocephalus. Results and recommendations were discussed with the ordering clinician Mary Arenas at time of dictation 0500 hours. RPTAT: HSAF Physician Jcarlos Date Time Electronically viewed and signed by Physician Jcarlos on 05/16/2018 05:06 RF/ CC: MARY ARENAS PA-C [id number] Consultation: I discussed the patient with the on-call neurosurgeon Dr. Lake at 5:40 AM, who was made aware of the patient condition and he personally reviewed the CT scan himself and recommended transfer the patient for higher level of care I discussed the patient with the [facility] stroke center physician Dr. Clarke at 6 0 5 AM, who was made aware of the patient condition the CT scan finding and the n eurosurgeon recommendation. 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 She was treated with morphine 2 mg IV x2 for headache and Zofran 4 mg IV for nausea with good response. The differential diagnoses considered include but are not limited to subarachnoid hemorrhage, occult trauma, CVA, meningitis, encephalitis, hypertension, tension, migraine, cluster, narcotic withdrawal, cervical spine disease. Critical Care: Time: 35 minutes excluding all billable procedures. Treatments/Evaluations: Close monitoring and treatment of unstable vital signs, cardiorespiratory, and neurologic status, while maintaining tight balance of fluid, respiratory, and cardiac interventions. 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 Also, please note that the electronic time recorded on this note does not necessarily reflect the actual time of the patient encounter. BOBBY PADILLA MD May 16, 2018 06:11
[2018-05-16] MEDS ORDERED: HYDROmorphONE 0.5 MG/0.5 ML SYG IV STA (06:28)
[2018-05-16 08:10] VITALS: BP 144/80; PULSE 98; RESP 15
== END 2018-05-16 08:10 | disposition short-term general hospital (02) ==
LOC: FTE 23:41 → E/R 05-16 08:10
DX: I60.9 Nontraumatic subarachnoid hemorrhage, unspecified (principal); I10 Essential (primary) hypertension; E11.9 Type 2 diabetes mellitus without complications; I25.10 Atherosclerotic heart disease of native coronary artery without angina pectoris; Z98.61 Coronary angioplasty status; Z87.891 Personal history of nicotine dependence; Z79.82 Long term (current) use of aspirin; Z79.4 Long term (current) use of insulin
CPT/HCPCS: 70450; 80048; 82962; 85025; 85610; 85730; J1170; J1200; J2270; J2405; J2765; J7030; Q9967; Z7610; 36415; 96374; 96375